=== PATIENT | male | born 1960 | race Caucasian/White ===

== ENCOUNTER 2016-10-07 13:27 | Inpatient (IN) | payer OTHER ==
[2016-10-07] MEDS ORDERED: ACETAMINOPHEN TAB 325 MG TAB PO STA (14:07)
[2016-10-07 14:28] LABS: Basophils # (A) 0.1 k/uL (0-0.2); Basophils % (A) 1 %; CHCM 33.4; Eosinophils % (A) 0 %; HCT 40.3 % (39.0-53.0); HGB 13.1 gm/dL (13.0-17.5); Luc # (Auto) 0.11; Luc % (Auto) 1; Lymphocytes # (A) 0.5 k/uL (1.0-4.8); Lymphocytes % (A) 6 %; MCH 29.4 pg (25.0-35.0); MCHC 32.6 g/dL (31.0-37.0); MCV 90.3 fL (80.0-100.0); Monocytes # (A) 0.4 k/uL (0-1.0); Monocytes % (A) 6 %; Neutrophils # (A) 6.4 k/uL (1.3-7.7); Neutrophils % (A) 86 %; RBC 4.47 m/uL (4.30-5.90); RDW 14.5 % (11.5-15.5); WBC 7.5 k/uL (3.8-10.6); WBC (Perox) 7.34
[2016-10-07] MEDS: SODIUM CHLORIDE 0.9% 500 ML IV SCH ×2 (14:39→15:08)
[2016-10-07 14:41] LABS: INR 0.9 (<1.1); Partial Thromboplastin Time 25.5 sec (22.0-30.0); Prothrombin Time 9.7 sec (9.0-12.0)
[2016-10-07 14:46] LABS: ALT 137 U/L (21-72); AST 325 U/L (17-59); Alkaline Phosphatase 201 U/L (38-126); Anion Gap 15 mmol/L; Blood Urea Nitrogen 12 mg/dL (9-20); Calcium 8.2 mg/dL (8.4-10.2); Carbon Dioxide 21 mmol/L (22-30); Chloride 101 mmol/L (98-107); Glucose 82 mg/dL (74-99); Non-African American GFR(MDRD) >60 (>60 ml/min/1.73 sqM); Potassium 4.5 mmol/L (3.5-5.1); Sodium 137 mmol/L (137-145); Total Bilirubin 0.7 mg/dL (0.2-1.3)
[2016-10-07 15:04] LABS: Creatine Kinase 221 U/L (55-170)
[2016-10-07] MEDS ORDERED: SODIUM CHLORIDE 0.9% 1,000 ML IV ONE ×3 (15:04→17:24)
[2016-10-07 15:16] LABS: Creatine Kinase MB 0.7 ng/mL (0.0-2.4); Manual Review Performed; Troponin I <0.012 ng/mL (0.000-0.034)
[2016-10-07 15:18] LABS: Appearance,Urine Clear (Clear); Bilirubin,Urine Negative (Negative); Glucose,Urine (UA) Negative (Negative); Ketones,Urine 2+ (Negative); Leukocyte Esterase,Urine Negative (Negative); Mucus,Urine Occasional /hpf; Nitrite,Urine Negative (Negative); PH, Urine 5.5 (5.0-8.0); Particle Count 4122; Protein,Urine Trace (Negative); RBC,Urine 1 /hpf (0-5); Specific Gravity,Urine 1.016 (1.001-1.035); UA Billing (MACRO vs. MICRO) MICRO; WBC,Urine 1 /hpf (0-5)
--- NOTE | 2016-10-07 15:33 | XR ---
EXAMINATION TYPE: XR chest 2V DATE OF EXAM: 10/07/2016 3:20 PM COMPARISON: 06/27/2015 HISTORY: Fever TECHNIQUE: Frontal and lateral views of the chest are obtained. FINDINGS: There is a 5 cm patch of infiltrate in the right midlung that is probably in the right mid dle lobe. The other lung cox are clear. Heart size is normal. There is no heart failure. Costophre jos angles are clear. There are chest leads. IMPRESSION: There is evidence of right middle lobe pneumonia that is new compared to old exam.
[2016-10-07] MEDS ORDERED: AZITHROMYCIN 500 MG TAB PO STA (15:59)
[2016-10-07] MEDS ORDERED: RX INFO: IV CONTRAST WAS GIVEN 1 EACH MISC MISCELLANE PRN (15:59)
--- NOTE | 2016-10-07 16:47 | CT ---
EXAMINATION TYPE: CT chest angio for PE DATE OF EXAM: 10/07/2016 4:35 PM COMPARISON: NONE HISTORY: Patient complains of pneumonia diagnosis and right side chest pain. CT DLP: 147.8 mGycm Automated exposure control for dose reduction was used. CONTRAST: CT Chest for pulmonary embolism performed with with IV Contrast, patient injected with 100 mL of Omni paque 350. FINDINGS: There is mild pleural thickening at the lung apices. There is a low-density 1 cm nodule at the right lung apex. There is some patchy consolidation in the lateral segment of the right middle lobe. There is no evidence of a pulmonary mass. There is no mediastinal adenopathy. There are no hilar masses. There is normal contrast opacification of the pulmonary arteries. There is no pericardial effusion. There is no sign of aortic aneurysm or dissection. There is some patchy infiltrate at the right posterior lung base. There is fatty infiltra tion of the liver. IMPRESSION: No evidence of pulmonary embolism. Right middle lobe and right lower lobe pneumonia. Pulmonary scarri ng noted at the lung apices.
[2016-10-07] MEDS ORDERED: PNEUMONIA PROTOCOL UTILIZED 1 EACH MISC PO PRN (16:50)
[2016-10-07] MEDS ORDERED: HYDROcodone/APAP 5-325MG 1 EACH TAB PO PRN (16:52)
[2016-10-07] MEDS ORDERED: THIAMINE 100 MG/ML 2 ML VIAL IM STA (16:52)
[2016-10-07] MEDS ORDERED: LORazepam 2 MG/ML SYRINGE IV PRN ×2 (16:52)
--- NOTE | 2016-10-07 16:54 | ED ---
Chest Pain HPI - General Chief Complaint: Chest Pain Stated Complaint: chest pain Time Seen by Provider: 10/07/16 13:31 Source: patient, RN notes reviewed Mode of arrival: EMS Limitations: no limitations - History of Present Illness Initial Comments: This patient is a 56-year-old man, currently homeless, who presents with onset of right-sided, pleuritic pain this morning. Patient states she had been in his usual state last night. Today probably around 9 he noticed a bit of a cough and right-sided anterior chest pain that he is describing as moderate to severe, sharp ache, worse if he takes a deep breath. He states that he may also had a bit of a fever. MD Complaint: chest pain -: hour(s) Onset: during rest Pain Location: right chest Severity: severe Quality: aching Consistency: constant Improves With: nothing Worsens With: inspiration Other Symptoms: cough, fever - Related Data Home Medications Medication Instructions Recorded Confirmed No Known Home Medications [No 10/07/16 10/07/16 Known Home Medications] Allergies Allergy/AdvReac Type Severity Reaction Status Date / Time No Known Allergies Allergy Verified 10/07/16 13:54 Review of Systems ROS Statement: Those systems with pertinent positive or pertinent negative responses have been documented in the HPI. ROS Other: All systems not noted in ROS Statement are negative. Constitutional: Reports: fever, chills Respiratory: Reports: cough. Denies: dyspnea, wheezes, hemoptysis Cardiovascular: Reports: chest pain. Denies: palpitations, orthopnea, edema, syncope Gastrointestinal: Denies: abdominal pain, nausea, vomiting Genitourinary: Denies: dysuria, hematuria Musculoskeletal: Denies: back pain Skin: Denies: rash Neurological: Denies: headache, weakness, numbness EKG Findings - EKG Results: EKG: interpreted by ERMD, sinus rhythm, normal axis, normal QRS, normal ST/T, no acute changes EKG shows: tachycardia (Rate approximately 106 bpm) Past Medical History Past Medical History: No Reported History Additional Past Medical History / Comment(s): arthritis, chronic back pain, right ankle fracture, right fibula fracture History of Any Multi-Drug Resistant Organisms: None Reported Past Surgical History: No Surgical Hx Reported Additional Past Surgical History / Comment(s): ABD SURGERY FOR ULCER Past Anesthesia/Blood Transfusion Reactions: Unable to Obtain Past Psychological History: No Psychological Hx Reported Smoking Status: Current every day smoker Past Alcohol Use History: Abuse, Daily, Heavy Past Drug Use History: None Reported - Past Family History Father Family Medical History: COPD Additional Family Medical History / Comment(s): alcoholism Mother Family Medical History: Cancer General Exam Limitations: no limitations General appearance: alert, in no apparent distress Head exam: Present: atraumatic, normocephalic Eye exam: Present: normal appearance. Absent: scleral icterus, conjunctival injection Neck exam: Present: normal inspection Respiratory exam: Present: rales (Right middle lung), chest wall tenderness. Absent: respiratory distress, wheezes, rhonchi, stridor, accessory muscle use, decreased breath sounds, prolonged expiratory Cardiovascular Exam: Present: normal rhythm, tachycardia, normal heart sounds GI/Abdominal exam: Present: soft. Absent: distended, tenderness, guarding, rebound Extremities exam: Present: normal inspection, normal capillary refill. Absent: pedal edema, calf tenderness Back exam: Present: normal inspection. Absent: CVA tenderness (R), CVA tenderness (L) Neurological exam: Present: alert Skin exam: Present: warm, dry, intact, normal color. Absent: rash Course Vital Signs 10/07/16 10/07/16 10/07/16 13:35 15:11 17:01 Temperature 100.6 F H 100.3 F H Pulse Rate 105 H 97 96 Respiratory 20 19 18 Rate Blood Pressure 128/55 142/78 135/78 O2 Sat by Pulse 94 L 96 97 Oximetry 10/07/16 17:35 Temperature 99.9 F H Pulse Rate 97 Respiratory 18 Rate Blood Pressure 131/78 O2 Sat by Pulse 97 Oximetry Disposition Clinical Impression: Chest pain, Pneumonia Disposition: ADMITTED IP TO THIS HOSP Condition: Fair
[2016-10-07] MEDS ORDERED: NICOTINE 21MG/24HR PATCH TRANSDERM STA (17:00)
[2016-10-07] MEDS: SODIUM CHLORIDE 0.9% 1,000 ML IV SCH (17:09)
[2016-10-07] MEDS: LORazepam 2 MG/ML SYRINGE IV PRN ×2 (17:10→21:18)
[2016-10-07 18:23] LABS: Creatine Kinase 191 U/L (55-170)
[2016-10-07 18:36] LABS: Creatine Kinase MB 0.6 ng/mL (0.0-2.4); Troponin I <0.012 ng/mL (0.000-0.034)
[2016-10-07] MEDS ORDERED: IPRATROPIUM-ALBUTEROL 3 ML NEB INHALATION PRN ×2 (19:30)
[2016-10-07] MEDS: SYMBICORT 160-4.5 MCG INHALER INHALATION SCH (19:38)
[2016-10-07] MEDS: IPRATROPIUM-ALBUTEROL 3 ML NEB INHALATION SCH (19:38)
[2016-10-07] MEDS ORDERED: ALBUTEROL NEBULIZED 2.5 MG/3 ML INHALATION SCH (20:00)
[2016-10-07] MEDS: HEPARIN SODIUM,PORCINE 5,000 UNIT/ML 1 ML VIAL SQ SCH (20:02)
[2016-10-07 20:10] VITALS: BMI 20.5
[2016-10-07] MEDS: HYDROmorphone 1 MG/ML 1 ML SYRINGE IVP PRN (20:15)
[2016-10-07] MEDS: PIPERACILLIN-TAZOBACTAM 3.375 GM in DEXTROSE/WATER 1 50ML.BAG IVPB SCH (23:16)
[2016-10-08] MEDS: HYDROmorphone 1 MG/ML 1 ML SYRINGE IVP PRN ×3 (00:13→09:12)
[2016-10-08] MEDS: LORazepam 2 MG/ML SYRINGE IV PRN ×3 (03:11→21:20)
[2016-10-08] MEDS: SODIUM CHLORIDE 0.9% 1,000 ML IV SCH ×3 (03:15→23:00)
[2016-10-08 03:39] LABS: Creatine Kinase 183 U/L (55-170)
[2016-10-08 03:52] LABS: Creatine Kinase MB 1.1 ng/mL (0.0-2.4); Troponin I <0.012 ng/mL (0.000-0.034)
[2016-10-08] MEDS: IPRATROPIUM-ALBUTEROL 3 ML NEB INHALATION SCH ×4 (08:45→20:42)
[2016-10-08] MEDS: SYMBICORT 160-4.5 MCG INHALER INHALATION SCH ×2 (08:46→20:40)
[2016-10-08] MEDS ORDERED: LEVOFLOXACIN 750MG-D5W PMX 750 MG in DEXTROSE/WATER 1 150ML.BAG IVPB SCH (09:00)
[2016-10-08 09:06] LABS: Basophils % (A) 0 %; CH 29.9; CHCM 32.7; Eosinophils % (A) 0 %; HCT 39.8 % (39.0-53.0); HDW 1.88; HGB 12.7 gm/dL (13.0-17.5); Luc # (Auto) 0.27; Luc % (Auto) 3; Lymphocytes # (A) 0.7 k/uL (1.0-4.8); Lymphocytes % (A) 7 %; MCH 29.4 pg (25.0-35.0); MCV 91.9 fL (80.0-100.0); Mean Platelet Volume 7.7; Monocytes # (A) 0.5 k/uL (0-1.0); Monocytes % (A) 5 %; Neutrophils # (A) 8.4 k/uL (1.3-7.7); Neutrophils % (A) 85 %; RBC 4.34 m/uL (4.30-5.90); RDW 14.5 % (11.5-15.5); WBC (Perox) 10.71
[2016-10-08] MEDS: NICOTINE 21MG/24HR PATCH TRANSDERM SCH (09:08)
[2016-10-08] MEDS: HEPARIN SODIUM,PORCINE 5,000 UNIT/ML 1 ML VIAL SQ SCH ×2 (09:08→20:55)
[2016-10-08 09:16] LABS: ALT 87 U/L (21-72); AST 131 U/L (17-59); Alkaline Phosphatase 137 U/L (38-126); Anion Gap 11 mmol/L; Blood Urea Nitrogen 11 mg/dL (9-20); Calcium 7.9 mg/dL (8.4-10.2); Carbon Dioxide 24 mmol/L (22-30); Chloride 97 mmol/L (98-107); Glucose 129 mg/dL (74-99); Non-African American GFR(MDRD) >60 (>60 ml/min/1.73 sqM); Potassium 4.1 mmol/L (3.5-5.1); Sodium 132 mmol/L (137-145); Total Bilirubin 0.8 mg/dL (0.2-1.3); Total Protein 5.8 g/dL (6.3-8.2)
--- NOTE | 2016-10-08 10:09 | HP ---
DATE OF ADMISSION: CHIEF COMPLAINT: Chest pain, shortness of breath and cough. HISTORY OF PRESENT ILLNESS: This 56-year-old gentleman with past medical history of multiple medical problems, including history of DJD, history of chronic back pain, right fracture, history of nicotine dependence, history of heavy EtOH abuse being followed by Dr. Chavez in the outpatient setting was complaining of right-sided lung pain. The patient also had shortness of breath, patient admitted for right middle lobe pneumonia was admitted for evaluation and possible sepsis also considered. There is no history of fever, rigors. No history of headache, loss of consciousness, seizures. PAST MEDICAL HISTORY: History of nicotine dependence, history of degenerative joint disease, chronic back, right ankle fracture. Medications prior to admission include the home medications include: None. ALLERGIES: None. FAMILY HISTORY: History of COPD, alcoholism in the family. SOCIAL HISTORY: History of EtOH, history of smoking. REVIEW OF SYSTEMS: ENT: No diminished hearing. No diminished vision. CARDIOVASCULAR: No angina. RESPIRATORY: As mentioned earlier. GI: No nausea. : No dysuria. NERVOUS SYSTEM: No numbness or weakness. ALLERGY/IMMUNOLOGY: No asthma or hayfever. MUSCULOSKELETAL: As mentioned earlier. HEMATOLOGY: No history of anemia. ENDOCRINE: No history of diabetes or hypothyroidism. CONSTITUTIONAL: As mentioned earlier. DERMATOLOGY: Negative. RHEUMATOLOGY: Negative. PSYCHIATRY: As mentioned earlier. PHYSICAL EXAMINATION: Alert and oriented x3. Pulse is 104, blood pressure 136/69, respirations 22, temperature 98.2, pulse ox 94% on 2 liters. T-max is 100.6. HEENT: Conjunctivae normal. NECK: No jugular venous distention. CARDIOVASCULAR: S1 and S2, muffled. RESPIRATORY: Breath sounds diminished at the bases. Marked on the right side because of pleurisy. A few scattered rhonchi and crackles bilaterally, right more than left. ABDOMEN: Soft, nontender, no mass palpable. No hepatosplenomegaly. LEGS: No edema, no swelling. NERVOUS SYSTEM: Higher function as mentioned. Moves all four limbs. No focal motor deficits. LYMPHATIC: No lymphadenopathy in the neck, axillae or groin. SKIN: No ulcer, rash or bleeding. LABS: WBC 7.5, platelets 75 and the d-dimer is 1.78. No evidence of pulmonary embolism. 2.7. LFTs elevated. ASSESSMENT: 1. Chronic obstructive pulmonary disease acute exacerbation with right middle lobe pneumonia, possibly gram-negative with possible sepsis. 2. Increased AST, ALT, acute hepatitis possibly a combination of alcoholic hepatitis and sepsis. 3. History of EtOH. 4. History of nicotine dependence. 5. Thrombocytopenia. 6. Increased d-dimer without evidence of pulmonary embolism. 7. Increased plasma lactic acid possibly secondary to sepsis, improving. 8. History of degenerative joint disease and back pain. 9. History of fracture. 10. Chronic obstructive pulmonary disease. 11. History of nicotine dependence. 12. History of EtOH. RECOMMENDATIONS AND DISCUSSION: In this 56-year-old gentleman who presented with multiple complex medical issues, we will monitor the patient closely. Continue the current medications. Continue symptomatic treatment. Otherwise at this time, I will continue the bronchodilators and empiric antibiotics, DVT prophylaxis. See orders for further details. Consult Dr. Treadwell. Further recommendations to follow. Copy of is being forwarded to Dr. Chavez, the primary physician. [facility]
[2016-10-08] MEDS: PIPERACILLIN-TAZOBACTAM 3.375 GM in DEXTROSE/WATER 1 50ML.BAG IVPB SCH ×3 (10:26→23:21)
--- NOTE | 2016-10-08 11:20 | P.CNPUL ---
History of Present Illness Consult date: 10/08/16 Reason for consult: chest pain, pneumonia, abnormal CXR/CT Chief complaint: Chest and abdominal pain History of present illness: This is a 56-year-old homeless man who presents with pain in the right chest area right abdominal area. Apparently was just starting a day or so prior to admission. The pain was sharp in nature. Worse with deep breathing removed around. He'll bit of a cough. A bit of phlegm production. Not coughing up any blood. The phlegm is mostly white. No fever no chills. No nausea vomiting or diarrhea. The patient does not have a physician other than occasionally seeing Dr. Chavez. The patient has no major medical problems. Did have a fractured ankle in the past a bit of arthritis and some chronic back pain. He also spent some time in care home he tells me. Review of Systems Review of system is positive for pain in the right chest area and right upper abdominal area. A bit of shortness of breath. The pain pain is clearly pleuritic in nature very sharp. Worse with deep breathing coughing etc. No other complaints noted. No phlegm production except for some minimal white phlegm production. No fever no chills no nausea vomiting or diarrhea. The rest of the 12 point review of system is unremarkable. Past Medical History Past Medical History: No Reported History Additional Past Medical History / Comment(s): arthritis, chronic back pain, right ankle fracture, right fibula fracture History of Any Multi-Drug Resistant Organisms: None Reported Past Surgical History: No Surgical Hx Reported Additional Past Surgical History / Comment(s): ABD SURGERY FOR ULCER Past Anesthesia/Blood Transfusion Reactions: Unable to Obtain Past Psychological History: No Psychological Hx Reported Smoking Status: Current every day smoker Past Alcohol Use History: Abuse, Daily, Heavy Past Drug Use History: None Reported - Past Family History Father Family Medical History: COPD Additional Family Medical History / Comment(s): alcoholism Mother Family Medical History: Cancer Medications and Allergies Home Medications Medication Instructions Recorded Confirmed Type No Known Home Medications [No 10/07/16 10/07/16 History Known Home Medications] Allergies Allergy/AdvReac Type Severity Reaction Status Date / Time No Known Allergies Allergy Verified 10/07/16 20:12 Physical Exam Osteopathic Statement: *. No significant issues noted on an osteopathic structural exam other than those noted in the History and Physical/Consult. Vitals: Vital Signs Temp Pulse Pulse Pulse Resp BP BP 10/08/16 08:57 108 H 10/08/16 08:46 108 H 10/08/16 07:00 98.2 F 101 H 19 137/79 10/07/16 23:00 99.1 F 108 H 20 146/75 10/07/16 19:46 108 H 10/07/16 19:33 105 H 10/07/16 18:05 98.2 F 104 H 22 10/07/16 17:35 99.9 F H 97 18 131/78 10/07/16 17:01 100.3 F H 96 18 135/78 BP Pulse Ox 10/08/16 08:57 10/08/16 08:46 10/08/16 07:00 96 10/07/16 23:00 95 10/07/16 19:46 10/07/16 19:33 10/07/16 18:05 133/69 95 10/07/16 17:35 97 10/07/16 17:01 97 Intake and Output 10/07/16 10/08/16 10/08/16 22:59 06:59 14:59 Intake Total 200 100 Balance 200 100 Intake: Amount of Fluid Infused ( 100 ml) Oral 100 100 Other: Voiding Method Toilet # Voids 1 1 1 Weight 54.4 kg No acute distress, oriented 3. No respiratory distress. HEENT examination is grossly unremarkable. Mucous membranes are moist. There are no oral lesions. Supple. Full range of motion. No adenopathy. Cardiovascular examination reveals regular rhythm rate. S1-S2 normal. No S3- S4 or murmur. Lungs reveal a few scattered rhonchi. No wheezes or crackles. All all lung sounds are quite good. Abdomen soft bowel sounds are heard. Extremities are intact. Results - Laboratory Findings CBC and BMP: 10/08/16 08:37 10/08/16 08:37 PT/INR, D-dimer PT 9.7 sec (9.0-12.0) 10/07/16 13:45 INR 0.9 (<1.1) 10/07/16 13:45 D-Dimer 1.78 mg/L FEU (<0.60) H 10/07/16 13:45 Abnormal lab findings: Abnormal Labs 10/07/16 10/08/16 10/08/16 18:02 02:35 08:37 Hgb 12.7 L Plt Count 60 L Neutrophils # 8.4 H Lymphocytes # 0.7 L Sodium Chloride Creatinine Glucose Calcium AST ALT Alkaline Phosphatase Total Creatine Kinase 191 H 183 H Total Protein Albumin 10/08/16 08:37 Hgb Plt Count Neutrophils # Lymphocytes # Sodium 132 L Chloride 97 L Creatinine 0.60 L Glucose 129 H Calcium 7.9 L AST 131 H ALT 87 H Alkaline Phosphatase 137 H Total Creatine Kinase Total Protein 5.8 L Albumin 3.1 L - Diagnostic Findings Chest x-ray: image reviewed CT scan - chest: image reviewed Assessment and Plan (1) Chest pain Status: Acute (2) Pneumonia Status: Acute Plan: Plan The patient's medications x-rays and labs will be reviewed. The patient looks pretty stable. If his numbers don't look bad, he could be discharged home on oral antibiotics. Not quite sure why he was actually admitted. He is otherwise healthy. Not having any distress at this time. Time with Patient: Greater than 30
[2016-10-08] MEDS: THIAMINE 100 MG TAB PO SCH ×2 (11:55→17:46)
[2016-10-08] MEDS: cloNIDine HCL 0.1 MG TAB PO SCH ×2 (17:46→21:20)
--- NOTE | 2016-10-08 23:23 | PN ---
DATE OF SERVICE: 10/08/2016 This 56-year-old gentleman who was admitted with COPD acute exacerbation also has right middle lobe pneumonia and also features of sepsis. The patient is on broad spectrum IV antibiotics. Pulmonary is following the patient closely. No fever, no cough. On exam, alert and oriented x3. Pulse 170, blood pressure is 140/90, respirations 19, pulse ox 90% on 2 liters. REVIEW OF SYSTEMS: CARDIOVASCULAR: No angina or palpitations. GI: As mentioned. : As mentioned. MUSCULOSKELETAL: As mentioned. Current medications are reviewed and include: 1. DuoNeb q.i.d. and p.r.n. 2. Symbicort. 3. Heparin. 4. Levaquin. 5. Ativan. 6. CIWA protocol. 7. Habitrol. 8. Zosyn. 9. Iron sulfate. PHYSICAL EXAMINATION: HEENT: Conjunctivae normal. NECK: Supple. No JVD. CARDIOVASCULAR: S1 and S2 muffled. LUNGS: Breath sounds are diminished in the bases. Bilateral scattered rhonchi and crackles. Inspiratory wheezing also present. ABDOMEN: Soft, nontender. EXTREMITIES: Legs no edema. DATA COMMUNICATIONS TECHNICIAN: Moves all limbs equally. LYMPHATICS: No lymph nodes palpable in the neck or axillae. LABS: WBC 10, hemoglobin is 12.7, sodium 132. Glucose 129. 1.9. ASSESSMENT: 1. Chronic obstructive pulmonary disease, acute exacerbation, with right middle lobe pneumonia with possibly gram-negative with possible sepsis, present on admission. 2. Change in mental status, metabolic encephalopathy. 3. Possible ETOH withdrawal and delirium tremens, early. 4. Increased AST. 5. Hypertension. 6. Delirium tremens, early. 7. Increased AST, ALT, possibly acute hepatitis, possibly combination of alcoholic hepatitis and sepsis. 8. History of nicotine dependence. 9. Thrombocytopenia. 10. Increased D-dimer without any evidence of pulmonary embolism. 11. Increased plasma lactic acid, possibly secondary to sepsis. 12. History of degenerative joint disease and back pain. 13. History of fracture. 14. History of chronic obstructive pulmonary disease. 15. History of nicotine dependence. 16. History of EtOH. 17. FULL CODE. RECOMMENDATIONS AND DISCUSSION: In this 56-year-old gentleman who presented with multiple complex issues, we will monitor the patient closely, continue the current medications and symptomatic treatment. Continue with Ativan protocol and CIWA protocol, continue broad spectrum IV antibiotics. Guarded prognosis because of multiple complex medical issues. Further recommendations to follow. The patient is on IV Zosyn at this time. Supplement vitamins. See orders for further details. Further recommendations to follow. MTDD
[2016-10-09] MEDS: SYMBICORT 160-4.5 MCG INHALER INHALATION SCH ×2 (07:38→20:12)
[2016-10-09] MEDS: IPRATROPIUM-ALBUTEROL 3 ML NEB INHALATION SCH ×4 (07:38→20:12)
[2016-10-09] MEDS: PIPERACILLIN-TAZOBACTAM 3.375 GM in DEXTROSE/WATER 1 50ML.BAG IVPB SCH ×3 (08:38→23:53)
[2016-10-09] MEDS: SODIUM CHLORIDE 0.9% 1,000 ML IV SCH ×2 (08:39→20:27)
[2016-10-09] MEDS: LEVOFLOXACIN 750 MG TAB PO SCH (08:39)
[2016-10-09] MEDS: cloNIDine HCL 0.1 MG TAB PO SCH ×3 (08:39→20:30)
[2016-10-09] MEDS: NICOTINE 21MG/24HR PATCH TRANSDERM SCH (08:39)
[2016-10-09] MEDS: HEPARIN SODIUM,PORCINE 5,000 UNIT/ML 1 ML VIAL SQ SCH ×2 (08:39→20:30)
[2016-10-09 09:46] LABS: Basophils % (A) 0 %; CH 29.9; CHCM 32.6; Eosinophils # (A) 0.1 k/uL (0-0.7); Eosinophils % (A) 1 %; HDW 2.03; HGB 12.7 gm/dL (13.0-17.5); Luc # (Auto) 0.19; Luc % (Auto) 2; Lymphocytes # (A) 0.9 k/uL (1.0-4.8); Lymphocytes % (A) 10 %; MCH 29.3 pg (25.0-35.0); MCHC 31.8 g/dL (31.0-37.0); Monocytes # (A) 0.4 k/uL (0-1.0); Monocytes % (A) 5 %; Neutrophils # (A) 6.9 k/uL (1.3-7.7); Neutrophils % (A) 81 %; RBC 4.34 m/uL (4.30-5.90); RDW 14.4 % (11.5-15.5); WBC 8.5 k/uL (3.8-10.6); WBC (Perox) 8.98
[2016-10-09 09:52] LABS: ALT 76 U/L (21-72); AST 98 U/L (17-59); Alkaline Phosphatase 131 U/L (38-126); Anion Gap 11 mmol/L; Blood Urea Nitrogen 11 mg/dL (9-20); Calcium 8.5 mg/dL (8.4-10.2); Carbon Dioxide 24 mmol/L (22-30); Chloride 100 mmol/L (98-107); Glucose 87 mg/dL (74-99); Non-African American GFR(MDRD) >60 (>60 ml/min/1.73 sqM); Potassium 3.8 mmol/L (3.5-5.1); Sodium 135 mmol/L (137-145); Total Bilirubin 0.8 mg/dL (0.2-1.3)
[2016-10-09] MEDS: THIAMINE 100 MG TAB PO SCH ×2 (11:41→16:29)
--- NOTE | 2016-10-09 14:54 | XR ---
EXAMINATION TYPE: XR chest 1V portable DATE OF EXAM: 10/09/2016 2:39 PM COMPARISON: 10/07/2016 HISTORY: Pneumonia TECHNIQUE: Single frontal view of the chest is obtained. FINDINGS: Right upper lobe infiltrate and perihilar infiltrate is stable. Left lung remains clear. N o pneumothorax. Biapical pleural thickening. Cardiac size is stable. Arthropathy of the shoulders. IMPRESSION: 1. Stable right upper lobe pneumonia.
--- NOTE | 2016-10-09 17:43 | P.PN ---
Subjective This is a 56-year-old homeless man who presents with pain in the right chest area right abdominal area. Apparently was just starting a day or so prior to admission. The pain was sharp in nature. Worse with deep breathing removed around. He'll bit of a cough. A bit of phlegm production. Not coughing up any blood. The phlegm is mostly white. No fever no chills. No nausea vomiting or diarrhea. The patient does not have a physician other than occasionally seeing Dr. Chavez. The patient has no major medical problems. Did have a fractured ankle in the past a bit of arthritis and some chronic back pain. The patient has a extensive right mid/right lower lobe pneumonia as evident on the CAT scan of the chest. Note that he underwent a CT angios the chest and the results were negative for pulmonary embolism and confirmed the presence of an extensive pneumonia. Based on this, the patient was started on a combination of Zosyn and Levaquin. On today's chest x-ray, there is a stable right lung infiltrate. The patient has no leukocytosis. The sputum culture is still pending. Blood culture been negative. The patient is considering to go home and this will obviously be again still my medical advice. His chest pain has subsided. No fever. No chills. He is still short of breath with limited amount of activity. Objective - Vital Signs Vital signs: Vital Signs Temp 97.1 F L 10/09/16 07:00 Pulse 92 10/09/16 15:36 Resp 16 10/09/16 07:00 BP 139/81 10/09/16 07:00 Pulse Ox 96 10/09/16 07:38 Intake & Output 10/08/16 10/09/16 10/09/16 18:59 06:59 18:59 Intake Total 1100 Balance 1100 Intake: Intake, IV Titration 1100 Amount Sodium Chloride 0.9% 1, 1100 000 ml @ 100 mls/hr IV . Q10H RACHEL Rx#:[id number] Other: Voiding Method Urinal Urinal # Voids 3 2 - Exam The patient appeared well nourished and normally developed. Vital signs as documented. Head exam is unremarkable. No scleral icterus or corneal arcus noted. Neck is without jugular venous distension, thyromegaly, or carotid bruits. Carotid upstrokes are brisk bilaterally. lung sounds are diminished bilaterally especially in the right midlung where there is also some crackles. Cardiac exam reveals the PMI to be normally sized and situated. Rhythm is regular. First and second heart sounds normal. No murmurs, rubs or gallops. Abdominal exam reveals normal bowel sounds, no masses, no organomegaly and no aortic enlargement. Extremities are nonedematous and both femoral and pedal pulses are normal. - Labs CBC & Chem 7: 10/09/16 08:44 10/09/16 08:44 Labs: Abnormal Lab Results - Last 24 Hours (Table) 10/09/16 10/09/16 Range/Units 08:44 08:44 Hgb 12.7 L (13.0-17.5) gm/dL Plt Count 65 L (150-450) k/uL Lymphocytes # 0.9 L (1.0-4.8) k/uL Sodium 135 L (137-145) mmol/L Creatinine 0.60 L (0.66-1.25) mg/dL AST 98 H (17-59) U/L ALT 76 H (21-72) U/L Alkaline Phosphatase 131 H (38-126) U/L Total Protein 6.0 L (6.3-8.2) g/dL Albumin 3.1 L (3.5-5.0) g/dL Microbiology - Last 24 Hours (Table) 10/07/16 20:20 Gram Stain - Preliminary Sputum Sputum Culture - Preliminary Assessment and Plan Plan: Impression 1 extensive right lung pneumonia involving the right middle/right lower lobe and the patient is currently on a combination of Zosyn and Levaquin. Rule out aspiration pneumonia 2 chest pain secondary to above 3 alcoholism 4 homeless social status Plan Continue the current antibiotic coverage which includes a combination of Zosyn and Levaquin. Any Discharge home should be against my medical advice specially the patient has extensive right lung pneumonia and will benefit from IV antibiotics. Meanwhile the patient will be washed for daily and tremens. He is on thiamine. He is on folate. He is on DVT prophylaxis.
[2016-10-09] MEDS: LORazepam 2 MG/ML SYRINGE IV PRN ×2 (17:48→20:39)
--- NOTE | 2016-10-09 20:58 | P.PN ---
Subjective Date of service 10/09/2016 Personal being dictated for Dr. Wyman. Interval history: This a 56-year-old gentleman admitted with extensive right middle lobe pneumonia, sepsis, alcohol abuse and multiple other medical issues. Maintained on Levaquin and Zosyn with respiratory status improving. Positive exertional shortness of breath. Chest x-ray reporting stable right lung infiltrate. Afebrile. Sputum culture pending. Oxygen recently weaned off , Maintaining O2 sats of 95% on room air. Continues on CIWA protocol, no DTs reported .Denies chest pain, or palpitations. Objective - Vital Signs Vital signs: Vital Signs Temp 97 F L 10/09/16 15:00 Pulse 100 10/09/16 20:29 Resp 16 10/09/16 15:00 BP 143/74 10/09/16 20:29 Pulse Ox 95 10/09/16 20:29 Intake & Output 10/09/16 10/09/16 10/10/16 06:59 18:59 06:59 Intake Total 1100 Balance 1100 Intake: Intake, IV Titration 1100 Amount Sodium Chloride 0.9% 1, 1100 000 ml @ 100 mls/hr IV . Q10H [facility] Rx#:[id number] Other: Voiding Method Urinal Urinal # Voids 2 4 - Exam PHYSICAL EXAM: VITAL SIGNS: As above GENERAL: [Sitting up at side of bed, no acute distress] HEENT: [Pupils equal conjunctiva normal.] NECK: [Supple, no JVD] RESPIRATORY EFFORT:[] Mildly LUNGS: [Diminished with right middle lobe crackles] CARDIOVASCULAR[regular S1 and S2, no edema] GI: [Abdomen soft, nontender, positive bowel sounds.] PSYCH: [Alert and oriented -3, mood and affect anxious.] NEURO: No focal deficits - Labs CBC & Chem 7: 10/09/16 08:44 10/09/16 08:44 Labs: Abnormal Lab Results - Last 24 Hours (Table) 10/09/16 10/09/16 Range/Units 08:44 08:44 Hgb 12.7 L (13.0-17.5) gm/dL Plt Count 65 L (150-450) k/uL Lymphocytes # 0.9 L (1.0-4.8) k/uL Sodium 135 L (137-145) mmol/L Creatinine 0.60 L (0.66-1.25) mg/dL AST 98 H (17-59) U/L ALT 76 H (21-72) U/L Alkaline Phosphatase 131 H (38-126) U/L Total Protein 6.0 L (6.3-8.2) g/dL Albumin 3.1 L (3.5-5.0) g/dL Assessment and Plan Plan: 1. Acute hypoxic respiratory failure secondary to Acute exacerbation of COPD with extensive right middle lobe pneumonia, possible gram-negative, increased lactic acid possible related to sepsis, present on admission. 2. [Change in mental status, acute metabolic encephalopathy secondary to EtOH abuse, infection]. 3. [Possible EtOH withdrawal and DTs, early]. 4. [Elevated LFTs, possible acute hepatitis, possible combination of alcoholic hepatitis and sepsis]. 5. [Hypertension]. 6. Ongoing nicotine abuse]. 7. [Elevated d-dimer, pulmonary embolism ruled out]. 8. Degenerative joint disease with chronic back pain 9. COPD 10. Ongoing Alcohol abuse 11. Thrombocytopenia secondary to alcohol abuse Plan: Tinea on current medication regime ,monitoring and symptomatic treatment. Continue on IV antibiotics, nebulized bronchodilators,CIWA protocol. Increase ambulation as tolerated. Smoking and alcohol cessation readdressed.Discharge planning in progress for tomorrow pending pulmonary clearance. Plan of care discussed with patient at bedside who verbalizes understanding of and agreement with. The impression and plan of care has been dictated as directed. : I performed a H&P examination of this patient and discussed the same with the dictator. I agree with the dictator's note. Any additional findings/opinions/ etc. will be noted.
[2016-10-10] MEDS: SODIUM CHLORIDE 0.9% 1,000 ML IV SCH (05:00)
[2016-10-10] MEDS: SYMBICORT 160-4.5 MCG INHALER INHALATION SCH (07:12)
[2016-10-10] MEDS: IPRATROPIUM-ALBUTEROL 3 ML NEB INHALATION SCH ×2 (07:13→11:01)
[2016-10-10 07:33] VITALS: BP 148/96; RESP 22; TEMP 96.7
[2016-10-10] MEDS: PIPERACILLIN-TAZOBACTAM 3.375 GM in DEXTROSE/WATER 1 50ML.BAG IVPB SCH (07:54)
[2016-10-10] MEDS: NICOTINE 21MG/24HR PATCH TRANSDERM SCH (07:54)
[2016-10-10] MEDS: HEPARIN SODIUM,PORCINE 5,000 UNIT/ML 1 ML VIAL SQ SCH (07:54)
[2016-10-10] MEDS: LEVOFLOXACIN 750 MG TAB PO SCH (07:54)
[2016-10-10] MEDS: cloNIDine HCL 0.1 MG TAB PO SCH (07:54)
--- NOTE | 2016-10-10 10:12 | DS ---
DATE OF ADMISSION: 10/07/2016 DATE OF DISCHARGE: DATE OF SERVICE: 10/09/2016 FINAL DIAGNOSES: 1. Chronic obstructive pulmonary disease acute exacerbation with right middle lobe pneumonia with possibly gram-negative with possible sepsis, present on admission. 2. Change in mental status, metabolic encephalopathy with possibly delirium tremens, early. 3. EtOH withdrawal. 4. Increased AST. 5. Hypertension. 6. Increased AST, ALT, possible acute hepatitis, possible combination of alcoholic hepatitis and sepsis. 7. History of nicotine dependence. 8. Thrombocytopenia. 9. Increased D-dimer without any evidence of pulmonary embolism. 10. Increased plasma lactic acid, possibly secondary to sepsis. 11. History of degenerative joint disease and back pain. 12. History of fracture. 13. History of chronic obstructive pulmonary disease. 14. History of nicotine dependence. 15. History of EtOH. 16. FULL CODE. DISCHARGE DISPOSITION: The patient will be discharged in a stable condition with a guarded prognosis. HISTORY OF PRESENT ILLNESS: This 56-year-old gentleman with a past medical history of multiple medical problems was admitted with COPD acute exacerbation as well as pneumonia and sepsis and multiple medical problems. The patient was treated symptomatically. Patient is extremely keen on going home. On exam, vitals are stable. CARDIOVASCULAR: S1 and S2 muffled. RESPIRATORY: Breath sounds diminished at the bases. A few rhonchi. ABDOMEN: Soft. NERVOUS SYSTEM; No focal deficits. The patient is looking much better clinically but; however, chest x-ray infiltrate persists and recommend the patient to continue the treatment, but the patient is in getting out of the hospital so the patient will be discharged in stable condition with guarded prognosis with the following advice: 1. Diet is cardiac. 2. Activity limited until followup. 3. Follow up with Dr. Chavez in 2 to 3 days. 4. Follow up with Dr. Pierre in one week. Medications are: 1. Symbicort 160/4.5 two puffs b.i.d. 2. Folic acid 1 mg daily. 3. Albuterol Atrovent q.i.d. and p.r.n. 4. Ativan 0.5 mg t.i.d. p.r.n. 5. Levaquin 750 p.o. daily for 5 days. 6. Multivitamin 1 p.o. daily. 7. Habitrol 21 daily. 8. Thiamine 100 mg daily. 9. Catapres 0.1 p.o. t.i.d. Once again, the patient will be discharged in stable condition with guarded prognosis. MTDD
[2016-10-10 10:23] LABS: ALT 70 U/L (21-72); AST 78 U/L (17-59); Alkaline Phosphatase 134 U/L (38-126); Anion Gap 11 mmol/L; Blood Urea Nitrogen 14 mg/dL (9-20); Carbon Dioxide 22 mmol/L (22-30); Chloride 102 mmol/L (98-107); Glucose 105 mg/dL (74-99); Non-African American GFR(MDRD) >60 (>60 ml/min/1.73 sqM); Potassium 3.8 mmol/L (3.5-5.1); Sodium 135 mmol/L (137-145); Total Bilirubin 0.9 mg/dL (0.2-1.3); Total Protein 6.3 g/dL (6.3-8.2)
[2016-10-10 10:45] LABS: Basophils % (A) 0 %; CHCM 32.7; Eosinophils # (A) 0.1 k/uL (0-0.7); Eosinophils % (A) 3 %; HCT 38.6 % (39.0-53.0); HDW 2.04; HGB 12.5 gm/dL (13.0-17.5); Luc # (Auto) 0.18; Luc % (Auto) 4; Lymphocytes # (A) 0.6 k/uL (1.0-4.8); Lymphocytes % (A) 12 %; MCH 29.8 pg (25.0-35.0); MCHC 32.3 g/dL (31.0-37.0); MCV 92.1 fL (80.0-100.0); Mean Platelet Volume 9.3; Monocytes # (A) 0.5 k/uL (0-1.0); Monocytes % (A) 9 %; Neutrophils # (A) 3.6 k/uL (1.3-7.7); Neutrophils % (A) 72 %; RBC 4.19 m/uL (4.30-5.90); RDW 14.2 % (11.5-15.5); WBC (Perox) 5.08
--- NOTE | 2016-10-10 10:47 | XR ---
EXAMINATION TYPE: XR chest 2V DATE OF EXAM: 10/10/2016 10:11 AM COMPARISON: Prior chest x-ray 09 October 2016 HISTORY: Pneumonia, abnormal chest x-ray TECHNIQUE: Frontal and lateral views of the chest are obtained. FINDINGS: Abnormal airspace disease again noted in the right upper lobe, possibly right middle and l ower lobe show improved aeration. Biapical pleural thickening is present. No evident pneumothorax or pleural effusion. Cardiomediastinal silhouette, pulmonary vascularity and edenilson not significantly wiley ged. IMPRESSION: Some improvement in aeration is suspected.
[2016-10-10 11:14] VITALS: PULSE 96
[2016-10-10] MEDS: THIAMINE 100 MG TAB PO SCH (12:37)
[2016-10-10] MEDS ORDERED: INFLUENZA VACCINE (3YR+) 60 MCG/0.5 ML SYRINGE IM ONE (12:39)
[2016-10-10] MEDS ORDERED: PNEUMOCOCCAL VACC-PNEUMOVAX 23 25 MCG/0.5 ML VIAL IM ONE (12:39)
--- NOTE | 2016-10-10 15:52 | P.PN ---
Subjective This is a pleasant 56-year-old gentleman who presented here on 10/07/2016 with complaints of right abdominal and chest pain. He was found to have a extensive pneumonia. Pulmonary embolism was ruled out. He has been treated with antibiotics steroids and bronchodilators. He is seen again today in follow-up. His follow-up chest x-ray resolves near resolution of the pneumonia. He is anxious to go home. He denies any worsening shortness of breath, cough or congestion. He is maintaining good O2 saturations in the upper 90s on room air. He is afebrile. No leukocytosis. Objective - Vital Signs Vital signs: Vital Signs Temp 96.7 F L 10/10/16 07:00 Pulse 96 10/10/16 11:13 Resp 22 10/10/16 07:00 BP 148/96 10/10/16 07:00 Pulse Ox 96 10/10/16 07:13 Intake & Output 10/09/16 10/10/16 10/10/16 18:59 06:59 18:59 Intake Total 480 Output Total 600 Balance -600 480 Intake: Oral 480 Output: Urine 600 Other: Voiding Method Urinal # Voids 1 2 - Exam GENERAL EXAM: Alert, active, comfortable in no apparent distress. HEAD: Normocephalic. EYES: Normal reaction of pupils, equal size. NOSE: Clear with pink turbinates. THROAT: No erythema or exudates. NECK: No masses, no JVD. CHEST: No chest wall deformity. LUNGS: Equal air entry with no crackles, wheeze, rhonchi or dullness. CVS: S1 and S2 normal with no audible murmurs, regular rhythm. ABDOMEN: No hepatosplenomegaly, normal bowel sounds, no guarding or rigidity. SPINE: No scoliosis or deformity SKIN: No rashes CENTRAL NERVOUS SYSTEM: No focal deficits, tone is normal in all 4 extremities. - Labs CBC & Chem 7: 10/10/16 09:35 10/10/16 09:35 Labs: Abnormal Lab Results - Last 24 Hours (Table) 10/10/16 10/10/16 Range/Units 09:35 09:35 RBC 4.19 L (4.30-5.90) m/uL Hgb 12.5 L (13.0-17.5) gm/dL Hct 38.6 L (39.0-53.0) % Plt Count 105 L D (150-450) k/uL Lymphocytes # 0.6 L (1.0-4.8) k/uL Sodium 135 L (137-145) mmol/L Creatinine 0.60 L (0.66-1.25) mg/dL Glucose 105 H (74-99) mg/dL AST 78 H (17-59) U/L Alkaline Phosphatase 134 H (38-126) U/L Albumin 3.3 L (3.5-5.0) g/dL Microbiology - Last 24 Hours (Table) 10/07/16 20:20 Gram Stain - Preliminary Sputum Sputum Culture - Preliminary Streptococcus pneumoniae Assessment and Plan Plan: Impression: #1 Acute right lung pneumonia involving both the right middle lobe and right lower lobe. Treated with Zosyn and Levaquin. Today's x-ray reveals near complete resolution. #2 Chest pain secondary to above. #3 Alcoholism. #4 Homeless social status. Plan: The patient was seen and evaluated by Dr. Pierre. His chest x-ray was reviewed. The patient is cleared for discharge from the pulmonary standpoint. He is encouraged to follow-up in our office in 1-2 weeks' time. We will obtain a chest x-ray then. He is encouraged to call sooner with any recurrence of symptoms or other questions or concerns.
--- NOTE | 2016-10-11 08:04 | PN ---
DATE OF SERVICE: 10/09/2016 This is 56 -year-old gentleman with chronic obstructive pulmonary disease, pneumonia, being closely monitor. Seen and evaluated the patient along with nurse practitioner. Please refer to the nurse practitioner notes and impression documented as a scribe for further information. Prognosis guarded. Further recommendations to follow.
--- NOTE | 2016-10-11 11:08 | DS ---
DATE OF ADMISSION: 10/07/2016 DATE OF DISCHARGE: 10/10/2016 ADDENDUM: This 56-year-old gentleman with COPD acute exacerbation also has right middle lobe pneumonia is improving significantly. Seen and evaluated the patient today. The patient will be recommend close follow-up and avoid ETOH. On exam, vital signs stable. CARDIOVASCULAR: S1, S2 muffled. Respiratory: A few rhonchi. ABDOMEN: Soft. Central nervous system: No focal deficits. Please refer to previous dictation for further details and diagnoses as well as detailed medications. Follow up with Dr. Chavez and Dr. Pierre. Total time taken 35 minutes.
== END 2016-10-10 14:14 | disposition home or self-care (01) | DRG 871 ==
LOC: EC 13:27 → 4MS4W 16:54
PROVIDERS: ADMIT Hospitalist; ATTEND Hospitalist
PROC: HZ2ZZZZ Detoxification Services for Substance Abuse Treatment (ICD-10-PCS; principal; 2016-10-07)
PROC: 3E0234Z Introduction of Serum, Toxoid and Vaccine into Muscle, Percutaneous Approach (ICD-10-PCS; 2016-10-10)
PROC: 3E0234Z Introduction of Serum, Toxoid and Vaccine into Muscle, Percutaneous Approach (ICD-10-PCS; 2016-10-10)
DX: A41.9 Sepsis, unspecified organism (principal); G93.41 Metabolic encephalopathy; J15.6 Pneumonia due to other Gram-negative bacteria; D69.59 Other secondary thrombocytopenia; K70.10 Alcoholic hepatitis without ascites; F10.231 Alcohol dependence with withdrawal delirium; J44.0 Chronic obstructive pulmonary disease with (acute) lower respiratory infection; J44.1 Chronic obstructive pulmonary disease with (acute) exacerbation; M19.90 Unspecified osteoarthritis, unspecified site; I10 Essential (primary) hypertension; M54.9 Dorsalgia, unspecified; R00.0 Tachycardia, unspecified; F17.200 Nicotine dependence, unspecified, uncomplicated; G89.29 Other chronic pain; Z59.0 Homelessness; Z23 Encounter for immunization; Z87.81 Personal history of (healed) traumatic fracture; Z82.5 Family history of asthma and other chronic lower respiratory diseases; Z87.11 Personal history of peptic ulcer disease; Z71.6 Tobacco abuse counseling; Z71.41 Alcohol abuse counseling and surveillance of alcoholic; Z81.1 Family history of alcohol abuse and dependence; Z80.9 Family history of malignant neoplasm, unspecified
CPT/HCPCS: 36415; 71010; 71020; 71275; 80053; 81001; 82550; 82553; 83605; 84484; 85025; 85379; 85610; 85730; 87040; 87070; 87077; 87086; 87186; 87205; 87502; 90686; 90732; 93005; 94640; 94760; 96361; 96365; 99291

== ENCOUNTER 2017-03-31 19:23 | Emergency (ER) | payer OTHER ==
[2017-03-31 19:30] VITALS: BP 137/95; PULSE 94; RESP 18; TEMP 98.5
--- NOTE | 2017-03-31 19:42 | ED ---
General Adult HPI - General Chief complaint: Psychiatric Symptoms Stated complaint: ETOH Time Seen by Provider: 03/31/17 19:26 Source: police, EMS, RN notes reviewed Mode of arrival: EMS Limitations: no limitations - History of Present Illness Initial comments: 56-year-old male presents to the emergency department with a chief complaint of intoxication as well as fall. Patient states he fell today. He states that he tripped. He does not know if he hit his head or not but he is having some head pain. Patient states his right elbow also hurts. Patient states that he did drink today. Patient does admit to being alcoholic. Patient denies any leg pain at this time. Patient does also admit to some back pain. Patient states it is moderate it just hurts. Patient states that he drank quite a bit today. Patient denies any suicidal or homicidal thoughts to me. Patient is very talkative in the room. Patient states his pain is moderate. Patient denies any recent fever, chills, shortness of breath, chest pain, abdominal pain, nausea vomiting, numbness or tingling, dysuria or hematuria, constipation or diarrhea, headaches or visual changes, or any other current symptoms. - Related Data Home Medications Medication Instructions Recorded Confirmed Ipratropium/Albuterol Sulfate 1 puff INHALATION RT-QID 03/31/17 03/31/17 [Combivent Respimat Inhaler] Previous Rx's Medication Instructions Recorded Budesonide-Formot 160-4.5 Mcg 2 puff INHALATION RT-BID #1 puff 10/09/16 [Symbicort 160-4.5 Mcg Inhaler] Folic Acid 1 mg PO DAILY #30 tablet 10/09/16 LORazepam [Ativan] 0.5 mg PO TID PRN #20 tab 10/09/16 Multivitamins, Thera [Multivitamin 1 tab PO DAILY #30 tablet 10/09/16 (formulary)] Thiamine [Vitamin B-1] 100 mg PO DAILY #30 tab 10/09/16 cloNIDine HCL [Catapres] 0.1 mg PO TID #90 tab 10/09/16 Allergies Allergy/AdvReac Type Severity Reaction Status Date / Time No Known Allergies Allergy Verified 03/31/17 19:35 Review of Systems ROS Statement: Those systems with pertinent positive or pertinent negative responses have been documented in the HPI. ROS Other: All systems not noted in ROS Statement are negative. Past Medical History Past Medical History: No Reported History Additional Past Medical History / Comment(s): arthritis, chronic back pain, right ankle fracture, right fibula fracture History of Any Multi-Drug Resistant Organisms: None Reported Past Surgical History: No Surgical Hx Reported Additional Past Surgical History / Comment(s): ABD SURGERY FOR ULCER Past Anesthesia/Blood Transfusion Reactions: Unable to Obtain Past Psychological History: No Psychological Hx Reported Smoking Status: Current every day smoker Past Alcohol Use History: Abuse, Daily, Heavy Past Drug Use History: None Reported - Past Family History Father Family Medical History: COPD Additional Family Medical History / Comment(s): alcoholism Mother Family Medical History: Cancer General Exam Limitations: no limitations General appearance: alert, appears intoxicated Head exam: Present: atraumatic, normocephalic, normal inspection Eye exam: Present: normal appearance, PERRL, EOMI. Absent: scleral icterus, conjunctival injection, periorbital swelling ENT exam: Present: normal exam, mucous membranes moist Neck exam: Present: normal inspection. Absent: tenderness, meningismus, lymphadenopathy Respiratory exam: Present: normal lung sounds bilaterally. Absent: respiratory distress, wheezes, rales, rhonchi, stridor Cardiovascular Exam: Present: regular rate, normal rhythm, normal heart sounds. Absent: systolic murmur, diastolic murmur, rubs, gallop, clicks GI/Abdominal exam: Present: soft, normal bowel sounds. Absent: distended, tenderness, guarding, rebound, rigid Extremities exam: Present: full ROM, normal capillary refill. Absent: normal inspection (Patient appears to have some bruising over the right elbow multiple bruising and abrasions of all different ages throughout the body noted.), tenderness, pedal edema, joint swelling, calf tenderness Back exam: Present: normal inspection, full ROM. Absent: tenderness Neurological exam: Present: alert Psychiatric exam: Present: normal affect, normal mood. Absent: homicidal ideation, suicidal ideation Skin exam: Present: warm, dry Course Vital Signs 03/31/17 19:25 Temperature 98.5 F Pulse Rate 94 Respiratory 18 Rate Blood Pressure 137/95 O2 Sat by Pulse 98 Oximetry Medical Decision Making - Medical Decision Making 56-year-old male presents for EtOH as well as fall. This time patient does appear to have some bruising to the right elbow we'll get an x-ray reviewed. Patient has complaints. Exam is benign we will get a CAT scan due to patient age. At this time. Patient also does appear to have some low back pain no tenderness to palpation we will do an x-ray due to his complaint. At this time patient's CAT scans and x-rays are reviewed and negative. At this time we discussed the patient have close follow-up and return parameters. Patient is still intoxicated. He is able to get up and walk around the room. He discussed that he could go but only if someone comes and picks him up. At this time he is currently TRYING to get a ride home. Patient eloped from the department prior to visualizing his ride home. - Radiology Data Radiology results: report reviewed, image reviewed Disposition Clinical Impression: Alcohol intoxication, Fall, Contusion of right elbow Disposition: Left Against Medical Advice Condition: Undetermined Referrals: Skyla Chavez MD [Primary Care Provider] - 1-2 days
--- NOTE | 2017-03-31 20:13 | CT ---
EXAMINATION TYPE: CT brain madhav tobin DATE OF EXAM: 03/31/2017 COMPARISON: NONE HISTORY: Patient poor historian. Patient ETOH. Neck pain. Headache. CT DLP: 1688 mGycm Automated exposure control for dose reduction was used. TECHNIQUE: CT scan of the head and cervical spine are performed without contrast. FINDINGS: There is mild cerebral cortical atrophy. There is no mass effect nor midline shift. There is no sign of intracranial hemorrhage. The calvarium is intact. The cervical vertebra have fairly normal alignment. There is mild narrowing and spurring at C5-6. The re is no compression fracture. Facet joints are intact. The skull base is intact. There is no evidenc e of a fracture. There are emphysematous changes at the lung apices. IMPRESSION: Mild cerebral atrophy. No acute intracranial abnormality. There is probably patchy chronic small vess el ischemia. Spondylosis at C5-6. No fracture.
--- NOTE | 2017-03-31 21:31 | XR ---
EXAMINATION TYPE: XR elbow complete RT DATE OF EXAM: 03/31/2017 COMPARISON: NONE HISTORY: Pain TECHNIQUE: 3 views FINDINGS: There is some fragmentation at the medial humeral condyle consistent with old injury. This could be old osteochondrosis. I see no acute fracture nor dislocation. There is no sign of joint effu beto. There is some spurring on the olecranon process of the ulna. IMPRESSION: No acute abnormality of the right elbow.
--- NOTE | 2017-03-31 21:34 | XR ---
EXAMINATION TYPE: XR lumbar spine 2 or 3V DATE OF EXAM: 03/31/2017 COMPARISON: NONE HISTORY: Pain TECHNIQUE: 3 views FINDINGS: Lumbar vertebra have fairly normal alignment. There is a slight levoscoliosis. There is no compression fracture. Abdominal aorta is atheromatous. There is some sclerosis in the left sacroiliac joint. IMPRESSION: No fracture. Slight levoscoliosis. No change compared to abdomen x-ray on 06/23/2015.
== END 2017-03-31 21:57 | disposition left against medical advice (07) ==
LOC: EC 19:23
DX: S50.01XA Contusion of right elbow, initial encounter (principal); F10.129 Alcohol abuse with intoxication, unspecified; R51 Headache; M54.5 Low back pain; M47.892 Other spondylosis, cervical region; F17.200 Nicotine dependence, unspecified, uncomplicated; Z53.29 Procedure and treatment not carried out because of patient's decision for other reasons; Z79.899 Other long term (current) drug therapy; W01.10XA Fall on same level from slipping, tripping and stumbling with subsequent striking against unspecified object, initial encounter; Y93.01 Activity, walking, marching and hiking; Y92.481 Parking lot as the place of occurrence of the external cause
CPT/HCPCS: 70450; 72100; 72125; 82075; 99284

== ENCOUNTER → 2018-02-22 | Outpatient (CLI) | payer OTHER ==
[2018-02-22 11:05] LABS: Anisocytosis Slight; HCT 37.1 % (39.0-53.0); HGB 11.8 gm/dL (13.0-17.5); Hypochromasia Slight; MCH 26.3 pg (25.0-35.0); MCHC 31.8 g/dL (31.0-37.0); MCV 82.7 fL (80.0-100.0); Mean Platelet Volume 8.2; Platelet Count 119 k/uL (150-450); RBC 4.49 m/uL (4.30-5.90); RDW 18.6 % (11.5-15.5); WBC 3.1 k/uL (3.8-10.6)
[2018-02-22 11:26] LABS: ALT 63 U/L (21-72); AST 206 U/L (17-59); Albumin 4.6 g/dL (3.5-5.0); Alkaline Phosphatase 174 U/L (38-126); Anion Gap 13 mmol/L; Blood Urea Nitrogen 11 mg/dL (9-20); Calcium 9.7 mg/dL (8.4-10.2); Carbon Dioxide 23 mmol/L (22-30); Chloride 104 mmol/L (98-107); Glucose 117 mg/dL (74-99); Potassium 5.6 mmol/L (3.5-5.1); Sodium 140 mmol/L (137-145); Total Bilirubin 0.4 mg/dL (0.2-1.3); Total Protein 7.9 g/dL (6.3-8.2)
[2018-02-22 11:42] LABS: T4, Free (Free Thyroxine) 0.98 ng/dL (0.78-2.19)
--- NOTE | 2018-02-22 12:55 | XR ---
Lumbar spine HISTORY: Back pain Reviews of the lumbar spine correlated prior exam 03/31/2017 There is a mild levoscoliosis centered at L3. Lumbar vertebral bodies show preserved height, stable b one mineralization and alignment. Loss of disc height present especially at L5-S1. Sclerosis is prese nt in the lower lumbar spine at the posterior elements. There is multilevel spondylosis. Calcificatio n within the aortoiliac distribution again noted. IMPRESSION: Stable exam. Degenerative disc disease, facet arthropathy, scoliosis.
--- NOTE | 2018-02-22 13:00 | XR ---
EXAMINATION TYPE: XR chest 2V DATE OF EXAM: 02/22/2018 COMPARISON: Prior chest 08/19/[address] 09/29/2016 HISTORY: Low back pain, TECHNIQUE: Frontal and lateral views of the chest are obtained. FINDINGS: There is no pleural effusion or pneumothorax seen. The cardiac silhouette size is within normal limits. The osseous structures are intact. Patient is rotated, there may be spinal curvature . Suspect a small nodular density in the right mid lung represents granuloma. Difficult to exclude ba silar density on the right although I suspect findings are artifactual as no corresponding densities noted on the lateral exam. IMPRESSION: No definite cardiopulmonary abnormality as described, follow-up as indicated, suspect ol d granulomatous disease. Scoliosis.
== END | disposition home or self-care (01) ==
LOC: RADXRMAIN 10:17
PROVIDERS: ATTEND Internal Medicine
DX: M51.36 Other intervertebral disc degeneration, lumbar region (principal); M46.86 Other specified inflammatory spondylopathies, lumbar region; M41.86 Other forms of scoliosis, lumbar region; R05 Cough; M54.5 Low back pain
CPT/HCPCS: 36415; 71046; 72100; 80053; 84439; 84443; 85027

== ENCOUNTER → 2018-04-03 | Outpatient (CLI) | payer OTHER ==
--- NOTE | 2018-04-03 15:50 | CT ---
EXAMINATION TYPE: CT angio chest DATE OF EXAM: 04/03/2018 COMPARISON: 10/07/2016 HISTORY: 57-year-old female Shortness of breath TECHNIQUE: Contiguous axial scanning of the chest performed with IV Contrast, patient injected with 1 00 mL of Isovue 370. Delayed images through the kidneys were obtained. Coronal/sagittal reconstructio ns performed. CT DLP: 160.4 mGycm Automated exposure control for dose reduction was used. FINDINGS: Heart normal size without pericardial effusion. Aorta normal caliber with conventional arch vessel branching anatomy and mild atherosclerotic calcifi cations. Scattered nonenlarged mediastinal lymph nodes. Mild bilateral gynecomastia. Satisfactory opacification of the pulmonary arterial system though with some respiratory motion artif acts. No definite pulmonary embolus is seen though many of the segmental and more distal arterial bra nches are very limited. Biapical pleural-parenchymal scarring. Focal groundglass measuring 1.1 cm right upper lobe increased in size from 10/07/2016 where it measure d 6 mm. Mild diffuse bronchial wall thickening. No consolidation or pleural effusion. Visualized upper abdomen shows fatty infiltration of the liver. Bones: No osseous destructive process. IMPRESSION: 1. NO DEFINITE PULMONARY EMBOLISM. MANY OF THE SEGMENTAL AND MORE DISTAL ARTERIAL BRANCHES ARE LIMITE D DUE TO BREATHING MOTION. 2. A 1.1 CM RIGHT UPPER LOBE GROUNDGLASS NODULE HAS GRADUALLY ENLARGED FROM 10/07/2016 WHERE IT MEASUR ED 6 CM. INDOLENT NEOPLASM SUCH LOW-GRADE ADENOCARCINOMA IS NOT EXCLUDED. SIX-MONTH FOLLOW-UP MARIE MMENDED. 3. MILD DIFFUSE BRONCHIAL WALL THICKENING SUGGESTS BRONCHITIS OR ASTHMA.
== END | disposition home or self-care (01) ==
LOC: RADCTMAIN 15:10
PROVIDERS: ATTEND Internal Medicine
DX: R91.1 Solitary pulmonary nodule (principal); J98.4 Other disorders of lung; R06.09 Other forms of dyspnea
CPT/HCPCS: 71275; Q9967

== ENCOUNTER → 2018-07-17 | Outpatient (CLI) | payer OTHER ==
--- NOTE | 2018-07-17 13:29 | MR ---
EXAMINATION TYPE: MR lumbar spine wo con DATE OF EXAM: 07/17/2018 COMPARISON: NONE HISTORY: Low back pain TECHNIQUE: T1 and T2 axial and sagittal images of the lumbar spine are submitted. FINDINGS: There is no abnormal signal seen within the visualized spinal cord or paraspinal soft tissu es. Curvature of the spine noted. At L1-2 there is there is moderate narrowing the disc space with hypertrophic spurring anteriorly. Th ere is broad-based circumferential disc bulging with mild effacement of thecal sac but no canal steno sis. Neural foramina remain patent. At L2-3 there is hypertrophic change of the facets. No disc herniation or canal stenosis. At L3-4 there is hypertrophic change of the facets. No disc herniation or canal stenosis. Neural fora winnie remain patent. At L4-5 there is degenerative disc disease with facet arthropathy and ligamentum flavum hypertrophy. There is circumferential disc bulging and mild to moderate canal stenosis with mild left foraminal en croachment and moderate right foraminal encroachment. At L5-S1 there is degenerative disc disease and hypertrophic change of the facets and ligamentum flav um. Neural foramina remain patent. No canal stenosis or focal disc herniation. Mild circumferential d isc bulging. IMPRESSION: 1. Scoliotic curvature the spine with multilevel degenerative disc disease. Most marked findings are seen at L4-L5 with disc bulging and hypertrophic changes resulting in mild to moderate canal stenosis and bilateral foraminal encroachment as discussed above. 2. Disc bulging circumferentially L1-2 and L5-S1 with no canal stenosis or focal herniation. 3. Heterogeneous signal involving the visualized portion of the left ilium. Finding is nonspecific bu t also stable from the CT scan of 06/24/2015. As previously noted differential diagnosis would includ e Paget's disease although metastatic disease not excluded.
== END | disposition home or self-care (01) ==
LOC: RADMRIMAIN 11:41
PROVIDERS: ATTEND Psychiatry & Neurology Pain Medicine
DX: M48.061 Spinal stenosis, lumbar region without neurogenic claudication (principal); M51.27 Other intervertebral disc displacement, lumbosacral region; M51.36 Other intervertebral disc degeneration, lumbar region; M41.86 Other forms of scoliosis, lumbar region
CPT/HCPCS: 72148

== ENCOUNTER 2021-04-27 21:07 | Emergency (ER) | payer OTHER ==
[2021-04-27 21:24] VITALS: RESP 18; TEMP 97.8
--- NOTE | 2021-04-27 22:41 | XR ---
EXAMINATION TYPE: XR chest 1V portable DATE OF EXAM: 04/27/2021 COMPARISON: 04/03/2018 HISTORY: Short of breath. Weakness TECHNIQUE: Single view FINDINGS: Heart and mediastinum appear normal. There is small linear density in the right lower lung field. The other lung cox are clear. There are no hilar masses. There is no pleural effusion or pn eumothorax. There is minimal pleural thickening at the lung apices. Bony thorax appears intact. IMPRESSION: Mild scarring or subsegmental atelectasis on the right side is a change compared to old e xam. Normal heart.
--- NOTE | 2021-04-27 22:41 | ED ---
Weakness HPI - General Chief complaint: Weakness Stated complaint: Weakness, ETOH Time Seen by Provider: 04/27/21 21:24 Source: patient, EMS Mode of arrival: EMS Limitations: altered mental status, physical limitation - History of Present Illness Initial comments: Patient is 61-year-old man who presents to have evaluation because he was too weak to get up after fall today. The patient states he has fallen 100s of times in the past few months to year. He was told that he has some spinal issues that are causing him to fall he states that when he walks he drags his right leg. He says the symptoms have been going on for couple of years at least but he was recently diagnosed with the spine issue and they are having him follow with the specialist in the near future. The patient was trying to walk today, lost his balance and fell. He states he did not have the energy to get up. Denies trauma. Denies head injury or new back pain. MD Complaint: generalized weakness, difficulty walking -: hour(s) Location: generalized Consistency: constant Improves with: none Worsens with: none Associated Symptoms: denies other symptoms - Related Data Previous Rx's Medication Instructions Recorded Levofloxacin [Levaquin] 750 mg PO DAILY #5 tab 08/19/17 Allergies Allergy/AdvReac Type Severity Reaction Status Date / Time No Known Allergies Allergy Verified 08/19/17 07:24 Review of Systems ROS Statement: Those systems with pertinent positive or pertinent negative responses have been documented in the HPI. ROS Other: All systems not noted in ROS Statement are negative. Constitutional: Denies: fever, chills Respiratory: Denies: cough, dyspnea Cardiovascular: Denies: chest pain, palpitations, edema, syncope Gastrointestinal: Denies: abdominal pain, vomiting, diarrhea, constipation Genitourinary: Denies: dysuria, hematuria, testicular pain Musculoskeletal: Reports: back pain (Chronic) Skin: Denies: rash Neurological: Reports: weakness (Bilateral lower extremities, right greater than left), numbness, abnormal gait (Chronic). Denies: headache, paresthesias Past Medical History Past Medical History: No Reported History Additional Past Medical History / Comment(s): arthritis, chronic back pain, right ankle fracture, right fibula fracture History of Any Multi-Drug Resistant Organisms: None Reported Past Surgical History: No Surgical Hx Reported Additional Past Surgical History / Comment(s): ABD SURGERY FOR ULCER Past Anesthesia/Blood Transfusion Reactions: Unable to Obtain Past Psychological History: Anxiety Smoking Status: Current some day smoker Past Alcohol Use History: Abuse, Daily, Heavy Past Drug Use History: Marijuana - Past Family History Father Family Medical History: COPD Additional Family Medical History / Comment(s): alcoholism Mother Family Medical History: Cancer General Exam Limitations: altered mental status, physical limitation General appearance: alert, in no apparent distress Head exam: Present: atraumatic, normocephalic Eye exam: Present: normal appearance. Absent: scleral icterus, conjunctival injection ENT exam: Present: normal oropharynx Neck exam: Present: normal inspection Respiratory exam: Present: wheezes (Trace expiratory wheeze). Absent: respiratory distress, rales, rhonchi, stridor Cardiovascular Exam: Present: regular rate, normal rhythm, normal heart sounds. Absent: systolic murmur, diastolic murmur, rubs, gallop GI/Abdominal exam: Present: soft. Absent: distended, tenderness, guarding, rebound, rigid, mass Extremities exam: Present: normal inspection, normal capillary refill. Absent: pedal edema, calf tenderness Back exam: Present: normal inspection. Absent: CVA tenderness (R), CVA te nderness (L), vertebral tenderness Neurological exam: Present: alert Skin exam: Present: warm, dry, intact, normal color. Absent: rash Course Vital Signs 04/27/21 04/27/21 04/28/21 21:14 23:06 00:16 Temperature 97.8 F Pulse Rate 100 91 90 Respiratory 18 18 18 Rate Blood Pressure 128/77 123/85 139/76 O2 Sat by Pulse 98 96 96 Oximetry EKG Findings - EKG Results: EKG: interpreted by SHABNAM, sinus rhythm (Rate 83 bpm), normal axis, normal QRS, normal ST/T Medical Decision Making - Medical Decision Making This patient is 61-year-old man here to be evaluated after fall. He does have chronic back pain which may be worsening. While I was attending to a trauma case, he patient requested to sign out AMA because he did not want to wait for workup. I requested a nursing staff to see if he can wait until I was able to discuss with him but he would not wait and leaving. - Lab Data Result diagrams: 04/27/21 22:50 04/27/21 22:50 Lab Results 04/27/21 04/27/21 04/27/21 Range/Units 22:50 22:50 22:50 WBC 6.1 (3.8-10.6) k/uL RBC 4.82 (4.30-5.90) m/uL Hgb 15.2 (13.0-17.5) gm/dL Hct 45.5 (39.0-53.0) % MCV 94.5 (80.0-100.0) fL MCH 31.5 (25.0-35.0) pg MCHC 33.4 (31.0-37.0) g/dL RDW 14.1 (11.5-15.5) % Plt Count 203 (150-450) k/uL MPV 7.4 Neutrophils % Not Reportable Neutrophils % (Manual) 55 % Band Neuts % (Manual) 1 % Lymphocytes % Not Reportable Lymphocytes % (Manual) 27 % Monocytes % Not Reportable Monocytes % (Manual) 13 % Eosinophils % Not Reportable Eosinophils % (Manual) 4 % Basophils % Not Reportable Neutrophils # Not Reportable Neutrophils # (Manual) 3.40 (1.3-7.7) k/uL Lymphocytes # Not Reportable Lymphocytes # (Manual) 1.65 (1.0-4.8) k/uL Monocytes # Not Reportable Monocytes # (Manual) 0.79 (0-1.0) k/uL Eosinophils # Not Reportable Eosinophils # (Manual) 0.24 (0-0.7) k/uL Basophils # Not Reportable Nucleated RBCs 0 (0-0) /100 WBC Manual Slide Review Performed PT 10.2 (9.0-12.0) sec INR 0.9 (<1.2) APTT 24.9 (22.0-30.0) sec Sodium (137-145) mmol/L Potassium (3.5-5.1) mmol/L Chloride (98-107) mmol/L Carbon Dioxide (22-30) mmol/L Anion Gap mmol/L BUN (9-20) mg/dL Creatinine (0.66-1.25) mg/dL Est GFR (CKD-EPI)AfAm (>60 ml/min/1.73 sqM) Est GFR (CKD-EPI)NonAf (>60 ml/min/1.73 sqM) Glucose (74-99) mg/dL Calcium (8.4-10.2) mg/dL Magnesium (1.6-2.3) mg/dL Total Bilirubin (0.2-1.3) mg/dL AST (17-59) U/L ALT (4-49) U/L Alkaline Phosphatase (38-126) U/L Troponin I (0.000-0.034) ng/mL Total Protein (6.3-8.2) g/dL Albumin (3.5-5.0) g/dL TSH (0.465-4.680) mIU/L Urine Color Yellow Urine Appearance Clear (Clear) Urine pH 5.0 (5.0-8.0) Ur Specific [place] 1.003 (1.001-1.035) Urine Protein Trace H (Negative) Urine Glucose (UA) Negative (Negative) Urine Ketones Negative (Negative) Urine Blood Large H (Negative) Urine Nitrite Negative (Negative) Urine Bilirubin Negative (Negative) Urine Urobilinogen <2.0 (<2.0) mg/dL Ur Leukocyte Esterase Negative (Negative) Urine RBC 6 H (0-5) /hpf Urine WBC 1 (0-5) /hpf Urine Bacteria Rare H (None) /hpf Urine Mucus Rare H (None) /hpf Serum Alcohol mg/dL 04/27/21 04/27/21 Range/Units 22:50 22:50 WBC (3.8-10.6) k/uL RBC (4.30-5.90) m/uL Hgb (13.0-17.5) gm/dL Hct (39.0-53.0) % MCV (80.0-100.0) fL MCH (25.0-35.0) pg MCHC (31.0-37.0) g/dL RDW (11.5-15.5) % Plt Count (150-450) k/uL MPV Neutrophils % Neutrophils % (Manual) % Band Neuts % (Manual) % Lymphocytes % Lymphocytes % (Manual) % Monocytes % Monocytes % (Manual) % Eosinophils % Eosinophils % (Manual) % Basophils % Neutrophils # Neutrophils # (Manual) (1.3-7.7) k/uL Lymphocytes # Lymphocytes # (Manual) (1.0-4.8) k/uL Monocytes # Monocytes # (Manual) (0-1.0) k/uL Eosinophils # Eosinophils # (Manual) (0-0.7) k/uL Basophils # Nucleated RBCs (0-0) /100 WBC Manual Slide Review PT (9.0-12.0) sec INR (<1.2) APTT (22.0-30.0) sec Sodium 135 L (137-145) mmol/L Potassium 4.3 (3.5-5.1) mmol/L Chloride 105 (98-107) mmol/L Carbon Dioxide 16 L (22-30) mmol/L Anion Gap 14 mmol/L BUN 2 L (9-20) mg/dL Creatinine 0.41 L (0.66-1.25) mg/dL Est GFR (CKD-EPI)AfAm >90 (>60 ml/min/1.73 sqM) Est GFR (CKD-EPI)NonAf >90 (>60 ml/min/1.73 sqM) Glucose 106 H (74-99) mg/dL Calcium 9.3 (8.4-10.2) mg/dL Magnesium 2.0 (1.6-2.3) mg/dL Total Bilirubin 0.5 (0.2-1.3) mg/dL AST 65 H (17-59) U/L ALT 19 (4-49) U/L Alkaline Phosphatase 135 H (38-126) U/L Troponin I <0.012 (0.000-0.034) ng/mL Total Protein 7.1 (6.3-8.2) g/dL Albumin 4.2 (3.5-5.0) g/dL TSH 2.890 (0.465-4.680) mIU/L Urine Color Urine Appearance (Clear) Urine pH (5.0-8.0) Ur Specific [place] (1.001-1.035) Urine Protein (Negative) Urine Glucose (UA) (Negative) Urine Ketones (Negative) Urine Blood (Negative) Urine Nitrite (Negative) Urine Bilirubin (Negative) Urine Urobilinogen (<2.0) mg/dL Ur Leukocyte Esterase (Negative) Urine RBC (0-5) /hpf Urine WBC (0-5) /hpf Urine Bacteria (None) /hpf Urine Mucus (None) /hpf Serum Alcohol 199 mg/dL Disposition Clinical Impression: Chronic back pain, Fall Disposition: Left Against Medical Advice Condition: Undetermined Is patient prescribed a controlled substance at d/c from ED?: No Referrals: Tigist Nunez MD [Primary Care Provider] - 1-2 days
[2021-04-27 23:17] LABS: HCT 45.5 % (39.0-53.0); HGB 15.2 gm/dL (13.0-17.5); MCH 31.5 pg (25.0-35.0); MCHC 33.4 g/dL (31.0-37.0); MCV 94.5 fL (80.0-100.0); Mean Platelet Volume 7.4; Platelet Count 203 k/uL (150-450); RBC 4.82 m/uL (4.30-5.90); RDW 14.1 % (11.5-15.5); WBC 6.1 k/uL (3.8-10.6)
[2021-04-27 23:25] LABS: Appearance,Urine Clear (Clear); Bacteria,Urine Rare /hpf; Bilirubin,Urine Negative (Negative); Blood,Urine Large (Negative); Color,Urine Yellow; Glucose,Urine (UA) Negative (Negative); INR 0.9 (<1.2); Ketones,Urine Negative (Negative); Leukocyte Esterase,Urine Negative (Negative); Mucus,Urine Rare /hpf; Nitrite,Urine Negative (Negative); Partial Thromboplastin Time 24.9 sec (22.0-30.0); Protein,Urine Trace (Negative); Prothrombin Time 10.2 sec (9.0-12.0); RBC,Urine 6 /hpf (0-5); Specific Gravity,Urine 1.003 (1.001-1.035); Urobilinogen,Urine <2.0 mg/dL (<2.0); WBC,Urine 1 /hpf (0-5)
[2021-04-27 23:49] LABS: ALT 19 U/L (4-49); AST 65 U/L (17-59); African American GFR (CKD) >90 (>60 ml/min/1.73 sqM); Albumin 4.2 g/dL (3.5-5.0); Alkaline Phosphatase 135 U/L (38-126); Anion Gap 14 mmol/L; Blood Urea Nitrogen 2 mg/dL (9-20); Calcium 9.3 mg/dL (8.4-10.2); Carbon Dioxide 16 mmol/L (22-30); Chloride 105 mmol/L (98-107); Glucose 106 mg/dL (74-99); Non-African American GFR(CKD) >90 (>60 ml/min/1.73 sqM); Potassium 4.3 mmol/L (3.5-5.1); Sodium 135 mmol/L (137-145); Total Bilirubin 0.5 mg/dL (0.2-1.3); Total Protein 7.1 g/dL (6.3-8.2)
[2021-04-28 00:20] VITALS: BP 139/76; PULSE 90
[2021-04-28 00:24] LABS: Alcohol 199 mg/dL
[2021-04-28 00:35] LABS: Band Neutrophils % 1 %; Eosinophils # (M) 0.24 k/uL (0-0.7); Lymphocytes # (M) 1.65 k/uL (1.0-4.8); Monocytes # (M) 0.79 k/uL (0-1.0); Neutrophils % (M) 55 %; Nucleated Red Blood Cells 0 /100 WBC (0-0); Total Cells Counted 100
== END 2021-04-28 14:21 | disposition left against medical advice (07) ==
LOC: EC 21:07
DX: M54.9 Dorsalgia, unspecified (principal); G89.29 Other chronic pain; R26.2 Difficulty in walking, not elsewhere classified; F41.9 Anxiety disorder, unspecified; F17.200 Nicotine dependence, unspecified, uncomplicated; F12.90 Cannabis use, unspecified, uncomplicated
CPT/HCPCS: 99285; 36415; 93005; 80053; 83735; 84443; 84484; 85025; 85610; 85730; 81001; 87040; 71045; G0480; 80320

== ENCOUNTER → 2021-07-20 | Outpatient (CLI) | payer OTHER ==
--- NOTE | 2021-07-20 16:00 | CT ---
EXAMINATION TYPE: CT chest wo/w con DATE OF EXAM: 07/20/2021 COMPARISON: CT chest 04/03/2018, chest x-ray 04/27/2021 HISTORY: Lung nodule follow up CT DLP: 405.3 mGycm Automated exposure control for dose reduction was used. CONTRAST: CT scan of the chest is performed without and with IV Contrast, patient injected with 100 mL of Isovu e 300. FINDINGS: LUNGS: The abnormal area of groundglass opacity in the right upper lobe has progressed, there air bro nchograms present, lesion now measures 2.4 cm as compared to prior when it measured approximately 10 to 11 mm, there is some questionable spiculations extending to the peripheral margin. Some emphysemat ous changes are present within the lungs. There is no pleural effusion or pneumothorax seen. The tra cheobronchial tree is patent. MEDIASTINUM: There are no greater than 1 cm hilar or mediastinal lymph nodes. No pericardial effusi on is seen. AORTA: No additional significant abnormality is seen. OTHER: The liver shows low attenuation likely due to hepatic steatosis. Adrenal glands show no mass. IMPRESSION: There is been interval growth of patient's right upper lobe lung mass, consider bronchog enic carcinoma, pulmonary consult
== END | disposition home or self-care (01) ==
LOC: RADCTMAIN 14:15
PROVIDERS: ATTEND Orthopaedic Surgery Orthopaedic Surgery of the Spine
DX: R91.8 Other nonspecific abnormal finding of lung field (principal)
CPT/HCPCS: 71270; Q9967

== ENCOUNTER → 2021-08-26 | Outpatient (CLI) | payer OTHER | END | disposition home or self-care (01) | LOC: RADPETMAIN 15:15 | PROVIDERS: ATTEND Internal Medicine | DX: Z53.9 Procedure and treatment not carried out, unspecified reason (principal) ==

== ENCOUNTER 2022-02-03 08:46 | Inpatient (IN) | payer OTHER ==
[2022-02-03] MEDS ORDERED: PANTOPRAZOLE 40 MG/10 ML VIAL IVP STA (09:12)
[2022-02-03] MEDS ORDERED: SODIUM CHLORIDE 0.9% 500 ML 500 ML IV SCH (09:15)
--- NOTE | 2022-02-03 09:16 | ED ---
General Adult HPI - General Chief complaint: Weakness Stated complaint: Weakness Time Seen by Provider: 02/03/22 08:59 Source: patient, family, RN notes reviewed Mode of arrival: EMS Limitations: physical limitation - History of Present Illness Initial comments: Patient is a pleasant 61-year-old male presenting to the emergency department with family with concerns for several problems. Patient does have wounds on his legs and buttocks. Patient does have generalized weakness and no longer walks. Patient states is difficult to straighten out his legs. No fevers. Patient has been having some dark stools for least 5 days. Patient does drink alcohol daily. - Related Data Home Medications Medication Instructions Recorded Confirmed amLODIPine [Norvasc] 2.5 mg PO DAILY 02/03/22 02/03/22 Allergies Allergy/AdvReac Type Severity Reaction Status Date / Time No Known Allergies Allergy Verified 02/03/22 11:08 Review of Systems ROS Statement: Those systems with pertinent positive or pertinent negative responses have been documented in the HPI. ROS Other: All systems not noted in ROS Statement are negative. Constitutional: Denies: fever Eyes: Denies: eye pain ENT: Denies: ear pain Respiratory: Denies: cough Cardiovascular: Denies: chest pain Endocrine: Denies: fatigue Gastrointestinal: Reports: melena Genitourinary: Denies: dysuria Musculoskeletal: Denies: back pain Skin: Reports: as per HPI, rash Neurological: Reports: as per HPI, weakness Past Medical History Past Medical History: Hypertension, Rheumatoid Arthritis (RA) Additional Past Medical History / Comment(s): arthritis, chronic back pain, right ankle fracture, right fibula fracture, ETOH abuse, liver cirrhosis History of Any Multi-Drug Resistant Organisms: None Reported Past Surgical History: No Surgical Hx Reported Additional Past Surgical History / Comment(s): ABD SURGERY FOR ULCER Past Anesthesia/Blood Transfusion Reactions: Unable to Obtain Past Psychological History: Anxiety Smoking Status: Current every day smoker, Heavy tobacco smoker Past Alcohol Use History: Abuse, Daily, Heavy Past Drug Use History: Marijuana - Past Family History Father Family Medical History: COPD Additional Family Medical History / Comment(s): alcoholism Mother Family Medical History: Cancer General Exam Limitations: physical limitation General appearance: alert, in no apparent distress Head exam: Present: normocephalic Eye exam: Present: normal appearance Neck exam: Present: normal inspection Respiratory exam: Present: normal lung sounds bilaterally Cardiovascular Exam: Present: regular rate, normal rhythm GI/Abdominal exam: Present: soft. Absent: tenderness Rectal exam: Present: normal inspection. Absent: black stool, bloody stool Extremities exam: Present: other (Bilateral leg contractions. Right great toe with erythema. Left foot with diffuse skin breakdown, stage II and foul older.) Neurological exam: Present: alert Psychiatric exam: Present: flat affect Skin exam: Present: other (Left foot skin ulcers. Right great toe erythema. Bilateral gluteal ulcer stage II with black eschar appearance in the center and surrounding erythema) Course Vital Signs 02/03/22 02/03/22 08:53 10:04 Temperature 97.6 F Pulse Rate 120 H Respiratory 18 18 Rate Blood Pressure 136/89 133/79 O2 Sat by Pulse 99 Oximetry EKG Findings - EKG Comments: EKG Findings:: Atrial tachycardia with rate of 119. PA 134. QRS 101. QT 343. QTC 3. Normal axis. Normal QRS. No acute ST change. Medical Decision Making - Medical Decision Making Patient reevaluated. Patient family updated. Case was discussed with Dr. Vazquez, who will admit covering Dr. Rebollar. - Lab Data Result diagrams: 02/03/22 09:54 02/03/22 09:54 Lab Results 02/03/22 02/03/22 02/03/22 Range/Units 09:54 09:54 09:54 WBC 14.2 H (3.8-10.6) k/uL RBC 3.59 L (4.30-5.90) m/uL Hgb 10.4 L (13.0-17.5) gm/dL Hct 33.5 L (39.0-53.0) % MCV 93.3 (80.0-100.0) fL MCH 29.1 (25.0-35.0) pg MCHC 31.2 (31.0-37.0) g/dL RDW 15.2 (11.5-15.5) % Plt Count 309 (150-450) k/uL MPV 7.6 Neutrophils % 86 % Lymphocytes % 4 % Monocytes % 5 % Eosinophils % 0 % Basophils % 0 % Neutrophils # 12.2 H (1.3-7.7) k/uL Lymphocytes # 0.6 L (1.0-4.8) k/uL Monocytes # 0.7 (0-1.0) k/uL Eosinophils # 0.0 (0-0.7) k/uL Basophils # 0.1 (0-0.2) k/uL Hypochromasia Slight PT 17.4 H (9.0-12.0) sec INR 1.7 H (<1.2) APTT 31.2 H (22.0-30.0) sec Sodium (137-145) mmol/L Potassium (3.5-5.1) mmol/L Chloride (98-107) mmol/L Carbon Dioxide (22-30) mmol/L Anion Gap mmol/L BUN (9-20) mg/dL Creatinine (0.66-1.25) mg/dL Est GFR (CKD-EPI)AfAm (>60 ml/min/1.73 sqM) Est GFR (CKD-EPI)NonAf (>60 ml/min/1.73 sqM) Glucose (74-99) mg/dL Plasma Lactic Acid [place] (0.7-2.0) mmol/L Calcium (8.4-10.2) mg/dL Ionized Calcium Noah (4.5-5.3) mg/dL Magnesium (1.6-2.3) mg/dL Total Bilirubin (0.2-1.3) mg/dL AST (17-59) U/L ALT (4-49) U/L Alkaline Phosphatase (38-126) U/L Total Protein (6.3-8.2) g/dL Albumin (3.5-5.0) g/dL Stool Occult Blood Negative (Negative) Serum Alcohol mg/dL 02/03/22 02/03/22 02/03/22 Range/Units 09:54 09:54 09:54 WBC (3.8-10.6) k/uL RBC (4.30-5.90) m/uL Hgb (13.0-17.5) gm/dL Hct (39.0-53.0) % MCV (80.0-100.0) fL MCH (25.0-35.0) pg MCHC (31.0-37.0) g/dL RDW (11.5-15.5) % Plt Count (150-450) k/uL MPV Neutrophils % % Lymphocytes % % Monocytes % % Eosinophils % % Basophils % % Neutrophils # (1.3-7.7) k/uL Lymphocytes # (1.0-4.8) k/uL Monocytes # (0-1.0) k/uL Eosinophils # (0-0.7) k/uL Basophils # (0-0.2) k/uL Hypochromasia PT (9.0-12.0) sec INR (<1.2) APTT (22.0-30.0) sec Sodium 136 L (137-145) mmol/L Potassium 2.9 L (3.5-5.1) mmol/L Chloride 108 H (98-107) mmol/L Carbon Dioxide 19 L (22-30) mmol/L Anion Gap 9 mmol/L BUN 23 H (9-20) mg/dL Creatinine 0.40 L (0.66-1.25) mg/dL Est GFR (CKD-EPI)AfAm >90 (>60 ml/min/1.73 sqM) Est GFR (CKD-EPI)NonAf >90 (>60 ml/min/1.73 sqM) Glucose 110 H (74-99) mg/dL Plasma Lactic Acid Esdras 2.2 H* (0.7-2.0) mmol/L Calcium 5.6 L* (8.4-10.2) mg/dL Ionized Calcium Noah 3.0 L* (4.5-5.3) mg/dL Magnesium 1.7 (1.6-2.3) mg/dL Total Bilirubin 0.8 (0.2-1.3) mg/dL AST 29 (17-59) U/L ALT 14 (4-49) U/L Alkaline Phosphatase 99 (38-126) U/L Total Protein 4.9 L (6.3-8.2) g/dL Albumin 1.8 L (3.5-5.0) g/dL Stool Occult Blood (Negative) Serum Alcohol <10 mg/dL - Radiology Data Radiology results: image reviewed (Two-view chest x-ray shows no acute process.) Critical Care Time Critical Care Time: Yes Total Critical Care Time: 32 Disposition Clinical Impression: Cellulitis of both feet, Foot ulcer, Sacral ulcer, Sepsis Disposition: ADMITTED IP TO THIS [facility] Condition: Serious Is patient prescribed a controlled substance at d/c from ED?: No Referrals: Tigist Nunez MD [Primary Care Provider] - 1-2 days Time of Disposition: 11:21
[2022-02-03] MEDS ORDERED: MORPHINE SULFATE 4 MG/ML SYRINGE IVP STA (09:50)
[2022-02-03 10:26] LABS: ALT 14 U/L (4-49); AST 29 U/L (17-59); African American GFR (CKD) >90 (>60 ml/min/1.73 sqM); Albumin 1.8 g/dL (3.5-5.0); Alcohol <10 mg/dL; Alkaline Phosphatase 99 U/L (38-126); Anion Gap 9 mmol/L; Blood Urea Nitrogen 23 mg/dL (9-20); Carbon Dioxide 19 mmol/L (22-30); Chloride 108 mmol/L (98-107); Glucose 110 mg/dL (74-99); Magnesium 1.7 mg/dL (1.6-2.3); Non-African American GFR(CKD) >90 (>60 ml/min/1.73 sqM); Potassium 2.9 mmol/L (3.5-5.1); Sodium 136 mmol/L (137-145); Total Bilirubin 0.8 mg/dL (0.2-1.3); Total Protein 4.9 g/dL (6.3-8.2)
[2022-02-03 10:28] LABS: INR 1.7 (<1.2); Partial Thromboplastin Time 31.2 sec (22.0-30.0); Prothrombin Time 17.4 sec (9.0-12.0)
[2022-02-03 10:40] LABS: Calcium 5.6 mg/dL (8.4-10.2)
[2022-02-03 11:01] LABS: Basophils # (A) 0.1 k/uL (0-0.2); Basophils % (A) 0 %; Eosinophils % (A) 0 %; HCT 33.5 % (39.0-53.0); HGB 10.4 gm/dL (13.0-17.5); Hypochromasia Slight; Lymphocytes # (A) 0.6 k/uL (1.0-4.8); Lymphocytes % (A) 4 %; MCH 29.1 pg (25.0-35.0); MCHC 31.2 g/dL (31.0-37.0); MCV 93.3 fL (80.0-100.0); Mean Platelet Volume 7.6; Monocytes # (A) 0.7 k/uL (0-1.0); Monocytes % (A) 5 %; Neutrophils # (A) 12.2 k/uL (1.3-7.7); Neutrophils % (A) 86 %; Platelet Count 309 k/uL (150-450); RBC 3.59 m/uL (4.30-5.90); RDW 15.2 % (11.5-15.5); WBC 14.2 k/uL (3.8-10.6)
--- NOTE | 2022-02-03 11:09 | XR ---
EXAMINATION TYPE: XR chest 1V portable DATE OF EXAM: 02/03/2022 COMPARISON: Chest x-ray April 27, 2021. Chest CT July 20, 2021 HISTORY: Weakness. TECHNIQUE: Single AP portable frontal view of the chest is obtained. FINDINGS: Slightly elevated left hemidiaphragm. There is no suspicious focal air space opacity, pleu ral effusion, or pneumothorax seen. The cardiac silhouette size remains within normal limits. The osseous structures are demineralized. IMPRESSION: No acute process. No significant change from prior.
[2022-02-03] MEDS ORDERED: CALCIUM GLUCONATE IN NACL 1 GM in SALINE 1 100ML.BAG IVPB ONE (11:15)
[2022-02-03] MEDS ORDERED: POTASSIUM CHLORIDE ER 20 MEQ TAB.ER PO STA (11:19)
[2022-02-03] MEDS ORDERED: PIPERACILLIN-TAZOBACTAM 3.375 GM in SODIUM CHLORIDE 0.9% 100 ML IVPB STA (11:21)
[2022-02-03] MEDS ORDERED: NALOXONE 0.4 MG/ML 1 ML VIAL IV PRN (11:22)
[2022-02-03] MEDS ORDERED: LORazepam 2 MG/ML INJ IV PRN ×2 (11:23)
[2022-02-03] MEDS: CALCIUM CARB-VIT D 500 MG-5 MCG TAB PO SCH ×2 (11:34→16:40)
[2022-02-03] MEDS: SODIUM CHLORIDE 0.9% 1,000 ML IV SCH (12:21)
[2022-02-03] MEDS: POTASSIUM CHLORIDE 20 MEQ in WATER FOR INJECTION 1 100ML.BAG IVPB SCH ×2 (16:40→18:32)
[2022-02-03] MEDS: THIAMINE 100 MG TAB PO SCH (16:40)
[2022-02-03] MEDS: MORPHINE SULFATE 4 MG/ML SYRINGE IV PRN ×2 (16:53→22:31)
[2022-02-03] MEDS: NICOTINE 21MG/24HR PATCH TRANSDERM SCH (17:35)
[2022-02-03] MEDS: PIPERACILLIN-TAZOBACTAM 3.375 GM in SODIUM CHLORIDE 0.9% 100 ML IVPB SCH (20:17)
--- NOTE | 2022-02-04 00:08 | P.HPIM ---
History of Present Illness H&P Date: 02/03/22 Chief Complaint: Wounds 61-year-old male with a known history of hypertension, rheumatoid arthritis, chronic back pain, EtOH abuse, liver cirrhosis and currently everyday smoker and marijuana use was brought to the hospital by his family with c/o wounds on the legs and . Patient stays with his brother. Currently patient is wheelchair- bound and no longer walks. Patient does have contractures of bilateral lower extremities. He also developed ulcers on the gluteal region mainly left. Patient has been afebrile. Does drink on daily basis. Otherwise patient cannot provide any history at this time. Patient was also noted to have dark stools as per family. Chest x-ray showed no acute process. No significant change from prior. EKG showed ectopic atrial tachycardia. Laboratory data showed WBC 14.2 hemoglobin 10.4 and platelets 309 INR 1.7 Sodium 136 potassium 2.9 chloride 108 bicarb is 19 BUN 23 and creatinine 0.4 Lactic acid 2.2 on admission calcium 5.6 and ionized calcium 3.0 . Albumin 1.8. Serum alcohol level is less than 10. FOBT negative. Review of Systems Review of systems could not be obtained from the patient. Past Medical History Past Medical History: Hypertension, Rheumatoid Arthritis (RA) Additional Past Medical History / Comment(s): arthritis, chronic back pain, right ankle fracture, right fibula fracture, ETOH abuse, liver cirrhosis History of Any Multi-Drug Resistant Organisms: None Reported Past Surgical History: No Surgical Hx Reported Additional Past Surgical History / Comment(s): ABD SURGERY FOR ULCER Past Anesthesia/Blood Transfusion Reactions: No Reported Reaction Past Psychological History: No Psychological Hx Reported Smoking Status: Current every day smoker, Heavy tobacco smoker Past Alcohol Use History: Abuse, Daily, Heavy Past Drug Use History: Marijuana - Past Family History Father Family Medical History: COPD Additional Family Medical History / Comment(s): alcoholism Mother Family Medical History: Cancer Medications and Allergies Home Medications Medication Instructions Recorded Confirmed Type amLODIPine [Norvasc] 2.5 mg PO DAILY 02/03/22 02/03/22 History Allergies Allergy/AdvReac Type Severity Reaction Status Date / Time No Known Allergies Allergy Verified 02/03/22 11:08 Physical Exam Vitals: Vital Signs Temp Pulse Pulse Resp BP BP Pulse Ox 02/03/22 19:49 97.4 F L 105 H 18 120/76 95 02/03/22 17:13 106 H 17 02/03/22 15:03 98.0 F 106 H 17 116/73 99 02/03/22 12:21 109 H 18 133/79 99 02/03/22 10:04 120 H 18 133/79 99 02/03/22 08:53 97.6 F 18 136/89 Intake and Output 02/03/22 02/03/22 02/04/22 14:59 22:59 06:59 Intake Total 1460 Balance 1460 Intake: Intake, IV Titration 1000 Amount Potassium Chloride 20 meq 100 In Water For Injection 1 100ml.bag @ 50 mls/hr IVPB Q2H [facility] Rx#: [id number] Sodium Chloride 0.9% 1, 900 000 ml @ 75 mls/hr IV . [id number] [facility] Rx#:[id number] Oral 460 Other: Voiding Method Urinal Diaper Weight 58.967 kg 58.967 kg PHYSICAL EXAMINATION: Patient is lying in the bed with legs contracted. No distress. Awake alert but does not talk. HEENT: Normocephalic. Neck is supple. Pupils reactive. Nostrils clear. Oral cavity is dry. Neck reveals no JVD, carotid bruits, or thyromegaly. CHEST EXAMINATION: Trachea is central. Symmetrical expansion. Lung cox clear to auscultation and percussion. CARDIAC: Normal S1, S2 with no gallops. No murmurs ABDOMEN: Soft. Bowel sounds normal. No organomegaly. No abdominal bruits. Extremities: reveal no edema. No clubbing or cyanosis Neurologically awake, alert, oriented x1. Bilateral lower extremities contracted. No gross focal neurological deficit. Skin: Patient does have bilateral gluteal ulcers with skin discoloration and sloughing and also wounds on the bilateral foot/heels.. Psychiatric: Cooperative. Could not be assessed completely. Musculoskeletal: No joint swelling or deformity. Results CBC & Chem 7: 02/03/22 09:54 02/03/22 09:54 Labs: Abnormal Lab Results - Last 24 Hours (Table) 02/03/22 02/03/22 02/03/22 Range/Units 09:54 09:54 09:54 WBC 14.2 H (3.8-10.6) k/uL RBC 3.59 L (4.30-5.90) m/uL Hgb 10.4 L (13.0-17.5) gm/dL Hct 33.5 L (39.0-53.0) % Neutrophils # 12.2 H (1.3-7.7) k/uL Lymphocytes # 0.6 L (1.0-4.8) k/uL PT 17.4 H (9.0-12.0) sec INR 1.7 H (<1.2) APTT 31.2 H (22.0-30.0) sec Sodium 136 L (137-145) mmol/L Potassium 2.9 L (3.5-5.1) mmol/L Chloride 108 H (98-107) mmol/L Carbon Dioxide 19 L (22-30) mmol/L BUN 23 H (9-20) mg/dL Creatinine 0.40 L (0.66-1.25) mg/dL Glucose 110 H (74-99) mg/dL Plasma Lactic Acid Esdras (0.7-2.0) mmol/L Calcium 5.6 L* (8.4-10.2) mg/dL Ionized Calcium Noah (4.5-5.3) mg/dL Total Protein 4.9 L (6.3-8.2) g/dL Albumin 1.8 L (3.5-5.0) g/dL 02/03/22 02/03/22 02/03/22 Range/Units 09:54 09:54 12:54 WBC (3.8-10.6) k/uL RBC (4.30-5.90) m/uL Hgb (13.0-17.5) gm/dL Hct (39.0-53.0) % Neutrophils # (1.3-7.7) k/uL Lymphocytes # (1.0-4.8) k/uL PT (9.0-12.0) sec INR (<1.2) APTT (22.0-30.0) sec Sodium (137-145) mmol/L Potassium (3.5-5.1) mmol/L Chloride (98-107) mmol/L Carbon Dioxide (22-30) mmol/L BUN (9-20) mg/dL Creatinine (0.66-1.25) mg/dL Glucose (74-99) mg/dL Plasma Lactic Acid Esdras 2.2 H* 3.0 H* (0.7-2.0) mmol/L Calcium (8.4-10.2) mg/dL Ionized Calcium Noah 3.0 L* (4.5-5.3) mg/dL Total Protein (6.3-8.2) g/dL Albumin (3.5-5.0) g/dL Microbiology - Last 24 Hours (Table) 02/03/22 09:54 Wound Culture - Preliminary Foot - Left Thrombosis Risk Factor Assmnt - DVT/VTE Prophylaxis DVT/VTE Prophylaxis: Pharmacologic Prophylaxis ordered - Choose All That Apply Any of the Below Risk Factors Present?: No Other Risk Factors: Yes Each Risk Factor Represents 2 Points: Age 61-74 years Other congenital or acquired thrombophilia - If yes, enter type in comment: Yes Each Risk Factor Represents 5 Points: Hip, pelvis, or leg fracture (< 1 month) Thrombosis Risk Factor Assessment Total Risk Factor Score: 7 Thrombosis Risk Factor Assessment Level: High Risk Assessment and Plan Assessment: Bilateral buttock wounds with sloughing of skin and malodorous. Sepsis secondary to above. Lactic acidosis Hypovolemic hyponatremia Hypocalcemia Severe hypokalemia Moderate protein calorie malnutrition. Coagulopathy elevated INR level 1.7 Severe alcohol abuse History of rheumatoid arthritis Medical debility currently wheelchair-bound. Chronic back pain Liver cirrhosis History of marijuana DVT prophylaxis with heparin subcu Plan: Patient will be continued on IV hydration with normal saline and antibiotics above Zosyn. General surgery was consulted for wound debridement and ID consult. Follow-up wound culture reports and monitor for alcohol withdrawal symptoms. Continue with multivitamins and thiamine supplementation. Follow-up vitamin D level and continue with calcium supplementation. Follow-up CBC and BMP tomorrow. Prognosis guarded at this time. Time with Patient: Greater than 30
[2022-02-04] MEDS: SODIUM CHLORIDE 0.9% 1,000 ML IV SCH ×2 (00:57→15:50)
[2022-02-04] MEDS: MAGNESIUM SULFATE-D5W PMX 1 GM in DEXTROSE/WATER 1 100ML.BAG IVPB SCH ×2 (00:58→02:41)
[2022-02-04] MEDS: PIPERACILLIN-TAZOBACTAM 3.375 GM in SODIUM CHLORIDE 0.9% 100 ML IVPB SCH ×3 (04:10→15:50)
[2022-02-04] MEDS: MORPHINE SULFATE 4 MG/ML SYRINGE IV PRN ×3 (04:17→19:58)
[2022-02-04] MEDS: CALCIUM CARB-VIT D 500 MG-5 MCG TAB PO SCH ×2 (08:09→17:06)
[2022-02-04] MEDS: MULTIVITAMINS, THERA 1 EACH TAB PO SCH (08:09)
[2022-02-04] MEDS: amLODIPine 2.5 MG TAB PO SCH (08:09)
[2022-02-04] MEDS: HEPARIN SODIUM,PORCINE/PF 5,000 UNIT/0.5 ML SYRINGE SQ SCH ×2 (08:10→21:49)
[2022-02-04] MEDS: THIAMINE 100 MG TAB PO SCH ×2 (08:10→17:06)
[2022-02-04] MEDS: NICOTINE 21MG/24HR PATCH TRANSDERM SCH (08:10)
[2022-02-04 09:01] LABS: HGB 9.8 g/dL (13.0-17.0); MCH 28.2 pg (27.0-32.0); MCHC 32.7 g/dL (32.0-37.0); MCV 86.2 fL (80.0-97.0); Mean Platelet Volume 10.4 fL (9.5-12.2); NRBC Per 100 WBC 0 /100 WBCS (0.0-0.0); Platelet Count 268 X 10*3/uL (140-440); RBC 3.48 X 10*6/uL (4.40-5.60); RDW 15.5 % (11.5-14.5); WBC 12.13 X 10*3/uL (4.50-10.00)
--- NOTE | 2022-02-04 09:16 | P.CONS ---
History of Present Illness - Reason for Consult Consult date: 02/03/22 Foot and sacral ulcer Requesting physician: Abrahan Barber - Chief Complaint Weakness x few days - History of Present Illness Patient is a 61-year-old male was brought into the ER with multiple complaints including wounds to bilateral gluteal and left leg area apparently has been going on for couple of days to weeks patient be complaining of generalized weakness and is now unable to walk or straighten out his legs, patient presented to the hospital was afebrile he did have elevated white count of 14,000 with a left shift creatinine was normal, chest x-ray was negative patient was started on Zosyn has been admitted to the hospital infectious disease was consulted because of wound to bilateral gluteal and left foot area most of the information has been obtained from review the chart.nursing staff and the patient will not able to provide reliable history Review of Systems Positive points has been mentioned in HPI complete review could not be obtained because of his underlying mental status Past Medical History Past Medical History: Hypertension, Rheumatoid Arthritis (RA) Additional Past Medical History / Comment(s): arthritis, chronic back pain, right ankle fracture, right fibula fracture, ETOH abuse, liver cirrhosis History of Any Multi-Drug Resistant Organisms: None Reported Past Surgical History: No Surgical Hx Reported Additional Past Surgical History / Comment(s): ABD SURGERY FOR ULCER Past Anesthesia/Blood Transfusion Reactions: Unable to Obtain Past Psychological History: Anxiety Smoking Status: Current every day smoker, Heavy tobacco smoker Past Alcohol Use History: Abuse, Daily, Heavy Past Drug Use History: Marijuana - Past Family History Father Family Medical History: COPD Additional Family Medical History / Comment(s): alcoholism Mother Family Medical History: Cancer Medications and Allergies Home Medications Medication Instructions Recorded Confirmed Type amLODIPine [Norvasc] 2.5 mg PO DAILY 02/03/22 02/03/22 History Allergies Allergy/AdvReac Type Severity Reaction Status Date / Time No Known Allergies Allergy Verified 02/03/22 11:08 Physical Exam Vitals: Vital Signs Temp Pulse Resp BP Pulse Ox 02/03/22 10:04 120 H 18 133/79 99 02/03/22 08:53 97.6 F 18 136/89 Intake and Output 02/02/22 02/03/22 02/03/22 22:59 06:59 14:59 Other: Weight 58.967 kg GENERAL DESCRIPTION: Middle-aged male lying in bed, no distress. No tachypnea or accessory muscle of respiration use. HEENT: Shows Pallor , no scleral icterus. Oral mucous membrane is dry. No pharyngeal erythema or thrush NECK: Trachea central, no thyromegaly. LUNGS: Unlabored breathing. Clear to auscultation anteriorly. No wheeze or crackle. HEART: S1, S2, regular rate and rhythm. No loud murmur ABDOMEN: Soft, no tenderness , guarding or rigidity, no organomegaly EXTREMITIES: Left foot with superficial ulceration of cellulitis SKIN: No rash, no masses palpable. Bilateral gluteal unstageable pressure ulcer with necrotic base and surrounding redness or foul-smelling drainage NEUROLOGICAL: The patient is lethargic orientation could not be determined Results CBC & Chem 7: 02/04/22 06:18 02/04/22 06:18 Labs: Abnormal Lab Results - Last 24 Hours (Table) 02/03/22 02/03/22 02/03/22 Range/Units 09:54 09:54 09:54 WBC 14.2 H (3.8-10.6) k/uL RBC 3.59 L (4.30-5.90) m/uL Hgb 10.4 L (13.0-17.5) gm/dL Hct 33.5 L (39.0-53.0) % Neutrophils # 12.2 H (1.3-7.7) k/uL Lymphocytes # 0.6 L (1.0-4.8) k/uL PT 17.4 H (9.0-12.0) sec INR 1.7 H (<1.2) APTT 31.2 H (22.0-30.0) sec Sodium 136 L (137-145) mmol/L Potassium 2.9 L (3.5-5.1) mmol/L Chloride 108 H (98-107) mmol/L Carbon Dioxide 19 L (22-30) mmol/L BUN 23 H (9-20) mg/dL Creatinine 0.40 L (0.66-1.25) mg/dL Glucose 110 H (74-99) mg/dL Plasma Lactic Acid Esdras (0.7-2.0) mmol/L Calcium 5.6 L* (8.4-10.2) mg/dL Ionized Calcium Noah (4.5-5.3) mg/dL Total Protein 4.9 L (6.3-8.2) g/dL Albumin 1.8 L (3.5-5.0) g/dL 02/03/22 02/03/22 Range/Units 09:54 09:54 WBC (3.8-10.6) k/uL RBC (4.30-5.90) m/uL Hgb (13.0-17.5) gm/dL Hct (39.0-53.0) % Neutrophils # (1.3-7.7) k/uL Lymphocytes # (1.0-4.8) k/uL PT (9.0-12.0) sec INR (<1.2) APTT (22.0-30.0) sec Sodium (137-145) mmol/L Potassium (3.5-5.1) mmol/L Chloride (98-107) mmol/L Carbon Dioxide (22-30) mmol/L BUN (9-20) mg/dL Creatinine (0.66-1.25) mg/dL Glucose (74-99) mg/dL Plasma Lactic Acid Esdras 2.2 H* (0.7-2.0) mmol/L Calcium (8.4-10.2) mg/dL Ionized Calcium Noah 3.0 L* (4.5-5.3) mg/dL Total Protein (6.3-8.2) g/dL Albumin (3.5-5.0) g/dL Assessment and Plan (1) Abscess and cellulitis of gluteal region Current Visit: Yes Status: Acute Code(s): L02.31 - CUTANEOUS ABSCESS OF BUTTOCK; L03.317 - CELLULITIS OF BUTTOCK SNOMED Code(s): 791278057 Plan: 1patient with bilateral unstageable pressure ulcer with necrotic base and surrounding redness suspicious for secondary cellulitis and possible gram- negative in view of the close location to the and the anal canal. 2left foot superficial ulceration but no cellulitis 3recommend Gen. surgery evaluation for surgical debridement and deep culture 4-Mycolog cream to the left foot ulcer applied daily 5- Zosyn 3.375 g every 8 hours to continue We will follow on clinical condition and cultures to further adjust medication if needed Thank you for this consultation will follow this patient with you Time with Patient: Greater than 30
[2022-02-04 09:28] LABS: ALT 16 U/L (10-49); AST 66 U/L (14-35); African American GFR (CKD) 148.6 (60.0-200.0); Albumin 1.9 g/dL (3.8-4.9); Albumin/Globulin Ratio 0.53 (1.60-3.17); Alkaline Phosphatase 125 U/L (41-126); Blood Urea Nitrogen 20.2 mg/dL (9.0-27.0); Calcium 7.4 mg/dL (8.7-10.3); Carbon Dioxide 24.1 mmol/L (20.0-27.5); Chloride 100 mmol/L (96-109); Globulin 3.6 g/dL (1.6-3.3); Glucose 113 mg/dL (70-110); Non-African American GFR(CKD) 128.2 (60.0-200.0); Potassium 4.1 mmol/L (3.5-5.5); Sodium 135 mmol/L (135-145); Total Protein 5.5 g/dL (6.2-8.2)
--- NOTE | 2022-02-04 09:34 | P.GSCN ---
History of Present Illness Consult date: 02/04/22 History of present illness: 61-year-old male presents to the emergency department with complaints of weakness and contracture of his lower extremities. On exam, he was noted to have significant wounds of bilateral gluteal area with eschar formation and foul odor. The patient is not a good historian and unable to obtain appropriate history. Most history is gathered from the chart. It does appear that these wounds are chronic. It is unclear whether the patient has care at home for management of these wounds. Review of Systems All systems: negative Past Medical History Past Medical History: Hypertension, Rheumatoid Arthritis (RA) Additional Past Medical History / Comment(s): arthritis, chronic back pain, right ankle fracture, right fibula fracture, ETOH abuse, liver cirrhosis History of Any Multi-Drug Resistant Organisms: None Reported Past Surgical History: No Surgical Hx Reported Additional Past Surgical History / Comment(s): ABD SURGERY FOR ULCER Past Anesthesia/Blood Transfusion Reactions: Unable to Obtain Past Psychological History: Anxiety Smoking Status: Current every day smoker, Heavy tobacco smoker Past Alcohol Use History: Abuse, Daily, Heavy Past Drug Use History: Marijuana - Past Family History Father Family Medical History: COPD Additional Family Medical History / Comment(s): alcoholism Mother Family Medical History: Cancer Medications and Allergies Home Medications Medication Instructions Recorded Confirmed Type amLODIPine [Norvasc] 2.5 mg PO DAILY 02/03/22 02/03/22 History Allergies Allergy/AdvReac Type Severity Reaction Status Date / Time No Known Allergies Allergy Verified 02/03/22 11:08 Surgical - Exam Osteopathic Statement: *. No significant issues noted on an osteopathic s tructural exam other than those noted in the History and Physical/Consult. Vital Signs Temp Resp BP 97.6 F 18 136/89 02/03/22 08:53 02/03/22 08:53 02/03/22 08:53 - General no distress - Respiratory normal respiratory effort - Integumentary Bilateral gluteal ulcerations with significant eschar formation. There is turbid fluid draining with foul odor Results - Labs 02/04/22 06:18 02/04/22 06:18 Abnormal Lab Results - Last 24 Hours (Table) 02/03/22 02/03/22 02/03/22 Range/Units 09:54 09:54 09:54 WBC 14.2 H (3.8-10.6) k/uL RBC 3.59 L (4.30-5.90) m/uL Hgb 10.4 L (13.0-17.5) gm/dL Hct 33.5 L (39.0-53.0) % RDW (11.5-14.5) % Neutrophils # 12.2 H (1.3-7.7) k/uL Lymphocytes # 0.6 L (1.0-4.8) k/uL PT 17.4 H (9.0-12.0) sec INR 1.7 H (<1.2) APTT 31.2 H (22.0-30.0) sec Sodium 136 L (137-145) mmol/L Potassium 2.9 L (3.5-5.1) mmol/L Chloride 108 H (98-107) mmol/L Carbon Dioxide 19 L (22-30) mmol/L BUN 23 H (9-20) mg/dL Creatinine 0.40 L (0.66-1.25) mg/dL BUN/Creatinine Ratio (12.00-20.00) Ratio Glucose 110 H (74-99) mg/dL Plasma Lactic Acid Esdras (0.7-2.0) mmol/L Calcium 5.6 L* (8.4-10.2) mg/dL Ionized Calcium Noah (4.5-5.3) mg/dL AST (14-35) U/L Total Protein 4.9 L (6.3-8.2) g/dL Albumin 1.8 L (3.5-5.0) g/dL Globulin (1.6-3.3) g/dL Albumin/Globulin Ratio (1.60-3.17) g/dL 02/03/22 02/03/22 02/03/22 Range/Units 09:54 09:54 12:54 WBC (3.8-10.6) k/uL RBC (4.30-5.90) m/uL Hgb (13.0-17.5) gm/dL Hct (39.0-53.0) % RDW (11.5-14.5) % Neutrophils # (1.3-7.7) k/uL Lymphocytes # (1.0-4.8) k/uL PT (9.0-12.0) sec INR (<1.2) APTT (22.0-30.0) sec Sodium (137-145) mmol/L Potassium (3.5-5.1) mmol/L Chloride (98-107) mmol/L Carbon Dioxide (22-30) mmol/L BUN (9-20) mg/dL Creatinine (0.66-1.25) mg/dL BUN/Creatinine Ratio (12.00-20.00) Ratio Glucose (74-99) mg/dL Plasma Lactic Acid Esdras 2.2 H* 3.0 H* (0.7-2.0) mmol/L Calcium (8.4-10.2) mg/dL Ionized Calcium Noah 3.0 L* (4.5-5.3) mg/dL AST (14-35) U/L Total Protein (6.3-8.2) g/dL Albumin (3.5-5.0) g/dL Globulin (1.6-3.3) g/dL Albumin/Globulin Ratio (1.60-3.17) g/dL 02/04/22 02/04/22 Range/Units 06:18 06:18 WBC 12.13 H (3.8-10.6) k/uL RBC 3.48 L (4.30-5.90) m/uL Hgb 9.8 L (13.0-17.5) gm/dL Hct 30.0 L (39.0-53.0) % RDW 15.5 H (11.5-14.5) % Neutrophils # (1.3-7.7) k/uL Lymphocytes # (1.0-4.8) k/uL PT (9.0-12.0) sec INR (<1.2) APTT (22.0-30.0) sec Sodium (137-145) mmol/L Potassium (3.5-5.1) mmol/L Chloride (98-107) mmol/L Carbon Dioxide (22-30) mmol/L BUN (9-20) mg/dL Creatinine 0.4 L (0.66-1.25) mg/dL BUN/Creatinine Ratio 50.50 H (12.00-20.00) Ratio Glucose 113 H (74-99) mg/dL Plasma Lactic Acid Esdras (0.7-2.0) mmol/L Calcium 7.4 L (8.4-10.2) mg/dL Ionized Calcium Noah (4.5-5.3) mg/dL AST 66 H (14-35) U/L Total Protein 5.5 L (6.3-8.2) g/dL Albumin 1.9 L (3.5-5.0) g/dL Globulin 3.6 H (1.6-3.3) g/dL Albumin/Globulin Ratio 0.53 L (1.60-3.17) g/dL Microbiology - Last 24 Hours (Table) 02/03/22 09:54 Gram Stain - Preliminary Foot - Left Wound Culture - Preliminary 02/03/22 09:35 Blood Culture Gram Stain - Preliminary Blood 02/03/22 09:35 Blood Culture - Final Blood 02/03/22 09:50 Blood Culture - Final Blood Diabetes panel 02/03/22 02/04/22 Range/Units 09:54 06:18 Sodium 136 L 135 (137-145) mmol/L Potassium 2.9 L 4.1 (3.5-5.1) mmol/L Chloride 108 H 100 (98-107) mmol/L Carbon Dioxide 19 L 24.1 (22-30) mmol/L BUN 23 H 20.2 (9-20) mg/dL Creatinine 0.40 L 0.4 L (0.66-1.25) mg/dL Glucose 110 H 113 H (74-99) mg/dL Calcium 5.6 L* 7.4 L (8.4-10.2) mg/dL AST 29 66 H (17-59) U/L ALT 14 16 (4-49) U/L Alkaline Phosphatase 99 125 (38-126) U/L Total Protein 4.9 L 5.5 L (6.3-8.2) g/dL Albumin 1.8 L 1.9 L (3.5-5.0) g/dL Thyroid panel 02/04/22 Range/Units 06:18 TSH 2.050 (0.350-5.500) uIU/mL Calcium panel 02/03/22 02/03/22 02/04/22 Range/Units 09:54 09:54 06:18 Calcium 5.6 L* 7.4 L (8.4-10.2) mg/dL Ionized Calcium Noah 3.0 L* (4.5-5.3) mg/dL Albumin 1.8 L 1.9 L (3.5-5.0) g/dL Pituitary panel 02/03/22 02/04/22 Range/Units 09:54 06:18 Sodium 136 L 135 (137-145) mmol/L Potassium 2.9 L 4.1 (3.5-5.1) mmol/L Chloride 108 H 100 (98-107) mmol/L Carbon Dioxide 19 L 24.1 (22-30) mmol/L BUN 23 H 20.2 (9-20) mg/dL Creatinine 0.40 L 0.4 L (0.66-1.25) mg/dL Glucose 110 H 113 H (74-99) mg/dL Calcium 5.6 L* 7.4 L (8.4-10.2) mg/dL TSH 2.050 (0.350-5.500) uIU/mL Adrenal panel 02/03/22 02/04/22 Range/Units 09:54 06:18 Sodium 136 L 135 (137-145) mmol/L Potassium 2.9 L 4.1 (3.5-5.1) mmol/L Chloride 108 H 100 (98-107) mmol/L Carbon Dioxide 19 L 24.1 (22-30) mmol/L BUN 23 H 20.2 (9-20) mg/dL Creatinine 0.40 L 0.4 L (0.66-1.25) mg/dL Glucose 110 H 113 H (74-99) mg/dL Calcium 5.6 L* 7.4 L (8.4-10.2) mg/dL Total Bilirubin 0.8 0.70 (0.2-1.3) mg/dL AST 29 66 H (17-59) U/L ALT 14 16 (4-49) U/L Alkaline Phosphatase 99 125 (38-126) U/L Total Protein 4.9 L 5.5 L (6.3-8.2) g/dL Albumin 1.8 L 1.9 L (3.5-5.0) g/dL Assessment and Plan Plan: 61-year-old male with likely infected decubitus ulcer of bilateral gluteal area. Patient has been started on IV antibiotics and is being followed by infectious disease. Patient will be scheduled for debridement of bilateral glue seal ulcers secondary to active infection. Risks, benefits and alternatives were provided to the patient.
[2022-02-04 09:44] LABS: Basophils # (A) 0.05 X 10*3/uL (0.00-0.10); Basophils % (A) 0.4 %; Eosinophils # (A) 0.08 X 10*3/uL (0.04-0.35); Eosinophils % (A) 0.7 %; Immature Grans, Automated 3.5 %; Lymphocytes # (A) 1.52 X 10*3/uL (0.90-5.00); Lymphocytes % (A) 12.5 %; Monocytes # (A) 1.09 X 10*3/uL (0.20-1.00); Neutrophils # (A) 8.96 X 10*3/uL (1.80-7.70); Neutrophils % (A) 73.9 %
[2022-02-04] MEDS: LORazepam 2 MG/ML INJ IV PRN (15:24)
[2022-02-04] MEDS: PANTOPRAZOLE 40 MG/10 ML VIAL IV SCH (15:42)
--- NOTE | 2022-02-04 21:29 | P.PN ---
Subjective Progress Note Date: 02/04/22 Principal diagnosis: Infected bilateral gluteal pressure ulcer Patient is a 61-year-old male presented to hospital with weakness in this patient noticed to have unstageable bilateral gluteal pressure ulcer with secondary cellulitis and some ulcerations the left foot but no cellulitis. On today's evaluation that is 02/04/2022, the patient is afebrile, patient is slightly more awake and alert today his breathing comfortably has been complaining of pain to the gluteal area and wants more pain medication no nausea no vomiting no abdominal pain no diarrhea Objective - Vital Signs Vital signs: Vital Signs Temp 97.9 F 02/04/22 05:00 Pulse 81 02/04/22 05:00 Resp 18 02/04/22 05:00 BP 102/51 02/04/22 05:00 Pulse Ox 93 L 02/04/22 05:00 FiO2 Intake & Output 02/04/22 02/04/22 02/05/22 06:59 18:59 06:59 Intake Total 900 Balance 900 Intake: Intake, IV Titration 900 Amount Sodium Chloride 0.9% 1, 900 000 ml @ 75 mls/hr IV . [id number] [facility] Rx#:[id number] Other: Voiding Method Urinal Diaper Diaper Incontinent # Voids 3 - Exam GENERAL DESCRIPTION: A middle-age male lying in bed in no distress RESPIRATORY SYSTEM: Unlabored breathing , decreased breath sounds at bases HEART: S1 S2 regular rate and rhythm , ABDOMEN: Soft , no tenderness, bilateral gluteal wounds are dressed did have foul-smelling drainage EXTREMITIES: No edema feet - Labs CBC & Chem 7: 02/04/22 06:18 02/04/22 06:18 Labs: Abnormal Lab Results - Last 24 Hours (Table) 02/04/22 02/04/22 Range/Units 06:18 06:18 WBC 12.13 H (4.50-10.00) X 10*3/uL RBC 3.48 L (4.40-5.60) X 10*6/uL Hgb 9.8 L (13.0-17.0) g/dL Hct 30.0 L (39.6-50.0) % RDW 15.5 H (11.5-14.5) % Immature Gran # 0.43 H (0.00-0.04) X 10*3/uL Neutrophils # 8.96 H (1.80-7.70) X 10*3/uL Monocytes # 1.09 H (0.20-1.00) X 10*3/uL Creatinine 0.4 L (0.6-1.5) mg/dL BUN/Creatinine Ratio 50.50 H (12.00-20.00) Ratio Glucose 113 H (70-110) mg/dL Calcium 7.4 L (8.7-10.3) mg/dL AST 66 H (14-35) U/L Total Protein 5.5 L (6.2-8.2) g/dL Albumin 1.9 L (3.8-4.9) g/dL Globulin 3.6 H (1.6-3.3) g/dL Albumin/Globulin Ratio 0.53 L (1.60-3.17) g/dL Vitamin D 25-Hydroxy <5.0 L (30.0-100.0) ng/mL Microbiology - Last 24 Hours (Table) 02/03/22 09:35 Blood Culture Gram Stain - Preliminary Blood Blood Culture - Preliminary Presumptive Staph aureus 02/03/22 09:50 Blood Culture Gram Stain - Preliminary Blood Blood Culture - Preliminary Presumptive Staph aureus 02/03/22 09:54 Gram Stain - Preliminary Foot - Left Wound Culture - Preliminary Gram Neg Bacilli 02/03/22 09:35 Blood Culture - Final Blood 02/03/22 09:50 Blood Culture - Final Blood Assessment and Plan (1) Abscess and cellulitis of gluteal region Current Visit: Yes Status: Acute Code(s): L02.31 - CUTANEOUS ABSCESS OF BUTTOCK; L03.317 - CELLULITIS OF BUTTOCK SNOMED Code(s): 403532361 Plan: 1patient with bilateral unstageable pressure ulcer with the necrotic base and surrounding redness suspicious for secondary cellulitis and possible gram- negative in view of the close location to the and the anal canal. 2left foot superficial ulceration but no cellulitis 3patient has been evaluated by general surgery and waiting for surgical debridement and deep culture 4-Mycolog cream to the left foot ulcer applied daily 5- patient to continue with Zosyn 3.375 g every 8 hours Time with Patient: Less than 30
[2022-02-05] MEDS: PIPERACILLIN-TAZOBACTAM 3.375 GM in SODIUM CHLORIDE 0.9% 100 ML IVPB SCH ×2 (00:02→07:40)
[2022-02-05] MEDS: MORPHINE SULFATE 4 MG/ML SYRINGE IV PRN ×5 (00:09→23:22)
[2022-02-05] MEDS: SODIUM CHLORIDE 0.9% 1,000 ML IV SCH ×3 (00:09→23:21)
[2022-02-05] MEDS: CALCIUM CARB-VIT D 500 MG-5 MCG TAB PO SCH ×2 (07:29→17:38)
[2022-02-05] MEDS: THIAMINE 100 MG TAB PO SCH ×2 (07:29→17:38)
[2022-02-05] MEDS: amLODIPine 2.5 MG TAB PO SCH (07:30)
[2022-02-05] MEDS: HEPARIN SODIUM,PORCINE/PF 5,000 UNIT/0.5 ML SYRINGE SQ SCH ×2 (07:31→22:05)
[2022-02-05] MEDS: MULTIVITAMINS, THERA 1 EACH TAB PO SCH (07:31)
[2022-02-05] MEDS: NICOTINE 21MG/24HR PATCH TRANSDERM SCH (07:40)
[2022-02-05] MEDS: PANTOPRAZOLE 40 MG/10 ML VIAL IV SCH (08:01)
[2022-02-05 09:15] LABS: African American GFR (CKD) 149.2 (60.0-200.0); Anion Gap 14.9 mmol/L (10.00-18.00); BUN/Creat Ratio 38.13 Ratio (12.00-20.00); Blood Urea Nitrogen 15.1 mg/dL (9.0-27.0); Calcium 7.3 mg/dL (8.7-10.3); Carbon Dioxide 22.4 mmol/L (20.0-27.5); Non-African American GFR(CKD) 128.7 (60.0-200.0)
[2022-02-05 09:31] LABS: HCT 29.1 % (39.6-50.0); HGB 9.5 g/dL (13.0-17.0); MCH 28.4 pg (27.0-32.0); MCHC 32.6 g/dL (32.0-37.0); MCV 86.9 fL (80.0-97.0); Mean Platelet Volume 10.3 fL (9.5-12.2); NRBC Per 100 WBC 0 /100 WBCS (0.0-0.0); Platelet Count 291 X 10*3/uL (140-440); RBC 3.35 X 10*6/uL (4.40-5.60); RDW 15.9 % (11.5-14.5); WBC 9.53 X 10*3/uL (4.50-10.00)
[2022-02-05] MEDS ORDERED: MIDAZOLAM 2 MG/2 ML VIAL ONE (10:03)
[2022-02-05] MEDS ORDERED: LIDOCAINE 2% INJ 20 MG/ML (2 ML VIAL) ONE (10:03)
[2022-02-05] MEDS ORDERED: GLYCOPYRROLATE 0.2 MG/ML 2 ML VIAL ONE (10:03)
[2022-02-05] MEDS ORDERED: ROCURONIUM 10 MG/ML (5 ML VIAL) IV ONE (10:03)
[2022-02-05] MEDS ORDERED: PROPOFOL 10 MG/ML 20 ML VIAL IV ONE (10:03)
[2022-02-05] MEDS ORDERED: NEOSTIGMINE 1 MG/ML 10 ML VIAL ONE (10:03)
[2022-02-05] MEDS ORDERED: fentaNYL (PF) 50 MCG/ML 2 ML AMP ONE (10:03)
[2022-02-05] MEDS ORDERED: HYDROmorphone (PF) 1 MG/ML ONE (10:03)
[2022-02-05] MEDS ORDERED: PHENYLEPHRINE-0.9% NACL SYG 1,000 MCG/10 ML SYRINGE ONE (10:03)
[2022-02-05] MEDS ORDERED: IV FLUID CONTINUATION 1,000 ML IV ONE (10:08)
[2022-02-05 10:20] LABS: Basophils # (A) 0.02 X 10*3/uL (0.00-0.10); Basophils % (A) 0.2 %; Eosinophils # (A) 0.07 X 10*3/uL (0.04-0.35); Eosinophils % (A) 0.7 %; Lymphocytes # (A) 1.22 X 10*3/uL (0.90-5.00); Lymphocytes % (A) 12.8 %; Monocytes # (A) 1.07 X 10*3/uL (0.20-1.00); Monocytes % (A) 11.2 %; Neutrophils # (A) 6.96 X 10*3/uL (1.80-7.70); Neutrophils % (A) 73.1 %
[2022-02-05] MEDS ORDERED: BUPIVACAIN-EPI 0.25%-1:200,000 30 ML VIAL SQ ONE (10:32)
[2022-02-05] MEDS ORDERED: LACTATED RINGERS 1,000 ML IV ONE (10:52)
--- NOTE | 2022-02-05 11:11 | P.OP ---
Date of Procedure: 02/05/22 Preoperative Diagnosis: Left and right gluteal decubitus ulcers, unstageable Postoperative Diagnosis: Left and right acute his gluteal ulcers, stage IV Procedure(s) Performed: Sharp excisional debridement of left and right decubitus gluteal ulcers Anesthesia: JULIO C Surgeon: Kenia Yun Pathology: other (Cultures of left and right gluteal ulcer beds) Condition: stable Disposition: floor Indications for Procedure: 61-year-old male presented with concerns of infected decubitus ulcer area he states that one day he woke up and was unable to walk and has been following with neurology. He crawls on his bottom to move. On exam, he is found to have unstageable bilateral decubitus ulcer that were extremely foul-smelling and appeared to be infected. He was started on IV antibiotics with plan for debridement. Risks, benefits and alternatives were provided to the patient. Consent was obtained. Operative Findings: Left-sided gluteal decubitus ulcer, stage IV, measuring 13 x 8 x 2 cm Right-sided gluteal decubitus ulcer, stage IV, measuring 10 x 3 x 1 cm Description of Procedure: Patient was brought into the operating suite and placed supine on the operating table. Sedation was provided by anesthesia and he will underwent endotracheal intubation. The patient was then placed in right lateral decubitus position and both the right-sided and left-sided decubitus gluteal ulcers were clearly visualized. The patient was then prepped and draped in regular sterile fashion. Sharp excisional debridement was performed with an 11 blade of the left-sided ulcer first. Immediate incision created up outpouring of turbid and foul- smelling fluid. The entire eschar was dissected using the 11 blade. On exam of the wound bed, a portion of the wound bed was noted to have muscular tissue visible with some bleeding, however the lateral portion of the wound appeared to have necrotic tissue. Some undermining was performed around the skin edges an additional turbid fluid was drained. The curet and blade were used to continue to take away the necrotic tissue. The wound bed did appear to have muscular tissue and some bone appearing. There was some bleeding from the wound bed at this point. The wound measured 13 x 8 x 2 cm with additional undermining noted. Hemostasis was noted to be maintained. Attention was then turned towards the right decubitus ulcer. This was also debrided with sharp excisional debridement with an 11 blade. Similar to the left side, immediate turbid fluid was noted to drain. The wound bed was noted to have continued necrotic tissue. This was also debrided with curet and blade. The final wound measured 10 x 3 x 1 cm. Muscle and bone were also exposed on the side. Hemostasis was maintained. Both wounds were packed with iodoform gauze with sterile dressing in place. Further discussion will be needed to be had with the patient on goals of care and healing of this wound as he will likely require muscle flap and possible diverting ostomy for appropriate wound healing. The patient was taken to post anesthesia care unit in stable condition. Sponge and instrument count were correct 2.
[2022-02-05 13:05] VITALS: BMI 21.6
[2022-02-05] MEDS ORDERED: VANCOMYCIN IV PER PHARMACY 1 EACH MISC MISCELLANE PRN (14:29)
[2022-02-05] MEDS: CEFEPIME 2 GM in SODIUM CHLORIDE 0.9% 100 ML IVPB SCH ×2 (15:38→23:22)
[2022-02-05] MEDS: VANCOMYCIN 1,250 MG in SODIUM CHLORIDE 0.9% 250 ML IVPB SCH ×2 (15:46→23:20)
[2022-02-05] MEDS: ACETAMINOPHEN TAB 325 MG TAB PO PRN (22:01)
--- NOTE | 2022-02-06 01:06 | P.PN ---
Subjective Progress Note Date: 02/04/22 61-year-old male with a known history of hypertension, rheumatoid arthritis, chronic back pain, EtOH abuse, liver cirrhosis and currently everyday smoker and marijuana use was brought to the hospital by his family with c/o wounds on the legs and . Patient stays with his brother. Currently patient is wheelchair- bound and no longer walks. Patient does have contractures of bilateral lower extremities. He also developed ulcers on the gluteal region mainly left. Patient has been afebrile. Does drink on daily basis. Otherwise patient cannot provide any history at this time. Patient was also noted to have dark stools as per family. Chest x-ray showed no acute process. No significant change from prior. EKG showed ectopic atrial tachycardia. Laboratory data showed WBC 14.2 hemoglobin 10.4 and platelets 309 INR 1.7 Sodium 136 potassium 2.9 chloride 108 bicarb is 19 BUN 23 and creatinine 0.4 Lactic acid 2.2 on admission calcium 5.6 and ionized calcium 3.0 . Albumin 1.8. Serum alcohol level is less than 10. FOBT negative. 02/04/2022 Patient is more awake and alert and oriented today. Denies any complaints of chest pain or shortness of breath. Complains of pain in the gluteal region. Patient has been afebrile. Continued on antibiotics. General surgery is planning for debridement tomorrow. Laboratory data showed WBC 12.1 hemoglobin 9.8 and platelets 268 Sodium 135 potassium 4.1 chloride 100 bicarb is 24.1 BUN 20.20 creatinine 0.4 and blood sugar is 113 and lactic acid came down. TSH within normal limits and vitamin D level is less than 5 Current medications reviewed. Objective - Vital Signs Vital signs: Vital Signs Temp 98.7 F 02/04/22 20:32 Pulse 109 H 02/04/22 20:32 Resp 16 02/04/22 20:32 BP 121/69 02/04/22 20:32 Pulse Ox 97 02/04/22 20:32 FiO2 Intake & Output 02/04/22 02/04/22 02/05/22 06:59 18:59 06:59 Intake Total 900 Balance 900 Intake: Intake, IV Titration 900 Amount Sodium Chloride 0.9% 1, 900 000 ml @ 75 mls/hr IV . [id number] [facility] Rx#:[id number] Other: Voiding Method Urinal Diaper Diaper Incontinent # Voids 3 - Exam PHYSICAL EXAMINATION: Patient is lying in the bed with legs contracted. No distress. Awake alert but does not talk. HEENT: Normocephalic. Neck is supple. Pupils reactive. Nostrils clear. Oral cavity is dry. Neck reveals no JVD, carotid bruits, or thyromegaly. CHEST EXAMINATION: Trachea is central. Symmetrical expansion. Lung cox clear to auscultation and percussion. CARDIAC: Normal S1, S2 with no gallops. No murmurs ABDOMEN: Soft. Bowel sounds normal. No organomegaly. No abdominal bruits. Extremities: reveal no edema. No clubbing or cyanosis Neurologically awake, alert, oriented x2-3. Bilateral lower extremities contr acted. No gross focal neurological deficit. Skin: Patient does have bilateral gluteal ulcers with skin discoloration and sloughing and also wounds on the bilateral foot/heels.. Psychiatric: Cooperative. Could not be assessed completely. Musculoskeletal: No joint swelling or deformity. - Labs CBC & Chem 7: 02/05/22 05:51 02/05/22 05:51 Labs: Abnormal Lab Results - Last 24 Hours (Table) 02/04/22 02/04/22 Range/Units 06:18 06:18 WBC 12.13 H (4.50-10.00) X 10*3/uL RBC 3.48 L (4.40-5.60) X 10*6/uL Hgb 9.8 L (13.0-17.0) g/dL Hct 30.0 L (39.6-50.0) % RDW 15.5 H (11.5-14.5) % Immature Gran # 0.43 H (0.00-0.04) X 10*3/uL Neutrophils # 8.96 H (1.80-7.70) X 10*3/uL Monocytes # 1.09 H (0.20-1.00) X 10*3/uL Creatinine 0.4 L (0.6-1.5) mg/dL BUN/Creatinine Ratio 50.50 H (12.00-20.00) Ratio Glucose 113 H (70-110) mg/dL Calcium 7.4 L (8.7-10.3) mg/dL AST 66 H (14-35) U/L Total Protein 5.5 L (6.2-8.2) g/dL Albumin 1.9 L (3.8-4.9) g/dL Globulin 3.6 H (1.6-3.3) g/dL Albumin/Globulin Ratio 0.53 L (1.60-3.17) g/dL Vitamin D 25-Hydroxy <5.0 L (30.0-100.0) ng/mL Microbiology - Last 24 Hours (Table) 02/03/22 09:35 Blood Culture Gram Stain - Preliminary Blood Blood Culture - Preliminary Presumptive Staph aureus 02/03/22 09:50 Blood Culture Gram Stain - Preliminary Blood Blood Culture - Preliminary Presumptive Staph aureus 02/03/22 09:54 Gram Stain - Preliminary Foot - Left Wound Culture - Preliminary Gram Neg Bacilli 02/03/22 09:35 Blood Culture - Final Blood 02/03/22 09:50 Blood Culture - Final Blood Assessment and Plan Assessment: Bilateral buttock wounds with sloughing of skin and malodorous. Sepsis secondary to above. Lactic acidosis Hypovolemic hyponatremia Hypocalcemia Vit D deff Severe hypokalemia Moderate protein calorie malnutrition. Coagulopathy elevated INR level 1.7 Severe alcohol abuse History of rheumatoid arthritis Medical debility currently wheelchair-bound. Chronic back pain Liver cirrhosis History of marijuana DVT prophylaxis with heparin subcu Plan: Patient will be continued on IV hydration with normal saline and antibiotics above Zosyn. General surgery was consulted for wound debridement and ID consult. Follow-up wound culture reports and monitor for alcohol withdrawal symptoms. Continue with multivitamins and thiamine supplementation. Follow-up vitamin D level and continue with calcium supplementation. Follow-up CBC and BMP tomorrow. Prognosis guarded at this time. Time with Patient: Greater than 30
--- NOTE | 2022-02-06 01:10 | P.PN ---
Subjective Progress Note Date: 02/05/22 61-year-old male with a known history of hypertension, rheumatoid arthritis, chronic back pain, EtOH abuse, liver cirrhosis and currently everyday smoker and marijuana use was brought to the hospital by his family with c/o wounds on the legs and . Patient stays with his brother. Currently patient is wheelchair- bound and no longer walks. Patient does have contractures of bilateral lower extremities. He also developed ulcers on the gluteal region mainly left. Patient has been afebrile. Does drink on daily basis. Otherwise patient cannot provide any history at this time. Patient was also noted to have dark stools as per family. Chest x-ray showed no acute process. No significant change from prior. EKG showed ectopic atrial tachycardia. Laboratory data showed WBC 14.2 hemoglobin 10.4 and platelets 309 INR 1.7 Sodium 136 potassium 2.9 chloride 108 bicarb is 19 BUN 23 and creatinine 0.4 Lactic acid 2.2 on admission calcium 5.6 and ionized calcium 3.0 . Albumin 1.8. Serum alcohol level is less than 10. FOBT negative. 02/04/2022 Patient is more awake and alert and oriented today. Denies any complaints of chest pain or shortness of breath. Complains of pain in the gluteal region. Patient has been afebrile. Continued on antibiotics. General surgery is planning for debridement tomorrow. Laboratory data showed WBC 12.1 hemoglobin 9.8 and platelets 268 Sodium 135 potassium 4.1 chloride 100 bicarb is 24.1 BUN 20.20 creatinine 0.4 and blood sugar is 113 and lactic acid came down. TSH within normal limits and vitamin D level is less than 5 02/05/2022 S/p sharp excisional debridement of left and right gluteal decubitus ulcers today. Patient is awake alert and oriented and requesting pain medications. Complains of pending gluteal wounds. Afebrile. No complaints of nausea or vomiting. No chest pain or shortness of breath. Wound culture showed Klebsiella, Enterobacter, presumptive staph and gram- negative bacilli. Antibiotics changed to cefepime and vancomycin. ID is on b oard. Follow-up debridement and deep cultures. Laboratory data showed WBC 9.5 hemoglobin 9.4 and platelets 291 Sodium 138 potassium 4.0 chloride 101 bicarb is 22.4 BUN 15.1 and creatinine 0.4 and calcium 7.3 Current medications reviewed. Objective - Vital Signs Vital signs: Vital Signs Temp 98 F 02/05/22 20:25 Pulse 129 H 02/05/22 20:25 Resp 18 02/05/22 20:25 BP 112/65 02/05/22 20:25 Pulse Ox 96 02/05/22 20:25 FiO2 Intake & Output 02/05/22 02/05/22 02/06/22 06:59 18:59 06:59 Intake Total 590 3800 Output Total 4410 Balance 590 -610 Weight 58.967 kg Intake: IV 1300 Intake, IV Titration 1350 Amount Cefepime 2 gm In Sodium 100 Chloride 0.9% 100 ml @ 25 mls/hr IVPB Q8HR [facility] Rx# :[id number] Piperacillin-Tazobactam 3 100 .375 gm In Sodium Chloride 0.9% 100 ml @ 25 mls/hr IVPB Q8HR [facility] Rx# :[id number] Sodium Chloride 0.9% 1, 900 000 ml @ 75 mls/hr IV . [id number] [facility] Rx#:[id number] Vancomycin 1,250 mg In 250 Sodium Chloride 0.9% 250 ml @ 125 mls/hr IVPB Q8H [facility] Rx#:[id number] Oral 590 1150 Output: Urine 4400 Estimated Blood Loss 10 Other: Voiding Method Diaper Diaper Incontinent Incontinent # Voids 2 - Exam PHYSICAL EXAMINATION: Patient is lying in the bed with legs contracted. No distress. Awake alert but does not talk. HEENT: Normocephalic. Neck is supple. Pupils reactive. Nostrils clear. Oral cavity is dry. Neck reveals no JVD, carotid bruits, or thyromegaly. CHEST EXAMINATION: Trachea is central. Symmetrical expansion. Lung cox clear to auscultation and percussion. CARDIAC: Normal S1, S2 with no gallops. No murmurs ABDOMEN: Soft. Bowel sounds normal. No organomegaly. No abdominal bruits. Extremities: reveal no edema. No clubbing or cyanosis Neurologically awake, alert, oriented x2-3. Bilateral lower extremities contracted. No gross focal neurological deficit. Skin: Patient does have bilateral gluteal ulcers with skin discoloration and also wounds on the on the dorsum foot/heels.. Psychiatric: Cooperative. Musculoskeletal: No joint swelling or deformity. - Labs CBC & Chem 7: 02/05/22 05:51 02/05/22 05:51 Labs: Abnormal Lab Results - Last 24 Hours (Table) 02/05/22 02/05/22 Range/Units 05:51 05:51 RBC 3.35 L (4.40-5.60) X 10*6/uL Hgb 9.5 L (13.0-17.0) g/dL Hct 29.1 L (39.6-50.0) % RDW 15.9 H (11.5-14.5) % Immature Gran # 0.19 H (0.00-0.04) X 10*3/uL Monocytes # 1.07 H (0.20-1.00) X 10*3/uL Creatinine 0.4 L (0.6-1.5) mg/dL BUN/Creatinine Ratio 38.13 H (12.00-20.00) Ratio Calcium 7.3 L (8.7-10.3) mg/dL Microbiology - Last 24 Hours (Table) 02/05/22 10:35 Wound Culture - Preliminary Foot - Right 02/05/22 10:35 Anaerobic Culture - Preliminary Foot - Right 02/05/22 10:34 Anaerobic Culture - Preliminary Foot - Left 02/05/22 10:34 Wound Culture - Preliminary Foot - Left 02/03/22 09:35 Blood Culture Gram Stain - Final Blood Blood Culture - Final Staphylococcus aureus 02/03/22 09:50 Blood Culture Gram Stain - Final Blood Blood Culture - Final Staphylococcus aureus 02/03/22 09:54 Gram Stain - Preliminary Foot - Left Wound Culture - Preliminary Klebsiella oxytoca Enterobacter cloacae Presumptive Staph aureus Gram Neg Bacilli Assessment and Plan Assessment: Bilateral buttock wounds with sloughing of skin and malodorous. Sepsis secondary to above. Lactic acidosis Hypovolemic hyponatremia Hypocalcemia Vit D deff Severe hypokalemia Moderate protein calorie malnutrition. Coagulopathy elevated INR level 1.7 Severe alcohol abuse History of rheumatoid arthritis Medical debility currently wheelchair-bound. Chronic back pain Liver cirrhosis History of marijuana DVT prophylaxis with heparin subcu Plan: Patient will be continued on IV hydration with normal saline and antibiotics . s/p wound debridement and ID is on board. Follow-up wound culture reports and monitor for alcohol withdrawal symptoms. Continue with multivitamins and thiamine supplementation. vit D and calcium supplementation. Follow-up CBC and BMP tomorrow. Prognosis guarded at this time. Time with Patient: Greater than 30
[2022-02-06] MEDS: MORPHINE SULFATE 4 MG/ML SYRINGE IV PRN ×2 (05:31→09:03)
[2022-02-06] MEDS: VANCOMYCIN 1,250 MG in SODIUM CHLORIDE 0.9% 250 ML IVPB SCH ×3 (06:45→22:56)
[2022-02-06] MEDS ORDERED: LIDOCAINE 1% (10MG/ML) FOR IV START INTRADERMA PRN (06:47)
[2022-02-06] MEDS ORDERED: DEXAMETHASONE SOD PHOSPHATE 4 MG/ML 1 ML VIAL IV ONE (06:47)
[2022-02-06] MEDS ORDERED: ONDANSETRON 4 MG/2 ML VIAL IVP ONE (06:47)
[2022-02-06] MEDS ORDERED: LACTATED RINGERS 1,000 ML IV SCH (06:47)
[2022-02-06] MEDS ORDERED: HYDROmorphone 0.5 MG/0.5 ML SYRINGE IVP PRN (07:00)
[2022-02-06] MEDS ORDERED: METOCLOPRAMIDE 5 MG/ML 2 ML VIAL IVP PRN (07:00)
[2022-02-06 07:21] LABS: African American GFR (CKD) >90 (>60 ml/min/1.73 sqM); Anion Gap 5 mmol/L; Blood Urea Nitrogen 9 mg/dL (9-20); Calcium 6.5 mg/dL (8.4-10.2); Carbon Dioxide 23 mmol/L (22-30); Chloride 103 mmol/L (98-107); Glucose 80 mg/dL (74-99); Non-African American GFR(CKD) >90 (>60 ml/min/1.73 sqM); Potassium 3.3 mmol/L (3.5-5.1); Sodium 131 mmol/L (137-145)
[2022-02-06] MEDS ORDERED: Potassium Replacement Protocol 1 EACH MISC MISCELLANE PRN (07:28)
[2022-02-06] MEDS: CALCIUM CARB-VIT D 500 MG-5 MCG TAB PO SCH ×2 (08:53→17:07)
[2022-02-06] MEDS: POTASSIUM CHLORIDE ER 20 MEQ TAB.ER PO SCH ×2 (08:53→09:03)
[2022-02-06] MEDS: THIAMINE 100 MG TAB PO SCH ×2 (08:53→17:07)
[2022-02-06] MEDS: PANTOPRAZOLE 40 MG/10 ML VIAL IV SCH (08:53)
[2022-02-06] MEDS: HEPARIN SODIUM,PORCINE/PF 5,000 UNIT/0.5 ML SYRINGE SQ SCH ×2 (08:53→19:27)
[2022-02-06] MEDS: MULTIVITAMINS, THERA 1 EACH TAB PO SCH (08:53)
[2022-02-06] MEDS: NICOTINE 21MG/24HR PATCH TRANSDERM SCH (08:53)
[2022-02-06] MEDS: CEFEPIME 2 GM in SODIUM CHLORIDE 0.9% 100 ML IVPB SCH ×2 (08:54→17:07)
[2022-02-06] MEDS: ERGOCALCIFEROL 1,250 MCG (50,000 IU) CAPSULE PO SCH (08:57)
[2022-02-06] MEDS: amLODIPine 2.5 MG TAB PO SCH (08:57)
--- NOTE | 2022-02-06 09:37 | P.PN ---
Subjective Progress Note Date: 02/06/22 Patient seen and examined at bedside. No acute events. States he is having pain at the debridement site. Objective - Vital Signs Vital signs: Vital Signs Temp 97.8 F 02/06/22 04:36 Pulse 78 02/06/22 04:36 Resp 16 02/06/22 04:36 BP 137/76 02/06/22 04:36 Pulse Ox 94 L 02/06/22 04:36 FiO2 Intake & Output 02/05/22 02/06/22 02/06/22 18:59 06:59 18:59 Intake Total 3800 1250 Output Total 4410 1600 Balance -610 -350 Weight 58.967 kg Intake: IV 1300 Intake, IV Titration 1350 1250 Amount Cefepime 2 gm In Sodium 100 100 Chloride 0.9% 100 ml @ 25 mls/hr IVPB Q8HR [facility] Rx# :[id number] Piperacillin-Tazobactam 3 100 .375 gm In Sodium Chloride 0.9% 100 ml @ 25 mls/hr IVPB Q8HR [facility] Rx# :[id number] Sodium Chloride 0.9% 1, 900 900 000 ml @ 75 mls/hr IV . [id number] [facility] Rx#:[id number] Vancomycin 1,250 mg In 250 250 Sodium Chloride 0.9% 250 ml @ 125 mls/hr IVPB Q8H [facility] Rx#:[id number] Oral 1150 Output: Urine 4400 1600 Estimated Blood Loss 10 Other: Voiding Method Diaper Indwelling Catheter Incontinent # Voids 2 - Constitutional General appearance: Present: cooperative - Gastrointestinal Gastrointestinal Comment(s): Soft, nontender - Integumentary Integumentary Comment(s): Bilateral gluteal wound status post debridement, appropriate granulation tissue, continued turbid drainage - Labs CBC & Chem 7: 02/05/22 05:51 02/06/22 06:16 Labs: Abnormal Lab Results - Last 24 Hours (Table) 02/05/22 02/06/22 Range/Units 05:51 06:16 Immature Gran # 0.19 H (0.00-0.04) X 10*3/uL Monocytes # 1.07 H (0.20-1.00) X 10*3/uL Sodium 131 L (137-145) mmol/L Potassium 3.3 L (3.5-5.1) mmol/L Creatinine 0.45 L (0.66-1.25) mg/dL Calcium 6.5 L (8.4-10.2) mg/dL Microbiology - Last 24 Hours (Table) 02/05/22 10:35 Gram Stain - Preliminary Foot - Right Wound Culture - Preliminary Gram Neg Bacilli 02/05/22 10:34 Gram Stain - Preliminary Foot - Left Wound Culture - Preliminary Gram Neg Bacilli Strep agalactiae - (group b) 02/05/22 10:35 Anaerobic Culture - Preliminary Foot - Right 02/05/22 10:34 Anaerobic Culture - Preliminary Foot - Left 02/03/22 09:35 Blood Culture Gram Stain - Final Blood Blood Culture - Final Staphylococcus aureus 02/03/22 09:50 Blood Culture Gram Stain - Final Blood Blood Culture - Final Staphylococcus aureus 02/03/22 09:54 Gram Stain - Preliminary Foot - Left Wound Culture - Preliminary Klebsiella oxytoca Enterobacter cloacae Presumptive Staph aureus Gram Neg Bacilli Assessment and Plan Plan: 61-year-old male status post sharp excisional debridement of bilateral gluteal decubitus ulcer, stage IV. Discussed wound care with nursing and wound care consultation has been placed for further management. Continue with ID recommendations. I began to have a discussion with the patient and the possib ility of future ostomy to help with wound healing and the possibility of requiring plastic surgery evaluation for muscle flap. At this point, the patient states he is not interested in these measures.
[2022-02-06 10:45] LABS: HCT 22.5 % (39.6-50.0); HGB 7.3 g/dL (13.0-17.0); MCH 28.2 pg (27.0-32.0); MCHC 32.4 g/dL (32.0-37.0); MCV 86.9 fL (80.0-97.0); Mean Platelet Volume 10.1 fL (9.5-12.2); NRBC Per 100 WBC 0 /100 WBCS (0.0-0.0); Platelet Count 222 X 10*3/uL (140-440); RBC 2.59 X 10*6/uL (4.40-5.60); RDW 15.7 % (11.5-14.5); WBC 9.52 X 10*3/uL (4.50-10.00)
[2022-02-06 12:28] LABS: Basophils # (A) 0.01 X 10*3/uL (0.00-0.10); Basophils % (A) 0.1 %; Eosinophils # (A) 0.08 X 10*3/uL (0.04-0.35); Eosinophils % (A) 0.8 %; Immature Grans, Automated 2.9 %; Lymphocytes # (A) 0.77 X 10*3/uL (0.90-5.00); Lymphocytes % (A) 8.1 %; Monocytes # (A) 0.78 X 10*3/uL (0.20-1.00); Monocytes % (A) 8.2 %; Neutrophils % (A) 79.9 %
[2022-02-06] MEDS: HYDROmorphone 1 MG/ML 1 ML SYRINGE IVP PRN ×4 (12:56→22:56)
--- NOTE | 2022-02-06 13:58 | CT ---
EXAMINATION TYPE: CT brain wo con DATE OF EXAM: 02/06/2022 COMPARISON: INDICATION: Slurred speech DLP: 1054.2 mGycm, Automated exposure control for dose reduction was used. CONTRAST: None CT of the brain is performed utilizing 3 mm thick sections through the posterior fossa and 3 mm thick sections through the remaining calvarium. Study is performed within 24 hours of arrival to the hosp [facility]. 09/29/2021 No abnormal hyperdensity is present to suggest an acute intracranial hemorrhage. No mass lesion is evident. No acute infarcts are evident. Mild periventricular white matter hypodensity is present, likely on th e basis of chronic white matter ischemic changes. Findings appear stable over the interval. Ventricles and sulci are somewhat prominent for the patient age. Paranasal sinuses and mastoid air cells within the [id number] are clear. IMPRESSIONS: 1. Chronic appearing periventricular white matter ischemic type changes with some age-related atrop hy. Follow-up right be performed as clinically indicated.
[2022-02-06] MEDS ORDERED: VANCOMYCIN TROUGH DUE 1 EACH MISC MISCELLANE ONE (14:00)
--- NOTE | 2022-02-06 14:55 | PN ---
PROGRESS NOTE DATE OF SERVICE: 02/06/2022 This 61-year-old gentleman who was admitted with bilateral gluteal ulcers and significant infection also had features of sepsis. Patient is being closely monitored. No chest pain. No palpitations. The patient is also apparently complaining of weakness and the patient is actually dragging her legs at home. PHYSICAL EXAMINATION: Pulse 110, blood pressure 96/50, respiration 18. CHEST: Clear to auscultation. ABDOMEN: Soft. NERVOUS SYSTEM: Diffusely weak. REVIEW OF SYSTEMS: Fourteen-point review of systems negative except as mentioned earlier. CURRENT MEDICATIONS: Current medications are reviewed. They include . Doses and the rest of the medications noted. PHYSICAL EXAMINATION: Pulse is 78, blood pressure 130/70, respirations 16. HEENT: Conjunctivae normal. NECK: No jugular venous distention. CARDIOVASCULAR: S1, S2 muffled. RESPIRATION: Breath sounds diminished at the bases. Bilateral scattered rhonchi and crackles. ABDOMEN: Soft, nontender. LEGS: Significant weakness and wasting. NERVOUS SYSTEM: No focal deficit. EXAMINATION OF SKIN: Diffuse gluteal ulcers. LABS: Hemoglobin 7.3. Other labs are noted. ASSESSMENT: 1. Acute bilateral gluteal ulcers as well as skin ulcers with sepsis, present on admission. 2. Weakness of both lower legs. Rule out paraparesis. 3. Hypovolemic hyp natremia. 4. Possible history of ETOH. 5. Hypocalcemia. 6. Moderate protein-calorie malnutrition. 7. Multiple complex medical issues. 8. Anemia. 9. Electrolytes abnormalities. RECOMMENDATIONS AND DISCUSSION: I recommend to continue current medications, continue with the monitoring, symptomatic treatment. I would also recommend a CT scan of the brain. Neurology consultation. Neuro checks. Otherwise, continue the broad-spectrum IV antibiotics and closely follow with Infectious Disease. Overall prognosis is extremely guarded at this time. PT/OT also will evaluate for possible ECF rehab. grab jack worker to evaluate the home situation. Patient apparently is living with his brother at this time. Prognosis guarded. MMODL / IJN: [id number] / MTDD
[2022-02-06] MEDS: SODIUM CHLORIDE 0.9% 1,000 ML IV SCH (20:34)
--- NOTE | 2022-02-06 22:43 | P.CNNES ---
History of Present Illness Consult date: 02/06/22 Requesting physician: Jovon Wyman Reason for Consult: bilateral legs weakness, inablility to ambulate History of Present Illness: Patient is a 61-year-old male came to the hospital by ambulance on 02/03/2022 at 8:46 AM, for increasing weakness in the legs for the previous 3 days, cannot stand or walk, and has been bleeding dark red blood with his stools for about a week. Patient's vitals at the scene was blood pressure 158/64, pulse rate 96 and respirations 14 saturation 96% and blood sugar 112. Patient's initial blood test shows WBC was 14.2 with hemoglobin 10.4. It has improved to 9.5 for WBC to and hemoglobin dropped down to 7.3 respectively. Sodium 131, renal functions normal AST 66, ALT 16. TSH is normal 2.050. Vitamin D is very low <5.0. Calcium is very low on admission 5.6 (8.4-10.2), now 6.5. Ionized calcium 3.0(4.5-5.3) Blood alcohol level was negative. Stool occult blood negative. Patient's hemoglobin A1c 5.6 on 01/29/2019. Patient tells me that he was in usual state of health, but 6 months ago he developed numbness and weakness of the lower extremities, progressively got worse. He states it started with the right leg, then went to the left leg. He denies any symptoms in the upper extremities. He has numbness of his feet up to mid thighs bilaterally for last couple months. He has started falling. Lately he is very weak, cannot get up. He has urgency, leaks urine as well. Patient admits to having mid back pain, which he rates 10/10. The low back is 8/10 whereas he has no neck pain. Patient states that he lives with his brother. However he forces himself to walk. Patient denies any history of diabetes. He does have hypertension. He smokes 2 pack per day for last 20 years. He drinks couple beers per day for last 20 years. Also smokes marijuana. Denies any other illicit drugs or any IV drugs. Denies any risk factors for HIV. Review of Systems Patient denies headache any problem with the vision. All 14 point review systems reviewed, unremarkable except as mentioned in HPI. Past Medical History Past Medical History: Hypertension, Rheumatoid Arthritis (RA) Additional Past Medical History / Comment(s): arthritis, chronic back pain, right ankle fracture, right fibula fracture, ETOH abuse, liver cirrhosis History of Any Multi-Drug Resistant Organisms: None Reported Past Surgical History: No Surgical Hx Reported Additional Past Surgical History / Comment(s): ABD SURGERY FOR ULCER Past Anesthesia/Blood Transfusion Reactions: Unable to Obtain Past Psychological History: Anxiety Smoking Status: Current every day smoker, Heavy tobacco smoker Past Alcohol Use History: Abuse, Daily, Heavy Past Drug Use History: Marijuana - Past Family History Father Family Medical History: COPD Additional Family Medical History / Comment(s): alcoholism Mother Family Medical History: Cancer Medications and Allergies Home Medications Medication Instructions Recorded Confirmed Type amLODIPine [Norvasc] 2.5 mg PO DAILY 02/03/22 02/03/22 History Allergies Allergy/AdvReac Type Severity Reaction Status Date / Time No Known Allergies Allergy Verified 02/03/22 11:08 Physical Examination - Vital Signs Vital Signs: Vital Signs Temp Pulse Resp BP Pulse Ox 02/06/22 12:15 98.1 F 110 H 18 96/50 98 02/06/22 04:36 97.8 F 78 16 137/76 94 L 02/05/22 20:25 98 F 129 H 18 112/65 96 02/05/22 19:50 129 H 18 Intake and Output 02/05/22 02/06/22 02/06/22 22:59 06:59 14:59 Intake Total 2500 1250 Output Total 1900 1600 1100 Balance 600 -350 -1100 Intake: Intake, IV Titration 1350 1250 Amount Cefepime 2 gm In Sodium 100 100 Chloride 0.9% 100 ml @ 25 mls/hr IVPB Q8HR [facility] Rx# :[id number] Piperacillin-Tazobactam 3 100 .375 gm In Sodium Chloride 0.9% 100 ml @ 25 mls/hr IVPB Q8HR [facility] Rx# :[id number] Sodium Chloride 0.9% 1, 900 900 000 ml @ 75 mls/hr IV . [id number] [facility] Rx#:[id number] Vancomycin 1,250 mg In 250 250 Sodium Chloride 0.9% 250 ml @ 125 mls/hr IVPB Q8H [facility] Rx#:[id number] Oral 1150 Output: Urine 1900 1600 1100 Other: Voiding Method Indwelling Catheter Indwelling Catheter # Voids 2 Patient is a late middle aged male, appears older than his stated age. He appears uncomfortable. Patient is laying on the right side, has severely spastic left leg, flexed at the hip and the knee. The right leg also appears spastic, but not as much and is able to stretch to some extent, but not the left leg. Patient is alert awake oriented to time place and person. Patient has slightly slow mentation, appears slightly encephalopathic. Patient knows it is January 2022 and that he is in [facility] and name of the current president. Speech and language functions are normal. Patient can name and repeat very well. Attention, concentration is decreased and fund of knowledge is somewhat limited. Detail cognitive function testing deferred. On cranial examination, pupils are equal, round and reacting to light, visual cox are full on confrontation, with no neglect. His extraocular muscles are intact with no nystagmus. Face is symmetric, tongue protrudes to the midline. Palatal elevation and sensation normal, hearing appears slightly decreased and shoulder shrug normal, facial sensation normal. 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 In the lower extremities hip flexion 3-4/0, knee extension 4+5-/0, ankle dorsiflexion 5/0, plantar flexion 4/0. Patient's left leg is very spastic. Patient has some sloughing of the skin of the left foot. Some old scabs possibly from previous falls at present in the legs. Deep tendon reflexes are (right/left) biceps 2/0, brachioradialis 1/0, knee 3/0, plantars are upgoing bilaterally. Sensory to touch is decreased from the toes up to below knees bilaterally. Normal sensation for touch in the upper limbs. Cerebellar function showed ataxia for [id number] testing on the left arm, but normal on the right. Tone is significantly increased in bilateral lower limbs, left leg worse than right. Patient's and bulk of muscles is in general decreased. Patient appears cachectic. Gait not able to be checked. On general examination, there is no carotid bruit or murmur, S1-S2 audible. Abdomen is soft nontender. No organomegaly. Bowel sounds present. Chest is clear. Mild peripheral edema. Patient has left foot cellulitis. Patient has bilateral gluteal pressure sores. Patient is catheterized. Results - Laboratory Findings CBC and BMP: 02/06/22 06:16 02/06/22 06:16 Abnormal Lab Findings: Abnormal Labs 02/03/22 02/03/22 02/03/22 09:54 09:54 09:54 WBC 14.2 H RBC 3.59 L Hgb 10.4 L Hct 33.5 L RDW Immature Gran # Neutrophils # 12.2 H Lymphocytes # 0.6 L Monocytes # PT 17.4 H INR 1.7 H APTT 31.2 H Sodium 136 L Potassium 2.9 L Chloride 108 H Carbon Dioxide 19 L BUN 23 H Creatinine 0.40 L BUN/Creatinine Ratio Glucose 110 H Plasma Lactic Acid Esdras Calcium 5.6 L* Ionized Calcium Noah AST Total Protein 4.9 L Albumin 1.8 L Globulin Albumin/Globulin Ratio Vitamin D 25-Hydroxy 02/03/22 02/03/22 02/03/22 09:54 09:54 12:54 WBC RBC Hgb Hct RDW Immature Gran # Neutrophils # Lymphocytes # Monocytes # PT INR APTT Sodium Potassium Chloride Carbon Dioxide BUN Creatinine BUN/Creatinine Ratio Glucose Plasma Lactic Acid Esdras 2.2 H* 3.0 H* Calcium Ionized Calcium Noah 3.0 L* AST Total Protein Albumin Globulin Albumin/Globulin Ratio Vitamin D 25-Hydroxy 02/04/22 02/04/22 02/05/22 06:18 06:18 05:51 WBC 12.13 H RBC 3.48 L 3.35 L Hgb 9.8 L 9.5 L Hct 30.0 L 29.1 L RDW 15.5 H 15.9 H Immature Gran # 0.43 H 0.19 H Neutrophils # 8.96 H Lymphocytes # Monocytes # 1.09 H 1.07 H PT INR APTT Sodium Potassium Chloride Carbon Dioxide BUN Creatinine 0.4 L BUN/Creatinine Ratio 50.50 H Glucose 113 H Plasma Lactic Acid Esdras Calcium 7.4 L Ionized Calcium Noah AST 66 H Total Protein 5.5 L Albumin 1.9 L Globulin 3.6 H Albumin/Globulin Ratio 0.53 L Vitamin D 25-Hydroxy <5.0 L 05/29/22 05/30/22 05/30/22 05:51 06:16 06:16 WBC RBC 2.59 L Hgb 7.3 L Hct 22.5 L RDW 15.7 H Immature Gran # 0.28 H Neutrophils # Lymphocytes # 0.77 L Monocytes # PT INR APTT Sodium 131 L Potassium 3.3 L Chloride Carbon Dioxide BUN Creatinine 0.4 L 0.45 L BUN/Creatinine Ratio 38.13 H Glucose Plasma Lactic Acid Esdras Calcium 7.3 L 6.5 L Ionized Calcium Noah AST Total Protein Albumin Globulin Albumin/Globulin Ratio Vitamin D 25-Hydroxy Assessment and Plan Assessment: * Spastic paraparesis, 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 Examination also revealed mild weakness of left upper extremity. Exact cause is uncertain. Rule out multiple sclerosis, transverse myelitis, myeloneuropathy, B12 deficiency. * Bilateral gluteal pressure sores, with left foot cellulitis * Hypertension * Rheumatoid arthritis * Alcoholism Plan: * Patient to undergo MRI of the brain, cervical, thoracic and lumbar spine with and without contrast to evaluate for MS, TM. Uncertain if patient will be able to tolerate the MRI scanning because of significant spasticity in the lower limbs. * Detailed blood tests as already ordered. * Suggest rheumatology consultation rule out vasculitis. * Surgery on board for gluteal pressure sores, may need debridement. * ID on board for left foot cellulitis, on Zosyn. * Further management based upon above test results. * Neurology will follow. Thank you for the consult. Time with Patient: Greater than 30
[2022-02-07] MEDS: CEFEPIME 2 GM in SODIUM CHLORIDE 0.9% 100 ML IVPB SCH ×3 (01:21→16:04)
[2022-02-07] MEDS: HYDROmorphone 1 MG/ML 1 ML SYRINGE IVP PRN ×5 (02:06→22:20)
[2022-02-07 05:27] LABS: African American GFR (CKD) >90 (>60 ml/min/1.73 sqM); Anion Gap 3 mmol/L; Blood Urea Nitrogen 9 mg/dL (9-20); C Reactive Protein 8.8 mg/dL (<1.0); Calcium 6.8 mg/dL (8.4-10.2); Carbon Dioxide 24 mmol/L (22-30); Chloride 100 mmol/L (98-107); Glucose 89 mg/dL (74-99); Magnesium 1.6 mg/dL (1.6-2.3); Non-African American GFR(CKD) >90 (>60 ml/min/1.73 sqM); Potassium 3.3 mmol/L (3.5-5.1); Sodium 127 mmol/L (137-145)
[2022-02-07] MEDS: amLODIPine 2.5 MG TAB PO SCH (07:01)
[2022-02-07] MEDS: THIAMINE 100 MG TAB PO SCH ×2 (07:01→16:05)
[2022-02-07] MEDS: MULTIVITAMINS, THERA 1 EACH TAB PO SCH (07:01)
[2022-02-07] MEDS: NICOTINE 21MG/24HR PATCH TRANSDERM SCH (07:01)
[2022-02-07] MEDS: HEPARIN SODIUM,PORCINE/PF 5,000 UNIT/0.5 ML SYRINGE SQ SCH ×2 (07:01→22:20)
[2022-02-07] MEDS: VANCOMYCIN 1,250 MG in SODIUM CHLORIDE 0.9% 250 ML IVPB SCH (07:01)
[2022-02-07] MEDS: CALCIUM CARB-VIT D 500 MG-5 MCG TAB PO SCH ×2 (07:01→16:05)
[2022-02-07] MEDS: PANTOPRAZOLE 40 MG/10 ML VIAL IV SCH (08:17)
[2022-02-07 08:48] LABS: HCT 22.4 % (39.6-50.0); HGB 7.5 g/dL (13.0-17.0); MCH 28.6 pg (27.0-32.0); MCHC 33.5 g/dL (32.0-37.0); MCV 85.5 fL (80.0-97.0); Mean Platelet Volume 10.1 fL (9.5-12.2); NRBC Per 100 WBC 0 /100 WBCS (0.0-0.0); Platelet Count 240 X 10*3/uL (140-440); RBC 2.62 X 10*6/uL (4.40-5.60); RDW 15.8 % (11.5-14.5); WBC 11.58 X 10*3/uL (4.50-10.00)
[2022-02-07] MEDS: POTASSIUM CHLORIDE ER 20 MEQ TAB.ER PO SCH (09:12)
[2022-02-07] MEDS: SODIUM CHLORIDE 0.9% 1,000 ML IV SCH ×2 (09:13→22:21)
[2022-02-07 09:29] LABS: Immunoglobulin M 94.3 mg/dL (40.0-280.0)
[2022-02-07 09:40] LABS: Basophils # (A) 0.02 X 10*3/uL (0.00-0.10); Basophils % (A) 0.2 %; Eosinophils # (A) 0.07 X 10*3/uL (0.04-0.35); Eosinophils % (A) 0.6 %; Immature Grans, Automated 1.4 %; Lymphocytes # (A) 1.11 X 10*3/uL (0.90-5.00); Lymphocytes % (A) 9.6 %; Monocytes # (A) 1.31 X 10*3/uL (0.20-1.00); Monocytes % (A) 11.3 %; Neutrophils # (A) 8.91 X 10*3/uL (1.80-7.70); Neutrophils % (A) 76.9 %
[2022-02-07 09:41] LABS: Hypochromasia (M) 2+; Rouleaux PRESENT
[2022-02-07 10:33] LABS: Erythrocyte Sedimentation Rate 66 mm/Hr (0-20)
--- NOTE | 2022-02-07 10:33 | P.PN ---
Subjective Progress Note Date: 02/07/22 Patient seen and examined at bedside. States his pain level is more controlled with changes in pain medication. No acute complaints. Objective - Vital Signs Vital signs: Vital Signs Temp 97.8 F 02/07/22 08:00 Pulse 110 H 02/07/22 08:00 Resp 19 02/07/22 08:00 BP 120/61 02/07/22 08:00 Pulse Ox 98 02/07/22 08:00 FiO2 Intake & Output 02/06/22 02/07/22 02/07/22 18:59 06:59 18:59 Output Total 1900 1100 Balance -1900 -1100 Output: Urine 1900 1100 Other: Voiding Method Indwelling Catheter Indwelling Catheter # Bowel Movements 0 - Constitutional General appearance: Present: cooperative - Integumentary Integumentary Comment(s): Bilateral stage IV decubitus gluteal ulcers unchanged from previous exam - Labs CBC & Chem 7: 02/07/22 04:44 02/07/22 04:44 Labs: Abnormal Lab Results - Last 24 Hours (Table) 02/06/22 02/07/22 02/07/22 Range/Units 06:16 04:44 04:44 WBC 11.58 H (4.50-10.00) X 10*3/uL RBC 2.59 L 2.62 L (4.40-5.60) X 10*6/uL Hgb 7.3 L 7.5 L (13.0-17.0) g/dL Hct 22.5 L 22.4 L (39.6-50.0) % RDW 15.7 H 15.8 H (11.5-14.5) % Immature Gran # 0.28 H 0.16 H (0.00-0.04) X 10*3/uL Neutrophils # 8.91 H (1.80-7.70) X 10*3/uL Lymphocytes # 0.77 L (0.90-5.00) X 10*3/uL Monocytes # 1.31 H (0.20-1.00) X 10*3/uL Sodium 127 L (137-145) mmol/L Potassium 3.3 L (3.5-5.1) mmol/L Creatinine 0.47 L (0.66-1.25) mg/dL Calcium 6.8 L (8.4-10.2) mg/dL C-Reactive Protein 8.8 H (<1.0) mg/dL Microbiology - Last 24 Hours (Table) 02/05/22 10:35 Gram Stain - Preliminary Foot - Right Wound Culture - Preliminary Escherichia coli Presumptive Staph aureus 02/05/22 10:34 Gram Stain - Final Foot - Left Wound Culture - Final Escherichia coli Strep agalactiae - (group b) 02/03/22 09:54 Gram Stain - Final Foot - Left Wound Culture - Final Klebsiella oxytoca Enterobacter cloacae Staphylococcus aureus Alcaligen. faecalis Assessment and Plan Plan: 61-year-old male status post sharp excisional debridement of bilateral gluteal decubitus ulcer, stage IV. Discussed wound care with nursing and wound care consultation has been placed for further management. Continue with ID recommendations. I began to have a discussion with the patient and the possibility of future ostomy to help with wound healing and the possibility of requiring plastic surgery evaluation for muscle flap. At this point, the patient states he is not interested in these measures. Today the patient does state that he is interested in rehab facility and this would be ideal for the patient due to large wounds that he will not be able to take care of on his own.
--- NOTE | 2022-02-07 13:53 | P.PN ---
Subjective Progress Note Date: 02/07/22 This is a 61-year-old male who was recently admitted with bilateral gluteal ulcers and significant infections with features of sepsis, present on admission and is being closely monitored. Patient is status post sharp excisional debridement of bilateral gluteal decubitus ulcers stage IV with Dr. Yun and cultures have been sent and are pending and infectious disease also closely monitoring and awaiting finalized cultures and patient is maintained on IV cefepime and will continue at this time. Neurology also evaluating the patient for continued weakness and has an MRI of the brain, cervical, thoracic, and lumbar ordered to evaluate for MS. Preliminary wound culture showing E. coli presumptive staph. Patient denies chest pain or shortness of breath. Patient is afebrile. Patient tolerating diet with no reports of nausea or vomiting noted. Patient to have physical therapy evaluate and possibly ECF being planned. Review of systems: Constitutional: No reports of fatigue, fever, or chills Cardiovascular: No reports of chest pain or palpitations Respiratory: No reports of shortness of breath or cough GI: No reports of nausea, no reports of of vomiting : No reports of dysuria or retention Neurovascular: reports of generalized weakness, reports foot pain and gluteal pain All medications have been reviewed Active Medications Acetaminophen (Acetaminophen Tab 325 Mg Tab) 650 mg PO Q6HR PRN PRN Reason: Mild Pain or Fever > 100.5 Last Admin: 02/05/22 22:01 Dose: 650 mg Amlodipine Besylate (Amlodipine 2.5 Mg Tab) 2.5 mg PO DAILY [facility] Last Admin: 02/07/22 07:01 Dose: 2.5 mg Calcium Carbonate (Calcium Carb-Vit D 500 Mg-5 Mcg Tab) 1 each PO BID-W/MEALS [facility] Last Admin: 02/07/22 07:01 Dose: 1 each Collagenase (Collagenase 250 Unit/Gm Ointment 30 Gm Tube) 1 applic TOPICAL DAILY [facility]; Protocol Ergocalciferol (Ergocalciferol 1,250 Mcg (50,000 Iu) Capsule) 1,250 mcg PO Q7D [facility] Last Admin: 02/06/22 08:57 Dose: 1,250 mcg Heparin Sodium (Porcine) (Heparin Sodium,Porcine/Pf 5,000 Unit/0.5 Ml Syringe) 5,000 unit SQ Q12HR [facility] Last Admin: 02/07/22 07:01 Dose: 5,000 unit Hydromorphone HCl (Hydromorphone 1 Mg/Ml 1 Ml Syringe) 1 mg IVP Q3HR PRN PRN Reason: Moderate-Severe Pain Last Admin: 02/07/22 13:00 Dose: 1 mg Sodium Chloride (Saline 0.9%) 1,000 mls @ 75 mls/hr IV .[id number] [facility] Last Admin: 02/07/22 09:13 Dose: 75 mls/hr Cefepime HCl 2 gm/ Sodium (Chloride) 100 mls @ 25 mls/hr IVPB Q8HR [facility]; Protocol Last Admin: 02/07/22 10:26 Dose: 25 mls/hr Lorazepam (Lorazepam 2 Mg/Ml Inj) 1 mg IV Q2HR PRN PRN Reason: CIWA 8 or 9 Last Admin: 02/04/22 15:24 Dose: 1 mg Lorazepam (Lorazepam 2 Mg/Ml Inj) 1 mg IV Q1HR PRN PRN Reason: CIWA 10 to 15 Metronidazole (Metronidazole 500 Mg Tab) 500 mg PO TID [facility]; Protocol Miscellaneous Information (Potassium Replacement Protocol 1 Each Misc) 1 each MISCELLANE DAILY PRN; Protocol PRN Reason: Per Protocol Miscellaneous Information (Vancomycin Trough Due 1 Each Misc) 1 each MISCELLANE ONCE ONE Stop: 02/08/22 06:01 Multivitamins (Multivitamins, Thera 1 Each Tab) 1 each PO DAILY [facility] Last Admin: 02/07/22 07:01 Dose: 1 each Naloxone HCl (Naloxone 0.4 Mg/Ml 1 Ml Vial) 0.2 mg IV Q2M PRN PRN Reason: Opioid Reversal Nicotine (Nicotine 21mg/24hr Patch) 1 patch TRANSDERM DAILY [facility] Last Admin: 02/07/22 07:01 Dose: 1 patch Nystatin (Nystatin 100,000unit/Gm Cream 30 Gm Tube) 1 applic TOPICAL DAILY [facility]; Protocol Pantoprazole Sodium (Pantoprazole 40 Mg/10 Ml Vial) 40 mg IV DAILY [facility] Last Admin: 02/07/22 08:17 Dose: 40 mg Thiamine HCl (Thiamine 100 Mg Tab) 100 mg PO BID-W/MEALS [facility] Last Admin: 02/07/22 07:01 Dose: 100 mg Triamcinolone Acetonide (Triamcinolone 0.1% Cream 80 Gm Tube) 1 applic TOPICAL DAILY [facility]; Protocol PHYSICAL EXAMINATION: GENERAL: The patient is alert and oriented x4, Well developed, well nourished. HEENT: Pupils are round and equally reacting to light. EOMI. no scleral icterus. No conjunctival pallor. Normocephalic, atraumatic. No pharyngeal erythema. No thyromegaly. CARDIOVASCULAR: S1 and S2 muffled PULMONARY: diminished breath sounds bilaterally with some scattered rhonchi and crackles noted ABDOMEN: soft. Nontender on exam. non-distended, normoactive bowel sounds. No palpable organomegaly. MUSCULOSKELETAL: No joint swelling or deformity. EXTREMITIES: No cyanosis, clubbing, or pedal edema. Significant wasting noted NEUROLOGICAL: Gross neurological examination did not reveal any focal deficits. Diffuse weakness SKIN: Stage IV bilateral gluteal ulcers status post debridement. Assessment: Acute bilateral gluteal ulcers as well as skin ulcers with sepsis, present on admission Weakness of bilateral lower extremities, rule out paraparesis Hypovolemic hyponatremia Possible history of EtOH abuse Hypocalcemia Moderate protein calorie malnutrition with a BMI of 21.6 Anemia Electrolyte abnormalities GI prophylaxis DVT prophylaxis no code Plan: Recommend to continue with current medications and management with general surgery, neurology, and infectious disease following. Patient to work with physical therapy and social work consulted as patient would likely benefit from ECF. Patient currently lives with brother although has multiple social issues and recommend ECF for continued wound care and treatment of these ulcers. Awaiting finalized cultures at this time patient is maintained on IV cefepime and will continue. Neurology workup in process for bilateral lower extremity weakness with MRIs ordered an additional labs which are pending. Due to multiple convex medical issues, prognosis is guarded. Recommend repeat labs and continued local wound care. Wound care is following. The impression and plan of care has been dictated by Kellen Cole, nurse practitioner as directed. MD Bo I have performed a history and examination and MDM of this patient, discussed the same with the dictator, and agree with the dictator's assessment and plan as written ,documented as a scribe. Based on total visit time, I have performed more than 50% of the visit. Any additional findings or plans will be noted. Objective - Vital Signs Vital signs: Vital Signs Temp 97.8 F 02/06/22 04:36 Pulse 78 02/06/22 04:36 Resp 16 02/06/22 04:36 BP 137/76 05/30/22 04:36 Pulse Ox 94 L 02/06/22 04:36 FiO2 Intake & Output 02/05/22 02/06/22 02/06/22 18:59 06:59 18:59 Intake Total 3800 1250 Output Total 4410 1600 Balance -610 -350 Weight 58.967 kg Intake: IV 1300 Intake, IV Titration 1350 1250 Amount Cefepime 2 gm In Sodium 100 100 Chloride 0.9% 100 ml @ 25 mls/hr IVPB Q8HR [facility] Rx# :[id number] Piperacillin-Tazobactam 3 100 .375 gm In Sodium Chloride 0.9% 100 ml @ 25 mls/hr IVPB Q8HR [facility] Rx# :[id number] Sodium Chloride 0.9% 1, 900 900 000 ml @ 75 mls/hr IV . [id number] [facility] Rx#:[id number] Vancomycin 1,250 mg In 250 250 Sodium Chloride 0.9% 250 ml @ 125 mls/hr IVPB Q8H [facility] Rx#:[id number] Oral 1150 Output: Urine 4400 1600 Estimated Blood Loss 10 Other: Voiding Method Diaper Indwelling Catheter Incontinent # Voids 2 - Labs CBC & Chem 7: 02/07/22 04:44 02/07/22 04:44 Labs: Abnormal Lab Results - Last 24 Hours (Table) 02/06/22 Range/Units 06:16 Sodium 131 L (137-145) mmol/L Potassium 3.3 L (3.5-5.1) mmol/L Creatinine 0.45 L (0.66-1.25) mg/dL Calcium 6.5 L (8.4-10.2) mg/dL Microbiology - Last 24 Hours (Table) 02/05/22 10:35 Gram Stain - Preliminary Foot - Right Wound Culture - Preliminary Gram Neg Bacilli 02/05/22 10:34 Gram Stain - Preliminary Foot - Left Wound Culture - Preliminary Gram Neg Bacilli Strep agalactiae - (group b) 02/05/22 10:35 Anaerobic Culture - Preliminary Foot - Right 02/05/22 10:34 Anaerobic Culture - Preliminary Foot - Left 02/03/22 09:35 Blood Culture Gram Stain - Final Blood Blood Culture - Final Staphylococcus aureus 02/03/22 09:50 Blood Culture Gram Stain - Final Blood Blood Culture - Final Staphylococcus aureus 02/03/22 09:54 Gram Stain - Preliminary Foot - Left Wound Culture - Preliminary Klebsiella oxytoca Enterobacter cloacae Presumptive Staph aureus Gram Neg Bacilli
[2022-02-07] MEDS: COLLAGENASE 250 UNIT/GM OINTMENT 30 GM TUBE TOPICAL SCH (15:27)
[2022-02-07] MEDS: TRIAMCINOLONE 0.1% CREAM 80 GM TUBE TOPICAL SCH (15:28)
[2022-02-07] MEDS: metroNIDAZOLE 500 MG TAB PO SCH ×2 (16:05→22:20)
[2022-02-07] MEDS: FOLIC ACID 1 MG TAB PO SCH (17:43)
[2022-02-08] MEDS: CEFEPIME 2 GM in SODIUM CHLORIDE 0.9% 100 ML IVPB SCH ×4 (00:45→23:11)
[2022-02-08] MEDS: ACETAMINOPHEN TAB 325 MG TAB PO PRN ×3 (00:50→22:35)
[2022-02-08] MEDS: HYDROmorphone 1 MG/ML 1 ML SYRINGE IVP PRN ×7 (03:24→23:11)
[2022-02-08 05:27] LABS: African American GFR (CKD) >90 (>60 ml/min/1.73 sqM); Non-African American GFR(CKD) >90 (>60 ml/min/1.73 sqM)
[2022-02-08] MEDS ORDERED: VANCOMYCIN TROUGH DUE 1 EACH MISC MISCELLANE ONE (06:00)
--- NOTE | 2022-02-08 07:44 | P.PN ---
Subjective Progress Note Date: 02/05/22 Principal diagnosis: Infected bilateral gluteal pressure ulcer Patient is a 61-year-old male presented to hospital with weakness in this patient noticed to have unstageable bilateral gluteal pressure ulcer with secondary cellulitis and some ulcerations the left foot but no cellulitis. On today's evaluation that is 02/05/2022, the patient remains to be afebrile, patient is breathing comfortably has been complaining of pain to the gluteal area and wants more pain medication no nausea no vomiting no abdominal pain no diarrhea Objective - Vital Signs Vital signs: Vital Signs Temp 98.2 F 02/05/22 13:00 Pulse 103 H 02/05/22 13:00 Resp 16 02/05/22 13:00 BP 113/67 02/05/22 13:00 Pulse Ox 98 02/05/22 13:00 FiO2 Intake & Output 02/04/22 02/05/22 02/05/22 18:59 06:59 18:59 Intake Total 455 679 8010 Output Total 2510 Balance 900 590 -1210 Weight 58.967 kg Intake: IV 1300 Intake, IV Titration 900 Amount Sodium Chloride 0.9% 1, 900 000 ml @ 75 mls/hr IV . [id number] [facility] Rx#:[id number] Oral 590 Output: Urine 2500 Estimated Blood Loss 10 Other: Voiding Method Diaper Diaper Diaper Incontinent Incontinent Incontinent # Voids 1 - Exam GENERAL DESCRIPTION: A middle-age male lying in bed in no distress RESPIRATORY SYSTEM: Unlabored breathing , decreased breath sounds at bases HEART: S1 S2 regular rate and rhythm , ABDOMEN: Soft , no tenderness, bilateral gluteal wounds are dressed did have foul-smelling drainage EXTREMITIES: No edema feet - Labs CBC & Chem 7: 02/07/22 04:44 02/08/22 04:11 Labs: Abnormal Lab Results - Last 24 Hours (Table) 02/05/22 02/05/22 Range/Units 05:51 05:51 RBC 3.35 L (4.40-5.60) X 10*6/uL Hgb 9.5 L (13.0-17.0) g/dL Hct 29.1 L (39.6-50.0) % RDW 15.9 H (11.5-14.5) % Immature Gran # 0.19 H (0.00-0.04) X 10*3/uL Monocytes # 1.07 H (0.20-1.00) X 10*3/uL Creatinine 0.4 L (0.6-1.5) mg/dL BUN/Creatinine Ratio 38.13 H (12.00-20.00) Ratio Calcium 7.3 L (8.7-10.3) mg/dL Microbiology - Last 24 Hours (Table) 02/03/22 09:54 Gram Stain - Preliminary Foot - Left Wound Culture - Preliminary Klebsiella oxytoca Enterobacter cloacae Presumptive Staph aureus Gram Neg Bacilli 02/03/22 09:35 Blood Culture Gram Stain - Preliminary Blood Blood Culture - Preliminary Presumptive Staph aureus 02/03/22 09:50 Blood Culture Gram Stain - Preliminary Blood Blood Culture - Preliminary Presumptive Staph aureus Assessment and Plan (1) Abscess and cellulitis of gluteal region Current Visit: Yes Status: Acute Code(s): L02.31 - CUTANEOUS ABSCESS OF BUTTOCK; L03.317 - CELLULITIS OF BUTTOCK SNOMED Code(s): 942610329 Plan: 1patient with bilateral unstageable pressure ulcer with necrotic base and surrounding redness suspicious for secondary cellulitis and possible gram- negative in view of the close location to the and the anal canal. 2left foot superficial ulceration but no cellulitis 3patient is status post surgical debridement and deep culture which are currently pending 4-Mycolog cream to the left foot ulcer applied daily 5- patient to continue with Zosyn 3.375 g every 8 hours to continue Time with Patient: Less than 30
--- NOTE | 2022-02-08 07:45 | P.PN ---
Subjective Progress Note Date: 02/06/22 Principal diagnosis: Infected bilateral gluteal pressure ulcer Patient is a 61-year-old male presented to hospital with weakness in this patient noticed to have unstageable bilateral gluteal pressure ulcer with secondary cellulitis and some ulcerations the left foot but no cellulitis. On today's evaluation that is 02/06/2022, the patient afebrile, patient is breathing comfortably on room air, the patient pain to the gluteal area is currently controlled, the patient denies nausea no vomiting no abdominal pain no diarrhea Objective - Vital Signs Vital signs: Vital Signs Temp 98.4 F 02/06/22 19:59 Pulse 113 H 02/06/22 19:59 Resp 18 02/06/22 19:59 BP 112/65 02/06/22 19:59 Pulse Ox 97 02/06/22 19:59 FiO2 Intake & Output 02/06/22 02/06/22 02/07/22 06:59 18:59 06:59 Intake Total 1250 Output Total 1600 1900 Balance -350 -1900 Intake: Intake, IV Titration 1250 Amount Cefepime 2 gm In Sodium 100 Chloride 0.9% 100 ml @ 25 mls/hr IVPB Q8HR [facility] Rx# :[id number] Sodium Chloride 0.9% 1, 900 000 ml @ 75 mls/hr IV . [id number] [facility] Rx#:[id number] Vancomycin 1,250 mg In 250 Sodium Chloride 0.9% 250 ml @ 125 mls/hr IVPB Q8H [facility] Rx#:[id number] Output: Urine 1600 1900 Other: Voiding Method Indwelling Catheter Indwelling Catheter Indwelling Catheter - Exam GENERAL DESCRIPTION: A middle-age male lying in bed in no distress RESPIRATORY SYSTEM: Unlabored breathing , decreased breath sounds at bases HEART: S1 S2 regular rate and rhythm , ABDOMEN: Soft , no tenderness, bilateral gluteal wounds are dressed did have foul-smelling drainage EXTREMITIES: No edema feet - Labs CBC & Chem 7: 02/07/22 04:44 02/08/22 04:11 Labs: Abnormal Lab Results - Last 24 Hours (Table) 02/06/22 02/06/22 Range/Units 06:16 06:16 RBC 2.59 L (4.40-5.60) X 10*6/uL Hgb 7.3 L (13.0-17.0) g/dL Hct 22.5 L (39.6-50.0) % RDW 15.7 H (11.5-14.5) % Immature Gran # 0.28 H (0.00-0.04) X 10*3/uL Lymphocytes # 0.77 L (0.90-5.00) X 10*3/uL Sodium 131 L (137-145) mmol/L Potassium 3.3 L (3.5-5.1) mmol/L Creatinine 0.45 L (0.66-1.25) mg/dL Calcium 6.5 L (8.4-10.2) mg/dL Microbiology - Last 24 Hours (Table) 02/03/22 09:54 Gram Stain - Preliminary Foot - Left Wound Culture - Preliminary Klebsiella oxytoca Enterobacter cloacae Staphylococcus aureus Gram Neg Bacilli 02/05/22 10:35 Gram Stain - Preliminary Foot - Right Wound Culture - Preliminary Gram Neg Bacilli 02/05/22 10:34 Gram Stain - Preliminary Foot - Left Wound Culture - Preliminary Gram Neg Bacilli Strep agalactiae - (group b) Assessment and Plan (1) Abscess and cellulitis of gluteal region Current Visit: Yes Status: Acute Code(s): L02.31 - CUTANEOUS ABSCESS OF BUTTOCK; L03.317 - CELLULITIS OF BUTTOCK SNOMED Code(s): 153615263 Plan: 1patient with bilateral unstageable pressure ulcer with necrotic base and surrounding redness suspicious for secondary cellulitis and possible gram- negative in view of the close location to the and the anal canal. 2left foot superficial ulceration but no cellulitis 3patient is status post surgical debridement and deep culture which are curr ently pending 4-patient to continue with Mycolog cream to the left foot ulcer applied daily 5- patient to continue with Zosyn 3.375 g every 8 hours while waiting for the cultures to finalize Time with Patient: Less than 30
--- NOTE | 2022-02-08 07:48 | P.PN ---
Subjective Progress Note Date: 02/07/22 Principal diagnosis: Infected bilateral gluteal pressure ulcer Patient is a 61-year-old male presented to hospital with weakness in this patient noticed to have unstageable bilateral gluteal pressure ulcer with secondary cellulitis and some ulcerations the left foot but no cellulitis. On today's evaluation that is 02/07/2022, the patient remains to be afebrile, patient is breathing comfortably on room air, the patient is complaining of pain to the gluteal area, the patient denies nausea no vomiting no abdominal pain no diarrhea Objective - Vital Signs Vital signs: Vital Signs Temp 97.8 F 02/07/22 08:00 Pulse 110 H 02/07/22 08:00 Resp 19 02/07/22 08:00 BP 120/61 02/07/22 08:00 Pulse Ox 98 02/07/22 08:00 FiO2 Intake & Output 02/06/22 02/07/22 02/07/22 18:59 06:59 18:59 Output Total 1900 1100 Balance -1900 -1100 Output: Urine 1900 1100 Other: Voiding Method Indwelling Catheter Indwelling Catheter # Bowel Movements 0 - Exam GENERAL DESCRIPTION: A middle-age male lying in bed in no distress RESPIRATORY SYSTEM: Unlabored breathing , decreased breath sounds at bases HEART: S1 S2 regular rate and rhythm , ABDOMEN: Soft , no tenderness, bilateral gluteal wounds with slough tissue and d rainage EXTREMITIES: No edema feet - Labs CBC & Chem 7: 02/07/22 04:44 02/08/22 04:11 Labs: Abnormal Lab Results - Last 24 Hours (Table) 02/07/22 02/07/22 Range/Units 04:44 04:44 WBC 11.58 H (4.50-10.00) X 10*3/uL RBC 2.62 L (4.40-5.60) X 10*6/uL Hgb 7.5 L (13.0-17.0) g/dL Hct 22.4 L (39.6-50.0) % RDW 15.8 H (11.5-14.5) % Immature Gran # 0.16 H (0.00-0.04) X 10*3/uL Neutrophils # 8.91 H (1.80-7.70) X 10*3/uL Monocytes # 1.31 H (0.20-1.00) X 10*3/uL ESR 66 H (0-20) mm/Hr Sodium 127 L (137-145) mmol/L Potassium 3.3 L (3.5-5.1) mmol/L Creatinine 0.47 L (0.66-1.25) mg/dL Calcium 6.8 L (8.4-10.2) mg/dL C-Reactive Protein 8.8 H (<1.0) mg/dL Microbiology - Last 24 Hours (Table) 02/05/22 10:35 Gram Stain - Preliminary Foot - Right Wound Culture - Preliminary Escherichia coli Presumptive Staph aureus 02/05/22 10:34 Gram Stain - Final Foot - Left Wound Culture - Final Escherichia coli Strep agalactiae - (group b) 02/03/22 09:54 Gram Stain - Final Foot - Left Wound Culture - Final Klebsiella oxytoca Enterobacter cloacae Staphylococcus aureus Alcaligen. faecalis Assessment and Plan (1) Abscess and cellulitis of gluteal region Current Visit: Yes Status: Acute Code(s): L02.31 - CUTANEOUS ABSCESS OF BUTTOCK; L03.317 - CELLULITIS OF BUTTOCK SNOMED Code(s): 170842502 Plan: 1patient with bilateral unstageable pressure ulcer with necrotic base and surrounding redness suspicious for secondary cellulitis and possible gram- negative in view of the close location to the and the anal canal. 2left foot superficial ulceration but no cellulitis , patient to continue with Mycolog cream to the left foot ulcer applied daily 3patient is status post surgical debridement and deep culture which are growing E. coli staph aureus and strep, 4- patient also have MSSA bacteremia, blood cultures will be repeated document clearance of bacteremia 5- we'll discontinue Zosyn and start the patient on cefepime and oral Flagyl, will apply Santyl to bilateral gluteal wound Time with Patient: Less than 30
[2022-02-08] MEDS: amLODIPine 2.5 MG TAB PO SCH (09:12)
[2022-02-08] MEDS: metroNIDAZOLE 500 MG TAB PO SCH ×3 (09:12→22:35)
[2022-02-08] MEDS: FOLIC ACID 1 MG TAB PO SCH (09:12)
[2022-02-08] MEDS: CALCIUM CARB-VIT D 500 MG-5 MCG TAB PO SCH ×2 (09:13→16:40)
[2022-02-08] MEDS: THIAMINE 100 MG TAB PO SCH ×2 (09:13→16:40)
[2022-02-08] MEDS: MULTIVITAMINS, THERA 1 EACH TAB PO SCH (09:14)
[2022-02-08] MEDS: HEPARIN SODIUM,PORCINE/PF 5,000 UNIT/0.5 ML SYRINGE SQ SCH ×2 (09:14→19:44)
[2022-02-08] MEDS: NICOTINE 21MG/24HR PATCH TRANSDERM SCH (09:15)
[2022-02-08] MEDS: NYSTATIN 100,000UNIT/GM CREAM 30 GM TUBE TOPICAL SCH (09:17)
[2022-02-08] MEDS: PANTOPRAZOLE 40 MG/10 ML VIAL IV SCH (09:54)
[2022-02-08] MEDS: COLLAGENASE 250 UNIT/GM OINTMENT 30 GM TUBE TOPICAL SCH (10:34)
--- NOTE | 2022-02-08 10:52 | P.PN ---
Subjective Progress Note Date: 02/07/22 Patient was seen for a follow-up. Patient is laying comfortably in the bed. Still complaining of pain in the left leg 06/19. No pain in the right leg. No new concerns. Objective - Vital Signs Vital signs: Vital Signs Temp 98.3 F 02/07/22 14:00 Pulse 107 H 02/07/22 14:00 Resp 18 02/07/22 14:00 BP 117/66 02/07/22 14:00 Pulse Ox 99 02/07/22 14:00 FiO2 Intake & Output 02/06/22 02/07/22 02/07/22 18:59 06:59 18:59 Intake Total 350 Output Total 1900 1100 1000 Balance -1900 -1100 -650 Intake: Intake, IV Titration 350 Amount Cefepime 2 gm In Sodium 100 Chloride 0.9% 100 ml @ 25 mls/hr IVPB Q8HR [facility] Rx# :[id number] Vancomycin 1,250 mg In 250 Sodium Chloride 0.9% 250 ml @ 125 mls/hr IVPB Q8H [facility] Rx#:[id number] Output: Urine 1900 1100 1000 Other: Voiding Method Indwelling Catheter Indwelling Catheter # Bowel Movements 0 - Exam Patient able to stress right leg much better today as compared to yesterday. The left leg is still quite spastic. Patient states that the left leg often bounces back, likely from spasticity. - Labs CBC & Chem 7: 02/07/22 04:44 02/08/22 04:11 Labs: Abnormal Lab Results - Last 24 Hours (Table) 02/07/22 02/07/22 Range/Units 04:44 04:44 WBC 11.58 H (4.50-10.00) X 10*3/uL RBC 2.62 L (4.40-5.60) X 10*6/uL Hgb 7.5 L (13.0-17.0) g/dL Hct 22.4 L (39.6-50.0) % RDW 15.8 H (11.5-14.5) % Immature Gran # 0.16 H (0.00-0.04) X 10*3/uL Neutrophils # 8.91 H (1.80-7.70) X 10*3/uL Monocytes # 1.31 H (0.20-1.00) X 10*3/uL ESR 66 H (0-20) mm/Hr Sodium 127 L (137-145) mmol/L Potassium 3.3 L (3.5-5.1) mmol/L Creatinine 0.47 L (0.66-1.25) mg/dL Calcium 6.8 L (8.4-10.2) mg/dL C-Reactive Protein 8.8 H (<1.0) mg/dL Vitamin B12 1813.0 H (200.0-944.0) pg/mL Microbiology - Last 24 Hours (Table) 02/05/22 10:35 Gram Stain - Preliminary Foot - Right Wound Culture - Preliminary Escherichia coli Presumptive Staph aureus 02/05/22 10:34 Gram Stain - Final Foot - Left Wound Culture - Final Escherichia coli Strep agalactiae - (group b) 02/03/22 09:54 Gram Stain - Final Foot - Left Wound Culture - Final Klebsiella oxytoca Enterobacter cloacae Staphylococcus aureus Alcaligen. 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 Examination also revealed mild weakness of left upper extremity. Exact cause is uncertain. Rule out multiple sclerosis, transverse myelitis, myeloneuropathy, B12 deficiency. * Bilateral gluteal pressure sores, with left foot cellulitis * Hypertension * Rheumatoid arthritis * Alcoholism Plan: * Await MRI of the brain, cervical, thoracic and lumbar spine with and without c ontrast to evaluate for MS, TM. * B12 1813, folate 5.90, CRP 8.8, ESR 66, IgG 1540, IgM 94, rheumatoid factor < 10, MANNY negative. We will start folate replacement. * Suggest rheumatology consultation rule out vasculitis. * Surgery on board for gluteal pressure sores, status post debridement. * ID on board for left foot cellulitis, on Zosyn. * Further management based upon above test results.
[2022-02-08 11:19] LABS: African American GFR (CKD) >90 (>60 ml/min/1.73 sqM); Anion Gap 3 mmol/L; Blood Urea Nitrogen 14 mg/dL (9-20); Calcium 6.9 mg/dL (8.4-10.2); Carbon Dioxide 24 mmol/L (22-30); Chloride 101 mmol/L (98-107); Glucose 100 mg/dL (74-99); Magnesium 1.6 mg/dL (1.6-2.3); Non-African American GFR(CKD) >90 (>60 ml/min/1.73 sqM); Potassium 3.6 mmol/L (3.5-5.1); Sodium 128 mmol/L (137-145)
--- NOTE | 2022-02-08 11:24 | P.CONS ---
History of Present Illness - Reason for Consult Consult date: 02/08/22 wound care - History of Present Illness This is a 61-year-old gentleman being seen on 4 S. for nonhealing ulcerations to right and left buttocks and left foot. Patient has a stage IV decubitus ulcer to the right and left buttocks. Significant amount of slough and minimal granulation seen within the wound bed. There is undermining noted to both ulcerations. Minimal granulation seen throughout the wound that. Patient states that the ulcerations have been there for a few months. He has not done any treatments to the site. Patient also has a left heel ulceration which is a stage II pressure ulcer with significant amount of slough and minimal granulation seen. She states he is wheelchair-bound. Spending most of this time sitting. Patient's past medical history significant for hypertension, rheumatoid arthritis, EtOH abuse, every day smoker. Review Of Systems: Constitutional: No fever, no chills, no night sweats. No weight change. No weakness, fatigue or lethargy. No daytime sleepiness. Integumentary:reports wounds, no lesions. No rash or pruritus. No unusual bruising. No change in hair or nails. Physical exam: General Appearance: Alert, cooperative, no distress, appears stated age. Skin: See HPI all other Skin color, texture, tugor normal, no rashes or lesions. Neurologic: Alert oriented x3 Assessment: 1. Stage IV pressure sore right gluteus 2. Stage IV pressure ulcer left gluteus 3. Stage II pressure ulcer left heel Plan: 1.Apply Santyl, saline moistened gauze, dry gauze, and rolled gauze to the left foot and ABDs to the bilateral buttocks. Change daily. We will be happy to see him in the wound care center upon discharge. Please call the wound care for an appointment. Thank you for the consultation any questions contact the wound care center DNP note has been reviewed and discussed with Dr. Baker and the impression and plan of care has been directed as dictated. Past Medical History Past Medical History: Hypertension, Rheumatoid Arthritis (RA) Additional Past Medical History / Comment(s): arthritis, chronic back pain, right ankle fracture, right fibula fracture, ETOH abuse, liver cirrhosis History of Any Multi-Drug Resistant Organisms: None Reported Past Surgical History: No Surgical Hx Reported Additional Past Surgical History / Comment(s): ABD SURGERY FOR ULCER Past Anesthesia/Blood Transfusion Reactions: Unable to Obtain Past Psychological History: Anxiety Smoking Status: Current every day smoker, Heavy tobacco smoker Past Alcohol Use History: Abuse, Daily, Heavy Past Drug Use History: Marijuana - Past Family History Father Family Medical History: COPD Additional Family Medical History / Comment(s): alcoholism Mother Family Medical History: Cancer Medications and Allergies Home Medications Medication Instructions Recorded Confirmed Type amLODIPine [Norvasc] 2.5 mg PO DAILY 02/03/22 02/03/22 History Allergies Allergy/AdvReac Type Severity Reaction Status Date / Time No Known Allergies Allergy Verified 02/03/22 11:08 Physical Exam Vitals: Vital Signs Temp Pulse Resp BP Pulse Ox 02/08/22 07:27 97.9 F 101 H 22 105/60 99 02/08/22 02:49 97.5 F L 72 14 147/69 98 02/07/22 19:17 16 02/07/22 19:04 98.2 F 99 16 115/63 99 02/07/22 14:00 98.3 F 107 H 18 117/66 99 Intake and Output 02/07/22 02/08/22 02/08/22 22:59 06:59 14:59 Output Total 1000 800 Balance -1000 -800 Output: Urine 1000 800 Other: Voiding Method Indwelling Catheter Results CBC & Chem 7: 02/07/22 04:44 02/08/22 04:11 Labs: Abnormal Lab Results - Last 24 Hours (Table) 02/07/22 02/08/22 02/08/22 Range/Units 04:44 04:11 04:11 ESR 60 H (0-20) mm/Hr Sodium (137-145) mmol/L Creatinine 0.42 L (0.66-1.25) mg/dL Glucose (74-99) mg/dL Calcium (8.4-10.2) mg/dL Vitamin B12 1813.0 H (200.0-944.0) pg/mL 02/08/22 Range/Units 04:11 ESR (0-20) mm/Hr Sodium 128 L (137-145) mmol/L Creatinine 0.44 L (0.66-1.25) mg/dL Glucose 100 H (74-99) mg/dL Calcium 6.9 L (8.4-10.2) mg/dL Vitamin B12 (200.0-944.0) pg/mL Microbiology - Last 24 Hours (Table) 02/05/22 10:35 Gram Stain - Final Foot - Right Wound Culture - Final Escherichia coli Staphylococcus aureus 02/05/22 10:34 Gram Stain - Final Foot - Left Wound Culture - Final Escherichia coli Strep agalactiae - (group b) 02/03/22 09:54 Gram Stain - Final Foot - Left Wound Culture - Final Klebsiella oxytoca Enterobacter cloacae Staphylococcus aureus Alcaligen. faecalis Assessment and Plan (1) Pressure injury of left buttock, stage 4 Current Visit: Yes Status: Acute Code(s): L89.324 - PRESSURE ULCER OF LEFT BUTTOCK, STAGE 4 SNOMED Code(s): 90623291256596063 (2) Stage II pressure ulcer of left heel Current Visit: Yes Status: Acute Code(s): L89.622 - PRESSURE ULCER OF LEFT HEEL, STAGE 2 SNOMED Code(s): 03233328604879 (3) Pressure injury of right buttock, stage 4 Current Visit: Yes Status: Acute Code(s): L89.314 - PRESSURE ULCER OF RIGHT BUTTOCK, STAGE 4 SNOMED Code(s): 81782870799491825
[2022-02-08 12:06] LABS: Zinc, Serum 32 ug/dL (60-130)
[2022-02-08] MEDS ORDERED: HYDROmorphone 1 MG/ML 1 ML SYRINGE IVP STA (14:16)
--- NOTE | 2022-02-08 15:39 | MR ---
MRI CERVICAL SPINE and brain: CLINICAL HISTORY: Spastic paraplegia TECHNIQUE: Multiplanar, multisequence imaging of the brain and cervical spine is performed without co ntrast, patient unable to tolerate the exam, no contrast administered. COMPARISON: CT brain 02/06/2022, cervical spine 03/31/[address] 07/20/2021 FINDINGS: There is motion on exam. Brain MRI without contrast: No restricted diffusion. Confluent and scattered periventricular, perical losal, subcortical white matter hyperintensity on inversion recovery T2-weighted sequences is noted, hyperintensity also noted within the kiah. There is no hemorrhage or hydrocephalus. Corpus callosum, pituitary, cervical medullary junction, cerebellopontine angles are within normal limits. Orbits show symmetric appearance. There are expected vascular flow voids. Cortical atrophy is again noted. IMPRESSION: Nonspecific white matter demyelination may be related to chronic small vessel ischemic ch hussain, there is age related atrophy. Cervical spine MRI: FINDINGS: There is motion on exam. No axial images obtained. Cervical vertebral bodies show preserved height, alignment. There is spondylosis greatest at C5-6 wit h associated loss of disc height, is endplate discogenic marrow signal change. There is no significan t spinal stenosis. Cervical cord signal is maintained. Abnormal density is present at the right lung apex. IMPRESSION: Degenerative disc disease. Indeterminate lung mass right upper lobe. Limited exam.
[2022-02-08 15:48] LABS: HGB 7.1 g/dL (13.0-17.0); MCH 27.5 pg (27.0-32.0); MCHC 30.9 g/dL (32.0-37.0); MCV 89.1 fL (80.0-97.0); Mean Platelet Volume 10.7 fL (9.5-12.2); NRBC Per 100 WBC 0 /100 WBCS (0.0-0.0); Platelet Count 286 X 10*3/uL (140-440); RBC 2.58 X 10*6/uL (4.40-5.60); RDW 15.7 % (11.5-14.5); WBC 8.94 X 10*3/uL (4.50-10.00)
[2022-02-08 16:16] LABS: Basophils # (A) 0.01 X 10*3/uL (0.00-0.10); Basophils % (A) 0.1 %; Eosinophils # (A) 0.05 X 10*3/uL (0.04-0.35); Eosinophils % (A) 0.6 %; Immature Grans, Automated 0.7 %; Lymphocytes # (A) 0.97 X 10*3/uL (0.90-5.00); Lymphocytes % (A) 10.9 %; Monocytes # (A) 1.07 X 10*3/uL (0.20-1.00); Neutrophils # (A) 6.78 X 10*3/uL (1.80-7.70); Neutrophils % (A) 75.7 %; RBC Morphology NORMAL
[2022-02-08] MEDS: SODIUM CHLORIDE 0.9% 1,000 ML IV SCH (21:28)
--- NOTE | 2022-02-08 23:27 | P.PN ---
Subjective Progress Note Date: 02/08/22 Principal diagnosis: Infected bilateral gluteal pressure ulcer Patient is a 61-year-old male presented to hospital with weakness in this patient noticed to have unstageable bilateral gluteal pressure ulcer with secondary cellulitis and some ulcerations the left foot but no cellulitis. On today's evaluation that is 02/08/2022, the patient continues to be afebrile, patient is breathing comfortably on room air, the patient is complaining of pain to the gluteal area and wanted more pain medication, the patient denies nausea no vomiting no abdominal pain no diarrhea Objective - Vital Signs Vital signs: Vital Signs Temp 97.9 F 02/08/22 07:27 Pulse 101 H 02/08/22 08:25 Resp 20 02/08/22 08:25 BP 105/60 02/08/22 07:27 Pulse Ox 99 02/08/22 07:27 FiO2 Intake & Output 02/07/22 02/08/22 02/08/22 18:59 06:59 18:59 Intake Total 350 Output Total 1000 800 Balance -650 -800 Intake: Intake, IV Titration 350 Amount Cefepime 2 gm In Sodium 100 Chloride 0.9% 100 ml @ 25 mls/hr IVPB Q8HR [facility] Rx# :[id number] Vancomycin 1,250 mg In 250 Sodium Chloride 0.9% 250 ml @ 125 mls/hr IVPB Q8H [facility] Rx#:[id number] Output: Urine 1000 800 Other: Voiding Method Indwelling Catheter Indwelling Catheter - Exam GENERAL DESCRIPTION: A middle-age male lying in bed in no distress RESPIRATORY SYSTEM: Unlabored breathing , decreased breath sounds at bases HEART: S1 S2 regular rate and rhythm , ABDOMEN: Soft , no tenderness, bilateral gluteal wounds with slough tissue and drainage EXTREMITIES: No edema feet - Labs CBC & Chem 7: 02/08/22 04:11 02/08/22 04:11 Labs: Abnormal Lab Results - Last 24 Hours (Table) 02/07/22 02/07/22 02/08/22 Range/Units 04:44 04:44 04:11 ESR (0-20) mm/Hr Sodium (137-145) mmol/L Creatinine 0.42 L (0.66-1.25) mg/dL Glucose (74-99) mg/dL Calcium (8.4-10.2) mg/dL Vitamin B12 1813.0 H (200.0-944.0) pg/mL Zinc 32 L (60-130) ug/dL 02/08/22 02/08/22 Range/Units 04:11 04:11 ESR 60 H (0-20) mm/Hr Sodium 128 L (137-145) mmol/L Creatinine 0.44 L (0.66-1.25) mg/dL Glucose 100 H (74-99) mg/dL Calcium 6.9 L (8.4-10.2) mg/dL Vitamin B12 (200.0-944.0) pg/mL Zinc (60-130) ug/dL Microbiology - Last 24 Hours (Table) 02/05/22 10:35 Gram Stain - Final Foot - Right Wound Culture - Final Escherichia coli Staphylococcus aureus 02/05/22 10:34 Gram Stain - Final Foot - Left Wound Culture - Final Escherichia coli Strep agalactiae - (group b) 02/03/22 09:54 Gram Stain - Final Foot - Left Wound Culture - Final Klebsiella oxytoca Enterobacter cloacae Staphylococcus aureus Alcaligen. faecalis Assessment and Plan (1) Abscess and cellulitis of gluteal region Current Visit: Yes Status: Acute Code(s): L02.31 - CUTANEOUS ABSCESS OF BUTTOCK; L03.317 - CELLULITIS OF BUTTOCK SNOMED Code(s): 967459626 Plan: 1patient with bilateral unstageable pressure ulcer with necrotic base and surrounding redness suspicious for secondary cellulitis and possible gram- negative in view of the close location to the and the anal canal. 2left foot superficial ulceration but no cellulitis , patient to continue with Mycolog cream to the left foot ulcer applied daily 3patient is status post surgical debridement and deep culture which are growing E. coli staph aureus and strep, 4- patient also have MSSA bacteremia, blood cultures repeat has been negative so far 5-patient to continue with cefepime and oral Flagyl, will need PICC line and outpatient IV antibiotic Time with Patient: Less than 30
[2022-02-09] MEDS ORDERED: Magnesium Replacement Protocol 1 EACH MISC MISCELLANE PRN (02:11)
[2022-02-09] MEDS ORDERED: Potassium Replacement Protocol 1 EACH MISC MISCELLANE PRN (02:11)
[2022-02-09] MEDS: SODIUM CHLORIDE 0.9% 1,000 ML IV SCH ×2 (02:12→16:47)
[2022-02-09] MEDS: POTASSIUM CHLORIDE ER 20 MEQ TAB.ER PO SCH ×2 (02:18→03:16)
[2022-02-09] MEDS: HYDROmorphone 1 MG/ML 1 ML SYRINGE IVP PRN ×4 (02:18→11:55)
--- NOTE | 2022-02-09 02:21 | P.PN ---
Subjective Progress Note Date: 02/08/22 This is a 61-year-old male who was recently admitted with bilateral gluteal ulcers and significant infections with features of sepsis, present on admission and is being closely monitored. Patient is status post sharp excisional debridement of bilateral gluteal decubitus ulcers stage IV with Dr. Yun and cultures have been sent and are pending and infectious disease also closely monitoring and awaiting finalized cultures and patient is maintained on IV cefepime and will continue at this time. Neurology also evaluating the patient for continued weakness and has an MRI of the brain, cervical, thoracic, and lumbar ordered to evaluate for MS. Preliminary wound culture showing E. coli presumptive staph. Patient denies chest pain or shortness of breath. Patient is afebrile. Patient tolerating diet with no reports of nausea or vomiting noted. Patient to have physical therapy evaluate and possibly ECF being planned. 02/08/2022 Patient is seen in follow up and is being monitored by ID, neurology, surgery, and wound, Patient is continued on IV cefepime and will continue. Patient will require PICC line and IV abx on discharge. Patient with significant gluteal wounds and recommend frequent position changes and local wound care per surgical and ID recommendations. Patient sodium is low and potassium is 3.5 and mag is 1.6 and will replace per protocol and repeat am labs. Patient is afebrile and denies chest pain or shortness of breath. Patient to undergo MRI per neurology recommendations. Review of systems: Constitutional: No reports of fatigue, fever, or chills Cardiovascular: No reports of chest pain or palpitations Respiratory: No reports of shortness of breath or cough GI: No reports of nausea, no reports of of vomiting : No reports of dysuria or retention Neurovascular: reports of generalized weakness, reports foot pain and gluteal pain All medications have been reviewed Active Medications Acetaminophen (Acetaminophen Tab 325 Mg Tab) 650 mg PO Q6HR PRN PRN Reason: Mild Pain or Fever > 100.5 Last Admin: 02/08/22 22:35 Dose: 650 mg Amlodipine Besylate (Amlodipine 2.5 Mg Tab) 2.5 mg PO DAILY [facility] Last Admin: 02/08/22 09:12 Dose: 2.5 mg Calcium Carbonate (Calcium Carb-Vit D 500 Mg-5 Mcg Tab) 1 each PO BID-W/MEALS [facility] Last Admin: 02/08/22 16:40 Dose: Not Given Collagenase (Collagenase 250 Unit/Gm Ointment 30 Gm Tube) 1 applic TOPICAL DAILY [facility]; Protocol Last Admin: 02/08/22 10:34 Dose: 1 applic Ergocalciferol (Ergocalciferol 1,250 Mcg (50,000 Iu) Capsule) 1,250 mcg PO Q7D [facility] Last Admin: 02/06/22 08:57 Dose: 1,250 mcg Folic Acid (Folic Acid 1 Mg Tab) 1 mg PO DAILY [facility] Last Admin: 02/08/22 09:12 Dose: 1 mg Heparin Sodium (Porcine) (Heparin Sodium,Porcine/Pf 5,000 Unit/0.5 Ml Syringe) 5,000 unit SQ Q12HR [facility] Last Admin: 02/08/22 19:44 Dose: 5,000 unit Hydromorphone HCl (Hydromorphone 1 Mg/Ml 1 Ml Syringe) 1 mg IVP Q3HR PRN PRN Reason: Moderate-Severe Pain Last Admin: 02/08/22 23:11 Dose: 1 mg Sodium Chloride (Saline 0.9%) 1,000 mls @ 75 mls/hr IV .[id number] [facility] Last Admin: 02/09/22 02:12 Dose: Not Given Cefepime HCl 2 gm/ Sodium (Chloride) 100 mls @ 25 mls/hr IVPB Q8HR [facility]; Prot ocol Last Admin: 02/08/22 23:11 Dose: 25 mls/hr Magnesium Sulfate/Dextrose 1 (gm/ IV Solution) 100 mls @ 100 mls/hr IVPB Q1H [facility] Stop: 02/09/22 04:14 Lorazepam (Lorazepam 2 Mg/Ml Inj) 1 mg IV Q2HR PRN PRN Reason: CIWA 8 or 9 Last Admin: 02/04/22 15:24 Dose: 1 mg Lorazepam (Lorazepam 2 Mg/Ml Inj) 1 mg IV Q1HR PRN PRN Reason: CIWA 10 to 15 Metronidazole (Metronidazole 500 Mg Tab) 500 mg PO TID [facility]; Protocol Last Admin: 02/08/22 22:35 Dose: 500 mg Miscellaneous Information (Potassium Replacement Protocol 1 Each Misc) 1 each MISCELLANE DAILY PRN; Protocol PRN Reason: Per Protocol Miscellaneous Information (Magnesium Replacement Protocol 1 Each Misc) 1 each MISCELLANE DAILY PRN; Protocol PRN Reason: Per Protocol Multivitamins (Multivitamins, Thera 1 Each Tab) 1 each PO DAILY [facility] Last Admin: 02/08/22 09:14 Dose: 1 each Naloxone HCl (Naloxone 0.4 Mg/Ml 1 Ml Vial) 0.2 mg IV Q2M PRN PRN Reason: Opioid Reversal Nicotine (Nicotine 21mg/24hr Patch) 1 patch TRANSDERM DAILY [facility] Last Admin: 02/08/22 09:15 Dose: 1 patch Nystatin (Nystatin 100,000unit/Gm Cream 30 Gm Tube) 1 applic TOPICAL DAILY [facility]; Protocol Last Admin: 02/08/22 09:17 Dose: 1 applic Pantoprazole Sodium (Pantoprazole 40 Mg/10 Ml Vial) 40 mg IV DAILY [facility] Last Admin: 02/08/22 09:54 Dose: 40 mg Potassium Chloride (Potassium Chloride Er 20 Meq Tab.Er) 20 meq PO Q1HR [facility]; Protocol Stop: 02/09/22 04:01 Thiamine HCl (Thiamine 100 Mg Tab) 100 mg PO BID-W/MEALS [facility] Last Admin: 02/08/22 16:40 Dose: Not Given Triamcinolone Acetonide (Triamcinolone 0.1% Cream 80 Gm Tube) 1 applic TOPICAL DAILY [facility]; Protocol Last Admin: 02/07/22 15:28 Dose: 1 applic PHYSICAL EXAMINATION: GENERAL: The patient is alert and oriented x4, Well developed, well nourished. HEENT: Pupils are round and equally reacting to light. EOMI. no scleral icterus. No conjunctival pallor. Normocephalic, atraumatic. No pharyngeal erythema. No thyromegaly. CARDIOVASCULAR: S1 and S2 muffled PULMONARY: diminished breath sounds bilaterally with some scattered rhonchi and crackles noted ABDOMEN: soft. Nontender on exam. non-distended, normoactive bowel sounds. No palpable organomegaly. MUSCULOSKELETAL: No joint swelling or deformity. EXTREMITIES: No cyanosis, clubbing, or pedal edema. Significant wasting noted NEUROLOGICAL: Gross neurological examination did not reveal any focal deficits. Diffuse weakness SKIN: Stage IV bilateral gluteal ulcers status post debridement. Assessment: Acute bilateral gluteal ulcers as well as skin ulcers with sepsis, present on admission Weakness of bilateral lower extremities, rule out paraparesis Hypovolemic hyponatremia Possible history of EtOH abuse Hypocalcemia Moderate protein calorie malnutrition with a BMI of 21.6 Anemia Electrolyte abnormalities GI prophylaxis DVT prophylaxis no code Plan: Recommend to continue with current medications and management with general surgery, neurology, and infectious disease following. Patient to work with p hysical therapy and social work/case management following and working on ECF. Awaiting finalized cultures at this time patient is maintained on IV cefepime and will continue. Per ID, patient will need a PICC line and IV abx on discharge. Neurology workup in process for bilateral lower extremity weakness with MRIs ordered for today. Due to multiple complex medical issues, prognosis is guarded. Recommend repeat labs and continued local wound care. Replace electrolytes per protocol. Wound care is following. The impression and plan of care has been dictated by Kellen Cole, nurse practitioner as directed. MD Bo I have performed a history and examination and MDM of this patient, discussed the same with the dictator, and agree with the dictator's assessment and plan as written ,documented as a scribe. Based on total visit time, I have performed more than 50% of the visit. Any additional findings or plans will be noted. Objective - Vital Signs Vital signs: Vital Signs Temp 97.9 F 02/08/22 07:27 Pulse 101 H 02/08/22 07:27 Resp 22 02/08/22 07:27 BP 105/60 02/08/22 07:27 Pulse Ox 99 02/08/22 07:27 FiO2 Intake & Output 02/07/22 02/08/22 02/08/22 18:59 06:59 18:59 Intake Total 350 Output Total 1000 800 Balance -650 -800 Intake: Intake, IV Titration 350 Amount Cefepime 2 gm In Sodium 100 Chloride 0.9% 100 ml @ 25 mls/hr IVPB Q8HR [facility] Rx# :[id number] Vancomycin 1,250 mg In 250 Sodium Chloride 0.9% 250 ml @ 125 mls/hr IVPB Q8H [facility] Rx#:[id number] Output: Urine 1000 800 Other: Voiding Method Indwelling Catheter - Labs CBC & Chem 7: 02/08/22 04:11 02/08/22 04:11 Labs: Abnormal Lab Results - Last 24 Hours (Table) 02/07/22 02/07/22 02/08/22 Range/Units 04:44 04:44 04:11 ESR 66 H (0-20) mm/Hr Creatinine 0.42 L (0.66-1.25) mg/dL Vitamin B12 1813.0 H (200.0-944.0) pg/mL 02/08/22 Range/Units 04:11 ESR 60 H (0-20) mm/Hr Creatinine (0.66-1.25) mg/dL Vitamin B12 (200.0-944.0) pg/mL Microbiology - Last 24 Hours (Table) 02/05/22 10:35 Gram Stain - Final Foot - Right Wound Culture - Final Escherichia coli Staphylococcus aureus 02/05/22 10:34 Gram Stain - Final Foot - Left Wound Culture - Final Escherichia coli Strep agalactiae - (group b) 02/03/22 09:54 Gram Stain - Final Foot - Left Wound Culture - Final Klebsiella oxytoca Enterobacter cloacae Staphylococcus aureus Alcaligen. faecalis
[2022-02-09] MEDS: MAGNESIUM SULFATE-D5W PMX 1 GM in DEXTROSE/WATER 1 100ML.BAG IVPB SCH ×2 (03:16→04:19)
[2022-02-09 06:18] LABS: HCT 25.3 % (39.0-53.0); Hypochromasia Slight; MCH 27.4 pg (25.0-35.0); MCHC 29.3 g/dL (31.0-37.0); MCV 93.5 fL (80.0-100.0); Mean Platelet Volume 7.9; Platelet Count 357 k/uL (150-450); RBC 2.71 m/uL (4.30-5.90); RDW 15.1 % (11.5-15.5); WBC 7.8 k/uL (3.8-10.6)
[2022-02-09 06:26] LABS: HGB 7.4 gm/dL (13.0-17.5)
[2022-02-09 06:28] LABS: African American GFR (CKD) >90 (>60 ml/min/1.73 sqM); Anion Gap 3 mmol/L; Blood Urea Nitrogen 16 mg/dL (9-20); Calcium 6.9 mg/dL (8.4-10.2); Carbon Dioxide 25 mmol/L (22-30); Chloride 102 mmol/L (98-107); Glucose 115 mg/dL (74-99); Non-African American GFR(CKD) >90 (>60 ml/min/1.73 sqM); Potassium 3.7 mmol/L (3.5-5.1); Sodium 130 mmol/L (137-145)
[2022-02-09 06:58] LABS: Band Neutrophils % 8 %; Lymphocytes # (M) 1.09 k/uL (1.0-4.8); Monocytes # (M) 0.62 k/uL (0-1.0); Neutrophils % (M) 70 %; Nucleated Red Blood Cells 0 /100 WBC (0-0); Total Cells Counted 100
[2022-02-09 06:59] LABS: Hypochromasia (M) Present
[2022-02-09] MEDS: amLODIPine 2.5 MG TAB PO SCH (08:35)
[2022-02-09] MEDS: metroNIDAZOLE 500 MG TAB PO SCH ×3 (08:35→21:10)
[2022-02-09] MEDS: CALCIUM CARB-VIT D 500 MG-5 MCG TAB PO SCH ×2 (08:35→16:46)
[2022-02-09] MEDS: THIAMINE 100 MG TAB PO SCH ×2 (08:35→16:46)
[2022-02-09] MEDS: CEFEPIME 2 GM in SODIUM CHLORIDE 0.9% 100 ML IVPB SCH ×2 (08:35→16:29)
[2022-02-09] MEDS: FOLIC ACID 1 MG TAB PO SCH (08:35)
[2022-02-09] MEDS: MULTIVITAMINS, THERA 1 EACH TAB PO SCH (08:35)
[2022-02-09] MEDS: PANTOPRAZOLE 40 MG/10 ML VIAL IV SCH (08:35)
[2022-02-09] MEDS: HEPARIN SODIUM,PORCINE/PF 5,000 UNIT/0.5 ML SYRINGE SQ SCH ×2 (08:36→21:10)
[2022-02-09] MEDS: NYSTATIN 100,000UNIT/GM CREAM 30 GM TUBE TOPICAL SCH (08:37)
[2022-02-09] MEDS: TRIAMCINOLONE 0.1% CREAM 80 GM TUBE TOPICAL SCH (08:37)
[2022-02-09] MEDS: COLLAGENASE 250 UNIT/GM OINTMENT 30 GM TUBE TOPICAL SCH (08:37)
[2022-02-09] MEDS: NICOTINE 21MG/24HR PATCH TRANSDERM SCH (08:47)
--- NOTE | 2022-02-09 09:38 | P.PN ---
Subjective Progress Note Date: 02/08/22 Patient was seen for a follow-up. Patient is laying comfortably in the bed. Still complaining of pain in the left leg 06/19. No pain in the right leg. No new concerns. Objective - Vital Signs Vital signs: Vital Signs Temp 98 F 02/09/22 07:19 Pulse 98 02/09/22 07:19 Resp 21 02/09/22 07:19 BP 112/67 02/09/22 07:19 Pulse Ox 99 02/09/22 07:19 FiO2 Intake & Output 02/08/22 02/09/22 02/09/22 18:59 06:59 18:59 Intake Total 180 Output Total 1200 1200 Balance -1200 -1200 180 Intake: Oral 180 Output: Urine 1200 1200 Other: Voiding Method Indwelling Catheter Indwelling Catheter - Exam Patient able to stress right leg much better today as compared to yesterday. The left leg is still quite spastic. Patient states that the left leg often bounces back, likely from spasticity. - Labs CBC & Chem 7: 02/09/22 05:43 02/09/22 05:45 Labs: Abnormal Lab Results - Last 24 Hours (Table) 02/07/22 02/07/22 02/07/22 Range/Units 04:44 04:44 04:44 RBC (4.40-5.60) X 10*6/uL Hgb (13.0-17.0) g/dL Hct (39.6-50.0) % MCHC (32.0-37.0) g/dL RDW (11.5-14.5) % Immature Gran # (0.00-0.04) X 10*3/uL Monocytes # (0.20-1.00) X 10*3/uL ESR (0-20) mm/Hr Sodium (137-145) mmol/L Creatinine (0.66-1.25) mg/dL Glucose (74-99) mg/dL Calcium (8.4-10.2) mg/dL Vitamin B6 3 L (5-50) ug/L Zinc 32 L (60-130) ug/dL IgA 872.0 H (60.0-350.0) mg/dL 02/08/22 02/08/22 02/08/22 Range/Units 04:11 04:11 04:11 RBC 2.58 L (4.40-5.60) X 10*6/uL Hgb 7.1 L (13.0-17.0) g/dL Hct 23.0 L (39.6-50.0) % MCHC 30.9 L (32.0-37.0) g/dL RDW 15.7 H (11.5-14.5) % Immature Gran # 0.06 H (0.00-0.04) X 10*3/uL Monocytes # 1.07 H (0.20-1.00) X 10*3/uL ESR 60 H (0-20) mm/Hr Sodium 128 L (137-145) mmol/L Creatinine 0.44 L (0.66-1.25) mg/dL Glucose 100 H (74-99) mg/dL Calcium 6.9 L (8.4-10.2) mg/dL Vitamin B6 (5-50) ug/L Zinc (60-130) ug/dL IgA (60.0-350.0) mg/dL 02/09/22 02/09/22 Range/Units 05:43 05:45 RBC 2.71 L (4.40-5.60) X 10*6/uL Hgb 7.4 L D (13.0-17.0) g/dL Hct 25.3 L (39.6-50.0) % MCHC 29.3 L (32.0-37.0) g/dL RDW (11.5-14.5) % Immature Gran # (0.00-0.04) X 10*3/uL Monocytes # (0.20-1.00) X 10*3/uL ESR (0-20) mm/Hr Sodium 130 L (137-145) mmol/L Creatinine 0.44 L (0.66-1.25) mg/dL Glucose 115 H (74-99) mg/dL Calcium 6.9 L (8.4-10.2) mg/dL Vitamin B6 (5-50) ug/L Zinc (60-130) ug/dL IgA (60.0-350.0) mg/dL Microbiology - Last 24 Hours (Table) 02/03/22 09:54 Gram Stain - Final Foot - Left Wound Culture - Final Klebsiella oxytoca Enterobacter cloacae Staphylococcus aureus Alcaligen. 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 Examination also revealed mild weakness of left upper extremity. Exact cause is uncertain. Rule out multiple sclerosis, transverse myelitis, myeloneuropathy, B12 deficiency. * Bilateral gluteal pressure sores, with left foot cellulitis * Hypertension * Rheumatoid arthritis * Alcoholism Plan: * MRI of the brain with and without contrast reported as nonspecific white matter demyelination may be related to chronic small vessel ischemic changes, there is age-related atrophy. On my review, there is definite involvement of the corpus callosum and periventricular white matter region, highly suggestive of demyelinating disease like MS. * MRI of the cervical spine reported degenerative disc disease. Indeterminate lung mass right upper lobe. Limited exam. * Await MRI of the thoracic and lumbar spines. Once the MRI is completed, would recommend lumbar puncture to check for oligoclonal bands. * B12 1813, methylmalonic acid 0.12 normal, folate 5.90, CRP 8.8, ESR 66, IgG 1540, IgM 94, IgA 872 (60-350), rheumatoid factor < 10, MANNY negative, vitamin B6 3 (5-50). Serum copper is 731(665-1480). Serum zinc 32(60 to 130). Hemoglobin A1c 5.0. We will start folate, zinc and vitamin B6 replacement. Immune fixation it for results pending. * Surgery on board for gluteal pressure sores, status post debridement. * ID on board for left foot cellulitis, on Zosyn. * Further management based upon above test results.
[2022-02-09] MEDS: PYRIDOXINE 50 MG TAB PO SCH (11:36)
[2022-02-09] MEDS: ZINC SULFATE 220 MG CAP PO SCH (11:36)
[2022-02-09] MEDS ORDERED: HYDROcodone/APAP 5-325MG 1 EACH TAB PO PRN ×2 (11:53→13:29)
[2022-02-09] MEDS ORDERED: LIDOCAINE 1% INJ 10MG/ML (5 ML VIAL-PF) SQ ONE (14:42)
[2022-02-09] MEDS: HYDROcodone/APAP 7.5-325MG 1 EACH TAB PO PRN ×3 (15:04→22:29)
--- NOTE | 2022-02-09 15:12 | IR ---
PICC LINE PLACEMENT: HISTORY: Infection requiring long-term antibiotic therapy PROCEDURE: Ultrasound and fluoroscopic guidance of PICC line placement. COMPLICATIONS: None ANESTHESIA: 1. 1% Lidocaine locally. FINDINGS/TECHNIQUE: The procedure was explained to the patient. The risks, complications, benefits and alternatives were discussed and any questions were answered. Informed consent was obtained. The patient was placed supine on the fluoroscopic table and prepped and draped in the usual sterile fash ion. Utilizing a 21 gauge needle and sonographic and fluoroscopic guidance, access in the right bas ilic vein was achieved and there is placement of a 0.018 guidewire. The vein is patent. A 4-F sheat h was placed over the guidewire. The guidewire and dilator were removed and a 4-F. PICC line was darnell rober through the sheath with the tip at the level of the SVC. The sheath was removed, the catheter wa s flushed and sutured into position. The patient was stable throughout the procedure and remained st able upon discharge from the Department of Radiology. The vein puncture was patent under ultrasound. A lopez scale image was obtained to document patency of the vein punctured. All elements of the maximal barrier technique were utilized. FLUOROSCOPY TIME: 0.4 minutes and 1 image is submitted. IMPRESSION: Successful PICC line placement under ultrasound and fluoroscopic guidance.
[2022-02-10] MEDS: CEFEPIME 2 GM in SODIUM CHLORIDE 0.9% 100 ML IVPB SCH ×4 (00:09→23:38)
[2022-02-10] MEDS: HYDROcodone/APAP 7.5-325MG 1 EACH TAB PO PRN ×6 (02:45→21:08)
[2022-02-10] MEDS: SODIUM CHLORIDE 0.9% 1,000 ML IV SCH ×2 (06:07→15:19)
[2022-02-10] MEDS: NICOTINE 21MG/24HR PATCH TRANSDERM SCH (07:18)
--- NOTE | 2022-02-10 07:31 | P.PN ---
Subjective Progress Note Date: 02/09/22 Principal diagnosis: Infected bilateral gluteal pressure ulcer Patient is a 61-year-old male presented to hospital with weakness in this patient noticed to have unstageable bilateral gluteal pressure ulcer with secondary cellulitis and some ulcerations the left foot but no cellulitis. On today's evaluation that is 02/09/2022, the patient remains to be afebrile, patient is breathing comfortably on room air, the patient pain to the gluteal area is currently controlled, the patient denies nausea no vomiting no abdominal pain no diarrhea Objective - Vital Signs Vital signs: Vital Signs Temp 98 F 02/09/22 07:19 Pulse 98 02/09/22 07:19 Resp 21 02/09/22 07:19 BP 112/67 02/09/22 07:19 Pulse Ox 99 02/09/22 07:19 FiO2 Intake & Output 02/08/22 02/09/22 02/09/22 18:59 06:59 18:59 Intake Total 180 Output Total 1200 1200 Balance -1200 -1200 180 Intake: Oral 180 Output: Urine 1200 1200 Other: Voiding Method Indwelling Catheter Indwelling Catheter - Exam GENERAL DESCRIPTION: A middle-age male lying in bed in no distress RESPIRATORY SYSTEM: Unlabored breathing , decreased breath sounds at bases HEART: S1 S2 regular rate and rhythm , ABDOMEN: Soft , no tenderness, bilateral gluteal wounds with slough tissue and drainage EXTREMITIES: No edema feet - Labs CBC & Chem 7: 02/09/22 05:43 02/09/22 05:45 Labs: Abnormal Lab Results - Last 24 Hours (Table) 02/07/22 02/07/22 02/07/22 Range/Units 04:44 04:44 04:44 RBC (4.40-5.60) X 10*6/uL Hgb (13.0-17.0) g/dL Hct (39.6-50.0) % MCHC (32.0-37.0) g/dL RDW (11.5-14.5) % Immature Gran # (0.00-0.04) X 10*3/uL Monocytes # (0.20-1.00) X 10*3/uL Sodium (137-145) mmol/L Creatinine (0.66-1.25) mg/dL Glucose (74-99) mg/dL Calcium (8.4-10.2) mg/dL Vitamin B6 3 L (5-50) ug/L Zinc 32 L (60-130) ug/dL IgA 872.0 H (60.0-350.0) mg/dL 02/08/22 02/08/22 02/09/22 Range/Units 04:11 04:11 05:43 RBC 2.58 L 2.71 L (4.40-5.60) X 10*6/uL Hgb 7.1 L 7.4 L D (13.0-17.0) g/dL Hct 23.0 L 25.3 L (39.6-50.0) % MCHC 30.9 L 29.3 L (32.0-37.0) g/dL RDW 15.7 H (11.5-14.5) % Immature Gran # 0.06 H (0.00-0.04) X 10*3/uL Monocytes # 1.07 H (0.20-1.00) X 10*3/uL Sodium 128 L (137-145) mmol/L Creatinine 0.44 L (0.66-1.25) mg/dL Glucose 100 H (74-99) mg/dL Calcium 6.9 L (8.4-10.2) mg/dL Vitamin B6 (5-50) ug/L Zinc (60-130) ug/dL IgA (60.0-350.0) mg/dL 02/09/22 Range/Units 05:45 RBC (4.40-5.60) X 10*6/uL Hgb (13.0-17.0) g/dL Hct (39.6-50.0) % MCHC (32.0-37.0) g/dL RDW (11.5-14.5) % Immature Gran # (0.00-0.04) X 10*3/uL Monocytes # (0.20-1.00) X 10*3/uL Sodium 130 L (137-145) mmol/L Creatinine 0.44 L (0.66-1.25) mg/dL Glucose 115 H (74-99) mg/dL Calcium 6.9 L (8.4-10.2) mg/dL Vitamin B6 (5-50) ug/L Zinc (60-130) ug/dL IgA (60.0-350.0) mg/dL Microbiology - Last 24 Hours (Table) 02/05/22 10:35 Gram Stain - Final Foot - Right Wound Culture - Final Escherichia coli Staphylococcus aureus 02/03/22 09:54 Gram Stain - Final Foot - Left Wound Culture - Final Klebsiella oxytoca Enterobacter cloacae Staphylococcus aureus Alcaligen. faecalis 02/08/22 04:11 Blood Culture - Preliminary Blood No Growth after 24 hours 02/07/22 14:48 Blood Culture - Preliminary Blood No Growth after 24 hours 02/05/22 10:34 Anaerobic Culture - Final Foot - Left Anaerobic Gm Negative Bacilli Assessment and Plan (1) Abscess and cellulitis of gluteal region Current Visit: Yes Status: Acute Code(s): L02.31 - CUTANEOUS ABSCESS OF BUTTOCK; L03.317 - CELLULITIS OF BUTTOCK SNOMED Code(s): 779587448 Plan: 1patient with bilateral unstageable pressure ulcer with necrotic base and surrounding redness suspicious for secondary cellulitis and possible gram-negative in view of the close location to the and the anal canal. 2left foot superficial ulceration but no cellulitis , patient to continue with Mycolog cream to the left foot ulcer applied daily 3patient is status post surgical debridement and deep culture which are growing E. coli staph aureus and strep, 4- patient also have MSSA bacteremia, blood cultures repeat has been negative so far 5-patient will get a PICC line today, to continue with cefepime and oral Flagyl 5 weeks on discharge and a close outpatient follow-up, Time with Patient: Less than 30
[2022-02-10] MEDS: MULTIVITAMINS, THERA 1 EACH TAB PO SCH ×2 (07:33→07:49)
[2022-02-10] MEDS: PANTOPRAZOLE 40 MG/10 ML VIAL IV SCH (07:33)
[2022-02-10] MEDS: CALCIUM CARB-VIT D 500 MG-5 MCG TAB PO SCH ×3 (07:33→15:18)
[2022-02-10] MEDS: HEPARIN SODIUM,PORCINE/PF 5,000 UNIT/0.5 ML SYRINGE SQ SCH ×3 (07:33→10:02)
[2022-02-10] MEDS: ZINC SULFATE 220 MG CAP PO SCH ×2 (07:34→07:49)
[2022-02-10] MEDS: metroNIDAZOLE 500 MG TAB PO SCH ×3 (07:34→21:08)
[2022-02-10] MEDS: THIAMINE 100 MG TAB PO SCH ×2 (07:34→15:18)
[2022-02-10] MEDS: FOLIC ACID 1 MG TAB PO SCH (07:34)
[2022-02-10] MEDS: TRIAMCINOLONE 0.1% CREAM 80 GM TUBE TOPICAL SCH (07:35)
[2022-02-10] MEDS: NYSTATIN 100,000UNIT/GM CREAM 30 GM TUBE TOPICAL SCH (07:35)
[2022-02-10] MEDS: PYRIDOXINE 50 MG TAB PO SCH (07:36)
[2022-02-10] MEDS: amLODIPine 2.5 MG TAB PO SCH (07:46)
[2022-02-10] MEDS: COLLAGENASE 250 UNIT/GM OINTMENT 30 GM TUBE TOPICAL SCH (07:52)
--- NOTE | 2022-02-10 09:21 | P.PN ---
Subjective Progress Note Date: 02/09/22 This is a 61-year-old male who was recently admitted with bilateral gluteal ulcers and significant infections with features of sepsis, present on admission and is being closely monitored. Patient is status post sharp excisional debridement of bilateral gluteal decubitus ulcers stage IV with Dr. Yun and cultures have been sent and are pending and infectious disease also closely monitoring and awaiting finalized cultures and patient is maintained on IV cefepime and will continue at this time. Neurology also evaluating the patient for continued weakness and has an MRI of the brain, cervical, thoracic, and lumbar ordered to evaluate for MS. Preliminary wound culture showing E. coli presumptive staph. Patient denies chest pain or shortness of breath. Patient is afebrile. Patient tolerating diet with no reports of nausea or vomiting noted. Patient to have physical therapy evaluate and possibly ECF being planned. 02/08/2022 Patient is seen in follow up and is being monitored by ID, neurology, surgery, and wound, Patient is continued on IV cefepime and will continue. Patient will require PICC line and IV abx on discharge. Patient with significant gluteal wounds and recommend frequent position changes and local wound care per surgical and ID recommendations. Patient sodium is low and potassium is 3.5 and mag is 1.6 and will replace per protocol and repeat am labs. Patient is afebrile and denies chest pain or shortness of breath. Patient to undergo MRI per neurology recommendations. 02/09/2022 Patient is seen this morning and is agitated and reporting severe pain 10 out of 10 of his gluteal region and his foot and feels his pain is not being managed. Medication adjustments have been made and discussed with nursing staff. Patient continues with weakness and will likely need ECF and [facility] the [place] is being planned. Patient continues with neurological workup with neurology following closely and unable to tolerate all of MRI due to pain and would like to proceed with LP. Consult was placed to IR for LP and patient is undergoing neurological workup for possible MS. Patient also continues to be followed by general surgery and maintained on IV antibiotics with infectious disease following and patient will require IV antibiotic therapy in the outpatient setting and is scheduled to receive a PICC line today. Patient is afebrile and denies chest pain or shortness of breath. Most recent blood cultures remain negative. Foot culture showing E. coli and staph aureus. Patient will likely need outpatient follow-up closely with neurologist. Review of systems: Constitutional: No reports of fatigue, fever, or chills, reports frustration and continued pain Cardiovascular: No reports of chest pain or palpitations Respiratory: No reports of shortness of breath or cough GI: No reports of nausea, no reports of of vomiting : No reports of dysuria or retention Neurovascular: reports of generalized weakness, reports foot pain and gluteal pain All medications have been reviewed Active Medications Acetaminophen (Acetaminophen Tab 325 Mg Tab) 650 mg PO Q6HR PRN PRN Reason: Mild Pain or Fever > 100.5 Last Admin: 02/08/22 22:35 Dose: 650 mg Hydrocodone Bitart/Acetaminophen (Hydrocodone/Apap 7.5-325mg 1 Each Tab) 1 each PO Q4H PRN PRN Reason: Pain Last Admin: 02/10/22 07:28 Dose: 1 each Amlodipine Besylate (Amlodipine 2.5 Mg Tab) 2.5 mg PO DAILY [facility] Last Admin: 02/10/22 07:46 Dose: 2.5 mg Calcium Carbonate (Calcium Carb-Vit D 500 Mg-5 Mcg Tab) 1 each PO BID-W/MEALS [facility] Last Admin: 02/10/22 07:49 Dose: Not Given Collagenase (Collagenase 250 Unit/Gm Ointment 30 Gm Tube) 1 applic TOPICAL DAILY [facility]; Protocol Last Admin: 02/10/22 07:52 Dose: 1 applic Ergocalciferol (Ergocalciferol 1,250 Mcg (50,000 Iu) Capsule) 1,250 mcg PO Q7D [facility] Last Admin: 02/06/22 08:57 Dose: 1,250 mcg Folic Acid (Folic Acid 1 Mg Tab) 1 mg PO DAILY [facility] Last Admin: 02/10/22 07:34 Dose: 1 mg Heparin Sodium (Porcine) (Heparin Sodium,Porcine/Pf 5,000 Unit/0.5 Ml Syringe) 5,000 unit SQ Q12HR [facility] Last Admin: 02/10/22 07:33 Dose: 5,000 unit Hydromorphone HCl (Hydromorphone 1 Mg/Ml 1 Ml Syringe) 1 mg IVP Q3HR PRN PRN Reason: Moderate-Severe Pain Last Admin: 02/09/22 11:55 Dose: 1 mg Sodium Chloride (Saline 0.9%) 1,000 mls @ 75 mls/hr IV .[id number] [facility] Last Admin: 02/10/22 06:07 Dose: Not Given Cefepime HCl 2 gm/ Sodium (Chloride) 100 mls @ 25 mls/hr IVPB Q8HR [facility]; Protocol Last Admin: 02/10/22 07:29 Dose: 25 mls/hr Lorazepam (Lorazepam 2 Mg/Ml Inj) 1 mg IV Q2HR PRN PRN Reason: CIWA 8 or 9 Last Admin: 02/04/22 15:24 Dose: 1 mg Lorazepam (Lorazepam 2 Mg/Ml Inj) 1 mg IV Q1HR PRN PRN Reason: CIWA 10 to 15 Metronidazole (Metronidazole 500 Mg Tab) 500 mg PO TID [facility]; Protocol Last Admin: 02/10/22 07:34 Dose: 500 mg Miscellaneous Information (Potassium Replacement Protocol 1 Each Misc) 1 each MISCELLANE DAILY PRN; Protocol PRN Reason: Per Protocol Miscellaneous Information (Magnesium Replacement Protocol 1 Each Misc) 1 each MISCELLANE DAILY PRN; Protocol PRN Reason: Per Protocol Multivitamins (Multivitamins, Thera 1 Each Tab) 1 each PO DAILY [facility] Last Admin: 02/10/22 07:49 Dose: Not Given Naloxone HCl (Naloxone 0.4 Mg/Ml 1 Ml Vial) 0.2 mg IV Q2M PRN PRN Reason: Opioid Reversal Nicotine (Nicotine 21mg/24hr Patch) 1 patch TRANSDERM DAILY [facility] Last Admin: 02/10/22 07:18 Dose: Not Given Nystatin (Nystatin 100,000unit/Gm Cream 30 Gm Tube) 1 applic TOPICAL DAILY [facility]; Protocol Last Admin: 02/10/22 07:35 Dose: 1 applic Pantoprazole Sodium (Pantoprazole 40 Mg/10 Ml Vial) 40 mg IV DAILY [facility] Last Admin: 02/10/22 07:33 Dose: 40 mg Pyridoxine HCl (Pyridoxine 50 Mg Tab) 50 mg PO DAILY [facility] Last Admin: 02/10/22 07:36 Dose: 50 mg Thiamine HCl (Thiamine 100 Mg Tab) 100 mg PO BID-W/MEALS [facility] Last Admin: 02/10/22 07:34 Dose: 100 mg Triamcinolone Acetonide (Triamcinolone 0.1% Cream 80 Gm Tube) 1 applic TOPICAL DAILY [facility]; Protocol Last Admin: 02/10/22 07:35 Dose: 1 applic Zinc Sulfate (Zinc Sulfate 220 Mg Cap) 220 mg PO DAILY [facility] Last Admin: 02/10/22 07:49 Dose: Not Given PHYSICAL EXAMINATION: GENERAL: The patient is alert and oriented x4, Well developed, well nourished. HEENT: Pupils are round and equally reacting to light. EOMI. no scleral icterus. No conjunctival pallor. Normocephalic, atraumatic. No pharyngeal erythema. No thyromegaly. CARDIOVASCULAR: S1 and S2 muffled PULMONARY: diminished breath sounds bilaterally with some scattered rhonchi and crackles noted ABDOMEN: soft. Nontender on exam. non-distended, normoactive bowel sounds. No palpable organomegaly. MUSCULOSKELETAL: No joint swelling or deformity. EXTREMITIES: No cyanosis, clubbing, or pedal edema. Significant wasting noted NEUROLOGICAL: Gross neurological examination did not reveal any focal deficits. Diffuse weakness SKIN: Stage IV bilateral gluteal ulcers status post debridement. Left foot dressing noted as well Assessment: Acute bilateral gluteal ulcers as well as skin ulcers with sepsis, present on admission Weakness of bilateral lower extremities, rule out paraparesis, neurological workup in process for possible MS Hypovolemic hyponatremia Possible history of EtOH abuse Hypocalcemia Moderate protein calorie malnutrition with a BMI of 21.6 Anemia Electrolyte abnormalities GI prophylaxis DVT prophylaxis no code Plan: Recommend to continue with current medications and management with general surgery, neurology, and infectious disease following. Patient to work with physical therapy and social work/case management following and working on ECF. Culture showing staph aureus with E. coli and MSSA and receiving a PICC line today and patient is maintained on IV cefepime and will continue. Per ID, patient will need IV abx and oral on discharge for 5 weeks with close outpatient follow-up. Neurology workup in process for bilateral lower extremity weakness with MRIs ordered for today. Unsure if patient is able to tolerate further MRIs and willing to proceed with LP per neurology which has been ordered. Will await LP and discuss with consultations about discharge planning. Patient has been accepted at [facility] the [place]. Due to multiple complex medical issues, prognosis is guarded. Recommend continued local wound care and increase in pain management. Replace electrolytes per protocol. The impression and plan of care has been dictated by Kellen Cole, nurse practitioner as directed. MD Bo I have performed a history and examination and MDM of this patient, discussed th e same with the dictator, and agree with the dictator's assessment and plan as written ,documented as a scribe. Based on total visit time, I have performed more than 50% of the visit. Any additional findings or plans will be noted. Objective - Vital Signs Vital signs: Vital Signs Temp 98 F 02/09/22 07:19 Pulse 98 02/09/22 07:19 Resp 21 02/09/22 07:19 BP 112/67 02/09/22 07:19 Pulse Ox 99 02/09/22 07:19 FiO2 Intake & Output 02/08/22 02/09/22 02/09/22 18:59 06:59 18:59 Intake Total 180 Output Total 1200 1200 Balance -1200 -1200 180 Intake: Oral 180 Output: Urine 1200 1200 Other: Voiding Method Indwelling Catheter Indwelling Catheter - Labs CBC & Chem 7: 02/09/22 05:43 02/09/22 05:45 Labs: Abnormal Lab Results - Last 24 Hours (Table) 02/07/22 02/07/22 02/07/22 Range/Units 04:44 04:44 04:44 RBC (4.40-5.60) X 10*6/uL Hgb (13.0-17.0) g/dL Hct (39.6-50.0) % MCHC (32.0-37.0) g/dL RDW (11.5-14.5) % Immature Gran # (0.00-0.04) X 10*3/uL Monocytes # (0.20-1.00) X 10*3/uL Sodium (137-145) mmol/L Creatinine (0.66-1.25) mg/dL Glucose (74-99) mg/dL Calcium (8.4-10.2) mg/dL Vitamin B6 3 L (5-50) ug/L Zinc 32 L (60-130) ug/dL IgA 872.0 H (60.0-350.0) mg/dL 02/08/22 02/08/22 02/09/22 Range/Units 04:11 04:11 05:43 RBC 2.58 L 2.71 L (4.40-5.60) X 10*6/uL Hgb 7.1 L 7.4 L D (13.0-17.0) g/dL Hct 23.0 L 25.3 L (39.6-50.0) % MCHC 30.9 L 29.3 L (32.0-37.0) g/dL RDW 15.7 H (11.5-14.5) % Immature Gran # 0.06 H (0.00-0.04) X 10*3/uL Monocytes # 1.07 H (0.20-1.00) X 10*3/uL Sodium 128 L (137-145) mmol/L Creatinine 0.44 L (0.66-1.25) mg/dL Glucose 100 H (74-99) mg/dL Calcium 6.9 L (8.4-10.2) mg/dL Vitamin B6 (5-50) ug/L Zinc (60-130) ug/dL IgA (60.0-350.0) mg/dL 02/09/22 Range/Units 05:45 RBC (4.40-5.60) X 10*6/uL Hgb (13.0-17.0) g/dL Hct (39.6-50.0) % MCHC (32.0-37.0) g/dL RDW (11.5-14.5) % Immature Gran # (0.00-0.04) X 10*3/uL Monocytes # (0.20-1.00) X 10*3/uL Sodium 130 L (137-145) mmol/L Creatinine 0.44 L (0.66-1.25) mg/dL Glucose 115 H (74-99) mg/dL Calcium 6.9 L (8.4-10.2) mg/dL Vitamin B6 (5-50) ug/L Zinc (60-130) ug/dL IgA (60.0-350.0) mg/dL Microbiology - Last 24 Hours (Table) 02/05/22 10:35 Gram Stain - Final Foot - Right Wound Culture - Final Escherichia coli Staphylococcus aureus 02/03/22 09:54 Gram Stain - Final Foot - Left Wound Culture - Final Klebsiella oxytoca Enterobacter cloacae Staphylococcus aureus Alcaligen. faecalis 02/08/22 04:11 Blood Culture - Preliminary Blood No Growth after 24 hours 02/07/22 14:48 Blood Culture - Preliminary Blood No Growth after 24 hours 05/29/22 10:34 Anaerobic Culture - Final Foot - Left Anaerobic Gm Negative Bacilli
--- NOTE | 2022-02-10 09:47 | P.PN ---
Subjective Progress Note Date: 02/09/22 Patient was seen for a follow-up. Patient is laying comfortably in the bed. Patient appears slightly more comfortable. He should apparently had been acting inappropriately with the nurses, throwing away the pills, and somewhat abusive. Patient acted fine during this encounter. Objective - Vital Signs Vital signs: Vital Signs Temp 98.1 F 02/10/22 02:00 Pulse 95 02/10/22 07:45 Resp 18 02/10/22 07:45 BP 134/70 02/10/22 07:45 Pulse Ox 100 02/10/22 07:45 FiO2 Intake & Output 02/09/22 02/10/22 02/10/22 18:59 06:59 18:59 Intake Total 298 Output Total 875 850 Balance -577 -850 Weight 58.967 kg Intake: Oral 298 Output: Urine 875 850 Other: Voiding Method Indwelling Catheter - Exam Patient able to stress right leg much better today as compared to yesterday. The left leg is still quite spastic. Patient states that the left leg often bounces back, likely from spasticity. - Labs CBC & Chem 7: 02/09/22 05:43 02/09/22 05:45 Labs: Microbiology - Last 24 Hours (Table) 02/08/22 04:11 Blood Culture - Preliminary Blood No Growth after 48 hours 02/07/22 14:48 Blood Culture - Preliminary Blood No Growth after 48 hours 02/05/22 10:35 Gram Stain - Final Foot - Right Wound Culture - Final Escherichia coli Staphylococcus aureus 02/03/22 09:54 Gram Stain - Final Foot - Left Wound Culture - Final Klebsiella oxytoca Enterobacter cloacae Staphylococcus aureus Alcaligen. 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 Examination also revealed mild weakness of left upper extremity. Exact cause is uncertain. Possible MS. * MRI of the brain reveals significant white matter lesions particularly in the periventricular and also involving the corpus callosum, suggestive of demyelinating disease like MS. * Folate deficiency * Vitamin B6 deficiency * Marquita deficiency * Hypocalcemia * Bilateral gluteal pressure sores, with left foot cellulitis * Hypertension * Rheumatoid arthritis * Alcoholism Plan: * MRI of the brain with and without contrast reported as nonspecific white matter demyelination may be related to chronic small vessel ischemic changes, there is age-related atrophy. On my review, there is definite involvement of the corpus callosum and periventricular white matter region, highly suggestive of demyelinating disease like MS. * MRI of the cervical spine reported degenerative disc disease. Indeterminate lung mass right upper lobe. Limited exam. * Patient declined MRI of the thoracic and lumbar spines. * Patient agreed to undergo lumbar puncture to check for oligoclonal bands. * B12 1813, methylmalonic acid 0.12 normal, folate 5.90, CRP 8.8, ESR 66, IgG 1540, IgM 94, IgA 872 (60-350), rheumatoid factor < 10, MANNY negative, vitamin B6 3 (5-50). Serum copper is 731(665-1480). Serum zinc 32(60 to 130). Hemoglobin A1c 5.0. We will start folate, zinc and vitamin B6 replacement. Immune fixation electrophoresis results pending. * Patient was hypocalcemic. Would defer IM for the cause and any treatment needed. * Surgery on board for gluteal pressure sores, status post debridement. * ID on board for left foot cellulitis, on Zosyn. * Further management based upon above test results.
--- NOTE | 2022-02-10 11:51 | P.CNPUL ---
History of Present Illness Consult date: 02/10/22 Requesting physician: Alfredo Vazquez Reason for consult: COPD, lung mass, abnormal CXR/CT Chief complaint: Abnormal CAT scan. History of present illness: Pulmonary consultation dated 02/10/2022. 61-year-old male, who looks much older than his stated age. He is quite cachectic. He apparently was brought into the emergency room on February 03, for weakness. He apparently was found to have gluteal infection/abscess. After all these number days, we are finally consulted about an abnormal computed tomography scan that was done back in July 2021. The lesion was 2.4 cm in size, and in the right upper lobe. Previously, and 2018, the lesion was 10-11 mm in size. This likely represents a bronchogenic carcinoma. Apparently the patient had no further workup at the CAT scan in July of last year. The patient is a heavy smoker for a number of years. I talked to the patient in detail about next steps, including a PET scan, as well as an updated computed tomography scan. States that he would like to wait please out of the hospital. In addition, he tells me that he can't straighten his left leg, and cannot lay still for any period of time because of his back and legs. Anyway, I did tell him that I be happy to see him in the outpatient setting, for further workup and evaluation. Most recent lab work shows a white count of 7.8, in room 7.4, hematocrit 25.3, and platelet count 357,000. Sodium 1:30, potassium 3.7, chlorides 102, CO2 25, BUN 16, creatinine 0.44. X-rays, and prior CAT scans were reviewed. Review of Systems REVIEW OF SYSTEMS: CONSTITUTIONAL: Weakness. NEUROLOGIC: [ Negative.] HEENT: [ Negative.] CARDIAC: [Negative.] PULMONARY: [Negative.] GI: [Negative.] : [Negative.] RHEUMATOLOGIC: [ Negative.] IMMUNOLOGIC: [ Negative.] ENDOCRINE: [Negative. ] DERMATOLOGIC: [Negative.] Past Medical History Past Medical History: Hypertension, Rheumatoid Arthritis (RA) Additional Past Medical History / Comment(s): arthritis, chronic back pain, right ankle fracture, right fibula fracture, ETOH abuse, liver cirrhosis History of Any Multi-Drug Resistant Organisms: None Reported Past Surgical History: No Surgical Hx Reported Additional Past Surgical History / Comment(s): ABD SURGERY FOR ULCER Past Anesthesia/Blood Transfusion Reactions: Unable to Obtain Past Psychological History: Anxiety Smoking Status: Current every day smoker, Heavy tobacco smoker Past Alcohol Use History: Abuse, Daily, Heavy Past Drug Use History: Marijuana - Past Family History Father Family Medical History: COPD Additional Family Medical History / Comment(s): alcoholism Mother Family Medical History: Cancer Medications and Allergies Home Medications Medication Instructions Recorded Confirmed Type amLODIPine [Norvasc] 2.5 mg PO DAILY 02/03/22 02/03/22 History Allergies Allergy/AdvReac Type Severity Reaction Status Date / Time No Known Allergies Allergy Verified 02/03/22 11:08 Physical Exam Osteopathic Statement: *. No significant issues noted on an osteopathic structural exam other than those noted in the History and Physical/Consult. Vitals: Vital Signs Temp Pulse Resp BP Pulse Ox 02/10/22 07:50 97.5 F L 02/10/22 07:45 95 18 134/70 100 02/10/22 02:00 98.1 F 93 15 108/68 99 02/09/22 19:38 97.4 F L 96 16 108/55 98 02/09/22 14:00 98.2 F 105 H 18 117/66 99 Intake and Output 02/09/22 02/10/22 02/10/22 22:59 06:59 14:59 Intake Total 400 Output Total 375 850 850 Balance -375 850 -450 Intake: Intake, IV Titration 100 Amount Cefepime 2 gm In Sodium 100 Chloride 0.9% 100 ml @ 25 mls/hr IVPB Q8HR [facility] Rx# :[id number] Oral 300 Output: Urine 375 850 850 Other: Voiding Method Indwelling Catheter Indwelling Catheter No acute distress, oriented 3. The patient is chronically ill-appearing, and quite cachectic. HEENT examination is grossly unremarkable. Neck supple. Full range of motion. No adenopathy thyromegaly or neck vein distention. Cardiovascular examination reveals regular rhythm rate. S1-S2 normal. No S3 or S4. No discernible murmur noted. Heart rate 95 bpm. Lungs reveal mostly clear breath sounds. Minimal rhonchi noted. No wheezes or crackles. Room air saturations 100%. Abdomen soft bowel sounds are heard. No masses or tenderness. Extremities are intact. No cyanosis clubbing or edema. Left leg cannot be straightened at the knee. Skin is without rash or lesion. Neurologic examination is brief but nonfocal. Results - Laboratory Findings CBC and BMP: 02/09/22 05:43 02/09/22 05:45 PT/INR, D-dimer PT 17.4 sec (9.0-12.0) H 02/03/22 09:54 INR 1.7 (<1.2) H 02/03/22 09:54 Abnormal lab findings: Abnormal Labs 02/03/22 02/03/22 02/03/22 09:54 09:54 09:54 WBC 14.2 H RBC 3.59 L Hgb 10.4 L Hct 33.5 L MCHC RDW Immature Gran # Neutrophils # 12.2 H Lymphocytes # 0.6 L Monocytes # ESR PT 17.4 H INR 1.7 H APTT 31.2 H Sodium 136 L Potassium 2.9 L Chloride 108 H Carbon Dioxide 19 L BUN 23 H Creatinine 0.40 L BUN/Creatinine Ratio Glucose 110 H Plasma Lactic Acid Esdras Calcium 5.6 L* Ionized Calcium Noah AST C-Reactive Protein Total Protein 4.9 L Albumin 1.8 L Globulin Albumin/Globulin Ratio Vitamin B6 Vitamin B12 Vitamin D 25-Hydroxy Zinc IgA 02/03/22 02/03/22 02/03/22 09:54 09:54 12:54 WBC RBC Hgb Hct MCHC RDW Immature Gran # Neutrophils # Lymphocytes # Monocytes # ESR PT INR APTT Sodium Potassium Chloride Carbon Dioxide BUN Creatinine BUN/Creatinine Ratio Glucose Plasma Lactic Acid Esdras 2.2 H* 3.0 H* Calcium Ionized Calcium Noah 3.0 L* AST C-Reactive Protein Total Protein Albumin Globulin Albumin/Globulin Ratio Vitamin B6 Vitamin B12 Vitamin D 25-Hydroxy Zinc IgA 02/04/22 02/04/22 02/05/22 06:18 06:18 05:51 WBC 12.13 H RBC 3.48 L 3.35 L Hgb 9.8 L 9.5 L Hct 30.0 L 29.1 L MCHC RDW 15.5 H 15.9 H Immature Gran # 0.43 H 0.19 H Neutrophils # 8.96 H Lymphocytes # Monocytes # 1.09 H 1.07 H ESR PT INR APTT Sodium Potassium Chloride Carbon Dioxide BUN Creatinine 0.4 L BUN/Creatinine Ratio 50.50 H Glucose 113 H Plasma Lactic Acid Esdras Calcium 7.4 L Ionized Calcium Noah AST 66 H C-Reactive Protein Total Protein 5.5 L Albumin 1.9 L Globulin 3.6 H Albumin/Globulin Ratio 0.53 L Vitamin B6 Vitamin B12 Vitamin D 25-Hydroxy <5.0 L Zinc IgA 02/05/22 02/06/22 02/06/22 05:51 06:16 06:16 WBC RBC 2.59 L Hgb 7.3 L Hct 22.5 L MCHC RDW 15.7 H Immature Gran # 0.28 H Neutrophils # Lymphocytes # 0.77 L Monocytes # ESR PT INR APTT Sodium 131 L Potassium 3.3 L Chloride Carbon Dioxide BUN Creatinine 0.4 L 0.45 L BUN/Creatinine Ratio 38.13 H Glucose Plasma Lactic Acid Esdras Calcium 7.3 L 6.5 L Ionized Calcium Noah AST C-Reactive Protein Total Protein Albumin Globulin Albumin/Globulin Ratio Vitamin B6 Vitamin B12 Vitamin D 25-Hydroxy Zinc IgA 02/07/22 02/07/22 02/07/22 04:44 04:44 04:44 WBC 11.58 H RBC 2.62 L Hgb 7.5 L Hct 22.4 L MCHC RDW 15.8 H Immature Gran # 0.16 H Neutrophils # 8.91 H Lymphocytes # Monocytes # 1.31 H ESR 66 H PT INR APTT Sodium 127 L Potassium 3.3 L Chloride Carbon Dioxide BUN Creatinine 0.47 L BUN/Creatinine Ratio Glucose Plasma Lactic Acid Esdras Calcium 6.8 L Ionized Calcium Noah AST C-Reactive Protein 8.8 H Total Protein Albumin Globulin Albumin/Globulin Ratio Vitamin B6 3 L Vitamin B12 1813.0 H Vitamin D 25-Hydroxy Zinc IgA 02/07/22 02/07/22 02/08/22 04:44 04:44 04:11 WBC RBC Hgb Hct MCHC RDW Immature Gran # Neutrophils # Lymphocytes # Monocytes # ESR PT INR APTT Sodium Potassium Chloride Carbon Dioxide BUN Creatinine 0.42 L BUN/Creatinine Ratio Glucose Plasma Lactic Acid Esdras Calcium Ionized Calcium Noah AST C-Reactive Protein Total Protein Albumin Globulin Albumin/Globulin Ratio Vitamin B6 Vitamin B12 Vitamin D 25-Hydroxy Zinc 32 L IgA 872.0 H 02/08/22 02/08/22 02/08/22 04:11 04:11 04:11 WBC RBC 2.58 L Hgb 7.1 L Hct 23.0 L MCHC 30.9 L RDW 15.7 H Immature Gran # 0.06 H Neutrophils # Lymphocytes # Monocytes # 1.07 H ESR 60 H PT INR APTT Sodium 128 L Potassium Chloride Carbon Dioxide BUN Creatinine 0.44 L BUN/Creatinine Ratio Glucose 100 H Plasma Lactic Acid Esdras Calcium 6.9 L Ionized Calcium Noah AST C-Reactive Protein Total Protein Albumin Globulin Albumin/Globulin Ratio Vitamin B6 Vitamin B12 Vitamin D 25-Hydroxy Zinc IgA 02/09/22 02/09/22 05:43 05:45 WBC RBC 2.71 L Hgb 7.4 L D Hct 25.3 L MCHC 29.3 L RDW Immature Gran # Neutrophils # Lymphocytes # Monocytes # ESR PT INR APTT Sodium 130 L Potassium Chloride Carbon Dioxide BUN Creatinine 0.44 L BUN/Creatinine Ratio Glucose 115 H Plasma Lactic Acid Esdras Calcium 6.9 L Ionized Calcium Noah AST C-Reactive Protein Total Protein Albumin Globulin Albumin/Globulin Ratio Vitamin B6 Vitamin B12 Vitamin D 25-Hydroxy Zinc IgA - Diagnostic Findings Chest x-ray: image reviewed Assessment and Plan Assessment: Suspicious lesion right upper lobe, increasing in size, and likely representing bronchogenic carcinoma. History of ongoing tobacco use with nicotine. Anorexia/cachexia syndrome. Multiple other medical problems and comorbidities including hypertension, rheu matoid arthritis, alcohol abuse, liver cirrhosis, anxiety, and alcohol and marijuana abuse. Plan: Plan dated 02/10/2022. The evaluation on this patient's right upper lobe lesion, to be done as an outpatient. I told the patient that I be happy to see him in the clinic. The patient will need a follow-up computed tomography scan of the chest, and likely a PET scan. The patient demonstrates some ambivalence about getting anything more done at this time, as he states, that he cannot straighten out his lower extremities, and cannot lie still for a computed tomography scan, or a PET scan. He is counseled about the importance of smoking cessation. The patient will also need a full PFTs down the road. His overall prognosis remains very poor. Time with Patient: Greater than 30
[2022-02-10] MEDS: HYDROmorphone 1 MG/ML 1 ML SYRINGE IVP PRN (15:26)
[2022-02-10] MEDS: TEMAZEPAM 15 MG CAP PO PRN (19:42)
[2022-02-10] MEDS: BACLOFEN 10 MG TAB PO PRN (19:42)
--- NOTE | 2022-02-10 20:37 | P.PN ---
Subjective Progress Note Date: 02/10/22 This is a 61-year-old male who was recently admitted with bilateral gluteal ulcers and significant infections with features of sepsis, present on admission and is being closely monitored. Patient is status post sharp excisional debridement of bilateral gluteal decubitus ulcers stage IV with Dr. Yun and cultures have been sent and are pending and infectious disease also closely monitoring and awaiting finalized cultures and patient is maintained on IV cefepime and will continue at this time. Neurology also evaluating the patient for continued weakness and has an MRI of the brain, cervical, thoracic, and lumbar ordered to evaluate for MS. Preliminary wound culture showing E. coli presumptive staph. Patient denies chest pain or shortness of breath. Patient is afebrile. Patient tolerating diet with no reports of nausea or vomiting noted. Patient to have physical therapy evaluate and possibly ECF being planned. 02/08/2022 Patient is seen in follow up and is being monitored by ID, neurology, surgery, and wound, Patient is continued on IV cefepime and will continue. Patient will require PICC line and IV abx on discharge. Patient with significant gluteal wounds and recommend frequent position changes and local wound care per surgical and ID recommendations. Patient sodium is low and potassium is 3.5 and mag is 1.6 and will replace per protocol and repeat am labs. Patient is afebrile and denies chest pain or shortness of breath. Patient to undergo MRI per neurology recommendations. 02/09/2022 Patient is seen this morning and is agitated and reporting severe pain 10 out of 10 of his gluteal region and his foot and feels his pain is not being managed. Medication adjustments have been made and discussed with nursing staff. Patient continues with weakness and will likely need ECF and [facility] the [place] is being planned. Patient continues with neurological workup with neurology following closely and unable to tolerate all of MRI due to pain and would like to proceed with LP. Consult was placed to IR for LP and patient is undergoing neurological workup for possible MS. Patient also continues to be followed by general surgery and maintained on IV antibiotics with infectious disease following and patient will require IV antibiotic therapy in the outpatient setting and is scheduled to receive a PICC line today. Patient is afebrile and denies chest pain or shortness of breath. Most recent blood cultures remain negative. Foot culture showing E. coli and staph aureus. Patient will likely need outpatient follow-up closely with neurologist. 02/10/2022 Patient is evaluated today and continues to be in pain and restless and unable to extend his legs or walk. Patient is maintained on IV antibiotics and has received a PICC line. Continued wound care and is also being followed by neurology for lower extremity weakness and will be having an LP. Pulmonary consu lted for lung nodule and will be an outpatient follow up. Patient is to go to [facility] on the [place] once stable and cleared by neurology. Patient is afebrile and denies chest pain or shortness of breath. Patient is anxious and wants to leave. Patient reports to no sleep and have ordered Restoril. Review of systems: Constitutional: reports of fatigue, nofever, or chills, reports frustration and continued pain Cardiovascular: No reports of chest pain or palpitations Respiratory: No reports of shortness of breath or cough GI: No reports of nausea, no reports of of vomiting : No reports of dysuria or retention Neurovascular: reports of generalized weakness, reports foot pain and gluteal pain All medications have been reviewed Active Medications Acetaminophen (Acetaminophen Tab 325 Mg Tab) 650 mg PO Q6HR PRN PRN Reason: Mild Pain or Fever > 100.5 Last Admin: 02/08/22 22:35 Dose: 650 mg Hydrocodone Bitart/Acetaminophen (Hydrocodone/Apap 7.5-325mg 1 Each Tab) 1 each PO Q4H PRN PRN Reason: Pain Last Admin: 02/10/22 17:56 Dose: 1 each Amlodipine Besylate (Amlodipine 2.5 Mg Tab) 2.5 mg PO DAILY [facility] Last Admin: 02/10/22 07:46 Dose: 2.5 mg Baclofen (Baclofen 10 Mg Tab) 10 mg PO TID PRN PRN Reason: Muscle Spasm Last Admin: 02/10/22 19:42 Dose: 10 mg Calcium Carbonate (Calcium Carb-Vit D 500 Mg-5 Mcg Tab) 1 each PO BID-W/MEALS [facility] Last Admin: 02/10/22 15:18 Dose: Not Given Collagenase (Collagenase 250 Unit/Gm Ointment 30 Gm Tube) 1 applic TOPICAL DAILY [facility]; Protocol Last Admin: 02/10/22 07:52 Dose: 1 applic Ergocalciferol (Ergocalciferol 1,250 Mcg (50,000 Iu) Capsule) 1,250 mcg PO Q7D [facility] Last Admin: 02/06/22 08:57 Dose: 1,250 mcg Folic Acid (Folic Acid 1 Mg Tab) 1 mg PO DAILY [facility] Last Admin: 02/10/22 07:34 Dose: 1 mg Heparin Sodium (Porcine) (Heparin Sodium,Porcine/Pf 5,000 Unit/0.5 Ml Syringe) 5,000 unit SQ Q12HR [facility] Last Admin: 02/10/22 10:02 Dose: Not Given Hydromorphone HCl (Hydromorphone 1 Mg/Ml 1 Ml Syringe) 1 mg IVP Q3HR PRN PRN Reason: Moderate-Severe Pain Last Admin: 02/10/22 15:26 Dose: 1 mg Sodium Chloride (Saline 0.9%) 1,000 mls @ 75 mls/hr IV .[id number] [facility] Last Admin: 02/10/22 15:19 Dose: 75 mls/hr Cefepime HCl 2 gm/ Sodium (Chloride) 100 mls @ 25 mls/hr IVPB Q8HR [facility]; Protocol Last Admin: 02/10/22 15:19 Dose: 25 mls/hr Lorazepam (Lorazepam 2 Mg/Ml Inj) 1 mg IV Q2HR PRN PRN Reason: CIWA 8 or 9 Last Admin: 02/04/22 15:24 Dose: 1 mg Lorazepam (Lorazepam 2 Mg/Ml Inj) 1 mg IV Q1HR PRN PRN Reason: CIWA 10 to 15 Metronidazole (Metronidazole 500 Mg Tab) 500 mg PO TID [facility]; Protocol Last Admin: 02/10/22 15:19 Dose: 500 mg Miscellaneous Information (Potassium Replacement Protocol 1 Each Misc) 1 each MISCELLANE DAILY PRN; Protocol PRN Reason: Per Protocol Miscellaneous Information (Magnesium Replacement Protocol 1 Each Misc) 1 each MISCELLANE DAILY PRN; Protocol PRN Reason: Per Protocol Multivitamins (Multivitamins, Thera 1 Each Tab) 1 each PO DAILY [facility] Last Admin: 02/10/22 07:49 Dose: Not Given Naloxone HCl (Naloxone 0.4 Mg/Ml 1 Ml Vial) 0.2 mg IV Q2M PRN PRN Reason: Opioid Reversal Nicotine (Nicotine 21mg/24hr Patch) 1 patch TRANSDERM DAILY [facility] Last Admin: 02/10/22 07:18 Dose: Not Given Nystatin (Nystatin 100,000unit/Gm Cream 30 Gm Tube) 1 applic TOPICAL DAILY [facility]; Protocol Last Admin: 02/10/22 07:35 Dose: 1 applic Pantoprazole Sodium (Pantoprazole 40 Mg/10 Ml Vial) 40 mg IV DAILY [facility] Last Admin: 02/10/22 07:33 Dose: 40 mg Pyridoxine HCl (Pyridoxine 50 Mg Tab) 50 mg PO DAILY [facility] Last Admin: 02/10/22 07:36 Dose: 50 mg Temazepam (Temazepam 15 Mg Cap) 15 mg PO HS PRN PRN Reason: Insomnia Last Admin: 02/10/22 19:42 Dose: 15 mg Thiamine HCl (Thiamine 100 Mg Tab) 100 mg PO BID-W/MEALS [facility] Last Admin: 02/10/22 15:18 Dose: Not Given Triamcinolone Acetonide (Triamcinolone 0.1% Cream 80 Gm Tube) 1 applic TOPICAL DAILY [facility]; Protocol Last Admin: 02/10/22 07:35 Dose: 1 applic Zinc Sulfate (Zinc Sulfate 220 Mg Cap) 220 mg PO DAILY [facility] Last Admin: 02/10/22 07:49 Dose: Not Given PHYSICAL EXAMINATION: GENERAL: The patient is alert and oriented x4, Well developed, well nourished. HEENT: Pupils are round and equally reacting to light. EOMI. no scleral icterus. No conjunctival pallor. Normocephalic, atraumatic. No pharyngeal erythema. No thyromegaly. CARDIOVASCULAR: S1 and S2 muffled PULMONARY: diminished breath sounds bilaterally with some scattered rhonchi noted ABDOMEN: soft. Nontender on exam. non-distended, normoactive bowel sounds. No palpable organomegaly. MUSCULOSKELETAL: No joint swelling or deformity. EXTREMITIES: No cyanosis, clubbing, or pedal edema. Significant wasting noted, contracted lower extremities NEUROLOGICAL: Gross neurological examination did not reveal any focal deficits. Diffuse weakness SKIN: Stage IV bilateral gluteal ulcers status post debridement. Left foot dressing noted as well Assessment: Acute bilateral gluteal ulcers as well as skin ulcers with sepsis, present on admission Weakness of bilateral lower extremities, rule out paraparesis, neurological workup in process for possible MS Hypovolemic hyponatremia Possible history of EtOH abuse Hypocalcemia Moderate protein calorie malnutrition with a BMI of 21.6 Anemia Electrolyte abnormalities GI prophylaxis DVT prophylaxis no code Plan: Recommend to continue with current medications and management with general surgery, neurology, and infectious disease following. Patient to work with physical therapy and social work/case management following and working on ECF. [facility] on the [place] when stable and cleared by consultants. Patient has received a PICC line and will have close outpatient follow up with wound care and ID along with surgery. Culture showed staph aureus with E. coli and MSSA. Maintained on IV cefepime and will continue. Per ID, patient will need IV abx and oral on discharge for 5 weeks with close outpatient follow-up. Neurology workup in process for bilateral lower extremity weakness and awaiting and LP per neurology which has been ordered. Patient has been accepted at [facility]. Due to multiple complex medical issues, prognosis is guarded. Recommend continued local wound care and increase in pain management. Replace electrolytes per protocol. Follow up labs in am and have ordered sleep aid for insomnia as needed. The impression and plan of care has been dictated by Kellen Cole, nurse practitioner as directed. MD Bo I have performed a history and examination and MDM of this patient, discussed the same with the dictator, and agree with the dictator's assessment and plan as written ,documented as a scribe. Based on total visit time, I have performed more than 50% of the visit. Any additional findings or plans will be noted. Objective - Vital Signs Vital signs: Vital Signs Temp 98.1 F 02/10/22 02:00 Pulse 95 02/10/22 07:45 Resp 18 02/10/22 07:45 BP 134/70 02/10/22 07:45 Pulse Ox 100 02/10/22 07:45 FiO2 Intake & Output 02/09/22 02/10/22 02/10/22 18:59 06:59 18:59 Intake Total 298 Output Total 875 850 Balance -577 -850 Weight 58.967 kg Intake: Oral 298 Output: Urine 875 850 Other: Voiding Method Indwelling Catheter - Labs CBC & Chem 7: 02/09/22 05:43 02/09/22 05:45 Labs: Microbiology - Last 24 Hours (Table) 02/08/22 04:11 Blood Culture - Preliminary Blood No Growth after 48 hours 02/07/22 14:48 Blood Culture - Preliminary Blood No Growth after 48 hours 02/05/22 10:35 Gram Stain - Final Foot - Right Wound Culture - Final Escherichia coli Staphylococcus aureus 02/03/22 09:54 Gram Stain - Final Foot - Left Wound Culture - Final Klebsiella oxytoca Enterobacter cloacae Staphylococcus aureus Alcaligen. faecalis
[2022-02-10] MEDS: ACETAMINOPHEN TAB 325 MG TAB PO PRN (23:13)
[2022-02-11] MEDS: HYDROcodone/APAP 7.5-325MG 1 EACH TAB PO PRN ×5 (00:50→21:40)
[2022-02-11 04:35] LABS: HGB 7.8 gm/dL (13.0-17.5); Hypochromasia Moderate; MCH 28.3 pg (25.0-35.0); MCHC 30.1 g/dL (31.0-37.0); MCV 94.2 fL (80.0-100.0); Mean Platelet Volume 7.6; Platelet Count 470 k/uL (150-450); RBC 2.76 m/uL (4.30-5.90); RDW 15.6 % (11.5-15.5); WBC 5.7 k/uL (3.8-10.6)
[2022-02-11 04:46] LABS: African American GFR (CKD) >90 (>60 ml/min/1.73 sqM); Anion Gap 1 mmol/L; Blood Urea Nitrogen 15 mg/dL (9-20); Calcium 7.2 mg/dL (8.4-10.2); Carbon Dioxide 25 mmol/L (22-30); Chloride 103 mmol/L (98-107); Glucose 110 mg/dL (74-99); Non-African American GFR(CKD) >90 (>60 ml/min/1.73 sqM); Sodium 129 mmol/L (137-145)
[2022-02-11 05:29] LABS: Anisocytosis (M) Present; Eosinophils # (M) 0.06 k/uL (0-0.7); Hypochromasia (M) Present; Lymphocytes # (M) 1.25 k/uL (1.0-4.8); Monocytes # (M) 0.74 k/uL (0-1.0); Neutrophils # (M) 3.65 k/uL (1.3-7.7); Neutrophils % (M) 64 %; Nucleated Red Blood Cells 0 /100 WBC (0-0); Polychromasia Present; Total Cells Counted 100
[2022-02-11] MEDS: CEFEPIME 2 GM in SODIUM CHLORIDE 0.9% 100 ML IVPB SCH ×3 (07:50→23:30)
[2022-02-11] MEDS: metroNIDAZOLE 500 MG TAB PO SCH ×3 (07:51→19:55)
[2022-02-11] MEDS: PANTOPRAZOLE 40 MG/10 ML VIAL IV SCH (07:51)
[2022-02-11] MEDS: PYRIDOXINE 50 MG TAB PO SCH (07:51)
[2022-02-11] MEDS: MULTIVITAMINS, THERA 1 EACH TAB PO SCH (07:51)
[2022-02-11] MEDS: CALCIUM CARB-VIT D 500 MG-5 MCG TAB PO SCH ×2 (07:51→17:00)
[2022-02-11] MEDS: THIAMINE 100 MG TAB PO SCH ×2 (07:51→17:00)
[2022-02-11] MEDS: FOLIC ACID 1 MG TAB PO SCH (07:51)
[2022-02-11] MEDS: amLODIPine 2.5 MG TAB PO SCH (07:51)
[2022-02-11] MEDS: NICOTINE 21MG/24HR PATCH TRANSDERM SCH (07:52)
[2022-02-11] MEDS: HYDROmorphone 1 MG/ML 1 ML SYRINGE IVP PRN ×4 (07:52→22:25)
[2022-02-11] MEDS: COLLAGENASE 250 UNIT/GM OINTMENT 30 GM TUBE TOPICAL SCH (07:53)
[2022-02-11] MEDS: ZINC SULFATE 220 MG CAP PO SCH (07:53)
[2022-02-11] MEDS: NYSTATIN 100,000UNIT/GM CREAM 30 GM TUBE TOPICAL SCH (12:38)
[2022-02-11] MEDS: TRIAMCINOLONE 0.1% CREAM 80 GM TUBE TOPICAL SCH (12:38)
--- NOTE | 2022-02-11 13:36 | PN ---
PROGRESS NOTE DATE OF SERVICE: 02/11/2022 This 61-year-old gentleman who was admitted with bilateral gluteal ulcers and sepsis is also complaining of pain. The patient is on a combination of Dilaudid as well as [place]. Patient is still complaining of difficulty in walking and ambulation. Multiple consultants are following the patient closely. Pulmonary has seen the patient for suspicious right upper lobe lesion and possible bronchogenic carcinoma. Past medical history reviewed. REVIEW OF SYSTEMS: Fourteen-point review of systems negative except as mentioned earlier. CURRENT MEDICATIONS: Reviewed. They include [place]. Doses and the rest of the medications noted. PHYSICAL EXAMINATION: Pulse is 106, blood pressure 120/60, respiration 19. CHEST: A few scattered rhonchi. CARDIOVASCULAR: S1, S2 muffled. ABDOMEN: Soft. NERVOUS SYSTEM: Diffusely weak. LABS: WBC 5.6, hemoglobin 7.8, sodium 129. ASSESSMENT: 1. Acute bilateral gluteal ulcers with sepsis, present on admission. 2. Significant weakness of bilateral lower legs. 3. Possible MS. 4. Rule out bronchogenic malignancy. 5. Possible ETOH abuse. 6. Hypocalcemia. 7. Moderate protein-calorie malnutrition. RECOMMENDATIONS AND DISCUSSION: I recommend to continue current medications, continue with the monitoring, symptomatic treatment. Otherwise at this time adjust pain management. Discussed with the staff. I would also recommend close followup with Pulmonary. Guarded prognosis. MMODL / IJN: [id number] /
[2022-02-11] MEDS: IOPAMIDOL CONTRAST (ORAL USE) VIAL PO PRN ×2 (14:02→15:00)
--- NOTE | 2022-02-11 14:35 | P.PN ---
Subjective Progress Note Date: 02/10/22 Patient was seen for a follow-up. Patient is laying comfortably in the bed. Patient appears slightly more comfortable. Patient complaining of pain in the right leg 04/19, left leg 05/20. No new concerns. Awaiting lumbar puncture. Objective - Vital Signs Vital signs: Vital Signs Temp 96.4 F L 02/11/22 08:00 Pulse 106 H 02/11/22 08:00 Resp 19 02/11/22 08:00 BP 126/67 02/11/22 08:00 Pulse Ox 100 02/11/22 08:00 FiO2 Intake & Output 02/10/22 02/11/22 02/11/22 18:59 06:59 18:59 Intake Total 580 Output Total 850 2100 Balance -270 -2100 Intake: Intake, IV Titration 100 Amount Cefepime 2 gm In Sodium 100 Chloride 0.9% 100 ml @ 25 mls/hr IVPB Q8HR REPLACED BY [facility] Rx# :[id number] Oral 480 Output: Urine 850 2100 Other: Voiding Method Indwelling Catheter - Exam Patient able to stress right leg much better today as compared to yesterday. The left leg is still quite spastic. Patient states that the left leg often bounces back, likely from spasticity. - Labs CBC & Chem 7: 02/11/22 04:01 02/11/22 04:01 Labs: Abnormal Lab Results - Last 24 Hours (Table) 02/11/22 02/11/22 Range/Units 04:01 04:01 RBC 2.76 L (4.30-5.90) m/uL Hgb 7.8 L (13.0-17.5) gm/dL Hct 26.0 L (39.0-53.0) % MCHC 30.1 L (31.0-37.0) g/dL RDW 15.6 H (11.5-15.5) % Plt Count 470 H (150-450) k/uL Sodium 129 L (137-145) mmol/L Creatinine 0.53 L (0.66-1.25) mg/dL Glucose 110 H (74-99) mg/dL Calcium 7.2 L (8.4-10.2) mg/dL Microbiology - Last 24 Hours (Table) 02/08/22 04:11 Blood Culture - Preliminary Blood No Growth after 72 hours 02/07/22 14:48 Blood Culture - Preliminary Blood No Growth after 72 hours 02/05/22 10:35 Anaerobic Culture - Final Foot - Right Anaerobic Gm Positive Bacill Anaerobic Gm Negative Bacilli Anaerobic Gm Negative Bacilli#2 Assessment and Plan Assessment: * Spastic paraparesis, 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 Examination also revealed mild weakness of left upper extremity. Exact cause is uncertain. Possible MS. * MRI of the brain reveals significant white matter lesions particularly in the periventricular and also involving the corpus callosum, suggestive of demyelinating disease like MS. * Folate deficiency * Vitamin B6 deficiency * Marquita deficiency * Hypocalcemia * Bilateral gluteal pressure sores, with left foot cellulitis * Hypertension * Rheumatoid arthritis * Alcoholism Plan: * MRI of the brain with and without contrast reported as nonspecific white matter demyelination may be related to chronic small vessel ischemic changes, there is age-related atrophy. On my review, there is definite involvement of the corpus callosum and periventricular white matter region, highly suggestive of demyelinating disease like MS. * MRI of the cervical spine reported degenerative disc disease. Indeterminate lung mass right upper lobe. Limited exam. * Patient declined MRI of the thoracic and lumbar spines. * Patient agreed to undergo lumbar puncture in a.m. to check for oligoclonal bands. * Start baclofen 10 mg 3 times a day for spasticity. May increase the dose if needed. * B12 1813, methylmalonic acid 0.12 normal, folate 5.90, CRP 8.8, ESR 66, IgG 1540, IgM 94, IgA 872 (60-350), rheumatoid factor < 10, MANNY negative, vitamin B6 3 (5-50). Serum copper is 731(665-1480). Serum zinc 32(60 to 130). Hemoglobin A1c 5.0. We will start folate, zinc and vitamin B6 replacement. 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 Suggest hematology consultation rule out paraproteinemia/ myeloma. * Patient was hypocalcemic. Would defer IM for the cause and any treatment needed. * Surgery on board for gluteal pressure sores, status post debridement. * ID on board for left foot cellulitis, on Zosyn. * Further management based upon above test results.
--- NOTE | 2022-02-11 16:32 | CT ---
EXAMINATION TYPE: CT ChestAbdPelvis wo con DATE OF EXAM: 02/11/2022 COMPARISON: CT chest 07/20/2021 HISTORY: Lung ca CT DLP: 434.2 mGycm Automated exposure control for dose reduction was used. Images obtained from the thoracic inlet to the floor the pelvis with oral contrast only. There are mild bilateral pleural effusions. Heart size is normal. There is coarse interstitial infilt rate at the lung bases. There is 2.5 cm low-density infiltrate at the right lung apex. There is no me diastinal adenopathy. Thoracic aorta is atheromatous. Heart size is normal. No pericardial effusion. There are no hilar masses. Liver and spleen are intact. Stomach is intact. There is no pancreatic mass. Gallbladder appears norm al. The bile ducts are not dilated. There is no adrenal mass. Kidneys have normal size. No hydronephrosis. Ureters are not dilated. There is no sign of retroperito jaun adenopathy. Abdominal aorta is atheromatous. There is Alcala catheter in the urinary bladder. Osmar dder is empty. No inguinal hernia. There is soft tissue air over the left hip that could be injection site. Appendix not seen. No sign of thickened appendix. There is no mesenteric edema. No ascites or free air. No sign of a bowel obstruction. There is some u rinary bladder wall thickening. The thoracic and lumbar vertebra. Intact. No compression fracture. Sternum is intact. The bony pelvis is intact. Hip joints are intact. IMPRESSION: Infiltrate at the right lung apex not significantly different than old CT scan. There are new mild bi lateral pleural effusions. There is some interstitial infiltrate at the lung bases which is mostly ne w compared to old exam. There is some urinary bladder wall thickening that could be some nonspecific cystitis. This appears n ew compared to old CT scan of 06/24/2015.
[2022-02-11] MEDS: SODIUM CHLORIDE 0.9% 1,000 ML IV SCH ×2 (18:53→20:00)
[2022-02-11] MEDS: HEPARIN SODIUM,PORCINE/PF 5,000 UNIT/0.5 ML SYRINGE SQ SCH (19:55)
[2022-02-11] MEDS: BACLOFEN 10 MG TAB PO PRN (22:52)
--- NOTE | 2022-02-11 23:23 | P.PN ---
Subjective Progress Note Date: 02/10/22 Principal diagnosis: Infected bilateral gluteal pressure ulcer Patient is a 61-year-old male presented to hospital with weakness in this patient noticed to have unstageable bilateral gluteal pressure ulcer with secondary cellulitis and some ulcerations the left foot but no cellulitis. On today's evaluation that is 02/10/2022, the patient is afebrile, patient is breathing comfortably on room air, the patient denies any worsening pain to the gluteal area , the patient denies nausea no vomiting no abdominal pain no diarrhea Objective - Vital Signs Vital signs: Vital Signs Temp 97.5 F L 02/10/22 07:50 Pulse 95 02/10/22 07:45 Resp 18 02/10/22 07:45 BP 134/70 02/10/22 07:45 Pulse Ox 100 02/10/22 07:45 FiO2 Intake & Output 02/09/22 02/10/22 02/10/22 18:59 06:59 18:59 Intake Total 298 400 Output Total 875 850 850 Balance -577 -850 -450 Weight 58.967 kg Intake: Intake, IV Titration 100 Amount Cefepime 2 gm In Sodium 100 Chloride 0.9% 100 ml @ 25 mls/hr IVPB Q8HR [facility] Rx# :[id number] Oral 298 300 Output: Urine 875 850 850 Other: Voiding Method Indwelling Catheter Indwelling Catheter - Exam GENERAL DESCRIPTION: A middle-age male lying in bed in no distress RESPIRATORY SYSTEM: Unlabored breathing , decreased breath sounds at bases HEART: S1 S2 regular rate and rhythm , ABDOMEN: Soft , no tenderness, bilateral gluteal wounds currently dressed EXTREMITIES: No edema feet - Labs CBC & Chem 7: 02/11/22 04:01 02/11/22 04:01 Labs: Microbiology - Last 24 Hours (Table) 02/08/22 04:11 Blood Culture - Preliminary Blood No Growth after 48 hours 02/07/22 14:48 Blood Culture - Preliminary Blood No Growth after 48 hours 02/05/22 10:35 Gram Stain - Final Foot - Right Wound Culture - Final Escherichia coli Staphylococcus aureus 02/03/22 09:54 Gram Stain - Final Foot - Left Wound Culture - Final Klebsiella oxytoca Enterobacter cloacae Staphylococcus aureus Alcaligen. faecalis Assessment and Plan (1) Abscess and cellulitis of gluteal region Current Visit: Yes Status: Acute Code(s): L02.31 - CUTANEOUS ABSCESS OF BUTTOCK; L03.317 - CELLULITIS OF BUTTOCK SNOMED Code(s): 393847859 Plan: 1patient with bilateral unstageable pressure ulcer with necrotic base and surrounding redness suspicious for secondary cellulitis and possible gram- negative in view of the close location to the and the anal canal. 2left foot superficial ulceration but no cellulitis , patient to continue with Mycolog cream to the left foot ulcer applied daily 3patient is status post surgical debridement and deep culture which are growing E. coli staph aureus and strep, 4- patient also have MSSA bacteremia, blood cultures repeat has been negative 5-patient as clinical improvement and continue with cefepime and oral Flagyl Time with Patient: Less than 30
--- NOTE | 2022-02-11 23:24 | P.PN ---
Subjective Progress Note Date: 02/11/22 Principal diagnosis: Infected bilateral gluteal pressure ulcer Patient is a 61-year-old male presented to hospital with weakness in this patient noticed to have unstageable bilateral gluteal pressure ulcer with secondary cellulitis and some ulcerations the left foot but no cellulitis. On today's evaluation that is 02/11/2022, the patient denies any fever or chills, patient is breathing comfortably on room air, the patient pain to the gluteal area is controlled however the patient is complaining of not getting his medication on time, the patient denies nausea no vomiting no abdominal pain no diarrhea Objective - Vital Signs Vital signs: Vital Signs Temp 98.5 F 02/11/22 14:00 Pulse 110 H 02/11/22 14:00 Resp 18 02/11/22 14:00 BP 115/47 02/11/22 14:00 Pulse Ox 100 02/11/22 14:00 FiO2 Intake & Output 02/10/22 02/11/22 02/11/22 18:59 06:59 18:59 Intake Total 580 Output Total 850 2100 700 Balance -270 -2100 -700 Intake: Intake, IV Titration 100 Amount Cefepime 2 gm In Sodium 100 Chloride 0.9% 100 ml @ 25 mls/hr IVPB Q8HR [facility] Rx# :[id number] Oral 480 Output: Urine 850 2100 700 Other: Voiding Method Indwelling Catheter Indwelling Catheter - Exam GENERAL DESCRIPTION: A middle-age male lying in bed in no distress RESPIRATORY SYSTEM: Unlabored breathing , decreased breath sounds at bases HEART: S1 S2 regular rate and rhythm , ABDOMEN: Soft , no tenderness, bilateral gluteal wounds currently dressed EXTREMITIES: No edema feet - Labs CBC & Chem 7: 02/11/22 04:01 02/11/22 04:01 Labs: Abnormal Lab Results - Last 24 Hours (Table) 02/11/22 02/11/22 Range/Units 04:01 04:01 RBC 2.76 L (4.30-5.90) m/uL Hgb 7.8 L (13.0-17.5) gm/dL Hct 26.0 L (39.0-53.0) % MCHC 30.1 L (31.0-37.0) g/dL RDW 15.6 H (11.5-15.5) % Plt Count 470 H (150-450) k/uL Sodium 129 L (137-145) mmol/L Creatinine 0.53 L (0.66-1.25) mg/dL Glucose 110 H (74-99) mg/dL Calcium 7.2 L (8.4-10.2) mg/dL Microbiology - Last 24 Hours (Table) 02/08/22 04:11 Blood Culture - Preliminary Blood No Growth after 72 hours 02/07/22 14:48 Blood Culture - Preliminary Blood No Growth after 72 hours 02/05/22 10:35 Anaerobic Culture - Final Foot - Right Anaerobic Gm Positive Bacill Anaerobic Gm Negative Bacilli Anaerobic Gm Negative Bacilli#2 Assessment and Plan (1) Abscess and cellulitis of gluteal region Current Visit: Yes Status: Acute Code(s): L02.31 - CUTANEOUS ABSCESS OF BUTTOCK; L03.317 - CELLULITIS OF BUTTOCK SNOMED Code(s): 139840302 Plan: 1patient with bilateral unstageable pressure ulcer with necrotic base and surrounding redness suspicious for secondary cellulitis , patient on surgical debridement was noticed to have a stage IV pressure ulcer 2left foot superficial ulceration but no cellulitis , patient to continue with Mycolog cream to the left foot ulcer applied daily 3patient is status post surgical debridement and deep culture which are growing E. coli staph aureus and strep, 4- patient with MSSA bacteremia, blood cultures repeat has been negative 5-patient is slowly clinically improving continue with cefepime and oral Flagyl, local wound care to the gluteal wound with Santyl followed by moist dressing Time with Patient: Less than 30
[2022-02-12] MEDS: HYDROmorphone 1 MG/ML 1 ML SYRINGE IVP PRN ×5 (01:54→19:49)
[2022-02-12] MEDS: HYDROcodone/APAP 7.5-325MG 1 EACH TAB PO PRN ×5 (04:14→22:20)
[2022-02-12] MEDS: CEFEPIME 2 GM in SODIUM CHLORIDE 0.9% 100 ML IVPB SCH ×3 (07:13→23:40)
[2022-02-12] MEDS: FOLIC ACID 1 MG TAB PO SCH (07:14)
[2022-02-12] MEDS: THIAMINE 100 MG TAB PO SCH ×2 (07:14→18:22)
[2022-02-12] MEDS: CALCIUM CARB-VIT D 500 MG-5 MCG TAB PO SCH ×2 (07:14→18:22)
[2022-02-12] MEDS: PANTOPRAZOLE 40 MG/10 ML VIAL IV SCH (07:14)
[2022-02-12] MEDS: amLODIPine 2.5 MG TAB PO SCH (07:14)
[2022-02-12] MEDS: MULTIVITAMINS, THERA 1 EACH TAB PO SCH (07:14)
[2022-02-12] MEDS: PYRIDOXINE 50 MG TAB PO SCH (07:14)
[2022-02-12] MEDS: COLLAGENASE 250 UNIT/GM OINTMENT 30 GM TUBE TOPICAL SCH (08:26)
[2022-02-12] MEDS: NYSTATIN 100,000UNIT/GM CREAM 30 GM TUBE TOPICAL SCH (10:22)
[2022-02-12] MEDS: HEPARIN SODIUM,PORCINE/PF 5,000 UNIT/0.5 ML SYRINGE SQ SCH ×2 (10:22→20:06)
[2022-02-12] MEDS: NICOTINE 21MG/24HR PATCH TRANSDERM SCH (10:22)
[2022-02-12] MEDS: TRIAMCINOLONE 0.1% CREAM 80 GM TUBE TOPICAL SCH (10:23)
[2022-02-12] MEDS: ZINC SULFATE 220 MG CAP PO SCH (10:23)
[2022-02-12 10:25] LABS: HCT 22.1 % (39.6-50.0); HGB 7.2 g/dL (13.0-17.0); MCH 27.7 pg (27.0-32.0); MCHC 32.6 g/dL (32.0-37.0); Mean Platelet Volume 9.5 fL (9.5-12.2); NRBC Per 100 WBC 0 /100 WBCS (0.0-0.0); Platelet Count 479 X 10*3/uL (140-440); RDW 16.5 % (11.5-14.5); WBC 6.48 X 10*3/uL (4.50-10.00)
[2022-02-12 10:56] LABS: African American GFR (CKD) 148.6 (60.0-200.0); Anion Gap 6.9 mmol/L (10.00-18.00); BUN/Creat Ratio 30.25 Ratio (12.00-20.00); Blood Urea Nitrogen 12.1 mg/dL (9.0-27.0); Calcium 7.5 mg/dL (8.7-10.3); Carbon Dioxide 22.1 mmol/L (20.0-27.5); Non-African American GFR(CKD) 128.2 (60.0-200.0); Potassium 4.1 mmol/L (3.5-5.5)
[2022-02-12 10:59] LABS: Basophils # (A) 0.04 X 10*3/uL (0.00-0.10); Basophils % (A) 0.6 %; Eosinophils # (A) 0.07 X 10*3/uL (0.04-0.35); Eosinophils % (A) 1.1 %; Immature Grans, Automated 1.1 %; Lymphocytes # (A) 1.56 X 10*3/uL (0.90-5.00); Lymphocytes % (A) 24.1 %; Monocytes # (A) 1.47 X 10*3/uL (0.20-1.00); Monocytes % (A) 22.7 %; Neutrophils # (A) 3.27 X 10*3/uL (1.80-7.70); Neutrophils % (A) 50.4 %
[2022-02-12 11:00] LABS: RBC Morphology NORMAL
[2022-02-12] MEDS: LORazepam 2 MG/ML INJ IV PRN (12:05)
[2022-02-12] MEDS: BACLOFEN 10 MG TAB PO SCH ×2 (13:48→20:06)
[2022-02-12] MEDS: metroNIDAZOLE 500 MG TAB PO SCH ×3 (13:48→20:06)
--- NOTE | 2022-02-12 15:03 | PN ---
PROGRESS NOTE DATE OF SERVICE: 02/12/2022 This 61-year-old gentleman who was admitted with bilateral gluteal ulcers and sepsis is complaining of severe constant pain. The patient is using rather abusive language at this time. The patient is still on IV Dilaudid. No chest pain. No palpitation. PHYSICAL EXAMINATION: Pulse is 100, blood pressure is 114/62. Respirations 18. HEENT: Conjunctivae normal. Neck: No JVD. Cardiovascular: S1, S2 muffled. Respirations: Breath sounds diminished in the bases. A few scattered rhonchi. Abdomen: Soft. Nervous system: Diffusely weak. LABS: Hemoglobin 7.2, sodium 130. ASSESSMENT: 1. Acute bilateral gluteal ulcers with sepsis, present on admission. 2. Significant weakness of the bilateral lower legs. 3. Possible MS. 4. Rule out bronchogenic malignancy. 5. History of ETOH abuse, possibly. 6. Hypocalcemia. 7. Moderate protein-calorie malnutrition. RECOMMENDATIONS AND DISCUSSION: Recommend to continue current medications, management and symptomatic treatment. Repeat labs. Continue with current medications. Pain management. Closely follow with surgery. Prognosis guarded because of multiple complex medical issues and further recommendations to follow. MMODL / IJN: [id number] /
[2022-02-12] MEDS: SODIUM CHLORIDE 0.9% 1,000 ML IV SCH (18:50)
[2022-02-13] MEDS: HYDROmorphone 1 MG/ML 1 ML SYRINGE IVP PRN ×6 (02:07→22:09)
[2022-02-13] MEDS: HYDROcodone/APAP 7.5-325MG 1 EACH TAB PO PRN ×5 (03:00→20:14)
[2022-02-13] MEDS: SODIUM CHLORIDE 0.9% 1,000 ML IV SCH ×2 (04:57→17:02)
--- NOTE | 2022-02-13 07:15 | P.PN ---
Subjective Progress Note Date: 02/12/22 Principal diagnosis: Infected bilateral gluteal pressure ulcer Patient is a 61-year-old male presented to hospital with weakness in this patient noticed to have unstageable bilateral gluteal pressure ulcer with secondary cellulitis and some ulcerations the left foot but no cellulitis. On today's evaluation that is 02/12/2022, the patient remains to be afebrile, patient is breathing comfortably on room air, the patient pain to the gluteal area is controlled , the patient denies nausea no vomiting no abdominal pain no diarrhea Objective - Vital Signs Vital signs: Vital Signs Temp 97.6 F 02/12/22 08:00 Pulse 109 H 02/12/22 08:00 Resp 18 02/12/22 08:00 BP 114/64 02/12/22 08:00 Pulse Ox 96 02/12/22 08:00 FiO2 Intake & Output 02/11/22 02/12/22 02/12/22 18:59 06:59 18:59 Output Total 700 2600 Balance -700 -2600 Output: Urine 700 2600 Other: Voiding Method Indwelling Catheter Indwelling Catheter Indwelling Catheter - Exam GENERAL DESCRIPTION: A middle-age male lying in bed in no distress RESPIRATORY SYSTEM: Unlabored breathing , decreased breath sounds at bases HEART: S1 S2 regular rate and rhythm , ABDOMEN: Soft , no tenderness, bilateral gluteal wounds currently dressed EXTREMITIES: No edema feet - Labs CBC & Chem 7: 02/12/22 06:11 02/12/22 06:11 Labs: Abnormal Lab Results - Last 24 Hours (Table) 02/12/22 02/12/22 Range/Units 06:11 06:11 RBC 2.60 L (4.40-5.60) X 10*6/uL Hgb 7.2 L (13.0-17.0) g/dL Hct 22.1 L (39.6-50.0) % RDW 16.5 H (11.5-14.5) % Plt Count 479 H (140-440) X 10*3/uL Plt Count Comment INCREASED A Immature Gran # 0.07 H (0.00-0.04) X 10*3/uL Monocytes # 1.47 H (0.20-1.00) X 10*3/uL Sodium 130 L (135-145) mmol/L Anion Gap 6.90 L (10.00-18.00) mmol/L Creatinine 0.4 L (0.6-1.5) mg/dL BUN/Creatinine Ratio 30.25 H (12.00-20.00) Ratio Calcium 7.5 L (8.7-10.3) mg/dL Microbiology - Last 24 Hours (Table) 02/08/22 04:11 Blood Culture - Preliminary Blood No Growth after 96 hours 02/07/22 14:48 Blood Culture - Preliminary Blood No Growth after 96 hours Assessment and Plan (1) Abscess and cellulitis of gluteal region Current Visit: Yes Status: Acute Code(s): L02.31 - CUTANEOUS ABSCESS OF BUTTOCK; L03.317 - CELLULITIS OF BUTTOCK SNOMED Code(s): 373124120 Plan: 1patient with bilateral unstageable pressure ulcer with necrotic base and surrounding redness suspicious for secondary cellulitis , patient on surgical debridement was noticed to have a stage IV pressure ulcer 2left foot superficial ulceration but no cellulitis , patient to continue with Mycolog cream to the left foot ulcer applied daily 3patient is status post surgical debridement and deep culture which are growing E. coli staph aureus and strep, 4- patient with MSSA bacteremia, blood cultures repeat has been negative 5-patient has shown clinical improvement as well as his bilateral infected great toe pressure ulcer, patient continue with cefepime and oral Flagyl 5-weeks on discharge, local wound care to the gluteal wound with Santyl followed by moist dressing Time with Patient: Less than 30
[2022-02-13] MEDS: ZINC SULFATE 220 MG CAP PO SCH (07:40)
[2022-02-13] MEDS: metroNIDAZOLE 500 MG TAB PO SCH ×3 (07:40→22:09)
[2022-02-13] MEDS: FOLIC ACID 1 MG TAB PO SCH (07:40)
[2022-02-13] MEDS: amLODIPine 2.5 MG TAB PO SCH (07:40)
[2022-02-13] MEDS: THIAMINE 100 MG TAB PO SCH ×2 (07:40→17:02)
[2022-02-13] MEDS: BACLOFEN 10 MG TAB PO SCH ×2 (07:41→20:13)
[2022-02-13] MEDS: CALCIUM CARB-VIT D 500 MG-5 MCG TAB PO SCH ×2 (07:41→17:02)
[2022-02-13] MEDS: HEPARIN SODIUM,PORCINE/PF 5,000 UNIT/0.5 ML SYRINGE SQ SCH ×2 (07:41→17:01)
[2022-02-13] MEDS: NYSTATIN 100,000UNIT/GM CREAM 30 GM TUBE TOPICAL SCH (07:42)
[2022-02-13] MEDS: NICOTINE 21MG/24HR PATCH TRANSDERM SCH (07:42)
[2022-02-13] MEDS: PANTOPRAZOLE 40 MG/10 ML VIAL IV SCH (07:42)
[2022-02-13] MEDS: ERGOCALCIFEROL 1,250 MCG (50,000 IU) CAPSULE PO SCH (07:43)
[2022-02-13] MEDS: TRIAMCINOLONE 0.1% CREAM 80 GM TUBE TOPICAL SCH (07:43)
[2022-02-13] MEDS: CEFEPIME 2 GM in SODIUM CHLORIDE 0.9% 100 ML IVPB SCH ×2 (07:43→16:07)
[2022-02-13] MEDS: PYRIDOXINE 50 MG TAB PO SCH (07:43)
--- NOTE | 2022-02-13 08:16 | P.PN ---
Subjective Progress Note Date: 02/12/22 Patient was seen for a follow-up. Patient is laying comfortably in the bed. Patient appears slightly more comfortable. patient continues to complain of pain in the legs. No new concerns. Awaiting lumbar puncture. Objective - Vital Signs Vital signs: Vital Signs Temp 97.6 F 02/12/22 08:00 Pulse 109 H 02/12/22 08:00 Resp 18 02/12/22 08:00 BP 114/64 02/12/22 08:00 Pulse Ox 96 02/12/22 08:00 FiO2 Intake & Output 02/11/22 02/12/22 02/12/22 18:59 06:59 18:59 Output Total 700 2600 Balance -700 -2600 Output: Urine 700 2600 Other: Voiding Method Indwelling Catheter Indwelling Catheter Indwelling Catheter - Exam Patient able to straighten his right leg much better today as compared to yesterday. The left leg is still quite spastic. Patient states that the left leg often bounces back, likely from spasticity. - Labs CBC & Chem 7: 02/12/22 06:11 02/12/22 06:11 Labs: Abnormal Lab Results - Last 24 Hours (Table) 02/12/22 02/12/22 Range/Units 06:11 06:11 RBC 2.60 L (4.40-5.60) X 10*6/uL Hgb 7.2 L (13.0-17.0) g/dL Hct 22.1 L (39.6-50.0) % RDW 16.5 H (11.5-14.5) % Plt Count 479 H (140-440) X 10*3/uL Plt Count Comment INCREASED A Immature Gran # 0.07 H (0.00-0.04) X 10*3/uL Monocytes # 1.47 H (0.20-1.00) X 10*3/uL Sodium 130 L (135-145) mmol/L Anion Gap 6.90 L (10.00-18.00) mmol/L Creatinine 0.4 L (0.6-1.5) mg/dL BUN/Creatinine Ratio 30.25 H (12.00-20.00) Ratio Calcium 7.5 L (8.7-10.3) mg/dL Microbiology - Last 24 Hours (Table) 02/08/22 04:11 Blood Culture - Preliminary Blood No Growth after 96 hours 02/07/22 14:48 Blood Culture - Preliminary Blood No Growth after 96 hours Assessment and Plan Assessment: * Spastic paraparesis, 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 Examination also revealed mild weakness of left upper extremity. Exact cause is uncertain. Possible MS. * MRI of the brain reveals significant white matter lesions particularly in the periventricular and also involving the corpus callosum, suggestive of demyelinating disease like MS. * Folate deficiency * Vitamin B6 deficiency * Marquita deficiency * Hypocalcemia * Bilateral gluteal pressure sores, status post debridement * Left foot cellulitis * Hypertension * Alcoholism Plan: * MRI of the brain with and without contrast reported as nonspecific white matter demyelination may be related to chronic small vessel ischemic changes, there is age-related atrophy. On my review, there is definite involvement of the corpus callosum and periventricular white matter region, highly suggestive of demyelinating disease like MS. * MRI of the cervical spine reported degenerative disc disease. Indeterminate lung mass right upper lobe. Limited exam. * Patient declined MRI of the thoracic and lumbar spines. * Patient agreed to undergo lumbar puncture in a.m. to check for oligoclonal bands. * Baclofen 20 mg twice a day for spasticity. May increase the dose if needed. * B12 1813, methylmalonic acid 0.12 normal, folate 5.90, CRP 8.8, ESR 66, IgG 1540, IgM 94, IgA 872 (60-350), rheumatoid factor < 10, MANNY negative, vitamin B6 3 (5-50). Serum copper is 731(665-1480). Serum zinc 32(60 to 130). Hemoglobin A1c 5.0. We will start folate, zinc and vitamin B6 replacement. 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 Suggest hematology consultation rule out paraproteinemia/ myeloma. We will check SPEP. * Patient was hypocalcemic. Calcium 7.5 today. Would defer IM for the cause and any treatment needed. * Surgery on board for gluteal pressure sores, status post debridement. * ID on board for left foot cellulitis, on cefepime and Flagyl. * Patient definitely needs to follow-up with a neurologist as an outpatient for management of spasticity, and if MS is confirmed. * Further management based upon above test results. Dr. Gen Treadwell will resume neurology service in the morning.
[2022-02-13 08:49] LABS: Basophils # (A) 0.04 X 10*3/uL (0.00-0.10); Basophils % (A) 0.7 %; Eosinophils # (A) 0.07 X 10*3/uL (0.04-0.35); Eosinophils % (A) 1.2 %; HGB 7.2 g/dL (13.0-17.0); Immature Grans, Automated 1.5 %; Lymphocytes # (A) 1.65 X 10*3/uL (0.90-5.00); Lymphocytes % (A) 28.3 %; MCH 27.3 pg (27.0-32.0); MCHC 31.3 g/dL (32.0-37.0); MCV 87.1 fL (80.0-97.0); Mean Platelet Volume 9.4 fL (9.5-12.2); Monocytes # (A) 1.23 X 10*3/uL (0.20-1.00); Monocytes % (A) 21.1 %; NRBC Per 100 WBC 0 /100 WBCS (0.0-0.0); Neutrophils # (A) 2.75 X 10*3/uL (1.80-7.70); Neutrophils % (A) 47.2 %; Platelet Count 502 X 10*3/uL (140-440); RBC 2.64 X 10*6/uL (4.40-5.60); RDW 17.2 % (11.5-14.5); WBC 5.83 X 10*3/uL (4.50-10.00)
[2022-02-13 08:58] LABS: African American GFR (CKD) 170.1 (60.0-200.0); Anion Gap 7.7 mmol/L (10.00-18.00); BUN/Creat Ratio 34.41 Ratio (12.00-20.00); Blood Urea Nitrogen 9.9 mg/dL (9.0-27.0); Calcium 7.7 mg/dL (8.7-10.3); Carbon Dioxide 21.7 mmol/L (20.0-27.5); Non-African American GFR(CKD) 146.7 (60.0-200.0)
[2022-02-13] MEDS: COLLAGENASE 250 UNIT/GM OINTMENT 30 GM TUBE TOPICAL SCH (10:09)
[2022-02-13 10:58] LABS: Protein, Total 5.4 g/dL (6.2-8.2)
--- NOTE | 2022-02-13 15:27 | P.PN ---
Subjective Progress Note Date: 02/13/22 This is a 61-year-old male who was recently admitted with bilateral gluteal ulcers and significant infections with features of sepsis, present on admission and is being closely monitored. Patient is status post sharp excisional debridement of bilateral gluteal decubitus ulcers stage IV with Dr. Yun and cultures have been sent and are pending and infectious disease also closely monitoring and awaiting finalized cultures and patient is maintained on IV cefepime and will continue at this time. Neurology also evaluating the patient for continued weakness and has an MRI of the brain, cervical, thoracic, and lumbar ordered to evaluate for MS. Preliminary wound culture showing E. coli presumptive staph. Patient denies chest pain or shortness of breath. Patient is afebrile. Patient tolerating diet with no reports of nausea or vomiting noted. Patient to have physical therapy evaluate and possibly ECF being planned. 02/08/2022 Patient is seen in follow up and is being monitored by ID, neurology, surgery, and wound, Patient is continued on IV cefepime and will continue. Patient will require PICC line and IV abx on discharge. Patient with significant gluteal wounds and recommend frequent position changes and local wound care per surgical and ID recommendations. Patient sodium is low and potassium is 3.5 and mag is 1.6 and will replace per protocol and repeat am labs. Patient is afebrile and denies chest pain or shortness of breath. Patient to undergo MRI per neurology recommendations. 02/09/2022 Patient is seen this morning and is agitated and reporting severe pain 10 out of 10 of his gluteal region and his foot and feels his pain is not being managed. Medication adjustments have been made and discussed with nursing staff. Patient continues with weakness and will likely need ECF and [facility] on the [place] is being planned. Patient continues with neurological workup with neurology following closely and unable to tolerate all of MRI due to pain and would like to proceed with LP. Consult was placed to IR for LP and patient is undergoing neurological workup for possible MS. Patient also continues to be followed by general surgery and maintained on IV antibiotics with infectious disease following and patient will require IV antibiotic therapy in the outpatient setting and is scheduled to receive a PICC line today. Patient is afebrile and denies chest pain or shortness of breath. Most recent blood cultures remain negative. Foot culture showing E. coli and staph aureus. Patient will likely need outpatient follow-up closely with neurologist. 02/10/2022 Patient is evaluated today and continues to be in pain and restless and unable to extend his legs or walk. Patient is maintained on IV antibiotics and has received a PICC line. Continued wound care and is also being followed by neurology for lower extremity weakness and will be having an LP. Pulmonary consu lted for lung nodule and will be an outpatient follow up. Patient is to go to [facility] on the [place] once stable and cleared by neurology. Patient is afebrile and denies chest pain or shortness of breath. Patient is anxious and wants to leave. Patient reports to no sleep and have ordered Restoril. 02/13/2022 Patient is seen this morning continues to be anxious and looking forward to going to rehab so he can work on walking as patient continues with severe lower extremity weakness. Infectious disease, general surgery, and neurology following closely and plan was for LP and this was not done as apparently heparin has not been on hold and will need to be held and anesthesia contacted and will do tomorrow if heparin is held. Patient will need further neurological workup in the outpatient setting with further testing and this was discussed with the patient. Patient to continue with local wound care and will be extensive wound care and close follow-up in the outpatient setting with the [facility] [place]. Patient also continues with indwelling [place] catheter to monitor intake and output along with to assist with healing of extensive gluteal ulcers. Patient is afebrile and denies any chest pain or shortness of breath. Review of systems: Constitutional: no reports of fatigue, no fever, or chills, reports frustration and continued pain Cardiovascular: No reports of chest pain or palpitations Respiratory: No reports of shortness of breath or cough GI: No reports of nausea, no reports of of vomiting : No reports of dysuria or retention Neurovascular: reports of generalized weakness and inability to walk, reports foot pain and gluteal pain All medications have been reviewed Active Medications Acetaminophen (Acetaminophen Tab 325 Mg Tab) 650 mg PO Q6HR PRN PRN Reason: Mild Pain or Fever > 100.5 Last Admin: 02/10/22 23:13 Dose: 650 mg Hydrocodone Bitart/Acetaminophen (Hydrocodone/Apap 7.5-325mg 1 Each Tab) 1 each PO Q4H PRN PRN Reason: Pain Last Admin: 02/13/22 11:53 Dose: 1 each Amlodipine Besylate (Amlodipine 2.5 Mg Tab) 2.5 mg PO DAILY [facility] Last Admin: 02/13/22 07:40 Dose: 2.5 mg Baclofen (Baclofen 10 Mg Tab) 20 mg PO BID [facility] Last Admin: 02/13/22 07:41 Dose: 20 mg Calcium Carbonate (Calcium Carb-Vit D 500 Mg-5 Mcg Tab) 1 each PO BID-W/MEALS [facility] Last Admin: 02/13/22 07:41 Dose: 1 each Collagenase (Collagenase 250 Unit/Gm Ointment 30 Gm Tube) 1 applic TOPICAL DAILY [facility]; Protocol Last Admin: 02/13/22 10:09 Dose: 1 applic Ergocalciferol (Ergocalciferol 1,250 Mcg (50,000 Iu) Capsule) 1,250 mcg PO Q7D [facility] Last Admin: 02/13/22 07:43 Dose: 1,250 mcg Folic Acid (Folic Acid 1 Mg Tab) 1 mg PO DAILY [facility] Last Admin: 02/13/22 07:40 Dose: 1 mg Heparin Sodium (Porcine) (Heparin Sodium,Porcine/Pf 5,000 Unit/0.5 Ml Syringe) 5,000 unit SQ Q12HR [facility] Last Admin: 02/13/22 07:41 Dose: 5,000 unit Hydromorphone HCl (Hydromorphone 1 Mg/Ml 1 Ml Syringe) 1 mg IVP Q3HR PRN PRN Reason: Moderate-Severe Pain Last Admin: 02/13/22 14:01 Dose: 1 mg Sodium Chloride (Saline 0.9%) 1,000 mls @ 75 mls/hr IV .[id number] [facility] Last Admin: 02/13/22 04:57 Dose: Not Given Cefepime HCl 2 gm/ Sodium (Chloride) 100 mls @ 25 mls/hr IVPB Q8HR [facility]; Protocol Last Admin: 02/13/22 07:43 Dose: 25 mls/hr Lorazepam (Lorazepam 2 Mg/Ml Inj) 1 mg IV Q2HR PRN PRN Reason: CIWA 8 or 9 Last Admin: 02/12/22 12:05 Dose: 1 mg Lorazepam (Lorazepam 2 Mg/Ml Inj) 1 mg IV Q1HR PRN PRN Reason: CIWA 10 to 15 Metronidazole (Metronidazole 500 Mg Tab) 500 mg PO TID [facility]; Protocol Last Admin: 02/13/22 07:40 Dose: 500 mg Miscellaneous Information (Potassium Replacement Protocol 1 Each Misc) 1 each MISCELLANE DAILY PRN; Protocol PRN Reason: Per Protocol Miscellaneous Information (Magnesium Replacement Protocol 1 Each Misc) 1 each MISCELLANE DAILY PRN; Protocol PRN Reason: Per Protocol Multivitamins (Multivitamins, Thera 1 Each Tab) 1 each PO DAILY [facility] Last Admin: 02/12/22 07:14 Dose: 1 each Naloxone HCl (Naloxone 0.4 Mg/Ml 1 Ml Vial) 0.2 mg IV Q2M PRN PRN Reason: Opioid Reversal Nicotine (Nicotine 21mg/24hr Patch) 1 patch TRANSDERM DAILY [facility] Last Admin: 02/13/22 07:42 Dose: Not Given Nystatin (Nystatin 100,000unit/Gm Cream 30 Gm Tube) 1 applic TOPICAL DAILY [facility]; Protocol Last Admin: 02/13/22 07:42 Dose: Not Given Pantoprazole Sodium (Pantoprazole 40 Mg/10 Ml Vial) 40 mg IV DAILY [facility] Last Admin: 02/13/22 07:42 Dose: 40 mg Pyridoxine HCl (Pyridoxine 50 Mg Tab) 50 mg PO DAILY [facility] Last Admin: 02/13/22 07:43 Dose: 50 mg Temazepam (Temazepam 15 Mg Cap) 15 mg PO HS PRN PRN Reason: Insomnia Last Admin: 02/10/22 19:42 Dose: 15 mg Thiamine HCl (Thiamine 100 Mg Tab) 100 mg PO BID-W/MEALS [facility] Last Admin: 02/13/22 07:40 Dose: 100 mg Triamcinolone Acetonide (Triamcinolone 0.1% Cream 80 Gm Tube) 1 applic TOPICAL DAILY [facility]; Protocol Last Admin: 02/13/22 07:43 Dose: Not Given Zinc Sulfate (Zinc Sulfate 220 Mg Cap) 220 mg PO DAILY [facility] Last Admin: 02/13/22 07:40 Dose: 220 mg PHYSICAL EXAMINATION: GENERAL: The patient is alert and oriented x4, Well developed, well nourished. HEENT: Pupils are round and equally reacting to light. EOMI. no scleral icterus. No conjunctival pallor. Normocephalic, atraumatic. No pharyngeal erythema. No thyromegaly. CARDIOVASCULAR: S1 and S2 muffled PULMONARY: diminished breath sounds bilaterally with some scattered rhonchi noted ABDOMEN: soft. Nontender on exam. non-distended, normoactive bowel sounds. No palpable organomegaly. MUSCULOSKELETAL: No joint swelling or deformity. EXTREMITIES: No cyanosis, clubbing, or pedal edema. Significant wasting noted, contracted lower extremities NEUROLOGICAL: Gross neurological examination did not reveal any focal deficits. Diffuse weakness SKIN: Stage IV bilateral gluteal ulcers status post debridement. Left foot dressing noted as well Assessment: Acute bilateral gluteal ulcers as well as skin ulcers with sepsis, present on admission Weakness of bilateral lower extremities, rule out paraparesis, neurological workup in process for possible MS Hypovolemic hyponatremia history of EtOH abuse Hypocalcemia Moderate protein calorie malnutrition with a BMI of 21.6 GI prophylaxis DVT prophylaxis; subcutaneous heparin which is being held for LP no code Plan: Recommend to continue with current medications and management with general surgery, neurology, and infectious disease following. Patient to work with physical therapy and social work/case management following and working on ECF. [facility] when stable and cleared by consultants. Patient has received a PICC line and will have close outpatient follow up with wound care and ID along with surgery. Culture showed staph aureus with E. coli and MSSA. Maintained on IV cefepime and will continue. Per ID, patient will need IV abx and oral on discharge for 5 weeks with close outpatient follow-up. Neurology workup in process for bilateral lower extremity weakness and awaiting an LP per neurology which has been ordered. Nursing staff discussed with anesthesia and apparently the heparin has not been on hold and will need to be held prior to LP with possible LP in the a.m. Patient has been accepted at [facility]. Due to multiple complex medical issues, prognosis is guarded. Recommend continued local wound care and increase in pain management. Replace electrolytes per protocol. Patient will need further neurological workup in the outpatient setting upon discharge. Patient is extremely anxious about being discharged although is agreeable to wait for the LP. Patient can follow-up in the outpatient setting with LP results. Possible discharge in 24 hours. The impression and plan of care has been dictated by Kellen Cole nurse practitioner as directed. Dr. Solomon MD I have performed a history and examination and MDM of this patient, discussed the same with the dictator, and agree with the dictator's assessment and plan as written ,documented as a scribe. Based on total visit time, I have performed more than 50% of the visit. Any additional findings or plans will be noted. Objective - Vital Signs Vital signs: Vital Signs Temp 97.8 F 02/13/22 06:59 Pulse 93 02/13/22 06:59 Resp 17 02/13/22 06:59 BP 132/67 02/13/22 06:59 Pulse Ox 100 02/13/22 06:59 FiO2 Intake & Output 02/12/22 02/13/22 02/13/22 18:59 06:59 18:59 Intake Total 100 Output Total 700 1300 Balance -700 -1200 Intake: Intake, IV Titration 100 Amount Cefepime 2 gm In Sodium 100 Chloride 0.9% 100 ml @ 25 mls/hr IVPB Q8HR [facility] Rx# :[id number] Output: Urine 700 1300 Other: Voiding Method Indwelling Catheter Indwelling Catheter - Labs CBC & Chem 7: 02/13/22 04:30 02/13/22 04:30 Labs: Abnormal Lab Results - Last 24 Hours (Table) 02/12/22 02/12/22 02/13/22 Range/Units 06:11 06:11 04:30 RBC 2.60 L 2.64 L (4.40-5.60) X 10*6/uL Hgb 7.2 L 7.2 L (13.0-17.0) g/dL Hct 22.1 L 23.0 L (39.6-50.0) % MCHC 31.3 L (32.0-37.0) g/dL RDW 16.5 H 17.2 H (11.5-14.5) % Plt Count 479 H 502 H (140-440) X 10*3/uL Plt Count Comment INCREASED A MPV 9.4 L (9.5-12.2) fL Immature Gran # 0.07 H 0.09 H (0.00-0.04) X 10*3/uL Monocytes # 1.47 H 1.23 H (0.20-1.00) X 10*3/uL Sodium 130 L (135-145) mmol/L Anion Gap 6.90 L (10.00-18.00) mmol/L Creatinine 0.4 L (0.6-1.5) mg/dL BUN/Creatinine Ratio 30.25 H (12.00-20.00) Ratio Calcium 7.5 L (8.7-10.3) mg/dL Microbiology - Last 24 Hours (Table) 02/08/22 04:11 Blood Culture - Preliminary Blood No Growth after 120 hours 02/07/22 14:48 Blood Culture - Preliminary Blood No Growth after 120 hours
[2022-02-14] MEDS: CEFEPIME 2 GM in SODIUM CHLORIDE 0.9% 100 ML IVPB SCH ×3 (01:03→16:45)
[2022-02-14] MEDS: HEPARIN SODIUM,PORCINE/PF 5,000 UNIT/0.5 ML SYRINGE SQ SCH ×2 (02:38→20:21)
[2022-02-14] MEDS: SODIUM CHLORIDE 0.9% 1,000 ML IV SCH ×2 (02:38→17:14)
[2022-02-14] MEDS: HYDROmorphone 1 MG/ML 1 ML SYRINGE IVP PRN ×2 (05:10→10:35)
[2022-02-14] MEDS: LORazepam 2 MG/ML INJ IV PRN ×2 (05:52→10:36)
--- NOTE | 2022-02-14 05:52 | CT ---
EXAMINATION TYPE: CT brain wo con DATE OF EXAM: 02/14/2022 COMPARISON: 02/06/2022 HISTORY: CHANGE IN MENTAL STATUS CT DLP: 1158.9 mGycm Automated exposure control for dose reduction was used. Images of the brain obtained with no contrast. There is some diffuse cerebral atrophy. There is no mass effect or midline shift. There is no sign of intracranial hemorrhage. There are patchy areas of hypodensity in the white matter of both cerebral hemispheres. Cerebellum is intact. Calvarium is intact. IMPRESSION: Cerebral atrophy. White matter changes likely due to chronic small vessel ischemia. No change compare d to old exam
[2022-02-14] MEDS: PANTOPRAZOLE 40 MG/10 ML VIAL IV SCH (08:56)
[2022-02-14] MEDS: FOLIC ACID 1 MG TAB PO SCH (08:56)
[2022-02-14] MEDS: metroNIDAZOLE 500 MG TAB PO SCH ×3 (08:56→21:00)
[2022-02-14] MEDS: MULTIVITAMINS, THERA 1 EACH TAB PO SCH (08:56)
[2022-02-14] MEDS: ZINC SULFATE 220 MG CAP PO SCH (08:56)
[2022-02-14] MEDS: THIAMINE 100 MG TAB PO SCH ×2 (08:56→17:22)
[2022-02-14] MEDS: BACLOFEN 10 MG TAB PO SCH ×2 (08:56→20:18)
[2022-02-14] MEDS: amLODIPine 2.5 MG TAB PO SCH (08:56)
[2022-02-14] MEDS: PYRIDOXINE 50 MG TAB PO SCH (08:56)
[2022-02-14] MEDS: CALCIUM CARB-VIT D 500 MG-5 MCG TAB PO SCH ×2 (08:56→17:22)
[2022-02-14] MEDS: NICOTINE 21MG/24HR PATCH TRANSDERM SCH (09:00)
--- NOTE | 2022-02-14 11:10 | P.PN ---
Progress Note - Text Progress Note Date: 02/14/22 Patient was brought to the preop holding area, to do a lumbar puncture, as per neurology service is requested, and the preop holding area patient was confused and is not able to sign his consent, attempt to get consent signed by the next of kin was not successful, for this reason the procedure was canceled because, we could not get the consent signed.
[2022-02-14] MEDS ORDERED: QUEtiapine 25 MG TAB PO STA (11:11)
[2022-02-14] MEDS ORDERED: LIDOCAINE 1% INJ 10MG/ML (5 ML VIAL-PF) SQ ONE (12:40)
--- NOTE | 2022-02-14 13:11 | IR ---
PICC LINE PLACEMENT: HISTORY: Infection requiring long-term antibiotic therapy PROCEDURE: Ultrasound and fluoroscopic guidance of PICC line placement. COMPLICATIONS: None ANESTHESIA: 1. 1% Lidocaine locally. FINDINGS/TECHNIQUE: The procedure was explained to the patient. The risks, complications, benefits and alternatives were discussed and any questions were answered. Informed consent was obtained. The patient was placed supine on the fluoroscopic table and prepped and draped in the usual sterile fash ion. Utilizing a 21 gauge needle and sonographic and fluoroscopic guidance, access in the left basi lic vein was achieved and there is placement of a 0.018 guidewire. The vein is patent. A 4-F sheath was placed over the guidewire. The guidewire and dilator were removed and a 4-F. PICC line was plac ed through the sheath with the tip at the level of the SVC. The sheath was removed, the catheter was flushed and sutured into position. The patient was stable throughout the procedure and remained sta ble upon discharge from the Department of Radiology. The vein puncture was patent under ultrasound. A lopez scale image was obtained to document patency of the vein punctured. All elements of the maximal barrier technique were utilized. FLUOROSCOPY TIME: 0.1 minutes and 1 images submitted IMPRESSION: Successful PICC line placement under ultrasound and fluoroscopic guidance.
[2022-02-14] MEDS: HYDROcodone/APAP 7.5-325MG 1 EACH TAB PO PRN ×2 (14:17→20:17)
--- NOTE | 2022-02-14 14:34 | P.DS ---
Providers Date of admission: 02/03/22 11:22 Expected date of discharge: 02/14/22 Attending physician: Alfredo Vazquez Consults: 02/03/22 11:23 Consult Physician Urgent Consulting Provider: Nicolette Oh Consult Reason/Comments: Foot and sacral ulcer Do you want consulting provider notified?: Yes 02/03/22 15:59 Consult Physician Routine Consulting Provider: Kenia Yun Consult Reason/Comments: Bilateral gluteal wounds, poss debridement Do you want consulting provider notified?: Yes 02/06/22 12:07 Consult Physician Routine Consulting Provider: Keith Tse Consult Reason/Comments: bilateral legs weakness, inablility to mbulate Do you want consulting provider notified?: Yes 02/09/22 13:44 Consult to Anesthesia Routine Consulting Provider: Anesthesia,Services Consult Reason/Comments: Probable multiple sclerosis, check oligoclonal bands 02/09/22 14:26 Consult Physician Urgent Consulting Provider: Nirmal Treadwell Consult Reason/Comments: right lung nodule noted on CT with progression Do you want consulting provider notified?: Yes Primary care physician: [facility] Course: Final diagnosis Acute bilateral gluteal ulcers as well as skin ulcers with sepsis, present on admission Weakness of bilateral lower extremities, rule out paraparesis, neurological workup in process for possible MS and will need outpatient neurological workup Hypovolemic hyponatremia history of daily EtOH abuse Hypocalcemia Moderate protein calorie malnutrition with a BMI of 21.6 GI prophylaxis THC use DVT prophylaxis; subcutaneous heparin no code Discharge disposition Patient is being discharged in a stable condition with guarded prognosis to [facility] for continued PT/OT therapy. Patient will follow-up with Dr. Gregory in the outpatient setting upon discharge. Patient is to continue with IV and oral antibiotics in the form of Flagyl and cefepime per infectious disease recommendations for the next 5 weeks and patient did receive a PICC line. Patient needs to continue with extensive wound care and follow-up at the wound care center in 1-2 weeks.. Total time taken is greater than 35 minutes. Hospital course This is a 61-year-old male who was recently admitted with bilateral gluteal ulcers with significant infections and features of sepsis and being closely monitored. Patient is status post excisional debridement of the bilateral gluteus decubitus stage IV ulcers with general surgery Dr. Yun and culture showing MSSA and has received a PICC line and will be continued on oral Flagyl 500 mg 3 times a day along with IV cefepime 3 times daily for the next 5 weeks. Patient continued with bilateral lower extremity weakness and inability to walk and underwent full neurological workup and refusing most of the workup as efrem bates is unable to tolerate due to pain and agitation on multiple different attempts. LP was attempted although unsuccessful as patient could not consent at that time. Discussed with neurology and patient will follow up with neurology in the outpatient setting for further testing. Patient does have an extensive past medical history of marijuana smoking and daily alcohol use and reports that he drinks beer daily until passing out and has not followed up with any providers most recently. Patient does see Dr. Altamirano in the outpatient setting. Patient is also to follow-up with pulmonary regarding CT lung findings have been noted on previous CTs although progressing in size and also hematology for further anemia workup and ruling out of paraproteinemia/myeloma. Patient is to follow-up at the [facility] in the next 1-2 weeks. Currently no reports of chest pain, shortness of breath, or palpitations. Patient is afebrile. No reports of nausea or vomiting and patient is tolerating diet. Patient will be going to [facility] [place] today. Guarded prognosis. Physical Exam: Gen: This is a 61-year-old male awake, alert and oriented 3, thin built, cachectic, ill-appearing, appears much older than stated age. Temp is 97.6F, pulse is 100, respirations are 21, blood pressure 93/59, oxygen saturation is 100% on room air HEENT: Head is atraumatic, normocephalic. Pupils equal, round. Sclerae is anicteric. NECK: Supple. No JVD. No lymphadenopathy. No thyromegaly. LUNGS: Diminished breath sounds bilaterally with no wheezing or rhonchi noted. No intercostal retractions. HEART: Regular rate and rhythm. No murmur. ABDOMEN: Soft. Bowel sounds are present. No masses. No tenderness. EXTREMITIES: No pedal edema. No calf tenderness. NEUROLOGICAL: Patient is awake, alert and oriented x2-3. Cranial nerves 2 through 12 are grossly intact. Diffusely weak Please refer to medication reconciliation sheet for a list of medications. The impression and plan of care has been dictated by Kellen Cole, Nurse Practitioner as directed. Dr. Solomon MD I have performed a history and examination and MDM of this patient, discussed the same with the dictator, and agree with the dictator's assessment and plan as written ,documented as a scribe. Based on total visit time, I have performed more than 50% of the visit. Patient Condition at Discharge: Fair Plan - Discharge Summary Discharge Rx Participant: No New Discharge Prescriptions: New metroNIDAZOLE [Flagyl] 500 mg PO TID 35 Days #105 tab Nicotine 21Mg/24Hr Patch [Habitrol] 1 patch TRANSDERM DAILY patch Heparin Sodium,Porcine [Heparin Sodium] 5,000 unit SQ Q8HR 30 Days #90 each Cefepime [Maxipime] 2 gm IVPB Q8HR 35 Days #105 each HYDROcodone/APAP 7.5-325MG [[place] 7.5-325] 1 each PO Q4H PRN #6 tab PRN Reason: Pain Zinc Sulfate [Orazinc] 220 mg PO DAILY cap Folic Acid 1 mg PO DAILY tab Triamcinolone 0.1% Cream [Kenalog 0.1% Cream] 1 applic TOPICAL DAILY each Baclofen [Lioresal] 20 mg PO BID #6 tab Multivitamins, Thera [Multivitamin (formulary)] 1 each PO DAILY tab Nystatin 100,000Unit/gm Cream [Mycostatin Cream] 1 applic TOPICAL DAILY each Calcium Carb-Vit D 500Mg-5Mcg [Oscal 500+D 5 Mcg (200 Iu)] 1 each PO BID-W/ME ALS tab Temazepam [Restoril] 15 mg PO HS PRN #3 cap PRN Reason: Insomnia Collagenase [Santyl Ointment] 1 applic TOPICAL DAILY each QUEtiapine [SEROquel] 25 mg PO HS tab Acetaminophen Tab [Tylenol] 650 mg PO Q6HR PRN tab PRN Reason: Mild Pain Or Fever > 100.5 Thiamine [Vitamin B-1] 100 mg PO BID-W/MEALS tab Pyridoxine [Vitamin B-6] 50 mg PO DAILY tab Ergocalciferol [Vitamin D2 (1250 Mcg = 30335 Iu)] 1,250 mcg PO Q7D cap Continue amLODIPine [Norvasc] 2.5 mg PO DAILY Discharge Medication List amLODIPine [Norvasc] 2.5 mg PO DAILY 02/03/22 [History] Acetaminophen Tab [Tylenol] 650 mg PO Q6HR PRN tab 02/14/22 [Rx] Baclofen [Lioresal] 20 mg PO BID #6 tab 02/14/22 [Rx] Calcium Carb-Vit D 500Mg-5Mcg [Oscal 500+D 5 Mcg (200 Iu)] 1 each PO BID-W/MEALS tab 02/14/22 [Rx] Cefepime [Maxipime] 2 gm IVPB Q8HR 35 Days #105 each 02/14/22 [Rx] Collagenase [Santyl Ointment] 1 applic TOPICAL DAILY each 02/14/22 [Rx] Ergocalciferol [Vitamin D2 (1250 Mcg = 48740 Iu)] 1,250 mcg PO Q7D cap 02/14/22 [Rx] Folic Acid 1 mg PO DAILY tab 02/14/22 [Rx] HYDROcodone/APAP 7.5-325MG [[place] 7.5-325] 1 each PO Q4H PRN #6 tab 02/14/22 [Rx] Heparin Sodium,Porcine [Heparin Sodium] 5,000 unit SQ Q8HR 30 Days #90 each 02/14/22 [Rx] Multivitamins, Thera [Multivitamin (formulary)] 1 each PO DAILY tab 02/14/22 [Rx] Nicotine 21Mg/24Hr Patch [Habitrol] 1 patch TRANSDERM DAILY patch 02/14/22 [Rx] Nystatin 100,000Unit/gm Cream [Mycostatin Cream] 1 applic TOPICAL DAILY each 02/14/22 [Rx] Pyridoxine [Vitamin B-6] 50 mg PO DAILY tab 02/14/22 [Rx] QUEtiapine [SEROquel] 25 mg PO HS tab 02/14/22 [Rx] Temazepam [Restoril] 15 mg PO HS PRN #3 cap 02/14/22 [Rx] Thiamine [Vitamin B-1] 100 mg PO BID-W/MEALS tab 02/14/22 [Rx] Triamcinolone 0.1% Cream [Kenalog 0.1% Cream] 1 applic TOPICAL DAILY each 02/14/22 [Rx] Zinc Sulfate [Orazinc] 220 mg PO DAILY cap 02/14/22 [Rx] metroNIDAZOLE [Flagyl] 500 mg PO TID 35 Days #105 tab 02/14/22 [Rx] Follow up Appointment(s)/Referral(s): Sunilkumar,Mini, MD [Primary Care Provider] - 1-2 days [facility] [NON-STAFF] - 1 Week [facility] [place], [NON-STAFF] - As Needed Sienna Mata MD [Medical Doctor] - 1 Week Nirmal Treadwell DO [Doctor of Osteopathic Medicine] - 1 Week Jun Wilson MD [STAFF PHYSICIAN] - 1 Week Ambulatory/Diagnostic Orders: Complete Blood Count w/diff [LAB.AMB] Time Frame: 3 Days, Location: None Selected Activity/Diet/Wound Care/Special Instructions: Patient is going to [facility] [place] Activity as tolerated Continue with IV and oral antibiotics per infectious disease for the next 5 weeks and patient does have a PICC line Patient to follow-up at the wound center in the outpatient setting in 1-2 weeks Follow-up with general surgery Dr. Yun outpatient Patient undergoing full neurological workup for MS although refusing testing and unable to tolerate and recommend outpatient follow-up with neurologist for further testing Patient had abnormal CT findings on the lung and recommend following up with pulmonary in the outpatient setting for possible PET scan and this is been ongoing for some years with no follow-up Patient follow-up with hematology in the outpatient setting for further anemia workup Continue with local wound care of cleansing the area daily and is becoming soiled and the coccyx sacral region and also the left foot ulcer: apply Santyl, saline moistened gauze, dry gauze, and rolled gauze to the left foot and ABDs to bilateral buttocks and change daily and again if becoming soiled Continue indwelling Alcala catheter for now Continue offloading the sacral region with frequent position changes Patient needs aggressive physical therapy Continue regular diet Recommend repeat CBC, BMP, magnesium in 2-3 days Discharge Disposition: TRANSFER TO SNF/ECF
[2022-02-14] MEDS: COLLAGENASE 250 UNIT/GM OINTMENT 30 GM TUBE TOPICAL SCH (14:53)
[2022-02-14] MEDS: NYSTATIN 100,000UNIT/GM CREAM 30 GM TUBE TOPICAL SCH (14:53)
[2022-02-14] MEDS: TRIAMCINOLONE 0.1% CREAM 80 GM TUBE TOPICAL SCH (14:53)
[2022-02-14 15:47] LABS: Albumin 1.58 g/dL (3.80-4.90); Gamma Globulin 1.84 g/dL (0.70-1.50)
[2022-02-14] MEDS ORDERED: HALOPERIDOL LACTATE 5 MG/ML 1 ML VIAL IM PRN (20:44)
[2022-02-14] MEDS ORDERED: QUEtiapine 25 MG TAB PO SCH (21:00)
[2022-02-14 21:40] LABS: Anisocytosis Slight; HCT 29.1 % (39.0-53.0); HGB 8.5 gm/dL (13.0-17.5); Hypochromasia Marked; MCH 27.6 pg (25.0-35.0); MCHC 29.2 g/dL (31.0-37.0); MCV 94.5 fL (80.0-100.0); Mean Platelet Volume 7.6; Platelet Count 630 k/uL (150-450); RBC 3.08 m/uL (4.30-5.90); RDW 16.6 % (11.5-15.5); WBC 6.4 k/uL (3.8-10.6)
[2022-02-14 21:51] LABS: ALT 9 U/L (4-49); AST 23 U/L (17-59); African American GFR (CKD) >90 (>60 ml/min/1.73 sqM); Albumin 2.3 g/dL (3.5-5.0); Albumin/Globulin Ratio 0.6; Alkaline Phosphatase 256 U/L (38-126); Anion Gap 5 mmol/L; Blood Urea Nitrogen 15 mg/dL (9-20); Calcium 7.8 mg/dL (8.4-10.2); Carbon Dioxide 24 mmol/L (22-30); Chloride 105 mmol/L (98-107); Globulin 3.9 g/dL; Glucose 116 mg/dL (74-99); Non-African American GFR(CKD) >90 (>60 ml/min/1.73 sqM); Potassium 3.2 mmol/L (3.5-5.1); Sodium 134 mmol/L (137-145); Total Bilirubin 0.1 mg/dL (0.2-1.3); Total Protein 6.2 g/dL (6.3-8.2)
[2022-02-14 22:04] LABS: Eosinophils # (M) 0.13 k/uL (0-0.7); Lymphocytes # (M) 1.41 k/uL (1.0-4.8); Monocytes # (M) 1.02 k/uL (0-1.0); Neutrophils # (M) 3.84 k/uL (1.3-7.7); Neutrophils % (M) 60 %; Nucleated Red Blood Cells 0 /100 WBC (0-0); Total Cells Counted 100
[2022-02-14 22:05] LABS: Poikilocytosis (M) Present; Polychromasia Present; Target Cells Present
[2022-02-15] MEDS: POTASSIUM CHLORIDE ER 20 MEQ TAB.ER PO STA ×2 (00:57→01:15)
[2022-02-15] MEDS: CEFEPIME 2 GM in SODIUM CHLORIDE 0.9% 100 ML IVPB SCH ×5 (00:58→23:51)
[2022-02-15] MEDS: HYDROcodone/APAP 7.5-325MG 1 EACH TAB PO PRN ×4 (01:04→13:49)
[2022-02-15] MEDS: TEMAZEPAM 15 MG CAP PO PRN (01:12)
[2022-02-15 05:39] LABS: African American GFR (CKD) >90 (>60 ml/min/1.73 sqM); Anion Gap 6 mmol/L; Blood Urea Nitrogen 14 mg/dL (9-20); Calcium 7.8 mg/dL (8.4-10.2); Carbon Dioxide 22 mmol/L (22-30); Chloride 109 mmol/L (98-107); Glucose 97 mg/dL (74-99); Magnesium 1.8 mg/dL (1.6-2.3); Non-African American GFR(CKD) >90 (>60 ml/min/1.73 sqM); Potassium 3.8 mmol/L (3.5-5.1); Sodium 137 mmol/L (137-145)
[2022-02-15] MEDS: SODIUM CHLORIDE 0.9% 1,000 ML IV SCH ×2 (06:06→16:08)
[2022-02-15 06:58] LABS: Glucose,Whole Blood 97 mg/dL (75-99)
--- NOTE | 2022-02-15 07:37 | P.PN ---
Subjective Progress Note Date: 02/13/22 Principal diagnosis: Infected bilateral gluteal pressure ulcer Patient is a 61-year-old male presented to hospital with weakness in this patient noticed to have unstageable bilateral gluteal pressure ulcer with secondary cellulitis and some ulcerations the left foot but no cellulitis. On today's evaluation that is 02/13/2022, the patient continues to be afebrile, patient is breathing comfortably on room air, the patient continued complaining of pain to the gluteal area , the patient denies nausea no vomiting no abdominal pain no diarrhea Objective - Vital Signs Vital signs: Vital Signs Temp 97.8 F 02/13/22 06:59 Pulse 93 02/13/22 06:59 Resp 17 02/13/22 06:59 BP 132/67 02/13/22 06:59 Pulse Ox 100 02/13/22 06:59 FiO2 Intake & Output 02/12/22 02/13/22 02/13/22 18:59 06:59 18:59 Intake Total 100 Output Total 700 1300 Balance -700 -1200 Intake: Intake, IV Titration 100 Amount Cefepime 2 gm In Sodium 100 Chloride 0.9% 100 ml @ 25 mls/hr IVPB Q8HR [facility] Rx# :[id number] Output: Urine 700 1300 Other: Voiding Method Indwelling Catheter Indwelling Catheter Indwelling Catheter - Exam GENERAL DESCRIPTION: A middle-age male lying in bed in no distress RESPIRATORY SYSTEM: Unlabored breathing , decreased breath sounds at bases HEART: S1 S2 regular rate and rhythm , ABDOMEN: Soft , no tenderness, bilateral gluteal wounds currently dressed EXTREMITIES: No edema feet - Labs CBC & Chem 7: 02/14/22 21:22 02/15/22 04:58 Labs: Abnormal Lab Results - Last 24 Hours (Table) 02/11/22 02/13/22 02/13/22 Range/Units 04:01 04:30 04:30 RBC 2.64 L (4.40-5.60) X 10*6/uL Hgb 7.2 L (13.0-17.0) g/dL Hct 23.0 L (39.6-50.0) % MCHC 31.3 L (32.0-37.0) g/dL RDW 17.2 H (11.5-14.5) % Plt Count 502 H (140-440) X 10*3/uL MPV 9.4 L (9.5-12.2) fL Immature Gran # 0.09 H (0.00-0.04) X 10*3/uL Monocytes # 1.23 H (0.20-1.00) X 10*3/uL Sodium 133 L (135-145) mmol/L Anion Gap 7.70 L (10.00-18.00) mmol/L Creatinine 0.3 L (0.6-1.5) mg/dL BUN/Creatinine Ratio 34.41 H (12.00-20.00) Ratio Calcium 7.7 L (8.7-10.3) mg/dL Total Protein (PEP) 5.4 L (6.2-8.2) g/dL Microbiology - Last 24 Hours (Table) 02/08/22 04:11 Blood Culture - Preliminary Blood No Growth after 120 hours 02/07/22 14:48 Blood Culture - Preliminary Blood No Growth after 120 hours Assessment and Plan (1) Abscess and cellulitis of gluteal region Current Visit: Yes Status: Acute Code(s): L02.31 - CUTANEOUS ABSCESS OF BUTTOCK; L03.317 - CELLULITIS OF BUTTOCK SNOMED Code(s): 383283915 Plan: 1patient with bilateral unstageable pressure ulcer with necrotic base and surrounding redness suspicious for secondary cellulitis , patient on surgical debridement was noticed to have a stage IV pressure ulcer 2left foot superficial ulceration but no cellulitis , patient to continue with Mycolog cream to the left foot ulcer applied daily 3patient is status post surgical debridement and deep culture which are growing E. coli staph aureus strep and anaerobes 4- patient with MSSA bacteremia, blood cultures repeat has been negative 5-patient has shown clinical improvement as well as his bilateral infected glu teal pressure ulcer, patient continue with cefepime and oral Flagyl 5-weeks on discharge, local wound care to the gluteal wound with Santyl followed by moist dressing and keep the area off the pressure Time with Patient: Less than 30
--- NOTE | 2022-02-15 07:38 | P.PN ---
Subjective Progress Note Date: 02/14/22 Principal diagnosis: Infected bilateral gluteal pressure ulcer Patient is a 61-year-old male presented to hospital with weakness in this patient noticed to have unstageable bilateral gluteal pressure ulcer with secondary cellulitis and some ulcerations the left foot but no cellulitis. On today's evaluation that is 02/14/2022, the patient denies any fever or chills, patient is breathing comfortably on room air, the patient continued complaining of pain to the gluteal area and mentioned not getting his pain medication on time , the patient denies nausea no vomiting no abdominal pain no diarrhea Objective - Vital Signs Vital signs: Vital Signs Temp 97.8 F 02/14/22 02:45 Pulse 100 02/14/22 04:24 Resp 20 02/14/22 04:24 BP 135/73 02/14/22 04:24 Pulse Ox 88 L 02/14/22 04:24 FiO2 Intake & Output 02/13/22 02/14/22 02/14/22 18:59 06:59 18:59 Intake Total 900 120 Output Total 540 1300 Balance 360 -1300 120 Weight 58.967 kg Intake: IV 900 Sodium Chloride 0.9% 1, 900 000 ml @ 75 mls/hr IV . [id number] Rx#:[id number] Oral 120 Output: Urine 540 1300 Uretheral ([place]) 540 Other: Voiding Method Indwelling Catheter Indwelling Catheter - Exam GENERAL DESCRIPTION: A middle-age male lying in bed in no distress RESPIRATORY SYSTEM: Unlabored breathing , decreased breath sounds at bases HEART: S1 S2 regular rate and rhythm , ABDOMEN: Soft , no tenderness, bilateral gluteal wounds currently dressed EXTREMITIES: No edema feet - Labs CBC & Chem 7: 02/14/22 21:22 02/15/22 04:58 Labs: Microbiology - Last 24 Hours (Table) 02/08/22 04:11 Blood Culture - Final Blood No Growth after 144 hours 02/07/22 14:48 Blood Culture - Final Blood No Growth after 144 hours Assessment and Plan (1) Abscess and cellulitis of gluteal region Current Visit: Yes Status: Acute Code(s): L02.31 - CUTANEOUS ABSCESS OF BUTTOCK; L03.317 - CELLULITIS OF BUTTOCK SNOMED Code(s): 162011285 Plan: 1patient with bilateral unstageable pressure ulcer with necrotic base and surrounding redness suspicious for secondary cellulitis , patient on surgical debridement was noticed to have a stage IV pressure ulcer 2left foot superficial ulceration but no cellulitis , patient to continue with Mycolog cream to the left foot ulcer applied daily 3patient is status post surgical debridement and deep culture which are growing E. coli staph aureus strep and anaerobes 4- patient with MSSA bacteremia, blood cultures repeat has been negative 5-patient has shown clinical improvement as well as his bilateral infected gluteal pressure ulcer, however the patient keeps on pulling out his PICC line and [place] catheter patient will benefit from psychiatric evaluation, patient continue with cefepime and oral Flagyl 5-weeks on discharge. 6- local wound care to the gluteal wound with Santyl followed by moist dressing and keep the area off the pressure Time with Patient: Less than 30
[2022-02-15] MEDS: ZINC SULFATE 220 MG CAP PO SCH (07:57)
[2022-02-15] MEDS: MULTIVITAMINS, THERA 1 EACH TAB PO SCH (07:57)
[2022-02-15] MEDS: NICOTINE 21MG/24HR PATCH TRANSDERM SCH ×2 (07:58→08:14)
[2022-02-15] MEDS: BACLOFEN 10 MG TAB PO SCH ×2 (07:58→21:08)
[2022-02-15] MEDS: CALCIUM CARB-VIT D 500 MG-5 MCG TAB PO SCH ×2 (07:58→16:09)
[2022-02-15] MEDS: amLODIPine 2.5 MG TAB PO SCH (07:58)
[2022-02-15] MEDS: THIAMINE 100 MG TAB PO SCH ×2 (07:58→16:10)
[2022-02-15] MEDS: FOLIC ACID 1 MG TAB PO SCH (07:59)
[2022-02-15] MEDS: metroNIDAZOLE 500 MG TAB PO SCH ×3 (07:59→21:09)
[2022-02-15] MEDS: HEPARIN SODIUM,PORCINE/PF 5,000 UNIT/0.5 ML SYRINGE SQ SCH ×2 (07:59→21:09)
[2022-02-15] MEDS: PANTOPRAZOLE 40 MG/10 ML VIAL IV SCH (07:59)
[2022-02-15] MEDS: PYRIDOXINE 50 MG TAB PO SCH (10:01)
[2022-02-15] MEDS: TRIAMCINOLONE 0.1% CREAM 80 GM TUBE TOPICAL SCH (10:03)
[2022-02-15] MEDS: COLLAGENASE 250 UNIT/GM OINTMENT 30 GM TUBE TOPICAL SCH (10:03)
[2022-02-15] MEDS: NYSTATIN 100,000UNIT/GM CREAM 30 GM TUBE TOPICAL SCH (10:03)
[2022-02-15 11:26] LABS: Glucose,Whole Blood 102 mg/dL (75-99)
--- NOTE | 2022-02-15 13:27 | P.PN ---
Subjective Progress Note Date: 02/15/22 This is a 61-year-old male who was recently admitted with bilateral gluteal ulcers and significant infections with features of sepsis, present on admission and is being closely monitored. Patient is status post sharp excisional debridement of bilateral gluteal decubitus ulcers stage IV with Dr. Yun and cultures have been sent and are pending and infectious disease also closely monitoring and awaiting finalized cultures and patient is maintained on IV cefepime and will continue at this time. Neurology also evaluating the patient for continued weakness and has an MRI of the brain, cervical, thoracic, and lumbar ordered to evaluate for MS. Preliminary wound culture showing E. coli presumptive staph. Patient denies chest pain or shortness of breath. Patient is afebrile. Patient tolerating diet with no reports of nausea or vomiting noted. Patient to have physical therapy evaluate and possibly ECF being planned. 02/08/2022 Patient is seen in follow up and is being monitored by ID, neurology, surgery, and wound, Patient is continued on IV cefepime and will continue. Patient will require PICC line and IV abx on discharge. Patient with significant gluteal wounds and recommend frequent position changes and local wound care per surgical and ID recommendations. Patient sodium is low and potassium is 3.5 and mag is 1.6 and will replace per protocol and repeat am labs. Patient is afebrile and denies chest pain or shortness of breath. Patient to undergo MRI per neurology recommendations. 02/09/2022 Patient is seen this morning and is agitated and reporting severe pain 10 out of 10 of his gluteal region and his foot and feels his pain is not being managed. Medication adjustments have been made and discussed with nursing staff. Patient continues with weakness and will likely need ECF and [facility] [place] is being planned. Patient continues with neurological workup with neurology following closely and unable to tolerate all of MRI due to pain and would like to proceed with LP. Consult was placed to IR for LP and patient is undergoing neurological workup for possible MS. Patient also continues to be followed by general surgery and maintained on IV antibiotics with infectious disease following and patient will require IV antibiotic therapy in the outpatient setting and is scheduled to receive a PICC line today. Patient is afebrile and denies chest pain or shortness of breath. Most recent blood cultures remain negative. Foot culture showing E. coli and staph aureus. Patient will likely need outpatient follow-up closely with neurologist. 02/10/2022 Patient is evaluated today and continues to be in pain and restless and unable to extend his legs or walk. Patient is maintained on IV antibiotics and has received a PICC line. Continued wound care and is also being followed by neurology for lower extremity weakness and will be having an LP. Pulmonary consu lted for lung nodule and will be an outpatient follow up. Patient is to go to [facility] on the [place] once stable and cleared by neurology. Patient is afebrile and denies chest pain or shortness of breath. Patient is anxious and wants to leave. Patient reports to no sleep and have ordered Restoril. 02/13/2022 Patient is seen this morning continues to be anxious and looking forward to going to rehab so he can work on walking as patient continues with severe lower extremity weakness. Infectious disease, general surgery, and neurology following closely and plan was for LP and this was not done as apparently heparin has not been on hold and will need to be held and anesthesia contacted and will do tomorrow if heparin is held. Patient will need further neurological workup in the outpatient setting with further testing and this was discussed with the patient. Patient to continue with local wound care and will be extensive wound care and close follow-up in the outpatient setting with the [facility]. Patient also continues with indwelling Alcala catheter to monitor intake and output along with to assist with healing of extensive gluteal ulcers. Patient is afebrile and denies any chest pain or shortness of breath. 02/15/2022 Patient is seen in follow-up this morning and psychiatric consult has been placed as patient continues to have periodic episodes of confusion and frustr ation and crying out stating "I want my momma". When discussing with the patient about overall care plan and current behavior and suicidal ideation or thoughts of wanting to harm self or other was asked and patient is refusing suicidal ideation at this time. Patient has pulled out two picc lines and to indwelling Alcala catheters and will not give reasons why. Patient was scheduled to go to rehab for continued IV antibiotic therapy and wound care along with aggressive physical therapy and this was placed on hold secondary to patient removing his second PICC line while EMS had arrived. Patient is afebrile and vital signs are stable. Will await psychiatric consult and appreciate input and recommendations. Patient denies any chest pain or shortness of breath. Patient continues to have left lower extremity pain and buttock pain although reports on exam that his current pain medication is effective at this time. Case was discussed with case management and will have possible APS involvement. Review of systems: Constitutional: no reports of fatigue, no fever, or chills, reports frustration and continued pain Cardiovascular: No reports of chest pain or palpitations Respiratory: No reports of shortness of breath or cough GI: No reports of nausea, no reports of of vomiting : No reports of dysuria or retention Neurovascular: reports of generalized weakness and inability to walk, reports left leg and gluteal pain All medications have been reviewed Active Medications Acetaminophen (Acetaminophen Tab 325 Mg Tab) 650 mg PO Q6HR PRN PRN Reason: Mild Pain or Fever > 100.5 Last Admin: 02/10/22 23:13 Dose: 650 mg Hydrocodone Bitart/Acetaminophen (Hydrocodone/Apap 7.5-325mg 1 Each Tab) 1 each PO Q4H PRN PRN Reason: Pain Last Admin: 02/15/22 10:00 Dose: 1 each Amlodipine Besylate (Amlodipine 2.5 Mg Tab) 2.5 mg PO DAILY [facility] Last Admin: 02/15/22 07:58 Dose: 2.5 mg Baclofen (Baclofen 10 Mg Tab) 20 mg PO BID [facility] Last Admin: 02/15/22 07:58 Dose: 20 mg Calcium Carbonate (Calcium Carb-Vit D 500 Mg-5 Mcg Tab) 1 each PO BID-W/MEALS [facility] Last Admin: 02/15/22 07:58 Dose: 1 each Collagenase (Collagenase 250 Unit/Gm Ointment 30 Gm Tube) 1 applic TOPICAL DAILY [facility]; Protocol Last Admin: 02/15/22 10:03 Dose: 1 applic Ergocalciferol (Ergocalciferol 1,250 Mcg (50,000 Iu) Capsule) 1,250 mcg PO Q7D [facility] Last Admin: 02/13/22 07:43 Dose: 1,250 mcg Folic Acid (Folic Acid 1 Mg Tab) 1 mg PO DAILY [facility] Last Admin: 02/15/22 07:59 Dose: 1 mg Haloperidol Lactate (Haloperidol Lactate 5 Mg/Ml 1 Ml Vial) 1 mg IM Q6H PRN PRN Reason: Agitation or Acute Psychosis Heparin Sodium (Porcine) (Heparin Sodium,Porcine/Pf 5,000 Unit/0.5 Ml Syringe) 5,000 unit SQ Q12HR [facility] Last Admin: 02/15/22 07:59 Dose: 5,000 unit Sodium Chloride (Saline 0.9%) 1,000 mls @ 75 mls/hr IV .[id number] [facility] Last Admin: 02/15/22 06:06 Dose: Not Given Cefepime HCl 2 gm/ Sodium (Chloride) 100 mls @ 25 mls/hr IVPB Q8HR [facility]; Protocol Last Admin: 02/15/22 07:59 Dose: 25 mls/hr Metronidazole (Metronidazole 500 Mg Tab) 500 mg PO TID [facility]; Protocol Last Admin: 02/15/22 07:59 Dose: 500 mg Miscellaneous Information (Potassium Replacement Protocol 1 Each Misc) 1 each MISCELLANE DAILY PRN; Protocol PRN Reason: Per Protocol Miscellaneous Information (Magnesium Replacement Protocol 1 Each Misc) 1 each MISCELLANE DAILY PRN; Protocol PRN Reason: Per Protocol Multivitamins (Multivitamins, Thera 1 Each Tab) 1 each PO DAILY [facility] Last Admin: 02/15/22 07:57 Dose: 1 each Naloxone HCl (Naloxone 0.4 Mg/Ml 1 Ml Vial) 0.2 mg IV Q2M PRN PRN Reason: Opioid Reversal Nicotine (Nicotine 21mg/24hr Patch) 1 patch TRANSDERM DAILY [facility] Last Admin: 02/15/22 08:14 Dose: Not Given Nystatin (Nystatin 100,000unit/Gm Cream 30 Gm Tube) 1 applic TOPICAL DAILY [facility]; Protocol Last Admin: 02/15/22 10:03 Dose: 1 applic Pantoprazole Sodium (Pantoprazole 40 Mg/10 Ml Vial) 40 mg IV DAILY [facility] Last Admin: 02/15/22 07:59 Dose: 40 mg Pyridoxine HCl (Pyridoxine 50 Mg Tab) 50 mg PO DAILY [facility] Last Admin: 02/15/22 10:01 Dose: 50 mg Quetiapine Fumarate (Quetiapine 25 Mg Tab) 25 mg PO HS [facility] Last Admin: 02/14/22 20:21 Dose: 25 mg Temazepam (Temazepam 15 Mg Cap) 15 mg PO HS PRN PRN Reason: Insomnia Last Admin: 02/15/22 01:12 Dose: 15 mg Thiamine HCl (Thiamine 100 Mg Tab) 100 mg PO BID-W/MEALS [facility] Last Admin: 02/15/22 07:58 Dose: 100 mg Triamcinolone Acetonide (Triamcinolone 0.1% Cream 80 Gm Tube) 1 applic TOPICAL DAILY [facility]; Protocol Last Admin: 02/15/22 10:03 Dose: 1 applic Zinc Sulfate (Zinc Sulfate 220 Mg Cap) 220 mg PO DAILY [facility] Last Admin: 02/15/22 07:57 Dose: 220 mg PHYSICAL EXAMINATION: GENERAL: The patient is alert and oriented x4, Well developed, well nourished. HEENT: Pupils are round and equally reacting to light. EOMI. no scleral icterus. No conjunctival pallor. Normocephalic, atraumatic. No pharyngeal erythema. No thyromegaly. CARDIOVASCULAR: S1 and S2 muffled PULMONARY: diminished breath sounds bilaterally with some scattered rhonchi noted ABDOMEN: soft. Nontender on exam. non-distended, normoactive bowel sounds. No palpable organomegaly. MUSCULOSKELETAL: No joint swelling or deformity. EXTREMITIES: No cyanosis, clubbing, or pedal edema. Significant wasting noted, contracted left lower extremities NEUROLOGICAL: Gross neurological examination did not reveal any focal deficits. Diffuse weakness SKIN: Stage IV bilateral gluteal ulcers status post debridement. Left foot dressing noted as well Assessment: Acute bilateral gluteal ulcers as well as skin ulcers with sepsis, present on admission Weakness of bilateral lower extremities, rule out paraparesis, neurological workup in process for possible MS Anxiety/depression with irrational behavior and pulling out IVs an indwelling Alcala catheters, denies suicidal ideation and will consult psychiatry and appreciate input and recommendations Extensive history of EtOH and continued ongoing nicotine abuse Marijuana use daily Hypovolemic hyponatremia Hypocalcemia Moderate protein calorie malnutrition with a BMI of 21.6 GI prophylaxis DVT prophylaxis; subcutaneous heparin no code Plan: Recommend to continue with current medications and management with general surgery, neurology, and infectious disease following. Patient to work with physical therapy and social work/case management following and working on ECF. [facility] [place] when stable and cleared by consultants. Patient had received 2nd PICC line and per nursing staff removed his PICC line when EMS was here to pick him up for rehab last night. Patient continues to be agitated and frustrated about his pain management and irrational and refusing to give reasons why he has removed his picc lines and Alcala catheters. Patient does have another indwelling Alcala catheter and will attempt another PICC line although per nursing staff patient currently refusing consent as he feels his pain medications are being held against his will. Psychiatry consulted and pending at this time and appreciate input and recommendations. Neurology evaluated the patient as well and patient reports "I'll do what is required" but then is reported per nursing staff the patient has been refusing. Case management discussed case and will have possible APS involved and will await psychiatric evaluation. Patient will require neurology evaluation in the outpatient setting for further workup. Due to multiple complex medical issues, prognosis is guarded. Recommend continued local wound care and increase in pain management. Replace electrolytes per protocol. Possible discharge in 24-48, and right now on the fifth floor coming of the right hours. The impression and plan of care has been dictated by Kellen Cole, nurse practitioner as directed. Dr. Solomon MD I have performed a history and examination and MDM of this patient, discussed the same with the dictator, and agree with the dictator's assessment and plan as written ,documented as a scribe. Based on total visit time, I have performed more than 50% of the visit. Any additional findings or plans will be noted. Objective - Vital Signs Vital signs: Vital Signs Temp 97.5 F L 02/15/22 08:00 Pulse 93 02/15/22 08:00 Resp 17 02/15/22 02:00 BP 122/72 02/15/22 08:00 Pulse Ox 98 02/15/22 08:00 FiO2 Intake & Output 02/14/22 02/15/22 02/15/22 18:59 06:59 18:59 Intake Total 920 Output Total 1400 450 Balance -480 -450 Intake: Oral 920 Output: Urine 1400 450 Other: Voiding Method Indwelling Catheter - Labs CBC & Chem 7: 02/14/22 21:22 02/15/22 04:58 Labs: Abnormal Lab Results - Last 24 Hours (Table) 02/11/22 02/14/22 02/14/22 Range/Units 04:01 21:22 21:22 RBC 3.08 L (4.30-5.90) m/uL Hgb 8.5 L (13.0-17.5) gm/dL Hct 29.1 L (39.0-53.0) % MCHC 29.2 L (31.0-37.0) g/dL RDW 16.6 H (11.5-15.5) % Plt Count 630 H (150-450) k/uL Monocytes # (Manual) 1.02 H (0-1.0) k/uL Sodium 134 L (137-145) mmol/L Potassium 3.2 L (3.5-5.1) mmol/L Chloride (98-107) mmol/L Creatinine 0.42 L (0.66-1.25) mg/dL Glucose 116 H (74-99) mg/dL Calcium 7.8 L (8.4-10.2) mg/dL Total Bilirubin 0.1 L (0.2-1.3) mg/dL Alkaline Phosphatase 256 H (38-126) U/L Total Protein 6.2 L (6.3-8.2) g/dL Albumin 2.3 L (3.5-5.0) g/dL Albumin (PEP) 1.58 L (3.80-4.90) g/dL Scwub-1-Uddqnotsp 0.45 H (0.10-0.40) g/dL Gamma Globulins 1.84 H (0.70-1.50) g/dL 02/15/22 Range/Units 04:58 RBC (4.30-5.90) m/uL Hgb (13.0-17.5) gm/dL Hct (39.0-53.0) % MCHC (31.0-37.0) g/dL RDW (11.5-15.5) % Plt Count (150-450) k/uL Monocytes # (Manual) (0-1.0) k/uL Sodium (137-145) mmol/L Potassium (3.5-5.1) mmol/L Chloride 109 H (98-107) mmol/L Creatinine 0.49 L (0.66-1.25) mg/dL Glucose (74-99) mg/dL Calcium 7.8 L (8.4-10.2) mg/dL Total Bilirubin (0.2-1.3) mg/dL Alkaline Phosphatase (38-126) U/L Total Protein (6.3-8.2) g/dL Albumin (3.5-5.0) g/dL Albumin (PEP) (3.80-4.90) g/dL Ldgmy-1-Surnhuwry (0.10-0.40) g/dL Gamma Globulins (0.70-1.50) g/dL Microbiology - Last 24 Hours (Table) 02/08/22 04:11 Blood Culture - Final Blood No Growth after 144 hours
[2022-02-15] MEDS ORDERED: PALIPERIDONE 3 MG TAB.ER.24 PO STA (13:40)
[2022-02-15] MEDS ORDERED: flUPHENAZine 2.5 MG/ML (MDV) 10 ML VIAL IM PRN (13:41)
[2022-02-15] MEDS ORDERED: traZODone HCL 100 MG TAB PO PRN (13:43)
--- NOTE | 2022-02-15 13:56 | P.CN ---
Psychiatric Consult - . Consult date: 02/15/22 Consult:: 02/15/22 13:44 IDENTIFYING DATA: This patient is a 61 yo male REASON FOR REFERRAL: Psychiatry was consulted for psychiatric evaluation and capacity HISTORY OF PRESENT ILLNESS: The patient presented to the hospital on 02/03 for gluteal ulcers and development of cellulitis. Patient has been seen and treated by infectious disease. Patient was meant to be discharged yesterday to [facility] however yesterday patient pulled out his Alcala and IVs impulsively before he was going to get picked up. Patients nurse claims that patient has been bizarre and impulsive and also having poor sleep. Patient was seen today at the bedside and appeared to be fairly loud, intrusive and aggressive. He made several negative comments about doctors and psychiatrist. He appeared to be illogical and had a loud tone of voice. He was displaying loose associations and flight of ideas. Patient was difficult to redirect during conversation and appeared to be labile. He had poor understanding of his need for treatment and claimed that he did not want to go to the other hospital. He has poor hygiene and grooming. At this time patient denies any suicidal or homical ideations, intent or plan. Patient denies any auditory, visual hallucinations. Patient didn't endorse paranoia towards journalists and other writers and made several bizarre comments about him. Unable to gather reliable history from patient PAST PSYCHIATRIC HISTORY: Patient is currently on Seroquel 25 mg a night. Patient denies any previous psychiatric hospitalizations. Patient denies any psychiatric outpatient follow-up. Patient denies any history of suicide attempts in the past. PAST MEDICAL HISTORY: As per medical H&P. ALLERGIES: as per EMR. CHEMICAL DEPENDENCY HISTORY: as per HPI. FAMILY PSYCHIATRIC/SUBSTANCE USE HISTORY: Unable to gather information SOCIAL HISTORY: Unable to gather information MENTAL STATUS EXAM: General Appearance: Patient appears to be thin, multiple tattoos, older than stated age is alert, difficult to redirect and intrusive, bizarre. Patient appears to have poor hygiene and grooming wearing hospital gown with fair eye contact. Behavior: Intrusive, unpredictable and impulsive Speech: Patient's speech is fluent and nonpressured. Loud at times. Illogical Mood/Affect: Patient reports their mood is "ok", affect is congruent and labile Suicidality/Homicidality: Patient denies having any suicidal or homicidal ideation intent or plan. Perceptions: Patient denies any visual hallucinations and denies any auditory hallucinations Though content/process: Patient is illogical, loose associations, flight of ideas. Bizarre content Memory and concentration: AOX3, grossly intact for the purposes of this session. Cannot spell "WORLD" backwards Judgment and insight: poor IMPRESSIONS: Mood disorder unspecified PLAN: -At this time will continue to treat patient and see if patient meets criteria for medical psych bed. -Patient DOES NOT have decision making capacity at this time and is unable to reason through and communicate/appreciate the risks, benefits and alternatives to treatment. Patient will need a guardian to help with decision making. -Delirium precautions recommended with patient including - avoiding use of narcotics and [employer] sedatives, limit anticholinergic medications when possible, frequent re-orientation, minimize use of restraints, open window shades during the day and close them at night -Would recommend the following medication changes/additions: Start paliperidone by mouth 3 mg daily at bedtime for mood stabilization/aggressions. Trazodone 100 mg daily at bedtime when necessary for insomnia. Prolixin by mouth and IM when necessary for agitation. -still worker helper to provide patient with outpatient mental health/psychiatry resources for appropriate follow up upon discharge -Communicated plan to patient's nurse -Will continue to follow along -Please contact with any questions.
--- NOTE | 2022-02-15 16:05 | P.PN ---
Subjective Progress Note Date: 02/15/22 I am seeing the patient for the first time during this admission. Please refer to Dr. Tse's notes for further details. Patient stated he has been having left leg spasticity going on for past two years. Dr. Tse felt his condition with imaging was suggestive of demyelinating disease like MS. Patient refused MRI thoacic and lumbar and Dr. Tse recommended lumbar puncture for oligoclonal bands. Yesterday Antesthesiology could not get consult for lumbar puncture since he was confused. It seems yesterday he was about to be discharged but he pulled all his lines. Objective - Vital Signs Vital signs: Vital Signs Temp 97.5 F L 02/15/22 08:00 Pulse 93 02/15/22 08:00 Resp 17 02/15/22 02:00 BP 122/72 02/15/22 08:00 Pulse Ox 98 02/15/22 08:00 FiO2 Intake & Output 02/14/22 02/15/22 02/15/22 18:59 06:59 18:59 Intake Total 920 Output Total 1400 450 Balance -480 -450 Intake: Oral 920 Output: Urine 1400 450 Other: Voiding Method Indwelling Catheter Indwelling Catheter # Bowel Movements 1 - Exam GENERAL: The patient is lying in bed and is not in acute distress. PSYCH: Tangential. NEUROLOGICAL: Higher mental function: The patient is awake, alert, oriented to self, place and time. He is following simple commands. He needs reorientation since he keeps on going tangential. No aphasia or neglect. Cranial nerves: The pupils are round, equal and reactive to light. Visual cox are full to confrontation throughout. Extraocular movement is intact no nystagmus is noted. The facial strength is normal throughout. No dysarthria is noted. Motor: The strength is left forearm flexion is 4+. Right upper extremity is 5/5. Left lower is spastic and refused to be assessed. Right lower extremity has antigravity. Sensation: Sensation is normal to touch throughout. - Labs CBC & Chem 7: 02/14/22 21:22 02/15/22 04:58 Labs: Abnormal Lab Results - Last 24 Hours (Table) 02/11/22 02/14/22 02/14/22 Range/Units 04:01 21:22 21:22 RBC 3.08 L (4.30-5.90) m/uL Hgb 8.5 L (13.0-17.5) gm/dL Hct 29.1 L (39.0-53.0) % MCHC 29.2 L (31.0-37.0) g/dL RDW 16.6 H (11.5-15.5) % Plt Count 630 H (150-450) k/uL Monocytes # (Manual) 1.02 H (0-1.0) k/uL Sodium 134 L (137-145) mmol/L Potassium 3.2 L (3.5-5.1) mmol/L Chloride (98-107) mmol/L Creatinine 0.42 L (0.66-1.25) mg/dL Glucose 116 H (74-99) mg/dL POC Glucose (mg/dL) (75-99) mg/dL Calcium 7.8 L (8.4-10.2) mg/dL Total Bilirubin 0.1 L (0.2-1.3) mg/dL Alkaline Phosphatase 256 H (38-126) U/L Total Protein 6.2 L (6.3-8.2) g/dL Albumin 2.3 L (3.5-5.0) g/dL Albumin (PEP) 1.58 L (3.80-4.90) g/dL Pogob-8-Lmiwgdjpx 0.45 H (0.10-0.40) g/dL Gamma Globulins 1.84 H (0.70-1.50) g/dL 02/15/22/05/01 Range/Units 04:58 11:24 RBC (4.30-5.90) m/uL Hgb (13.0-17.5) gm/dL Hct (39.0-53.0) % MCHC (31.0-37.0) g/dL RDW (11.5-15.5) % Plt Count (150-450) k/uL Monocytes # (Manual) (0-1.0) k/uL Sodium (137-145) mmol/L Potassium (3.5-5.1) mmol/L Chloride 109 H (98-107) mmol/L Creatinine 0.49 L (0.66-1.25) mg/dL Glucose (74-99) mg/dL POC Glucose (mg/dL) 102 H (75-99) mg/dL Calcium 7.8 L (8.4-10.2) mg/dL Total Bilirubin (0.2-1.3) mg/dL Alkaline Phosphatase (38-126) U/L Total Protein (6.3-8.2) g/dL Albumin (3.5-5.0) g/dL Albumin (PEP) (3.80-4.90) g/dL Cvwyr-1-Vkgnpvruj (0.10-0.40) g/dL Gamma Globulins (0.70-1.50) g/dL Assessment and Plan Assessment: * Spastic paraparesis, 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 Examination also revealed mild weakness of left upper extremity. Exact cause is uncertain. Possible MS. Rule out any mets/mass especially with suspicious lesion right upper lobe. * MRI of the brain reveals significant white matter lesions particularly in the periventricular and also involving the corpus callosum, proobable suggestive of demyelinating disease like MS. * Suspicious lesion right upper lobe, increase in size and likely representing bronchogenic carcinoma. * Folate deficiency * Vitamin B6 deficiency * Zinc deficiency * Hypocalcemia * Bilateral gluteal pressure sores, status post debridement * Left foot cellulitis * Hypertension * Alcoholism * History of ongoing nicotine use * Anorexia/cachexia Plan: * MRI of the brain with and without contrast reported as nonspecific white matter demyelination may be related to chronic small vessel ischemic changes, there is age-related atrophy. On my review, there is definite involvement of the corpus callosum and periventricular white matter region, highly suggestive of demyelinating disease like MS. * MRI of the cervical spine reported degenerative disc disease. Indeterminate lung mass right upper lobe. Limited exam. * Recommend PET scan to rule out any other additional mass and hematology consultation. * Patient declined MRI of the thoracic and lumbar spines. * Dr. Tse ordered lumbar puncture in a.m. to check for oligoclonal bands. Co uld not perform since he was confused per Anesthesiologist for consent form. Since his condition has been going on for 2 years according to patient (per Dr. Tse) at least 6 month if unable to perform in patient can obtain as outpatient. * Baclofen 20 mg twice a day for spasticity. May increase the dose if needed. * B12 1813, methylmalonic acid 0.12 normal, folate 5.90, CRP 8.8, ESR 66, IgG 1540, IgM 94, IgA 872 (60-350), rheumatoid factor < 10, MANNY negative, vitamin B6 3 (5-50). Serum copper is 731(665-1480). Serum zinc 32(60 to 130). Hemoglobin A1c 5.0. We will start folate, zinc and vitamin B6 replacement. 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 Dr. Tse recommended hematology consultation rule out paraproteinemia/ myeloma. Protein electrophoresis: is suspicious ofr a monoclonal paraprotein in gamma region. * Patient is hypocalcemic. Would defer IM for the cause and any treatment needed. * Surgery on board for gluteal pressure sores, status post debridement. * ID on board for left foot cellulitis, on cefepime and Flagyl. * Psychiatry is consulted for capacity. * Patient definitely needs to follow-up with a neurologist as an outpatient for management of spasticity, and if MS is confirmed. The plan is discussed with patient, his primary team and nurse. Gen Treadwell M.D. Neuro-Hospitalist Time with Patient: Greater than 30
[2022-02-15] MEDS: ACETAMINOPHEN TAB 325 MG TAB PO PRN (16:10)
[2022-02-15 16:47] LABS: Glucose,Whole Blood 127 mg/dL (75-99)
[2022-02-15] MEDS ORDERED: PALIPERIDONE 3 MG TAB.ER.24 PO SCH (21:00)
[2022-02-16] MEDS: HYDROcodone/APAP 7.5-325MG 1 EACH TAB PO PRN ×3 (00:21→07:53)
[2022-02-16 06:46] LABS: Glucose,Whole Blood 114 mg/dL (75-99)
[2022-02-16] MEDS: CEFEPIME 2 GM in SODIUM CHLORIDE 0.9% 100 ML IVPB SCH ×3 (07:45→23:33)
[2022-02-16] MEDS: NICOTINE 21MG/24HR PATCH TRANSDERM SCH ×2 (07:46→07:55)
[2022-02-16] MEDS: amLODIPine 2.5 MG TAB PO SCH (07:47)
[2022-02-16] MEDS: PYRIDOXINE 50 MG TAB PO SCH (07:47)
[2022-02-16] MEDS: metroNIDAZOLE 500 MG TAB PO SCH ×3 (07:47→20:43)
[2022-02-16] MEDS: BACLOFEN 10 MG TAB PO SCH ×2 (07:47→20:43)
[2022-02-16] MEDS: THIAMINE 100 MG TAB PO SCH ×2 (07:47→15:39)
[2022-02-16] MEDS: FOLIC ACID 1 MG TAB PO SCH (07:47)
[2022-02-16] MEDS: ZINC SULFATE 220 MG CAP PO SCH (07:48)
[2022-02-16] MEDS: MULTIVITAMINS, THERA 1 EACH TAB PO SCH (07:48)
[2022-02-16] MEDS: CALCIUM CARB-VIT D 500 MG-5 MCG TAB PO SCH ×2 (07:48→15:39)
[2022-02-16] MEDS: SODIUM CHLORIDE 0.9% 1,000 ML IV SCH ×2 (07:48→20:44)
[2022-02-16] MEDS: TRIAMCINOLONE 0.1% CREAM 80 GM TUBE TOPICAL SCH (07:49)
[2022-02-16] MEDS: COLLAGENASE 250 UNIT/GM OINTMENT 30 GM TUBE TOPICAL SCH (07:49)
[2022-02-16] MEDS: NYSTATIN 100,000UNIT/GM CREAM 30 GM TUBE TOPICAL SCH (07:49)
[2022-02-16] MEDS: HEPARIN SODIUM,PORCINE/PF 5,000 UNIT/0.5 ML SYRINGE SQ SCH ×2 (08:01→20:43)
[2022-02-16] MEDS: PANTOPRAZOLE 40 MG/10 ML VIAL IV SCH (08:56)
[2022-02-16] MEDS: KETOROLAC 15 MG/ML 1 ML VIAL IVP SCH ×3 (10:40→20:42)
[2022-02-16] MEDS ORDERED: KETOROLAC 15 MG/ML 1 ML VIAL IVP SCH (12:00)
--- NOTE | 2022-02-16 13:39 | P.PN ---
Progress Note - Text Progress Note Date: 02/16/22 Interval History: Patient was seen today for psychiatric follow-up regarding patient's mood diso rder. Patient appears to be more directable today during conversation and was appearing to be improved with regards to his paranoia. He appears to have improvement in his impulse control. Continues to have very poor insight into his illness. He claims that he does not know why he pulled out the [place] catheter the other day however claims that he will not do it again. He states that he did not sleep well last night and notes her medications to help. He is denying any depression today or any anxiety. He continues to complain of pain in his gluteus. Content of fair appetite. Continues on a one-to-one sitter. Less bizarre and more logical today. At this time patient denies any suicidal or homical ideations, intent or plan. Patient denies any auditory, visual hallucinations and denies any paranoia or delusions. Patient denies any side effects from the medications and has been compliant with meds. Mental Status Exam: General Appearance: Patient appears to be thin, multiple tattoos, older than stated age is alert, or directable today and less intrusive, less bizarre. Patient appears to have improving hygiene and grooming wearing hospital gown with fair eye contact. Behavior: less Intrusive, impulsive Speech: Patient's speech is fluent and nonpressured. More logical today. Mood/Affect: Patient reports their mood is "ok", affect is congruent Suicidality/Homicidality: Patient denies having any suicidal or homicidal ideation intent or plan. Perceptions: Patient denies any visual hallucinations and denies any auditory hallucinations Though content/process: Patient is more logical today. Not endorsing any paranoia or delusions today. Memory and concentration: AOX3, grossly intact for the purposes of this session. Cannot spell "WORLD" backwards Judgment and insight: poor, improving mildly IMPRESSIONS: Mood disorder unspecified PLAN: -At this time will continue to treat patient and see if patient meets criteria for medical psych bed. -Patient DOES NOT have decision making capacity at this time and is unable to reason through and communicate/appreciate the risks, benefits and alternatives to treatment. Patient will need a guardian to help with decision making. -Delirium precautions recommended with patient including - avoiding use of narcotics and MAINTENANCE SCHEDULER sedatives, limit anticholinergic medications when possible, frequent re-orientation, minimize use of restraints, open window shades during the day and close them at night -Would recommend the following medication changes/additions: Increase paliperidone by mouth 6 mg daily at bedtime for mood stabilization/aggressions. Added melatonin 6 mg daily at bedtime for sleep. Trazodone 100 mg daily at bedtime when necessary for insomnia. Prolixin by mouth and IM when necessary for agitation. -marble worker to provide patient with outpatient mental health/psychiatry resources for appropriate follow up upon discharge -Communicated plan to patient's nurse -Will continue to follow along -Please contact with any questions.
[2022-02-16] MEDS: HYDROcodone/APAP 10-325MG 1 EACH TAB PO PRN ×2 (15:39→20:43)
--- NOTE | 2022-02-16 15:51 | CT ---
EXAMINATION TYPE: CT thor lumbar spine wo/w con DATE OF EXAM: 02/16/2022 INDICATION: left leg weakness CT DLP: 2539.8 mGy.cm Automated Exposure Control for Dose Reduction was Utilized. TECHNIQUE AND CONTRAST: CT scan of the thoracic and lumbar is performed without and with IV Contrast, patient injected with 1 00 mL of Isovue 300. COMPARISON: CT dated 02/11/2022 FINDINGS: Degenerative changes at C5-6 level. No significant anterolisthesis or retrolisthesis. No definite shima tebral body collapse or acute displaced fracture. No significant thoracic spinal canal stenosis or ne uroforamina stenosis. Multilevel opposing endplate osteophytosis of the lumbar spine. Degenerated L1- 2 disc. No definite abnormal enhancement seen within the spinal canal. No significant thoracic disc herniation or protrusion. Diffuse L1-2 posterior disc bulge, causing no significant central spinal canal stenosis or neuroforaminal stenosis. Diffuse L4-5 disc bulge with bi lateral facet osteoarthropathy, causing no significant central spinal canal stenosis and moderate brody ateral neural foraminal stenosis, more on the right side. Left L4-5 neural foraminal stenosis jolene sing the left L5 nerve root. No other significant lumbar disc herniation or protrusion. Irregular infiltration measuring 2.7 cm in the right lung apex, underlying lung cancer can't be excluded. Recommend correlation with the PET sc an results. Arterial atherosclerotic calcifications. No paraspinal lesion. 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 Further bone scan assessment can be considered. IMPRESSION: No abnormal enhancement or gross spinal cord lesion seen by this CT scan. Subtle spinal cord abnormal ity cannot be excluded. Further MRI assessment can be considered if clinically required. Other findin gs as described above.
--- NOTE | 2022-02-16 16:02 | P.PN ---
Subjective Progress Note Date: 02/16/22 The patient is seen at bedside and feels about the same. Psychiatry felt he does not have the capacity. Objective - Vital Signs Vital signs: Vital Signs Temp 97.6 F 02/16/22 13:01 Pulse 102 H 02/16/22 13:01 Resp 18 02/16/22 13:01 BP 123/55 02/16/22 13:01 Pulse Ox 100 02/16/22 13:01 FiO2 Intake & Output 02/15/22 02/16/22 02/16/22 18:59 06:59 18:59 Intake Total 600 Output Total 1250 425 Balance -1250 175 Intake: Oral 600 Output: Urine 1250 425 Other: Voiding Method Indwelling Catheter Indwelling Catheter Indwelling Catheter # Bowel Movements 1 - Exam GENERAL: The patient is lying in bed and is not in acute distress. PSYCH: Tangential. NEUROLOGICAL: Higher mental function: The patient is awake, alert, oriented to self, place and time. He is following simple commands. He needs reorientation since he keeps on going tangential. No aphasia or neglect. Cranial nerves: The pupils are round, equal and reactive to light. Visual cox are full to confrontation throughout. Extraocular movement is intact no nystagmus is noted. The facial strength is normal throughout. No dysarthria is noted. Motor: The strength is left forearm flexion is 4+. Right upper extremity is 5/5. Left lower is spastic and refused to be assessed. Right lower extremity has antigravity. Sensation: Sensation is normal to touch throughout. 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 Examination also revealed mild weakness of left upper extremity. Exact cause is uncertain. Possible MS. Rule out any mets/mass especially with suspicious lesion right upper lobe. * MRI of the brain reveals significant white matter lesions particularly in the periventricular and also involving the corpus callosum, proobable suggestive of demyelinating disease like MS. * Suspicious lesion right upper lobe, increase in size and likely representing bronchogenic carcinoma. * Folate deficiency * Vitamin B6 deficiency * Zinc deficiency * Hypocalcemia * Bilateral gluteal pressure sores, status post debridement * Left foot cellulitis * Hypertension * Alcoholism * History of ongoing nicotine use * Anorexia/cachexia Plan: * MRI of the brain with and without contrast reported as nonspecific white matter demyelination may be related to chronic small vessel ischemic changes, there is age-related atrophy. On my review, there is definite involvement of the corpus callosum and periventricular white matter region, highly suggestive of demyelinating disease like MS. * MRI of the cervical spine reported degenerative disc disease. Indeterminate lung mass right upper lobe. Limited exam. * Recommend PET scan to rule out any other additional mass and oncology consultation. * Patient declined MRI of the thoracic and lumbar spines but refused and would not cooperate for it. In meantime, ordered CT thoracolumbar w/ and w/o to rule out mass or significant stenosis. * Dr. Tse ordered lumbar puncture in a.m. to check for oligoclonal bands. Could not perform since he was confused per Anesthesiologist for consent form. Since his condition has been going on for 2 years according to patient (per Dr. Tse) at least 6 month if unable to perform in patient can obtain as outpatient. Will attempt to speak with Anesthesiology team regarding reattempting lumbar puncture. * Baclofen 20 mg twice a day for spasticity. May increase the dose if needed. * B12 1813, methylmalonic acid 0.12 normal, folate 5.90, CRP 8.8, ESR 66, IgG 1540, IgM 94, IgA 872 (60-350), rheumatoid factor < 10, MANNY negative, vitamin B6 3 (5-50). Serum copper is 731(665-1480). Serum zinc 32(60 to 130). Hemoglobin A1c 5.0. We will start folate, zinc and vitamin B6 replacement. 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 Dr. Tse recommended hematology consultation rule out paraproteinemia/ myeloma. Pr otein electrophoresis: is suspicious ofr a monoclonal paraprotein in gamma region. * Patient is hypocalcemic. Would defer IM for the cause and any treatment needed. * Surgery on board for gluteal pressure sores, status post debridement. * ID on board for left foot cellulitis, on cefepime and Flagyl. * Psychiatry evaluated patient and they did not feel he had the capacity. * Patient definitely needs to follow-up with a neurologist as an outpatient for management of spasticity, and if MS is confirmed. The plan is discussed with patient, his primary team and nurse. UPDATE: CT thoracic and lumbar is reported as no abnormal enhancement or gross spinal stenosis lesion seen by this CT scan. Septal spinal cord abnormality cannot be excluded. Gen Treadwell M.D. Neuro-Hospitalist Time with Patient: Less than 30
--- NOTE | 2022-02-16 19:06 | P.PN ---
Subjective Progress Note Date: 02/16/22 This is a 61-year-old male who was recently admitted with bilateral gluteal ulcers and significant infections with features of sepsis, present on admission and is being closely monitored. Patient is status post sharp excisional debridement of bilateral gluteal decubitus ulcers stage IV with Dr. Yun and cultures have been sent and are pending and infectious disease also closely monitoring and awaiting finalized cultures and patient is maintained on IV cefepime and will continue at this time. Neurology also evaluating the patient for continued weakness and has an MRI of the brain, cervical, thoracic, and lumbar ordered to evaluate for MS. Preliminary wound culture showing E. coli presumptive staph. Patient denies chest pain or shortness of breath. Patient is afebrile. Patient tolerating diet with no reports of nausea or vomiting noted. Patient to have physical therapy evaluate and possibly ECF being planned. 02/08/2022 Patient is seen in follow up and is being monitored by ID, neurology, surgery, and wound, Patient is continued on IV cefepime and will continue. Patient will require PICC line and IV abx on discharge. Patient with significant gluteal wounds and recommend frequent position changes and local wound care per surgical and ID recommendations. Patient sodium is low and potassium is 3.5 and mag is 1.6 and will replace per protocol and repeat am labs. Patient is afebrile and denies chest pain or shortness of breath. Patient to undergo MRI per neurology recommendations. 02/09/2022 Patient is seen this morning and is agitated and reporting severe pain 10 out of 10 of his gluteal region and his foot and feels his pain is not being managed. Medication adjustments have been made and discussed with nursing staff. Patient continues with weakness and will likely need ECF and [facility] is being planned. Patient continues with neurological workup with neurology following closely and unable to tolerate all of MRI due to pain and would like to proceed with LP. Consult was placed to IR for LP and patient is undergoing neurological workup for possible MS. Patient also continues to be followed by general surgery and maintained on IV antibiotics with infectious disease following and patient will require IV antibiotic therapy in the outpatient setting and is scheduled to receive a PICC line today. Patient is afebrile and denies chest pain or shortness of breath. Most recent blood cultures remain negative. Foot culture showing E. coli and staph aureus. Patient will likely need outpatient follow-up closely with neurologist. 02/10/2022 Patient is evaluated today and continues to be in pain and restless and unable to extend his legs or walk. Patient is maintained on IV antibiotics and has received a PICC line. Continued wound care and is also being followed by neurology for lower extremity weakness and will be having an LP. Pulmonary consu lted for lung nodule and will be an outpatient follow up. Patient is to go to [facility] [place] once stable and cleared by neurology. Patient is afebrile and denies chest pain or shortness of breath. Patient is anxious and wants to leave. Patient reports to no sleep and have ordered Restoril. 02/13/2022 Patient is seen this morning continues to be anxious and looking forward to going to rehab so he can work on walking as patient continues with severe lower extremity weakness. Infectious disease, general surgery, and neurology following closely and plan was for LP and this was not done as apparently heparin has not been on hold and will need to be held and anesthesia contacted and will do tomorrow if heparin is held. Patient will need further neurological workup in the outpatient setting with further testing and this was discussed with the patient. Patient to continue with local wound care and will be extensive wound care and close follow-up in the outpatient setting with [facility]. Patient also continues with indwelling Alcala catheter to monitor intake and output along with to assist with healing of extensive gluteal ulcers. Patient is afebrile and denies any chest pain or shortness of breath. 02/15/2022 Patient is seen in follow-up this morning and psychiatric consult has been placed as patient continues to have periodic episodes of confusion and frustr ation and crying out stating "I want my momma". When discussing with the patient about overall care plan and current behavior and suicidal ideation or thoughts of wanting to harm self or other was asked and patient is refusing suicidal ideation at this time. Patient has pulled out two picc lines and to indwelling Alcala catheters and will not give reasons why. Patient was scheduled to go to rehab for continued IV antibiotic therapy and wound care along with aggressive physical therapy and this was placed on hold secondary to patient removing his second PICC line while EMS had arrived. Patient is afebrile and vital signs are stable. Will await psychiatric consult and appreciate input and recommendations. Patient denies any chest pain or shortness of breath. Patient continues to have left lower extremity pain and buttock pain although reports on exam that his current pain medication is effective at this time. Case was discussed with case management and will have possible APS involvement. 02/16/2022 Patient is seen today with a safety risk lead at the bedside and continues to be with episodes of bizarre behavior and reports to understanding what the treatment plan is but then soon after questioning what he is doing still here in the hospital. Patient reports severe left leg pain and neuro also following and ordered CT of the spine as patient has been unable to tolerate further MRI and LP. Social work following and psychiatry as well as patient was deemed unable to make his own medical decisions and will require a guardian. Court hearing next Sunday. Patient continues on wound care and IV antibiotics. Patient is afebrile and denies chest pain or shortness of breath. Patient denies nausea or vomiting. Review of systems: Constitutional: no reports of fatigue, no fever, or chills, reports frustration and continued severe pain Cardiovascular: No reports of chest pain or palpitations Respiratory: No reports of shortness of breath or cough GI: No reports of nausea, no reports of of vomiting : No reports of dysuria or retention Neurovascular: reports of generalized weakness and inability to walk, reports left leg and gluteal pain All medications have been reviewed Active Medications Acetaminophen (Acetaminophen Tab 325 Mg Tab) 650 mg PO Q6HR PRN PRN Reason: Mild Pain or Fever > 100.5 Last Admin: 02/15/22 16:10 Dose: 650 mg Hydrocodone Bitart/Acetaminophen (Hydrocodone/Apap 10-325mg 1 Each Tab) 1 each PO Q6HR PRN PRN Reason: MODERATE Pain Last Admin: 02/16/22 15:39 Dose: 1 each Amlodipine Besylate (Amlodipine 2.5 Mg Tab) 2.5 mg PO DAILY [facility] Last Admin: 02/16/22 07:47 Dose: 2.5 mg Baclofen (Baclofen 10 Mg Tab) 20 mg PO BID [facility] Last Admin: 02/16/22 07:47 Dose: 20 mg Calcium Carbonate (Calcium Carb-Vit D 500 Mg-5 Mcg Tab) 1 each PO BID-W/MEALS [facility] Last Admin: 02/16/22 15:39 Dose: 1 each Collagenase (Collagenase 250 Unit/Gm Ointment 30 Gm Tube) 1 applic TOPICAL DAILY [facility]; Protocol Last Admin: 02/16/22 07:49 Dose: 1 applic Ergocalciferol (Ergocalciferol 1,250 Mcg (50,000 Iu) Capsule) 1,250 mcg PO Q7D [facility] Last Admin: 02/13/22 07:43 Dose: 1,250 mcg Fluphenazine HCl (Fluphenazine 1 Mg Tab) 4 mg PO TID PRN PRN Reason: Agitation Last Admin: 02/15/22 21:09 Dose: 4 mg Fluphenazine HCl (Fluphenazine 2.5 Mg/Ml (Mdv) 10 Ml Vial) 4 mg IM Q6HR PRN PRN Reason: Agitation Folic Acid (Folic Acid 1 Mg Tab) 1 mg PO DAILY [facility] Last Admin: 02/16/22 07:47 Dose: 1 mg Heparin Sodium (Porcine) (Heparin Sodium,Porcine/Pf 5,000 Unit/0.5 Ml Syringe) 5,000 unit SQ Q12HR [facility] Last Admin: 02/16/22 08:01 Dose: Not Given Sodium Chloride (Saline 0.9%) 1,000 mls @ 75 mls/hr IV .[id number] [facility] Last Admin: 02/16/22 07:48 Dose: 75 mls/hr Cefepime HCl 2 gm/ Sodium (Chloride) 100 mls @ 25 mls/hr IVPB Q8HR [facility]; Protocol Last Admin: 02/16/22 15:39 Dose: 25 mls/hr Ketorolac Tromethamine (Ketorolac 15 Mg/Ml 1 Ml Vial) 15 mg IVP Q6H [facility] Stop: 02/21/22 10:01 Last Admin: 02/16/22 16:56 Dose: 15 mg Melatonin (Melatonin 3 Mg Tablet) 6 mg PO HS [facility] Metronidazole (Metronidazole 500 Mg Tab) 500 mg PO TID [facility]; Protocol Last Admin: 02/16/22 15:38 Dose: 500 mg Miscellaneous Information (Potassium Replacement Protocol 1 Each Misc) 1 each MISCELLANE DAILY PRN; Protocol PRN Reason: Per Protocol Miscellaneous Information (Magnesium Replacement Protocol 1 Each Misc) 1 each MISCELLANE DAILY PRN; Protocol PRN Reason: Per Protocol Multivitamins (Multivitamins, Thera 1 Each Tab) 1 each PO DAILY [facility] Last Admin: 02/16/22 07:48 Dose: 1 each Naloxone HCl (Naloxone 0.4 Mg/Ml 1 Ml Vial) 0.2 mg IV Q2M PRN PRN Reason: Opioid Reversal Nicotine (Nicotine 21mg/24hr Patch) 1 patch TRANSDERM DAILY [facility] Last Admin: 02/16/22 07:55 Dose: Not Given Nystatin (Nystatin 100,000unit/Gm Cream 30 Gm Tube) 1 applic TOPICAL DAILY [facility]; Protocol Last Admin: 02/16/22 07:49 Dose: 1 applic Paliperidone (Paliperidone 6 Mg Tab.Er.24) 6 mg PO HS [facility] Pantoprazole Sodium (Pantoprazole 40 Mg/10 Ml Vial) 40 mg IV DAILY [facility] Last Admin: 02/16/22 08:56 Dose: 40 mg Pyridoxine HCl (Pyridoxine 50 Mg Tab) 50 mg PO DAILY [facility] Last Admin: 02/16/22 07:47 Dose: 50 mg Thiamine HCl (Thiamine 100 Mg Tab) 100 mg PO BID-W/MEALS [facility] Last Admin: 02/16/22 15:39 Dose: 100 mg Trazodone HCl (Trazodone Hcl 100 Mg Tab) 100 mg PO HS PRN PRN Reason: Insomnia Triamcinolone Acetonide (Triamcinolone 0.1% Cream 80 Gm Tube) 1 applic TOPICAL DAILY [facility]; Protocol Last Admin: 02/16/22 07:49 Dose: 1 applic Zinc Sulfate (Zinc Sulfate 220 Mg Cap) 220 mg PO DAILY [facility] Last Admin: 02/16/22 07:48 Dose: 220 mg PHYSICAL EXAMINATION: GENERAL: The patient is alert and oriented x2-3, Thin built, cachetic, appears older than stated age HEENT: Pupils are round and equally reacting to light. EOMI. no scleral icterus. No conjunctival pallor. Normocephalic, atraumatic. No pharyngeal erythema. No thyromegaly. CARDIOVASCULAR: S1 and S2 muffled PULMONARY: diminished breath sounds bilaterally with some scattered rhonchi noted ABDOMEN: soft. Nontender on exam. non-distended, normoactive bowel sounds. No palpable organomegaly. MUSCULOSKELETAL: No joint swelling or deformity. EXTREMITIES: No cyanosis, clubbing, or pedal edema. Significant wasting noted, contracted left lower extremities NEUROLOGICAL: Gross neurological examination did not reveal any focal deficits. Diffuse weakness SKIN: Stage IV bilateral gluteal ulcers status post debridement. Left foot ulcer and flaking noted as well Assessment: Acute bilateral gluteal ulcers as well as skin ulcers with sepsis, present on admission Weakness of bilateral lower extremities, rule out paraparesis, neurological workup in process for possible MS Anxiety/depression Mood disorder Extensive history of EtOH and continued ongoing nicotine abuse Marijuana use daily Hypovolemic hyponatremia Hypocalcemia Moderate protein calorie malnutrition with a BMI of 21.6 GI prophylaxis DVT prophylaxis; subcutaneous heparin no code Plan: Recommend to continue with current medications and management with general surgery, neurology, and infectious disease following. Patient to work with physical therapy and social work/case management following and working on ECF. [facility] [place] when stable and cleared by consultants. Patient continues to be agitated and frustrated about his pain management requesting more. Adjustment to pain medications. Psychiatry evaluated the patient and has been following and making medication changes. Patient less paranoid and less bizarre today. Patient does have another indwelling Alcala catheter and will attempt another PICC case liner to discharge. Social work following and is planning on court hearing for appointed guardian as patient has been deemed unable to make his own medical decisions. Patient will require neurology evaluation in the outpatient setting for further workup. Due to multiple complex medical issues, prognosis is guarded. Recommend continued local wound care. Replace electrolytes per protocol. The impression and plan of care has been dictated by Kellen Cole, nurse practitioner as directed. Dr. Solomon MD I have performed a history and examination and MDM of this patient, discussed the same with the dictator, and agree with the dictator's assessment and plan as written ,documented as a scribe. Based on total visit time, I have performed more than 50% of the visit. Any additional findings or plans will be noted. Objective - Vital Signs Vital signs: Vital Signs Temp 97.7 F 02/16/22 07:36 Pulse 116 H 02/16/22 07:36 Resp 20 02/16/22 07:36 BP 126/75 02/16/22 07:36 Pulse Ox 100 02/16/22 07:36 FiO2 Intake & Output 02/15/22 02/16/22 02/16/22 18:59 06:59 18:59 Output Total 1250 Balance -1250 Output: Urine 1250 Other: Voiding Method Indwelling Catheter Indwelling Catheter Indwelling Catheter # Bowel Movements 1 - Labs CBC & Chem 7: 02/14/22 21:02/15/22 04:58 Labs: Abnormal Lab Results - Last 24 Hours (Table) 02/15/22 02/15/22 02/16/22 Range/Units 11:24 16:44 06:44 POC Glucose (mg/dL) 102 H 127 H 114 H (75-99) mg/dL
[2022-02-16] MEDS: ACETAMINOPHEN TAB 325 MG TAB PO PRN (19:07)
[2022-02-16] MEDS: MELATONIN 3 MG TABLET PO SCH (20:43)
[2022-02-16] MEDS: PALIPERIDONE 6 MG TAB.ER.24 PO SCH (20:43)
[2022-02-17] MEDS: ACETAMINOPHEN TAB 325 MG TAB PO PRN (00:11)
[2022-02-17] MEDS: HYDROcodone/APAP 10-325MG 1 EACH TAB PO PRN ×4 (01:38→19:49)
[2022-02-17] MEDS: KETOROLAC 15 MG/ML 1 ML VIAL IVP SCH ×4 (02:58→21:34)
[2022-02-17 07:09] LABS: Glucose,Whole Blood 114 mg/dL (75-99)
[2022-02-17] MEDS: ZINC SULFATE 220 MG CAP PO SCH (08:18)
[2022-02-17] MEDS: metroNIDAZOLE 500 MG TAB PO SCH ×3 (08:18→19:49)
[2022-02-17] MEDS: amLODIPine 2.5 MG TAB PO SCH (08:19)
[2022-02-17] MEDS: FOLIC ACID 1 MG TAB PO SCH (08:19)
[2022-02-17] MEDS: PYRIDOXINE 50 MG TAB PO SCH (08:19)
[2022-02-17] MEDS: NICOTINE 21MG/24HR PATCH TRANSDERM SCH ×2 (08:19→08:39)
[2022-02-17] MEDS: PANTOPRAZOLE 40 MG/10 ML VIAL IV SCH (08:19)
[2022-02-17] MEDS: CEFEPIME 2 GM in SODIUM CHLORIDE 0.9% 100 ML IVPB SCH ×3 (08:19→23:26)
[2022-02-17] MEDS: CALCIUM CARB-VIT D 500 MG-5 MCG TAB PO SCH ×2 (08:20→16:45)
[2022-02-17] MEDS: NYSTATIN 100,000UNIT/GM CREAM 30 GM TUBE TOPICAL SCH (08:20)
[2022-02-17] MEDS: MULTIVITAMINS, THERA 1 EACH TAB PO SCH (08:20)
[2022-02-17] MEDS: HEPARIN SODIUM,PORCINE/PF 5,000 UNIT/0.5 ML SYRINGE SQ SCH ×2 (08:20→19:49)
[2022-02-17] MEDS: BACLOFEN 10 MG TAB PO SCH ×2 (08:20→19:50)
[2022-02-17] MEDS: THIAMINE 100 MG TAB PO SCH ×2 (08:20→16:45)
[2022-02-17] MEDS: SODIUM CHLORIDE 0.9% 1,000 ML IV SCH ×2 (08:20→22:25)
[2022-02-17] MEDS: TRIAMCINOLONE 0.1% CREAM 80 GM TUBE TOPICAL SCH (08:20)
--- NOTE | 2022-02-17 10:29 | P.PN ---
Subjective Progress Note Date: 02/17/22 The patient is seen at bedside and is about the same. Denies any new neurological deficit. Objective - Vital Signs Vital signs: Vital Signs Temp 97.6 F 02/17/22 07:32 Pulse 71 02/17/22 07:32 Resp 18 02/17/22 07:32 BP 142/66 02/17/22 07:32 Pulse Ox 100 02/17/22 07:32 FiO2 Intake & Output 02/16/22 02/17/22 02/17/22 18:59 06:59 18:59 Intake Total 780 Output Total 425 900 Balance 355 -900 Intake: Oral 780 Output: Urine 425 900 Other: Voiding Method Indwelling Catheter Indwelling Catheter Indwelling Catheter - Exam GENERAL: The patient is lying in bed and is not in acute distress. PSYCH: Tangential. NEUROLOGICAL: Higher mental function: The patient is awake, alert, oriented to self, place and time. He is following simple commands. He needs reorientation since he keeps on going tangential. No aphasia or neglect. Cranial nerves: The pupils are round, equal and reactive to light. Visual cox are full to confrontation throughout. Extraocular movement is intact no nystagmus is noted. The facial strength is normal throughout. No dysarthria is noted. Motor: The strength is left forearm flexion is 4+. Right upper extremity is 5/5. Left lower is spastic and refused to be assessed. Right lower extremity has antigravity. Sensation: Sensation is normal to touch throughout. 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 Examination also revealed mild weakness of left upper extremity. Exact cause is uncertain. Possible MS. * MRI of the brain reveals significant white matter lesions particularly in the periventricular and also involving the corpus callosum, probable suggestive of demyelinating disease like MS. * Suspicious lesion right upper lobe, increase in size and likely representing bronchogenic carcinoma. * Cervical spondylosis (greatest at C5-C6 reported but I felt more on C3-C6 without myleopathy). * Folate deficiency * Vitamin B6 deficiency * Zinc deficiency * Hypocalcemia * Bilateral gluteal pressure sores, status post debridement * Left foot cellulitis * Hypertension * Alcoholism * History of ongoing nicotine use * Anorexia/cachexia Plan: * MRI of the brain with and without contrast reported as nonspecific white matter demyelination may be related to chronic small vessel ischemic changes, there is age-related atrophy. On my review, there is definite involvement of the corpus callosum and periventricular white matter region, highly suggestive of demyelinating disease like MS. * MRI of the cervical spine reported degenerative disc disease. Indeterminate lung mass right upper lobe. Limited exam. * Recommend PET scan to rule out any other additional mass and oncology consu ltation. * Patient declined MRI of the thoracic and lumbar spines but refused and would not cooperate for it. CT thoracic and lumbar is reported as no abnormal enhancement or gross spinal stenosis lesion seen by this CT scan. Septal spinal cord abnormality cannot be excluded. * Dr. Tse ordered lumbar puncture in a.m. to check for oligoclonal bands. Could not perform since he was confused per Anesthesiologist for consent form. I spoke with Anesthesiology team 02/17/2022 and they stated they cannot perform it because of his condition and obtaining consent. Since his condition has been going on for 2 years according to patient (per Dr. Tse) at least 6 month if unable to perform in patient can obtain as outpatient. * Baclofen 20 mg twice a day for spasticity. May increase the dose if needed. * B12 1813, methylmalonic acid 0.12 normal, folate 5.90, CRP 8.8, ESR 66, IgG 1540, IgM 94, IgA 872 (60-350), rheumatoid factor < 10, MANNY negative, vitamin B6 3 (5-50). Serum copper is 731(665-1480). Serum zinc 32(60 to 130). Hemoglobin A1c 5.0. We will start folate, zinc and vitamin B6 replacement. 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 Dr. Tse r ecommended hematology consultation rule out paraproteinemia/ myeloma. Protein electrophoresis: is suspicious ofr a monoclonal paraprotein in gamma region. * Patient is hypocalcemic. Would defer IM for the cause and any treatment needed. * Surgery on board for gluteal pressure sores, status post debridement. * ID on board for left foot cellulitis, on cefepime and Flagyl. * Psychiatry evaluated patient and they did not feel he had the capacity. * Patient definitely needs to follow-up with a neurologist as an outpatient for management of spasticity, and if MS is confirmed. The plan is discussed with patient and nurse. No additional work-up is needed. Please notify neurology team if any further concerns. Gen Treadwell M.D. Neuro-Hospitalist Time with Patient: Less than 30
[2022-02-17 11:28] LABS: Glucose,Whole Blood 126 mg/dL (75-99)
[2022-02-17] MEDS: COLLAGENASE 250 UNIT/GM OINTMENT 30 GM TUBE TOPICAL SCH (12:09)
--- NOTE | 2022-02-17 14:15 | P.PN ---
Progress Note - Text Progress Note Date: 02/17/22 Interval History: Patient was seen today for psychiatric follow-up regarding patient's mood diso rder. Patient appears to be more directable today during conversation. Patient is not endorsing any more paranoia at this time. He appears to have improvement in his impulse control today. Continues to have very poor insight into his illness and need for treatment. He claims that he was able to sleep better last night and has improvement in his appetite. He is denying any depression today or any anxiety. He is more logical today. At this time patient denies any suicidal or homical ideations, intent or plan. Patient denies any auditory, visual hallucinations and denies any paranoia or delusions. Patient denies any side effects from the medications and has been compliant with meds. Mental Status Exam: General Appearance: Patient appears to be thin, multiple tattoos, older than stated age is alert, or directable today and less intrusive. Patient appears to have improving hygiene and grooming wearing hospital gown with fair eye contact. Behavior: less Intrusive, more directable today. Speech: Patient's speech is fluent and nonpressured. More logical today. Mood/Affect: Patient reports their mood is "fine", affect is congruent Suicidality/Homicidality: Patient denies having any suicidal or homicidal ideation intent or plan. Perceptions: Patient denies any visual hallucinations and denies any auditory hallucinations Though content/process: Patient is more logical today. Not endorsing any paranoia or delusions today. Memory and concentration: AOX3, grossly intact for the purposes of this session Judgment and insight: Chronically poor, improving mildly IMPRESSIONS: Mood disorder unspecified PLAN: -At this time patient does not require inpatient psychiatric admission. -Patient DOES NOT have decision making capacity at this time and is unable to reason through and communicate/appreciate the risks, benefits and alternatives to treatment. Patient will need a guardian to help with decision making -Delirium precautions recommended with patient including - avoiding use of narcotics and MUSIC PROFESSOR sedatives, limit anticholinergic medications when possible, frequent re-orientation, minimize use of restraints, open window shades during the day and close them at night -Would recommend the following medication changes/additions: paliperidone by mouth 6 mg daily at bedtime for mood stabilization/aggressions. melatonin 6 mg daily at bedtime for sleep. Trazodone 100 mg daily at bedtime when necessary for insomnia. Prolixin by mouth and IM when necessary for agitation. -air brake worker to provide patient with outpatient mental health/psychiatry resources for appropriate follow up upon discharge -Communicated plan to patient's nurse and SW -PAtient likely going [facility] [place] [facility] -At this time psychiatry will sign off. -Please contact with any questions.
[2022-02-17 16:36] LABS: Glucose,Whole Blood 130 mg/dL (75-99)
[2022-02-17] MEDS: MELATONIN 3 MG TABLET PO SCH (19:49)
[2022-02-17] MEDS: PALIPERIDONE 6 MG TAB.ER.24 PO SCH (19:50)
--- NOTE | 2022-02-17 20:23 | P.PN ---
Subjective Progress Note Date: 02/15/22 Principal diagnosis: Infected bilateral gluteal pressure ulcer Patient is a 61-year-old male presented to hospital with weakness in this patient noticed to have unstageable bilateral gluteal pressure ulcer with secondary cellulitis and some ulcerations the left foot but no cellulitis. On today's evaluation that is 02/15/2022, the patient remains to be afebrile, patient is breathing comfortably on room air, the patient denies any worsening pain to the gluteal area, the patient denies nausea no vomiting no abdominal pain no diarrhea Objective - Vital Signs Vital signs: Vital Signs Temp 97.5 F L 02/15/22 08:00 Pulse 93 02/15/22 08:00 Resp 17 02/15/22 02:00 BP 122/72 02/15/22 08:00 Pulse Ox 98 02/15/22 08:00 FiO2 Intake & Output 02/14/22 02/15/22 02/15/22 18:59 06:59 18:59 Intake Total 920 Output Total 1400 450 Balance -480 -450 Intake: Oral 920 Output: Urine 1400 450 Other: Voiding Method Indwelling Catheter Indwelling Catheter # Bowel Movements 1 - Exam GENERAL DESCRIPTION: A middle-age male lying in bed in no distress RESPIRATORY SYSTEM: Unlabored breathing , decreased breath sounds at bases HEART: S1 S2 regular rate and rhythm , ABDOMEN: Soft , no tenderness, bilateral gluteal wounds currently dressed EXTREMITIES: No edema feet - Labs CBC & Chem 7: 02/14/22 21:22 02/15/22 04:58 Labs: Abnormal Lab Results - Last 24 Hours (Table) 02/11/22 02/14/22 02/14/22 Range/Units 04:01 21:22 21:22 RBC 3.08 L (4.30-5.90) m/uL Hgb 8.5 L (13.0-17.5) gm/dL Hct 29.1 L (39.0-53.0) % MCHC 29.2 L (31.0-37.0) g/dL RDW 16.6 H (11.5-15.5) % Plt Count 630 H (150-450) k/uL Monocytes # (Manual) 1.02 H (0-1.0) k/uL Sodium 134 L (137-145) mmol/L Potassium 3.2 L (3.5-5.1) mmol/L Chloride (98-107) mmol/L Creatinine 0.42 L (0.66-1.25) mg/dL Glucose 116 H (74-99) mg/dL POC Glucose (mg/dL) (75-99) mg/dL Calcium 7.8 L (8.4-10.2) mg/dL Total Bilirubin 0.1 L (0.2-1.3) mg/dL Alkaline Phosphatase 256 H (38-126) U/L Total Protein 6.2 L (6.3-8.2) g/dL Albumin 2.3 L (3.5-5.0) g/dL Albumin (PEP) 1.58 L (3.80-4.90) g/dL Cdtfg-0-Bqscinszs 0.45 H (0.10-0.40) g/dL Gamma Globulins 1.84 H (0.70-1.50) g/dL 02/15/22 02/15/22 Range/Units 04:58 11:24 RBC (4.30-5.90) m/uL Hgb (13.0-17.5) gm/dL Hct (39.0-53.0) % MCHC (31.0-37.0) g/dL RDW (11.5-15.5) % Plt Count (150-450) k/uL Monocytes # (Manual) (0-1.0) k/uL Sodium (137-145) mmol/L Potassium (3.5-5.1) mmol/L Chloride 109 H (98-107) mmol/L Creatinine 0.49 L (0.66-1.25) mg/dL Glucose (74-99) mg/dL POC Glucose (mg/dL) 102 H (75-99) mg/dL Calcium 7.8 L (8.4-10.2) mg/dL Total Bilirubin (0.2-1.3) mg/dL Alkaline Phosphatase (38-126) U/L Total Protein (6.3-8.2) g/dL Albumin (3.5-5.0) g/dL Albumin (PEP) (3.80-4.90) g/dL Oiwwv-0-Zqdytnzjt (0.10-0.40) g/dL Gamma Globulins (0.70-1.50) g/dL Assessment and Plan (1) Abscess and cellulitis of gluteal region Current Visit: Yes Status: Acute Code(s): L02.31 - CUTANEOUS ABSCESS OF BUTTOCK; L03.317 - CELLULITIS OF BUTTOCK SNOMED Code(s): 493369251 Plan: 1patient with bilateral unstageable pressure ulcer with necrotic base and surrounding redness suspicious for secondary cellulitis , patient on surgical debridement was noticed to have a stage IV pressure ulcer 2left foot superficial ulceration but no cellulitis , patient left foot ulceration is healed no cellulitis discontinue Mycolog 3patient is status post surgical debridement and deep culture which are growing E. coli staph aureus strep and anaerobes 4- patient with MSSA bacteremia, blood cultures repeat has been negative 5-patient has shown clinical improvement as well as his bilateral infected glut eal pressure ulcer, discharges status post on hold pending psychiatric evaluation, patient continue with cefepime and oral Flagyl 6- local wound care to the gluteal wound with Santyl followed by moist dressing and keep the area off the pressure Time with Patient: Less than 30
--- NOTE | 2022-02-17 20:24 | P.PN ---
Subjective Progress Note Date: 02/16/22 Principal diagnosis: Infected bilateral gluteal pressure ulcer Patient is a 61-year-old male presented to hospital with weakness in this patient noticed to have unstageable bilateral gluteal pressure ulcer with secondary cellulitis and some ulcerations the left foot but no cellulitis. On today's evaluation that is 02/16/2022, the patient continues to be afebrile, patient is breathing comfortably on room air, the patient pain to the gluteal area is currently controlled, the patient denies nausea no vomiting no abdominal pain no diarrhea Objective - Vital Signs Vital signs: Vital Signs Temp 97.7 F 02/16/22 07:36 Pulse 116 H 02/16/22 07:36 Resp 20 02/16/22 07:36 BP 126/75 02/16/22 07:36 Pulse Ox 100 02/16/22 07:36 FiO2 Intake & Output 02/15/22 02/16/22 02/16/22 18:59 06:59 18:59 Intake Total 180 Output Total 1250 425 Balance -1250 -245 Intake: Oral 180 Output: Urine 1250 425 Other: Voiding Method Indwelling Catheter Indwelling Catheter Indwelling Catheter # Bowel Movements 1 - Exam GENERAL DESCRIPTION: A middle-age male lying in bed in no distress RESPIRATORY SYSTEM: Unlabored breathing , decreased breath sounds at bases HEART: S1 S2 regular rate and rhythm , ABDOMEN: Soft , no tenderness, bilateral gluteal wounds currently dressed EXTREMITIES: No edema feet - Labs CBC & Chem 7: 02/14/22 21:22 02/15/22 04:58 Labs: Abnormal Lab Results - Last 24 Hours (Table) 02/15/22 02/16/22 Range/Units 16:44 06:44 POC Glucose (mg/dL) 127 H 114 H (75-99) mg/dL Assessment and Plan (1) Abscess and cellulitis of gluteal region Current Visit: Yes Status: Acute Code(s): L02.31 - CUTANEOUS ABSCESS OF BUTTOCK; L03.317 - CELLULITIS OF BUTTOCK SNOMED Code(s): 945384061 Plan: 1patient with bilateral unstageable pressure ulcer with necrotic base and surrounding redness suspicious for secondary cellulitis , patient on surgical debridement was noticed to have a stage IV pressure ulcer 2left foot superficial ulceration but no cellulitis , patient left foot ulceration is healed no cellulitis discontinue Mycolog 3patient is status post surgical debridement and deep culture which are growing E. coli staph aureus strep and anaerobes 4- patient with MSSA bacteremia, blood cultures repeat has been negative 5-patient condition remains to be stable as per as his bilateral infected gluteal pressure ulcer, and patient will continue with cefepime and oral Flagyl 6- local wound care to the gluteal wound with Santyl followed by moist dressing and keep the area off the pressure Time with Patient: Less than 30
--- NOTE | 2022-02-17 20:26 | P.PN ---
Subjective Progress Note Date: 02/17/22 Principal diagnosis: Infected bilateral gluteal pressure ulcer Patient is a 61-year-old male presented to hospital with weakness in this patient noticed to have unstageable bilateral gluteal pressure ulcer with secondary cellulitis and some ulcerations the left foot but no cellulitis. On today's evaluation that is 02/17/2022, the patient remains to be afebrile, patient is breathing comfortably on room air, the patient denies any worsening pain to the gluteal area , the patient denies nausea no vomiting no abdominal pain no diarrhea, patient is currently waiting for placement Objective - Vital Signs Vital signs: Vital Signs Temp 97.6 F 02/17/22 07:32 Pulse 71 02/17/22 07:32 Resp 18 02/17/22 07:32 BP 142/66 02/17/22 07:32 Pulse Ox 100 02/17/22 07:32 FiO2 Intake & Output 02/16/22 02/17/22 02/17/22 18:59 06:59 18:59 Intake Total 780 Output Total 425 900 Balance 355 -900 Intake: Oral 780 Output: Urine 425 900 Other: Voiding Method Indwelling Catheter Indwelling Catheter Indwelling Catheter - Exam GENERAL DESCRIPTION: A middle-age male lying in bed in no distress RESPIRATORY SYSTEM: Unlabored breathing , decreased breath sounds at bases HEART: S1 S2 regular rate and rhythm , ABDOMEN: Soft , no tenderness, bilateral gluteal wounds currently dressed EXTREMITIES: No edema feet - Labs CBC & Chem 7: 02/14/22 21:22 02/15/22 04:58 Labs: Abnormal Lab Results - Last 24 Hours (Table) 02/17/22 02/17/22 Range/Units 07:08 11:26 POC Glucose (mg/dL) 114 H 126 H (75-99) mg/dL Assessment and Plan (1) Abscess and cellulitis of gluteal region Current Visit: Yes Status: Acute Code(s): L02.31 - CUTANEOUS ABSCESS OF BUTTOCK; L03.317 - CELLULITIS OF BUTTOCK SNOMED Code(s): 333263814 Plan: 1patient with bilateral unstageable pressure ulcer with necrotic base and surrounding redness suspicious for secondary cellulitis , patient on surgical debridement was noticed to have a stage IV pressure ulcer 2left foot superficial ulceration but no cellulitis , patient left foot ulceration is healed no cellulitis none. Further therapy 3patient is status post surgical debridement and deep culture which are growing E. coli staph aureus strep and anaerobes 4- patient with MSSA bacteremia, blood cultures repeat has been negative 5-patient to continue local wound care to the gluteal wound with Santyl followed by moist dressing and keep the area off the pressure, along with cefepime and Flagyl Time with Patient: Less than 30
--- NOTE | 2022-02-17 20:54 | P.PN ---
Subjective Progress Note Date: 02/17/22 This is a 61-year-old male who was recently admitted with bilateral gluteal ulcers and significant infections with features of sepsis, present on admission and is being closely monitored. Patient is status post sharp excisional debridement of bilateral gluteal decubitus ulcers stage IV with Dr. Yun and cultures have been sent and are pending and infectious disease also closely monitoring and awaiting finalized cultures and patient is maintained on IV cefepime and will continue at this time. Neurology also evaluating the patient for continued weakness and has an MRI of the brain, cervical, thoracic, and lumbar ordered to evaluate for MS. Preliminary wound culture showing E. coli presumptive staph. Patient denies chest pain or shortness of breath. Patient is afebrile. Patient tolerating diet with no reports of nausea or vomiting noted. Patient to have physical therapy evaluate and possibly ECF being planned. 02/08/2022 Patient is seen in follow up and is being monitored by ID, neurology, surgery, and wound, Patient is continued on IV cefepime and will continue. Patient will require PICC line and IV abx on discharge. Patient with significant gluteal wounds and recommend frequent position changes and local wound care per surgical and ID recommendations. Patient sodium is low and potassium is 3.5 and mag is 1.6 and will replace per protocol and repeat am labs. Patient is afebrile and denies chest pain or shortness of breath. Patient to undergo MRI per neurology recommendations. 02/09/2022 Patient is seen this morning and is agitated and reporting severe pain 10 out of 10 of his gluteal region and his foot and feels his pain is not being managed. Medication adjustments have been made and discussed with nursing staff. Patient continues with weakness and will likely need ECF and [facility] [place] is being planned. Patient continues with neurological workup with neurology following closely and unable to tolerate all of MRI due to pain and would like to proceed with LP. Consult was placed to IR for LP and patient is undergoing neurological workup for possible MS. Patient also continues to be followed by general surgery and maintained on IV antibiotics with infectious disease following and patient will require IV antibiotic therapy in the outpatient setting and is scheduled to receive a PICC line today. Patient is afebrile and denies chest pain or shortness of breath. Most recent blood cultures remain negative. Foot culture showing E. coli and staph aureus. Patient will likely need outpatient follow-up closely with neurologist. 02/10/2022 Patient is evaluated today and continues to be in pain and restless and unable to extend his legs or walk. Patient is maintained on IV antibiotics and has received a PICC line. Continued wound care and is also being followed by neurology for lower extremity weakness and will be having an LP. Pulmonary consu lted for lung nodule and will be an outpatient follow up. Patient is to go to [facility] on the [place] once stable and cleared by neurology. Patient is afebrile and denies chest pain or shortness of breath. Patient is anxious and wants to leave. Patient reports to no sleep and have ordered Restoril. 02/13/2022 Patient is seen this morning continues to be anxious and looking forward to going to rehab so he can work on walking as patient continues with severe lower extremity weakness. Infectious disease, general surgery, and neurology following closely and plan was for LP and this was not done as apparently heparin has not been on hold and will need to be held and anesthesia contacted and will do tomorrow if heparin is held. Patient will need further neurological workup in the outpatient setting with further testing and this was discussed with the patient. Patient to continue with local wound care and will be extensive wound care and close follow-up in the outpatient setting with the [facility]. Patient also continues with indwelling Canales catheter to monitor intake and output along with to assist with healing of extensive gluteal ulcers. Patient is afebrile and denies any chest pain or shortness of breath. 02/15/2022 Patient is seen in follow-up this morning and psychiatric consult has been placed as patient continues to have periodic episodes of confusion and frustr ation and crying out stating "I want my momma". When discussing with the patient about overall care plan and current behavior and suicidal ideation or thoughts of wanting to harm self or other was asked and patient is refusing suicidal ideation at this time. Patient has pulled out two picc lines and to indwelling Canales catheters and will not give reasons why. Patient was scheduled to go to rehab for continued IV antibiotic therapy and wound care along with aggressive physical therapy and this was placed on hold secondary to patient removing his second PICC line while EMS had arrived. Patient is afebrile and vital signs are stable. Will await psychiatric consult and appreciate input and recommendations. Patient denies any chest pain or shortness of breath. Patient continues to have left lower extremity pain and buttock pain although reports on exam that his current pain medication is effective at this time. Case was discussed with case management and will have possible APS involvement. 02/16/2022 Patient is seen today with a safety intern at the bedside and continues to be with episodes of bizarre behavior and reports to understanding what the treatment plan is but then soon after questioning what he is doing still here in the hospital. Patient reports severe left leg pain and neuro also following and ordered CT of the spine as patient has been unable to tolerate further MRI and LP. Social work following and psychiatry as well as patient was deemed unable to make his own medical decisions and will require a guardian. Court hearing next Sunday. Patient continues on wound care and IV antibiotics. Patient is afebrile and denies chest pain or shortness of breath. Patient denies nausea or vomiting. 02/17/2022 Patient is evaluated today with continued sitter today. patient is more calm and flat today. Patient continues to have pain and reports that pain is currently controlled. Patient denies chest pain or shortness of breath. Patient is afebrile. Psychiatry following and has made adjustments to medications. ID also following and continued on oral and IV abx of flagyl and cefepime. Patient to have appointed guardian next week sunday and will likely receive PICC at that point prior to discharge to [facility]. Patient reports to eating and denies nausea or vomiting. Continued with indwelling canales catheter and patient reports to having bowel movements. Local wound care to the gluteal region per wound and ID along with surgery. Review of systems: Constitutional: no reports of fatigue, no fever, or chills Cardiovascular: No reports of chest pain or palpitations Respiratory: No reports of shortness of breath or cough GI: No reports of nausea, no reports of of vomiting : No reports of dysuria or retention Neurovascular: reports of generalized weakness and inability to walk, reports left leg and gluteal pain All medications have been reviewed Active Medications Acetaminophen (Acetaminophen Tab 325 Mg Tab) 650 mg PO Q6HR PRN PRN Reason: Mild Pain or Fever > 100.5 Last Admin: 02/17/22 00:11 Dose: 650 mg Hydrocodone Bitart/Acetaminophen (Hydrocodone/Apap 10-325mg 1 Each Tab) 1 each PO Q6HR PRN PRN Reason: MODERATE Pain Last Admin: 02/17/22 19:49 Dose: 1 each Amlodipine Besylate (Amlodipine 2.5 Mg Tab) 2.5 mg PO DAILY [facility] Last Admin: 02/17/22 08:19 Dose: 2.5 mg Baclofen (Baclofen 10 Mg Tab) 20 mg PO BID [facility] Last Admin: 02/17/22 19:50 Dose: 20 mg Calcium Carbonate (Calcium Carb-Vit D 500 Mg-5 Mcg Tab) 1 each PO BID-W/MEALS [facility] Last Admin: 02/17/22 16:45 Dose: 1 each Collagenase (Collagenase 250 Unit/Gm Ointment 30 Gm Tube) 1 applic TOPICAL DAILY [facility]; Protocol Last Admin: 02/17/22 12:09 Dose: 1 applic Ergocalciferol (Ergocalciferol 1,250 Mcg (50,000 Iu) Capsule) 1,250 mcg PO Q7D [facility] Last Admin: 02/13/22 07:43 Dose: 1,250 mcg Fluphenazine HCl (Fluphenazine 1 Mg Tab) 4 mg PO TID PRN PRN Reason: Agitation Last Admin: 02/15/22 21:09 Dose: 4 mg Fluphenazine HCl (Fluphenazine 2.5 Mg/Ml (Mdv) 10 Ml Vial) 4 mg IM Q6HR PRN PRN Reason: Agitation Folic Acid (Folic Acid 1 Mg Tab) 1 mg PO DAILY [facility] Last Admin: 02/17/22 08:19 Dose: 1 mg Heparin Sodium (Porcine) (Heparin Sodium,Porcine/Pf 5,000 Unit/0.5 Ml Syringe) 5,000 unit SQ Q12HR [facility] Last Admin: 02/17/22 19:49 Dose: 5,000 unit Sodium Chloride (Saline 0.9%) 1,000 mls @ 75 mls/hr IV .[id number] [facility] Last Admin: 02/17/22 08:20 Dose: 75 mls/hr Cefepime HCl 2 gm/ Sodium (Chloride) 100 mls @ 25 mls/hr IVPB Q8HR [facility]; Protocol Last Admin: 02/17/22 15:34 Dose: 25 mls/hr Ketorolac Tromethamine (Ketorolac 15 Mg/Ml 1 Ml Vial) 15 mg IVP Q6H [facility] Stop: 02/21/22 10:01 Last Admin: 02/17/22 15:34 Dose: 15 mg Melatonin (Melatonin 3 Mg Tablet) 6 mg PO HS [facility] Last Admin: 02/17/22 19:49 Dose: 6 mg Metronidazole (Metronidazole 500 Mg Tab) 500 mg PO TID [facility]; Protocol Last Admin: 02/17/22 19:49 Dose: 500 mg Miscellaneous Information (Potassium Replacement Protocol 1 Each Misc) 1 each MISCELLANE DAILY PRN; Protocol PRN Reason: Per Protocol Miscellaneous Information (Magnesium Replacement Protocol 1 Each Misc) 1 each MISCELLANE DAILY PRN; Protocol PRN Reason: Per Protocol Multivitamins (Multivitamins, Thera 1 Each Tab) 1 each PO DAILY [facility] Last Admin: 02/17/22 08:20 Dose: 1 each Naloxone HCl (Naloxone 0.4 Mg/Ml 1 Ml Vial) 0.2 mg IV Q2M PRN PRN Reason: Opioid Reversal Nicotine (Nicotine 21mg/24hr Patch) 1 patch TRANSDERM DAILY [facility] Last Admin: 02/17/22 08:39 Dose: Not Given Nystatin (Nystatin 100,000unit/Gm Cream 30 Gm Tube) 1 applic TOPICAL DAILY [facility]; Protocol Last Admin: 02/17/22 08:20 Dose: 1 applic Paliperidone (Paliperidone 6 Mg Tab.Er.24) 6 mg PO HS [facility] Last Admin: 02/17/22 19:50 Dose: 6 mg Pantoprazole Sodium (Pantoprazole 40 Mg/10 Ml Vial) 40 mg IV DAILY [facility] Last Admin: 02/17/22 08:19 Dose: 40 mg Pyridoxine HCl (Pyridoxine 50 Mg Tab) 50 mg PO DAILY [facility] Last Admin: 02/17/22 08:19 Dose: 50 mg Thiamine HCl (Thiamine 100 Mg Tab) 100 mg PO BID-W/MEALS [facility] Last Admin: 02/17/22 16:45 Dose: 100 mg Trazodone HCl (Trazodone Hcl 100 Mg Tab) 100 mg PO HS PRN PRN Reason: Insomnia Triamcinolone Acetonide (Triamcinolone 0.1% Cream 80 Gm Tube) 1 applic TOPICAL DAILY [facility]; Protocol Last Admin: 02/17/22 08:20 Dose: 1 applic Zinc Sulfate (Zinc Sulfate 220 Mg Cap) 220 mg PO DAILY [facility] Last Admin: 02/17/22 08:18 Dose: 220 mg PHYSICAL EXAMINATION: GENERAL: The patient is alert and oriented x2-3, Thin built, cachetic, appears older than stated age HEENT: Pupils are round and equally reacting to light. EOMI. no scleral icterus. No conjunctival pallor. Normocephalic, atraumatic. No pharyngeal erythema. No thyromegaly. CARDIOVASCULAR: S1 and S2 muffled PULMONARY: diminished breath sounds bilaterally with some scattered rhonchi noted ABDOMEN: soft. Nontender on exam. non-distended, normoactive bowel sounds. No palpable organomegaly. MUSCULOSKELETAL: No joint swelling or deformity. EXTREMITIES: No cyanosis, clubbing, or pedal edema. Significant wasting noted, contracted left lower extremities NEUROLOGICAL: Gross neurological examination did not reveal any focal deficits. Diffuse weakness SKIN: Stage IV bilateral gluteal ulcers status post debridement. Left foot ulcer and flaking noted as well Assessment: Acute bilateral gluteal ulcers as well as skin ulcers with sepsis, present on admission Weakness of bilateral lower extremities, rule out paraparesis, further neurological workup outpatient for possible MS Anxiety/depression Mood disorder possible metabolic encephalopathy secondary to IV narcotics Extensive history of EtOH and continued ongoing nicotine abuse Marijuana use daily Hypovolemic hyponatremia Hypocalcemia Moderate protein calorie malnutrition with a BMI of 21.6 GI prophylaxis DVT prophylaxis; subcutaneous heparin no code Plan: Recommend to continue with current medications and management with general surgery, neurology, and infectious disease following. Patient to work with physical therapy and social work/case management following and working on ECF. [facility] on the [place] when stable and receives guardian. Patient with flat affect and calm today. Psychiatry evaluated the patient and has been following and made medication changes. Patient less paranoid and less bizarre today. Patient does have another indwelling Canales catheter and will attempt another PICC box liner to discharge. Social work following and is planning on court hearing for appointed guardian this upcoming Sunday as patient has been deemed unable to make his own medical decisions. Patient will require neurology evaluation in the outpatient setting for further workup along with oncology. Due to multiple complex medical issues, prognosis is guarded. Recommend continued local wound care. The impression and plan of care has been dictated by Kellen Cole, nurse practitioner as directed. Dr. Solomon MD I have performed a history and examination and MDM of this patient, discussed the same with the dictator, and agree with the dictator's assessment and plan as written ,documented as a scribe. Based on total visit time, I have performed more than 50% of the visit. Any additional findings or plans will be noted. Objective - Vital Signs Vital signs: Vital Signs Temp 97.6 F 02/17/22 07:32 Pulse 71 02/17/22 07:32 Resp 18 02/17/22 07:32 BP 142/66 02/17/22 07:32 Pulse Ox 100 02/17/22 07:32 FiO2 Intake & Output 02/16/22 02/17/22 02/17/22 18:59 06:59 18:59 Intake Total 780 Output Total 425 900 Balance 355 -900 Intake: Oral 780 Output: Urine 425 900 Other: Voiding Method Indwelling Catheter Indwelling Catheter Indwelling Catheter - Labs CBC & Chem 7: 02/14/22 21:22 02/15/22 04:58 Labs: Abnormal Lab Results - Last 24 Hours (Table) 02/17/22 Range/Units 07:08 POC Glucose (mg/dL) 114 H (75-99) mg/dL
[2022-02-17 22:18] LABS: Glucose,Whole Blood 127 mg/dL (75-99)
[2022-02-18] MEDS: KETOROLAC 15 MG/ML 1 ML VIAL IVP SCH ×4 (04:42→23:01)
[2022-02-18] MEDS: metroNIDAZOLE 500 MG TAB PO SCH ×3 (10:11→20:25)
[2022-02-18] MEDS: CALCIUM CARB-VIT D 500 MG-5 MCG TAB PO SCH ×2 (10:11→17:49)
[2022-02-18] MEDS: ZINC SULFATE 220 MG CAP PO SCH (10:12)
[2022-02-18] MEDS: THIAMINE 100 MG TAB PO SCH ×2 (10:12→17:49)
[2022-02-18] MEDS: HYDROcodone/APAP 10-325MG 1 EACH TAB PO PRN ×3 (10:12→23:01)
[2022-02-18] MEDS: amLODIPine 2.5 MG TAB PO SCH (10:12)
[2022-02-18] MEDS: BACLOFEN 10 MG TAB PO SCH ×2 (10:12→20:25)
[2022-02-18] MEDS: FOLIC ACID 1 MG TAB PO SCH (10:13)
[2022-02-18] MEDS: CEFEPIME 2 GM in SODIUM CHLORIDE 0.9% 100 ML IVPB SCH ×3 (10:13→23:01)
[2022-02-18] MEDS: HEPARIN SODIUM,PORCINE/PF 5,000 UNIT/0.5 ML SYRINGE SQ SCH ×2 (10:13→20:25)
[2022-02-18] MEDS: MULTIVITAMINS, THERA 1 EACH TAB PO SCH (10:13)
[2022-02-18] MEDS: PANTOPRAZOLE 40 MG/10 ML VIAL IV SCH (10:14)
[2022-02-18] MEDS: PYRIDOXINE 50 MG TAB PO SCH (10:14)
[2022-02-18] MEDS: SODIUM CHLORIDE 0.9% 1,000 ML IV SCH (10:14)
[2022-02-18] MEDS: NICOTINE 21MG/24HR PATCH TRANSDERM SCH (10:14)
[2022-02-18 10:18] LABS: African American GFR (CKD) >90 (>60 ml/min/1.73 sqM); Anion Gap 6 mmol/L; Blood Urea Nitrogen 16 mg/dL (9-20); Carbon Dioxide 23 mmol/L (22-30); Chloride 105 mmol/L (98-107); Glucose 112 mg/dL (74-99); Non-African American GFR(CKD) >90 (>60 ml/min/1.73 sqM); Potassium 3.9 mmol/L (3.5-5.1); Sodium 134 mmol/L (137-145)
[2022-02-18 10:32] LABS: Anisocytosis Slight; Basophils % (A) 1 %; Eosinophils # (A) 0.1 k/uL (0-0.7); Eosinophils % (A) 2 %; HCT 28.8 % (39.0-53.0); HGB 8.6 gm/dL (13.0-17.5); Hypochromasia Marked; Lymphocytes # (A) 1.3 k/uL (1.0-4.8); Lymphocytes % (A) 18 %; MCH 28.1 pg (25.0-35.0); MCHC 29.9 g/dL (31.0-37.0); Mean Platelet Volume 7.2; Monocytes # (A) 0.5 k/uL (0-1.0); Monocytes % (A) 8 %; Neutrophils # (A) 4.9 k/uL (1.3-7.7); Neutrophils % (A) 69 %; Platelet Count 602 k/uL (150-450); RBC 3.07 m/uL (4.30-5.90); RDW 16.2 % (11.5-15.5); WBC 7.1 k/uL (3.8-10.6)
[2022-02-18 11:34] LABS: Glucose,Whole Blood 180 mg/dL (75-99)
[2022-02-18] MEDS: COLLAGENASE 250 UNIT/GM OINTMENT 30 GM TUBE TOPICAL SCH (13:42)
[2022-02-18] MEDS: NYSTATIN 100,000UNIT/GM CREAM 30 GM TUBE TOPICAL SCH (13:43)
[2022-02-18] MEDS: TRIAMCINOLONE 0.1% CREAM 80 GM TUBE TOPICAL SCH (13:43)
--- NOTE | 2022-02-18 14:00 | P.PN ---
Subjective Progress Note Date: 02/18/22 Principal diagnosis: Infected bilateral gluteal pressure ulcer Patient is a 61-year-old male presented to hospital with weakness in this patient noticed to have unstageable bilateral gluteal pressure ulcer with secondary cellulitis and some ulcerations the left foot but no cellulitis. On today's evaluation that is 02/18/2022, the patient denies any fever or chills, patient is breathing comfortably on room air, the patient pain to the gluteal area is currently controlled , the patient denies nausea no vomiting no abdominal pain no diarrhea, patient is currently waiting for placement, patient keeps on pulling out his IVs and currently do not have any IV access per the nurse Objective - Vital Signs Vital signs: Vital Signs Temp 97.9 F 02/18/22 02:00 Pulse 112 H 02/18/22 02:00 Resp 17 02/18/22 02:00 BP 130/76 02/18/22 02:00 Pulse Ox 100 02/18/22 02:00 FiO2 Intake & Output 02/17/22 02/18/22 02/18/22 18:59 06:59 18:59 Output Total 550 600 Balance -550 -600 Output: Urine 550 600 Other: Voiding Method Indwelling Catheter Indwelling Catheter Indwelling Catheter # Bowel Movements 1 - Exam GENERAL DESCRIPTION: A middle-age male lying in bed in no distress RESPIRATORY SYSTEM: Unlabored breathing , decreased breath sounds at bases HEART: S1 S2 regular rate and rhythm , ABDOMEN: Soft , no tenderness, bilateral gluteal wounds currently dressed EXTREMITIES: No edema feet - Labs CBC & Chem 7: 02/18/22 09:50 02/18/22 09:50 Labs: Abnormal Lab Results - Last 24 Hours (Table) 02/17/22 02/17/22 02/18/22 Range/Units 16:35 22:17 09:50 RBC 3.07 L (4.30-5.90) m/uL Hgb 8.6 L (13.0-17.5) gm/dL Hct 28.8 L (39.0-53.0) % MCHC 29.9 L (31.0-37.0) g/dL RDW 16.2 H (11.5-15.5) % Plt Count 602 H (150-450) k/uL Sodium (137-145) mmol/L Creatinine (0.66-1.25) mg/dL Glucose (74-99) mg/dL POC Glucose (mg/dL) 130 H 127 H (75-99) mg/dL Calcium (8.4-10.2) mg/dL 02/18/22 02/18/22 Range/Units 09:50 11:29 RBC (4.30-5.90) m/uL Hgb (13.0-17.5) gm/dL Hct (39.0-53.0) % MCHC (31.0-37.0) g/dL RDW (11.5-15.5) % Plt Count (150-450) k/uL Sodium 134 L (137-145) mmol/L Creatinine 0.32 L (0.66-1.25) mg/dL Glucose 112 H (74-99) mg/dL POC Glucose (mg/dL) 180 H (75-99) mg/dL Calcium 8.0 L (8.4-10.2) mg/dL Assessment and Plan (1) Abscess and cellulitis of gluteal region Current Visit: Yes Status: Acute Code(s): L02.31 - CUTANEOUS ABSCESS OF BUTTOCK; L03.317 - CELLULITIS OF BUTTOCK SNOMED Code(s): 573113796 Plan: 1patient with bilateral unstageable pressure ulcer with necrotic base and surrounding redness suspicious for secondary cellulitis , patient on surgical debridement was noticed to have a stage IV pressure ulcer 2left foot superficial ulceration but no cellulitis , patient left foot ulceration is healed no cellulitis none. Further therapy 3patient is status post surgical debridement and deep culture which are growing E. coli staph aureus strep and anaerobes 4- patient with MSSA bacteremia, blood cultures repeat has been negative 5-patient bilateral gluteal wounds looks much better with minimal slough tissue surrounding redness is improved patient is currently being treated with cefepime and Flagyl on the base of the culture and operative findings however the patient keeps on pulling out his IVs and has pulled out PICC lines, if the nursing staff is not able to place a IV, I would have no choice but to switch him over to oral antibiotics Time with Patient: Less than 30
--- NOTE | 2022-02-18 14:07 | P.PN ---
Subjective Progress Note Date: 02/18/22 This is a 61-year-old male who was recently admitted with bilateral gluteal ulcers and significant infections with features of sepsis, present on admission and is being closely monitored. Patient is status post sharp excisional debridement of bilateral gluteal decubitus ulcers stage IV with Dr. Yun and cultures have been sent and are pending and infectious disease also closely monitoring and awaiting finalized cultures and patient is maintained on IV cefepime and will continue at this time. Neurology also evaluating the patient for continued weakness and has an MRI of the brain, cervical, thoracic, and lumbar ordered to evaluate for MS. Preliminary wound culture showing E. coli presumptive staph. Patient denies chest pain or shortness of breath. Patient is afebrile. Patient tolerating diet with no reports of nausea or vomiting noted. Patient to have physical therapy evaluate and possibly ECF being planned. 02/15/2022 Patient is seen in follow-up this morning and psychiatric consult has been placed as patient continues to have periodic episodes of confusion and frustration and crying out stating "I want my momma". When discussing with the patient about overall care plan and current behavior and suicidal ideation or thoughts of wanting to harm self or other was asked and patient is refusing suicidal ideation at this time. Patient has pulled out two picc lines and to indwelling [place]ales catheters and will not give reasons why. Patient was scheduled to go to rehab for continued IV antibiotic therapy and wound care along with aggressive physical therapy and this was placed on hold secondary to patient removing his second PICC line while EMS had arrived. Patient is afebrile and vital signs are stable. Will await psychiatric consult and appreciate input and recommendations. Patient denies any chest pain or shortness of breath. Patient continues to have left lower extremity pain and buttock pain although reports on exam that his current pain medication is effective at this time. Case was discussed with case management and will have possible APS involvement. 02/16/2022 Patient is seen today with a director employee safety and health at the bedside and continues to be with episodes of bizarre behavior and reports to understanding what the treatment plan is but then soon after questioning what he is doing still here in the hospital. Patient reports severe left leg pain and neuro also following and ordered CT of the spine as patient has been unable to tolerate further MRI and L P. Social work following and psychiatry as well as patient was deemed unable to make his own medical decisions and will require a guardian. Court hearing next Sunday. Patient continues on wound care and IV antibiotics. Patient is afebrile and denies chest pain or shortness of breath. Patient denies nausea or vomiting. 02/17/2022 Patient is evaluated today with continued sitter today. patient is more calm and flat today. Patient continues to have pain and reports that pain is currently controlled. Patient denies chest pain or shortness of breath. Patient is afebrile. Psychiatry following and has made adjustments to medications. ID also following and continued on oral and IV abx of flagyl and cefepime. Patient to have appointed guardian next week sunday and will likely receive PICC at that point prior to discharge to [facility]. Patient reports to eating and denies nausea or vomiting. Continued with indwelling canales catheter and patient reports to having bowel movements. Local wound care to the gluteal region per wound and ID along with surgery. 02/18/2022 Patient seen on follow-up, resting in the complaints were no acute distress, continues antimicrobial therapy of cefepime and Flagyl he is currently afebrile, serum WBC is within normal limits 7.0. He'll likely require a PICC line at some point prior to discharge. He continues to have pain he is using Narco 10 and Tylenol as needed. No fevers, is hemodynamically stable. Continues local wound care to the affected gluteus. Review of systems: Constitutional: no reports of fatigue, no fever, or chills Cardiovascular: No reports of chest pain or palpitations Respiratory: No reports of shortness of breath or cough GI: No reports of nausea, no reports of of vomiting : No reports of dysuria or retention Neurovascular: reports of generalized weakness and inability to walk, reports left leg and gluteal pain All medications have been reviewed PHYSICAL EXAMINATION: GENERAL: The patient is alert and oriented x2-3, Thin built, cachetic, appears older than stated age HEENT: Pupils are round and equally reacting to light. EOMI. no scleral icterus. No conjunctival pallor. Normocephalic, atraumatic. No pharyngeal erythema. No thyromegaly. CARDIOVASCULAR: S1 and S2 muffled PULMONARY: diminished breath sounds bilaterally with some scattered rhonchi noted ABDOMEN: soft. Nontender on exam. non-distended, normoactive bowel sounds. No palpable organomegaly. MUSCULOSKELETAL: No joint swelling or deformity. EXTREMITIES: No cyanosis, clubbing, or pedal edema. Significant wasting noted, contracted left lower extremities NEUROLOGICAL: Gross neurological examination did not reveal any focal deficits. Diffuse weakness SKIN: Stage IV bilateral gluteal ulcers status post debridement. Left foot ulcer and flaking noted as well Assessment: Acute bilateral gluteal ulcers as well as skin ulcers with sepsis, present on admission Weakness of bilateral lower extremities, rule out paraparesis, further liam rological workup outpatient for possible MS Anxiety/depression Mood disorder possible metabolic encephalopathy secondary to IV narcotics Extensive history of EtOH and continued ongoing nicotine abuse Marijuana use daily Hypovolemic hyponatremia Hypocalcemia Moderate protein calorie malnutrition with a BMI of 21.6 GI prophylaxis DVT prophylaxis; subcutaneous heparin no code Plan: Recommend to continue with current medications and management with general surgery, neurology, and infectious disease following. PT for that showed E, social work, for plan for eventual return to [facility]. Psychiatry evaluated the patient and has been following and made medication changes. Patient is calm and cooperative today. Patient does have another indwelling Canales catheter and will likely need any other PICC line noted to continue IV antibiotics post discharge. Continues antimicrobial therapy with cefepime and Flagyl. Continue [place] 10 and Tylenol as needed for pain. Social work following and is planning on court hearing for appointed guardian this upcoming Sunday as patient has been deemed unable to make his own medical decisions. Patient will require neurology evaluation in the outpatient setting for further workup along with oncology. Due to multiple complex medical issues, prognosis is guarded. Recommend continued local wound care. The impression and plan of care has been dictated by Aravind Burns nurse practitioner as directed. Dr. Solomon MD I have performed a history and examination and MDM of this patient, discussed the same with the dictator, and agree with the dictator's assessment and plan as written ,documented as a scribe. Based on total visit time, I have performed more than 50% of the visit. Any additional findings or plans will be noted. Objective - Vital Signs Vital signs: Vital Signs Temp 97.9 F 02/18/22 02:00 Pulse 112 H 02/18/22 02:00 Resp 17 02/18/22 02:00 BP 130/76 02/18/22 02:00 Pulse Ox 100 02/18/22 02:00 FiO2 Intake & Output 02/17/22 02/18/22 02/18/22 18:59 06:59 18:59 Output Total 550 600 Balance -550 -600 Output: Urine 550 600 Other: Voiding Method Indwelling Catheter Indwelling Catheter Indwelling Catheter # Bowel Movements 1 - Labs CBC & Chem 7: 02/18/22 09:50 02/18/22 09:50 Labs: Abnormal Lab Results - Last 24 Hours (Table) 02/17/22 02/17/22 02/18/22 Range/Units 16:35 22:17 09:50 RBC 3.07 L (4.30-5.90) m/uL Hgb 8.6 L (13.0-17.5) gm/dL Hct 28.8 L (39.0-53.0) % MCHC 29.9 L (31.0-37.0) g/dL RDW 16.2 H (11.5-15.5) % Plt Count 602 H (150-450) k/uL Sodium (137-145) mmol/L Creatinine (0.66-1.25) mg/dL Glucose (74-99) mg/dL POC Glucose (mg/dL) 130 H 127 H (75-99) mg/dL Calcium (8.4-10.2) mg/dL 02/18/22 02/18/22 Range/Units 09:50 11:29 RBC (4.30-5.90) m/uL Hgb (13.0-17.5) gm/dL Hct (39.0-53.0) % MCHC (31.0-37.0) g/dL RDW (11.5-15.5) % Plt Count (150-450) k/uL Sodium 134 L (137-145) mmol/L Creatinine 0.32 L (0.66-1.25) mg/dL Glucose 112 H (74-99) mg/dL POC Glucose (mg/dL) 180 H (75-99) mg/dL Calcium 8.0 L (8.4-10.2) mg/dL
[2022-02-18 16:23] LABS: Glucose,Whole Blood 127 mg/dL (75-99)
[2022-02-18] MEDS: PALIPERIDONE 6 MG TAB.ER.24 PO SCH (20:25)
[2022-02-18] MEDS: ACETAMINOPHEN TAB 325 MG TAB PO PRN (20:25)
[2022-02-18] MEDS: MELATONIN 3 MG TABLET PO SCH (20:25)
[2022-02-18 21:18] LABS: Glucose,Whole Blood 275 mg/dL (75-99)
[2022-02-19] MEDS: SODIUM CHLORIDE 0.9% 1,000 ML IV SCH ×2 (00:29→16:55)
[2022-02-19] MEDS: KETOROLAC 15 MG/ML 1 ML VIAL IVP SCH ×5 (05:01→20:59)
[2022-02-19] MEDS: HYDROcodone/APAP 10-325MG 1 EACH TAB PO PRN ×3 (05:01→22:58)
[2022-02-19 07:08] LABS: Glucose,Whole Blood 113 mg/dL (75-99)
[2022-02-19] MEDS: ZINC SULFATE 220 MG CAP PO SCH (08:15)
[2022-02-19] MEDS: metroNIDAZOLE 500 MG TAB PO SCH ×3 (08:15→20:59)
[2022-02-19] MEDS: FOLIC ACID 1 MG TAB PO SCH (08:15)
[2022-02-19] MEDS: amLODIPine 2.5 MG TAB PO SCH (08:16)
[2022-02-19] MEDS: THIAMINE 100 MG TAB PO SCH ×2 (08:16→16:56)
[2022-02-19] MEDS: MULTIVITAMINS, THERA 1 EACH TAB PO SCH (08:16)
[2022-02-19] MEDS: BACLOFEN 10 MG TAB PO SCH ×2 (08:16→20:59)
[2022-02-19] MEDS: HEPARIN SODIUM,PORCINE/PF 5,000 UNIT/0.5 ML SYRINGE SQ SCH ×2 (08:16→21:00)
[2022-02-19] MEDS: CALCIUM CARB-VIT D 500 MG-5 MCG TAB PO SCH ×2 (08:16→16:56)
[2022-02-19] MEDS: NYSTATIN 100,000UNIT/GM CREAM 30 GM TUBE TOPICAL SCH (08:17)
[2022-02-19] MEDS: TRIAMCINOLONE 0.1% CREAM 80 GM TUBE TOPICAL SCH (08:17)
[2022-02-19] MEDS: COLLAGENASE 250 UNIT/GM OINTMENT 30 GM TUBE TOPICAL SCH (08:18)
[2022-02-19] MEDS: PYRIDOXINE 50 MG TAB PO SCH (08:18)
[2022-02-19] MEDS: NICOTINE 21MG/24HR PATCH TRANSDERM SCH (08:20)
[2022-02-19] MEDS: PANTOPRAZOLE 40 MG/10 ML VIAL IV SCH (08:20)
[2022-02-19] MEDS: CEFEPIME 2 GM in SODIUM CHLORIDE 0.9% 100 ML IVPB SCH ×3 (09:02→22:58)
[2022-02-19 10:10] LABS: African American GFR (CKD) 159.4 (60.0-200.0); Anion Gap 10.2 mmol/L (10.00-18.00); BUN/Creat Ratio 55.19 Ratio (12.00-20.00); Blood Urea Nitrogen 18.6 mg/dL (9.0-27.0); Calcium 8.5 mg/dL (8.7-10.3); Carbon Dioxide 20.4 mmol/L (20.0-27.5); Non-African American GFR(CKD) 137.6 (60.0-200.0); Potassium 4.1 mmol/L (3.5-5.5)
--- NOTE | 2022-02-19 11:09 | P.PN ---
Subjective This is a 61-year-old male who was recently admitted with bilateral gluteal ulcers and significant infections with features of sepsis, present on admission and is being closely monitored. Patient is status post sharp excisional debridement of bilateral gluteal decubitus ulcers stage IV with Dr. Yun and cultures have been sent and are pending and infectious disease also closely monitoring and awaiting finalized cultures and patient is maintained on IV cefepime and will continue at this time. Neurology also evaluating the patient for continued weakness and has an MRI of the brain, cervical, thoracic, and lumbar ordered to evaluate for MS. Preliminary wound culture showing E. coli presumptive staph. Patient denies chest pain or shortness of breath. Patient is afebrile. Patient tolerating diet with no reports of nausea or vomiting n oted. Patient to have physical therapy evaluate and possibly ECF being planned. 02/15/2022 Patient is seen in follow-up this morning and psychiatric consult has been placed as patient continues to have periodic episodes of confusion and frustration and crying out stating "I want my momma". When discussing with the patient about overall care plan and current behavior and suicidal ideation or t houghts of wanting to harm self or other was asked and patient is refusing suicidal ideation at this time. Patient has pulled out two picc lines and to indwelling Canales catheters and will not give reasons why. Patient was scheduled to go to rehab for continued IV antibiotic therapy and wound care along with aggressive physical therapy and this was placed on hold secondary to patient removing his second PICC line while EMS had arrived. Patient is afebrile and vital signs are stable. Will await psychiatric consult and appreciate input and recommendations. Patient denies any chest pain or shortness of breath. Patient continues to have left lower extremity pain and buttock pain although reports on exam that his current pain medication is effective at this time. Case was discussed with case management and will have possible APS involvement. 02/16/2022 Patient is seen today with a product safety and standards engineer at the bedside and continues to be with episodes of bizarre behavior and reports to understanding what the treatment plan is but then soon after questioning what he is doing still here in the hospital. Patient reports severe left leg pain and neuro also following and ordered CT of the spine as patient has been unable to tolerate further MRI and LP. Social work following and psychiatry as well as patient was deemed unable to make his own medical decisions and will require a guardian. Court hearing next Sunday. Patient continues on wound care and IV antibiotics. Patient is afebrile and denies chest pain or shortness of breath. Patient denies nausea or vomiting. 02/17/2022 Patient is evaluated today with continued sitter today. patient is more calm and flat today. Patient continues to have pain and reports that pain is currently controlled. Patient denies chest pain or shortness of breath. Patient is afebrile. Psychiatry following and has made adjustments to medications. ID also following and continued on oral and IV abx of flagyl and cefepime. Patient to have appointed guardian next week sunday and will likely receive PICC at that point prior to discharge to [facility]. Patient reports to eating and denies nausea or vomiting. Continued with indwelling canales catheter and patient reports to having bowel movements. Local wound care to the gluteal region per wound and ID along with surgery. 02/18/2022 Patient seen on follow-up, resting in the complaints were no acute distress, continues antimicrobial therapy of cefepime and Flagyl he is currently afebrile, serum WBC is within normal limits 7.0. He'll likely require a PICC line at some point prior to discharge. He continues to have pain he is using Narco 10 and Tylenol as needed. No fevers, is hemodynamically stable. Continues local wound care to the affected gluteus. 02/19/2022 No overnight events patient continues to pull the IV lines. Review of systems: Constitutional: no reports of fatigue, no fever, or chills Cardiovascular: No reports of chest pain or palpitations Respiratory: No reports of shortness of breath or cough GI: No reports of nausea, no reports of of vomiting : No reports of dysuria or retention Neurovascular: reports of generalized weakness and inability to walk, reports left leg and gluteal pain All medications have been reviewed PHYSICAL EXAMINATION: GENERAL: The patient is alert and oriented x2-3, Thin built, cachetic, appears older than stated age HEENT: Pupils are round and equally reacting to light. EOMI. no scleral icterus. No conjunctival pallor. Normocephalic, atraumatic. No pharyngeal erythema. No thyromegaly. CARDIOVASCULAR: S1 and S2 muffled PULMONARY: diminished breath sounds bilaterally with some scattered rhonchi noted ABDOMEN: soft. Nontender on exam. non-distended, normoactive bowel sounds. No palpable organomegaly. MUSCULOSKELETAL: No joint swelling or deformity. EXTREMITIES: No cyanosis, clubbing, or pedal edema. Significant wasting noted, contracted left lower extremities NEUROLOGICAL: Gross neurological examination did not reveal any focal deficits. Diffuse weakness SKIN: Stage IV bilateral gluteal ulcers status post debridement. Left foot ulcer and flaking noted as well Assessment: Acute bilateral gluteal ulcers as well as skin ulcers with sepsis, present on admission Weakness of bilateral lower extremities, rule out paraparesis, further neurological workup outpatient for possible MS Anxiety/depression Mood disorder possible metabolic encephalopathy secondary to IV narcotics Extensive history of EtOH and continued ongoing nicotine abuse Marijuana use daily Hypovolemic hyponatremia Hypocalcemia Moderate protein calorie malnutrition with a BMI of 21.6 GI prophylaxis DVT prophylaxis; subcutaneous heparin no code Plan: Recommend to continue with current medications and management with general surgery, neurology, and infectious disease following. PT for that showed E, social work, for plan for eventual return to [facility]. Psychiatry evaluated the patient and has been following and made medication changes. Patient is calm and cooperative today. Patient does have another indwelling Canales catheter and will likely need any other PICC line noted to continue IV antibiotics post discharge. Continues antimicrobial therapy with cefepime and Flagyl. Continue [place] 10 and Tylenol as needed for pain. Social work following and is planning on court hearing for appointed guardian this upcoming Sunday as patient has been deemed unable to make his own medical decisions. Patient will require neurology evaluation in the outpatient setting for further workup along with oncology. Due to multiple complex medical issues, prognosis is guarded. Recommend continued local wound care. Objective - Vital Signs Vital signs: Vital Signs Temp 98.1 F 02/19/22 08:00 Pulse 98 02/19/22 08:00 Resp 18 02/19/22 08:00 BP 117/67 02/19/22 08:00 Pulse Ox 98 02/19/22 08:00 FiO2 Intake & Output 02/18/22 02/19/22 02/19/22 18:59 06:59 18:59 Intake Total 1080 Output Total 400 1050 Balance 680 -1050 Intake: Oral 1080 Output: Urine 400 1050 Other: Voiding Method Indwelling Catheter Indwelling Catheter # Bowel Movements 1 - Labs CBC & Chem 7: 02/18/22 09:50 02/19/22 05:51 Labs: Abnormal Lab Results - Last 24 Hours (Table) 02/18/22 02/18/22 02/18/22 Range/Units 11:29 16:22 21:17 Creatinine (0.6-1.5) mg/dL BUN/Creatinine Ratio (12.00-20.00) Ratio Glucose (70-110) mg/dL POC Glucose (mg/dL) 180 H 127 H 275 H (75-99) mg/dL Calcium (8.7-10.3) mg/dL 02/19/22 02/19/22 Range/Units 05:51 07:06 Creatinine 0.3 L (0.6-1.5) mg/dL BUN/Creatinine Ratio 55.19 H (12.00-20.00) Ratio Glucose 114 H (70-110) mg/dL POC Glucose (mg/dL) 113 H (75-99) mg/dL Calcium 8.5 L (8.7-10.3) mg/dL
[2022-02-19 11:24] LABS: Glucose,Whole Blood 151 mg/dL (75-99)
[2022-02-19 16:37] LABS: Glucose,Whole Blood 127 mg/dL (75-99)
[2022-02-19 20:53] LABS: Glucose,Whole Blood 281 mg/dL (75-99)
[2022-02-19] MEDS: PALIPERIDONE 6 MG TAB.ER.24 PO SCH (20:59)
[2022-02-19] MEDS: MELATONIN 3 MG TABLET PO SCH (20:59)
[2022-02-20] MEDS: ACETAMINOPHEN TAB 325 MG TAB PO PRN ×2 (01:36→20:34)
[2022-02-20] MEDS: KETOROLAC 15 MG/ML 1 ML VIAL IVP SCH ×4 (05:12→22:13)
[2022-02-20] MEDS: HYDROcodone/APAP 10-325MG 1 EACH TAB PO PRN ×2 (05:12→15:52)
[2022-02-20] MEDS: SODIUM CHLORIDE 0.9% 1,000 ML IV SCH ×2 (05:14→15:51)
[2022-02-20 06:52] LABS: Glucose,Whole Blood 107 mg/dL (75-99)
[2022-02-20] MEDS: CALCIUM CARB-VIT D 500 MG-5 MCG TAB PO SCH ×2 (08:36→17:58)
[2022-02-20] MEDS: PYRIDOXINE 50 MG TAB PO SCH (08:37)
[2022-02-20] MEDS: amLODIPine 2.5 MG TAB PO SCH (08:37)
[2022-02-20] MEDS: ERGOCALCIFEROL 1,250 MCG (50,000 IU) CAPSULE PO SCH (08:37)
[2022-02-20] MEDS: ZINC SULFATE 220 MG CAP PO SCH (08:37)
[2022-02-20] MEDS: HEPARIN SODIUM,PORCINE/PF 5,000 UNIT/0.5 ML SYRINGE SQ SCH ×2 (08:37→21:47)
[2022-02-20] MEDS: FOLIC ACID 1 MG TAB PO SCH (08:37)
[2022-02-20] MEDS: BACLOFEN 10 MG TAB PO SCH ×2 (08:37→20:35)
[2022-02-20] MEDS: MULTIVITAMINS, THERA 1 EACH TAB PO SCH (08:37)
[2022-02-20] MEDS: THIAMINE 100 MG TAB PO SCH ×2 (08:37→17:58)
[2022-02-20] MEDS: CEFEPIME 2 GM in SODIUM CHLORIDE 0.9% 100 ML IVPB SCH ×2 (08:37→15:52)
[2022-02-20] MEDS: metroNIDAZOLE 500 MG TAB PO SCH ×3 (08:37→21:47)
[2022-02-20] MEDS: COLLAGENASE 250 UNIT/GM OINTMENT 30 GM TUBE TOPICAL SCH (08:38)
[2022-02-20] MEDS: TRIAMCINOLONE 0.1% CREAM 80 GM TUBE TOPICAL SCH (08:38)
[2022-02-20] MEDS: NYSTATIN 100,000UNIT/GM CREAM 30 GM TUBE TOPICAL SCH (08:38)
[2022-02-20] MEDS: PANTOPRAZOLE 40 MG/10 ML VIAL IV SCH (08:39)
[2022-02-20] MEDS: NICOTINE 21MG/24HR PATCH TRANSDERM SCH (08:45)
[2022-02-20 11:59] LABS: Glucose,Whole Blood 109 mg/dL (75-99)
--- NOTE | 2022-02-20 15:05 | P.PN ---
Subjective Progress Note Date: 02/20/22 This is a 61-year-old male who was recently admitted with bilateral gluteal ulcers and significant infections with features of sepsis, present on admission and is being closely monitored. Patient is status post sharp excisional debridement of bilateral gluteal decubitus ulcers stage IV with Dr. Yun and cultures have been sent and are pending and infectious disease also closely monitoring and awaiting finalized cultures and patient is maintained on IV cefepime and will continue at this time. Neurology also evaluating the patient for continued weakness and has an MRI of the brain, cervical, thoracic, and lumbar ordered to evaluate for MS. Preliminary wound culture showing E. coli presumptive staph. Patient denies chest pain or shortness of breath. Patient is afebrile. Patient tolerating diet with no reports of nausea or vomiting noted. Patient to have physical therapy evaluate and possibly ECF being planned. 02/08/2022 Patient is seen in follow up and is being monitored by ID, neurology, surgery, and wound, Patient is continued on IV cefepime and will continue. Patient will require PICC line and IV abx on discharge. Patient with significant gluteal wounds and recommend frequent position changes and local wound care per surgical and ID recommendations. Patient sodium is low and potassium is 3.5 and mag is 1.6 and will replace per protocol and repeat am labs. Patient is afebrile and denies chest pain or shortness of breath. Patient to undergo MRI per neurology recommendations. 02/09/2022 Patient is seen this morning and is agitated and reporting severe pain 10 out of 10 of his gluteal region and his foot and feels his pain is not being managed. Medication adjustments have been made and discussed with nursing staff. Patient continues with weakness and will likely need ECF and [facility] is being planned. Patient continues with neurological workup with neurology following closely and unable to tolerate all of MRI due to pain and would like to proceed with LP. Consult was placed to IR for LP and patient is undergoing neurological workup for possible MS. Patient also continues to be followed by general surgery and maintained on IV antibiotics with infectious disease following and patient will require IV antibiotic therapy in the outpatient setting and is scheduled to receive a PICC line today. Patient is afebrile and denies chest pain or shortness of breath. Most recent blood cultures remain negative. Foot culture showing E. coli and staph aureus. Patient will likely need outpatient follow-up closely with neurologist. 02/10/2022 Patient is evaluated today and continues to be in pain and restless and unable to extend his legs or walk. Patient is maintained on IV antibiotics and has received a PICC line. Continued wound care and is also being followed by neurology for lower extremity weakness and will be having an LP. Pulmonary consu lted for lung nodule and will be an outpatient follow up. Patient is to go to [facility] on the [place] once stable and cleared by neurology. Patient is afebrile and denies chest pain or shortness of breath. Patient is anxious and wants to leave. Patient reports to no sleep and have ordered Restoril. 02/13/2022 Patient is seen this morning continues to be anxious and looking forward to going to rehab so he can work on walking as patient continues with severe lower extremity weakness. Infectious disease, general surgery, and neurology following closely and plan was for LP and this was not done as apparently heparin has not been on hold and will need to be held and anesthesia contacted and will do tomorrow if heparin is held. Patient will need further neurological workup in the outpatient setting with further testing and this was discussed with the patient. Patient to continue with local wound care and will be extensive wound care and close follow-up in the outpatient setting with the [facility]. Patient also continues with indwelling Canales catheter to monitor intake and output along with to assist with healing of extensive gluteal ulcers. Patient is afebrile and denies any chest pain or shortness of breath. 02/15/2022 Patient is seen in follow-up this morning and psychiatric consult has been placed as patient continues to have periodic episodes of confusion and frustr ation and crying out stating "I want my momma". When discussing with the patient about overall care plan and current behavior and suicidal ideation or thoughts of wanting to harm self or other was asked and patient is refusing suicidal ideation at this time. Patient has pulled out two picc lines and to indwelling Canales catheters and will not give reasons why. Patient was scheduled to go to rehab for continued IV antibiotic therapy and wound care along with aggressive physical therapy and this was placed on hold secondary to patient removing his second PICC line while EMS had arrived. Patient is afebrile and vital signs are stable. Will await psychiatric consult and appreciate input and recommendations. Patient denies any chest pain or shortness of breath. Patient continues to have left lower extremity pain and buttock pain although reports on exam that his current pain medication is effective at this time. Case was discussed with case management and will have possible APS involvement. 02/16/2022 Patient is seen today with a industrial safety and health technician at the bedside and continues to be with episodes of bizarre behavior and reports to understanding what the treatment plan is but then soon after questioning what he is doing still here in the hospital. Patient reports severe left leg pain and neuro also following and ordered CT of the spine as patient has been unable to tolerate further MRI and LP. Social work following and psychiatry as well as patient was deemed unable to make his own medical decisions and will require a guardian. Court hearing next Sunday. Patient continues on wound care and IV antibiotics. Patient is afebrile and denies chest pain or shortness of breath. Patient denies nausea or vomiting. 02/17/2022 Patient is evaluated today with continued sitter today. patient is more calm and flat today. Patient continues to have pain and reports that pain is currently controlled. Patient denies chest pain or shortness of breath. Patient is afebrile. Psychiatry following and has made adjustments to medications. ID also following and continued on oral and IV abx of flagyl and cefepime. Patient to have appointed guardian next week sunday and will likely receive PICC at that point prior to discharge to ECF. Patient reports to eating and denies nausea or vomiting. Continued with indwelling canales catheter and patient reports to having bowel movements. Local wound care to the gluteal region per wound and ID along with surgery. 02/20/2022 Patient is seen in follow-up today with no acute overnight issues noted. Patient is to not have any visitors at this time as apparently family visited sometime over the weekend and proceeded to bring the patient narcotic medications. Patient will continue with current medication regimen and no visitors at this time. Social work following and plan is for possible guardianship on Sunday at the court hearing and patient will need ECF on discharge. Patient will need a PICC line placed prior to discharge this patient continues to need at least 4 more weeks of IV antibiotic therapy. ID is following and patient is maintained on IV cefepime and oral Flagyl and will continue. Patient also to continue with local wound care. Patient denies any chest pain or shortness of breath. Patient is afebrile. Review of systems: Constitutional: no reports of fatigue, no fever, or chills Cardiovascular: No reports of chest pain or palpitations Respiratory: No reports of shortness of breath or cough GI: No reports of nausea, no reports of of vomiting : No reports of dysuria or retention Neurovascular: reports of generalized weakness and inability to walk, reports left leg and gluteal pain All medications have been reviewed Active Medications Acetaminophen (Acetaminophen Tab 325 Mg Tab) 650 mg PO Q6HR PRN PRN Reason: Mild Pain or Fever > 100.5 Last Admin: 02/20/22 01:36 Dose: 650 mg Hydrocodone Bitart/Acetaminophen (Hydrocodone/Apap 10-325mg 1 Each Tab) 1 each PO Q6HR PRN PRN Reason: MODERATE Pain Last Admin: 02/20/22 05:12 Dose: 1 each Amlodipine Besylate (Amlodipine 2.5 Mg Tab) 2.5 mg PO DAILY [facility] Last Admin: 02/20/22 08:37 Dose: 2.5 mg Baclofen (Baclofen 10 Mg Tab) 20 mg PO BID [facility] Last Admin: 02/20/22 08:37 Dose: 20 mg Calcium Carbonate (Calcium Carb-Vit D 500 Mg-5 Mcg Tab) 1 each PO BID-W/MEALS [facility] Last Admin: 02/20/22 08:36 Dose: 1 each Collagenase (Collagenase 250 Unit/Gm Ointment 30 Gm Tube) 1 applic TOPICAL DAILY [facility]; Protocol Last Admin: 02/20/22 08:38 Dose: 1 applic Ergocalciferol (Ergocalciferol 1,250 Mcg (50,000 Iu) Capsule) 1,250 mcg PO Q7D [facility] Last Admin: 02/20/22 08:37 Dose: 1,250 mcg Fluphenazine HCl (Fluphenazine 1 Mg Tab) 4 mg PO TID PRN PRN Reason: Agitation Last Admin: 02/18/22 10:14 Dose: 4 mg Fluphenazine HCl (Fluphenazine 2.5 Mg/Ml (Mdv) 10 Ml Vial) 4 mg IM Q6HR PRN PRN Reason: Agitation Folic Acid (Folic Acid 1 Mg Tab) 1 mg PO DAILY [facility] Last Admin: 02/20/22 08:37 Dose: 1 mg Heparin Sodium (Porcine) (Heparin Sodium,Porcine/Pf 5,000 Unit/0.5 Ml Syringe) 5,000 unit SQ Q12HR [facility] Last Admin: 02/20/22 08:37 Dose: 5,000 unit Sodium Chloride (Saline 0.9%) 1,000 mls @ 75 mls/hr IV .[id number] [facility] Last Admin: 02/20/22 05:14 Dose: Not Given Cefepime HCl 2 gm/ Sodium (Chloride) 100 mls @ 25 mls/hr IVPB Q8HR [facility]; Protocol Last Admin: 02/20/22 08:37 Dose: 25 mls/hr Ketorolac Tromethamine (Ketorolac 15 Mg/Ml 1 Ml Vial) 15 mg IVP Q6H [facility] Stop: 02/21/22 10:01 Last Admin: 02/20/22 09:53 Dose: 15 mg Melatonin (Melatonin 3 Mg Tablet) 6 mg PO HS [facility] Last Admin: 02/19/22 20:59 Dose: 6 mg Metronidazole (Metronidazole 500 Mg Tab) 500 mg PO TID [facility]; Protocol Last Admin: 02/20/22 08:37 Dose: 500 mg Miscellaneous Information (Potassium Replacement Protocol 1 Each Misc) 1 each MISCELLANE DAILY PRN; Protocol PRN Reason: Per Protocol Miscellaneous Information (Magnesium Replacement Protocol 1 Each Misc) 1 each MISCELLANE DAILY PRN; Protocol PRN Reason: Per Protocol Multivitamins (Multivitamins, Thera 1 Each Tab) 1 each PO DAILY [facility] Last Admin: 02/20/22 08:37 Dose: 1 each Naloxone HCl (Naloxone 0.4 Mg/Ml 1 Ml Vial) 0.2 mg IV Q2M PRN PRN Reason: Opioid Reversal Nicotine (Nicotine 21mg/24hr Patch) 1 patch TRANSDERM DAILY [facility] Last Admin: 02/20/22 08:45 Dose: Not Given Nystatin (Nystatin 100,000unit/Gm Cream 30 Gm Tube) 1 applic TOPICAL DAILY [facility]; Protocol Last Admin: 02/20/22 08:38 Dose: 1 applic Paliperidone (Paliperidone 6 Mg Tab.Er.24) 6 mg PO HS [facility] Last Admin: 02/19/22 20:59 Dose: 6 mg Pantoprazole Sodium (Pantoprazole 40 Mg/10 Ml Vial) 40 mg IV DAILY [facility] Last Admin: 02/20/22 08:39 Dose: 40 mg Pyridoxine HCl (Pyridoxine 50 Mg Tab) 50 mg PO DAILY [facility] Last Admin: 02/20/22 08:37 Dose: 50 mg Thiamine HCl (Thiamine 100 Mg Tab) 100 mg PO BID-W/MEALS [facility] Last Admin: 02/20/22 08:37 Dose: 100 mg Trazodone HCl (Trazodone Hcl 100 Mg Tab) 100 mg PO HS PRN PRN Reason: Insomnia Triamcinolone Acetonide (Triamcinolone 0.1% Cream 80 Gm Tube) 1 applic TOPICAL DAILY [facility]; Protocol Last Admin: 02/20/22 08:38 Dose: 1 applic Zinc Sulfate (Zinc Sulfate 220 Mg Cap) 220 mg PO DAILY [facility] Last Admin: 02/20/22 08:37 Dose: 220 mg PHYSICAL EXAMINATION: GENERAL: The patient is alert and oriented x2-3, Thin built, cachetic, appears older than stated age HEENT: Pupils are round and equally reacting to light. EOMI. no scleral icterus. No conjunctival pallor. Normocephalic, atraumatic. No pharyngeal erythema. No thyromegaly. CARDIOVASCULAR: S1 and S2 muffled PULMONARY: diminished breath sounds bilaterally with some scattered rhonchi noted ABDOMEN: soft. Nontender on exam. non-distended, normoactive bowel sounds. No palpable organomegaly. MUSCULOSKELETAL: No joint swelling or deformity. EXTREMITIES: No cyanosis, clubbing, or pedal edema. Significant wasting noted, contracted left lower extremity NEUROLOGICAL: Gross neurological examination did not reveal any focal deficits. Diffuse weakness SKIN: Stage IV bilateral gluteal ulcers status post debridement. Left foot ulcer and flaking noted as well Assessment: Acute bilateral gluteal ulcers as well as skin ulcers with sepsis, present on admission Weakness of bilateral lower extremities, rule out paraparesis, further neurological workup outpatient for possible MS Anxiety/depression Mood disorder possible metabolic encephalopathy secondary to IV narcotics Extensive history of EtOH and continued ongoing nicotine abuse Marijuana use daily Hypovolemic hyponatremia Hypocalcemia Moderate protein calorie malnutrition with a BMI of 21.6 GI prophylaxis DVT prophylaxis; subcutaneous heparin no code Plan: Recommend to continue with current medications and management with general surgery, neurology, and infectious disease following. Patient to work with physical therapy and social work/case management following and working on ECF. [facility] [place] when stable and receives guardian. Patient with flat affect and calm today. Psychiatry evaluated the patient and has been following and made medication changes. Patient less paranoid and less bizarre today. Patient does have another indwelling Canales catheter and will attempt another PICC first line production supervisor to discharge. Social work following and is planning on court hearing for appointed guardian this upcoming Sunday as patient has been deemed unable to make his own medical decisions. Will await court hearing to receive appointed guardian and will discuss PICC line at that point. Patient will require neurology evaluation in the outpatient setting for further workup along with oncology. Due to multiple complex medical issues, prognosis is guarded. Recommend continued local wound care. The impression and plan of care has been dictated by Kellen Cole, nurse practitioner as directed. Dr. Solomon MD I have performed a history and examination and MDM of this patient, discussed the same with the dictator, and agree with the dictator's assessment and plan as written ,documented as a scribe. Based on total visit time, I have performed more than 50% of the visit. Any additional findings or plans will be noted. Objective - Vital Signs Vital signs: Vital Signs Temp 97.7 F 02/20/22 08:00 Pulse 99 02/20/22 08:00 Resp 16 02/20/22 08:00 BP 136/61 02/20/22 08:00 Pulse Ox 99 02/20/22 08:00 FiO2 Intake & Output 02/19/22 02/20/22 02/20/22 18:59 06:59 18:59 Intake Total 1080 Output Total 200 300 Balance 880 -300 Intake: Oral 1080 Output: Urine 200 300 Other: Voiding Method Indwelling Catheter Indwelling Catheter # Bowel Movements 1 - Labs CBC & Chem 7: 02/18/22 09:50 02/19/22 05:51 Labs: Abnormal Lab Results - Last 24 Hours (Table) 02/19/22 02/19/22 02/20/22 Range/Units 16:35 20:51 06:50 POC Glucose (mg/dL) 127 H 281 H 107 H (75-99) mg/dL 02/20/22 Range/Units 11:56 POC Glucose (mg/dL) 109 H (75-99) mg/dL
[2022-02-20 17:05] LABS: Glucose,Whole Blood 126 mg/dL (75-99)
[2022-02-20] MEDS: PALIPERIDONE 6 MG TAB.ER.24 PO SCH (20:34)
[2022-02-20] MEDS: MELATONIN 3 MG TABLET PO SCH (20:35)
[2022-02-20 21:21] LABS: Glucose,Whole Blood 274 mg/dL (75-99)
[2022-02-21] MEDS: CEFEPIME 2 GM in SODIUM CHLORIDE 0.9% 100 ML IVPB SCH ×4 (00:09→23:33)
[2022-02-21] MEDS: KETOROLAC 15 MG/ML 1 ML VIAL IVP SCH ×2 (04:18→09:23)
[2022-02-21] MEDS: SODIUM CHLORIDE 0.9% 1,000 ML IV SCH ×2 (06:27→21:07)
[2022-02-21 06:57] LABS: Glucose,Whole Blood 108 mg/dL (75-99)
[2022-02-21] MEDS: ZINC SULFATE 220 MG CAP PO SCH (07:23)
[2022-02-21] MEDS: amLODIPine 2.5 MG TAB PO SCH (07:23)
[2022-02-21] MEDS: FOLIC ACID 1 MG TAB PO SCH (07:23)
[2022-02-21] MEDS: CALCIUM CARB-VIT D 500 MG-5 MCG TAB PO SCH ×2 (07:23→15:57)
[2022-02-21] MEDS: PYRIDOXINE 50 MG TAB PO SCH (07:24)
[2022-02-21] MEDS: metroNIDAZOLE 500 MG TAB PO SCH ×3 (07:24→20:56)
[2022-02-21] MEDS: NICOTINE 21MG/24HR PATCH TRANSDERM SCH (07:24)
[2022-02-21] MEDS: MULTIVITAMINS, THERA 1 EACH TAB PO SCH (07:24)
[2022-02-21] MEDS: THIAMINE 100 MG TAB PO SCH ×2 (07:24→15:57)
[2022-02-21] MEDS: BACLOFEN 10 MG TAB PO SCH ×2 (07:24→20:54)
[2022-02-21] MEDS: TRIAMCINOLONE 0.1% CREAM 80 GM TUBE TOPICAL SCH (07:25)
[2022-02-21] MEDS: HEPARIN SODIUM,PORCINE/PF 5,000 UNIT/0.5 ML SYRINGE SQ SCH ×2 (07:25→21:45)
[2022-02-21] MEDS: NYSTATIN 100,000UNIT/GM CREAM 30 GM TUBE TOPICAL SCH (07:26)
[2022-02-21] MEDS: HYDROcodone/APAP 10-325MG 1 EACH TAB PO PRN ×2 (07:31→19:42)
--- NOTE | 2022-02-21 07:34 | P.PN ---
Subjective Progress Note Date: 02/19/22 Principal diagnosis: Infected bilateral gluteal pressure ulcer Patient is a 61-year-old male presented to hospital with weakness in this patient noticed to have unstageable bilateral gluteal pressure ulcer with secondary cellulitis and some ulcerations the left foot but no cellulitis. On today's evaluation that is 02/19/2022, the patient remains to be afebrile, patient is breathing comfortably on room air, the patient pain to the gluteal area is currently controlled , the patient denies nausea no vomiting no abdominal pain no diarrhea, Objective - Vital Signs Vital signs: Vital Signs Temp 97.9 F 02/19/22 14:00 Pulse 101 H 02/19/22 14:00 Resp 16 02/19/22 14:00 BP 103/63 02/19/22 14:00 Pulse Ox 99 02/19/22 14:00 FiO2 Intake & Output 02/18/22 02/19/22 02/19/22 18:59 06:59 18:59 Intake Total 1080 1080 Output Total 400 1050 200 Balance 680 -1050 880 Intake: Oral 1080 1080 Output: Urine 400 1050 200 Other: Voiding Method Indwelling Catheter Indwelling Catheter Indwelling Catheter # Bowel Movements 1 1 - Exam GENERAL DESCRIPTION: A middle-age male lying in bed in no distress RESPIRATORY SYSTEM: Unlabored breathing , decreased breath sounds at bases HEART: S1 S2 regular rate and rhythm , ABDOMEN: Soft , no tenderness, bilateral gluteal wounds currently dressed EXTREMITIES: No edema feet - Labs CBC & Chem 7: 02/18/22 09:50 02/19/22 05:51 Labs: Abnormal Lab Results - Last 24 Hours (Table) 02/18/22 02/19/22 02/19/22 Range/Units 21:17 05:51 07:06 Creatinine 0.3 L (0.6-1.5) mg/dL BUN/Creatinine Ratio 55.19 H (12.00-20.00) Ratio Glucose 114 H (70-110) mg/dL POC Glucose (mg/dL) 275 H 113 H (75-99) mg/dL Calcium 8.5 L (8.7-10.3) mg/dL 02/19/22 02/19/22 Range/Units 11:22 16:35 Creatinine (0.6-1.5) mg/dL BUN/Creatinine Ratio (12.00-20.00) Ratio Glucose (70-110) mg/dL POC Glucose (mg/dL) 151 H 127 H (75-99) mg/dL Calcium (8.7-10.3) mg/dL Assessment and Plan (1) Abscess and cellulitis of gluteal region Current Visit: Yes Status: Acute Code(s): L02.31 - CUTANEOUS ABSCESS OF BUTTOCK; L03.317 - CELLULITIS OF BUTTOCK SNOMED Code(s): 272379871 Plan: 1patient with bilateral unstageable pressure ulcer with necrotic base and surrounding redness suspicious for secondary cellulitis , patient on surgical debridement was noticed to have a stage IV pressure ulcer 2left foot superficial ulceration but no cellulitis , patient left foot ulceration is healed no cellulitis none. Further therapy 3patient is status post surgical debridement and deep culture which are growing E. coli staph aureus strep and anaerobes 4- patient with MSSA bacteremia, blood cultures repeat has been negative 5-patient bilateral gluteal wounds as shown clinical improvement and surrounding redness is improved patient is currently being treated with cefepime and Flagyl on the base of the culture and operative findings Time with Patient: Less than 30
--- NOTE | 2022-02-21 07:36 | P.PN ---
Subjective Progress Note Date: 02/20/22 Principal diagnosis: Infected bilateral gluteal pressure ulcer Patient is a 61-year-old male presented to hospital with weakness in this patient noticed to have unstageable bilateral gluteal pressure ulcer with secondary cellulitis and some ulcerations the left foot but no cellulitis. On today's evaluation that is 02/20/2022, the patient denies any fever or chills, patient is breathing comfortably on room air, the patient pain to the gluteal area is currently controlled , the patient denies nausea no vomiting no abdominal pain no diarrhea, no new symptoms Objective - Vital Signs Vital signs: Vital Signs Temp 97.7 F 02/20/22 08:00 Pulse 99 02/20/22 08:00 Resp 16 02/20/22 08:00 BP 136/61 02/20/22 08:00 Pulse Ox 99 02/20/22 08:00 FiO2 Intake & Output 02/19/22 02/20/22 02/20/22 18:59 06:59 18:59 Intake Total 1080 Output Total 200 300 Balance 880 -300 Intake: Oral 1080 Output: Urine 200 300 Other: Voiding Method Indwelling Catheter Indwelling Catheter # Bowel Movements 1 - Exam GENERAL DESCRIPTION: A middle-age male lying in bed in no distress RESPIRATORY SYSTEM: Unlabored breathing , decreased breath sounds at bases HEART: S1 S2 regular rate and rhythm , ABDOMEN: Soft , no tenderness, bilateral gluteal wounds currently dressed EXTREMITIES: No edema feet - Labs CBC & Chem 7: 02/18/22 09:50 02/19/22 05:51 Labs: Abnormal Lab Results - Last 24 Hours (Table) 02/19/22 02/19/22 02/20/22 Range/Units 16:35 20:51 06:50 POC Glucose (mg/dL) 127 H 281 H 107 H (75-99) mg/dL 02/20/22 Range/Units 11:56 POC Glucose (mg/dL) 109 H (75-99) mg/dL Assessment and Plan (1) Abscess and cellulitis of gluteal region Current Visit: Yes Status: Acute Code(s): L02.31 - CUTANEOUS ABSCESS OF BUTTOCK; L03.317 - CELLULITIS OF BUTTOCK SNOMED Code(s): 067271889 Plan: 1patient with bilateral unstageable pressure ulcer with necrotic base and surrounding redness suspicious for secondary cellulitis , patient on surgical debridement was noticed to have a stage IV pressure ulcer 2left foot superficial ulceration but no cellulitis , patient left foot ulceration is healed no cellulitis none. Further therapy 3patient is status post surgical debridement and deep culture which are growing E. coli staph aureus strep and anaerobes 4- patient with MSSA bacteremia, blood cultures repeat has been negative 5-patient bilateral gluteal wounds has shown clinical improvement and surrounding redness is improved, patient is afebrile white count normal, patient to continue with cefepime and Flagyl and monitor clinical course closely Time with Patient: Less than 30
[2022-02-21] MEDS: PANTOPRAZOLE 40 MG/10 ML VIAL IV SCH (09:23)
[2022-02-21] MEDS: COLLAGENASE 250 UNIT/GM OINTMENT 30 GM TUBE TOPICAL SCH (09:24)
[2022-02-21 11:32] LABS: Glucose,Whole Blood 122 mg/dL (75-99)
[2022-02-21 17:13] LABS: Glucose,Whole Blood 124 mg/dL (75-99)
[2022-02-21] MEDS ORDERED: SENNOSIDES 8.6 MG TAB PO PRN (18:59)
--- NOTE | 2022-02-21 19:05 | P.PN ---
Subjective Progress Note Date: 02/21/22 This is a 61-year-old male who was recently admitted with bilateral gluteal ulcers and significant infections with features of sepsis, present on admission and is being closely monitored. Patient is status post sharp excisional debridement of bilateral gluteal decubitus ulcers stage IV with Dr. Yun and cultures have been sent and are pending and infectious disease also closely monitoring and awaiting finalized cultures and patient is maintained on IV cefepime and will continue at this time. Neurology also evaluating the patient for continued weakness and has an MRI of the brain, cervical, thoracic, and lumbar ordered to evaluate for MS. Preliminary wound culture showing E. coli presumptive staph. Patient denies chest pain or shortness of breath. Patient is afebrile. Patient tolerating diet with no reports of nausea or vomiting noted. Patient to have physical therapy evaluate and possibly ECF being planned. 02/08/2022 Patient is seen in follow up and is being monitored by ID, neurology, surgery, and wound, Patient is continued on IV cefepime and will continue. Patient will require PICC line and IV abx on discharge. Patient with significant gluteal wounds and recommend frequent position changes and local wound care per surgical and ID recommendations. Patient sodium is low and potassium is 3.5 and mag is 1.6 and will replace per protocol and repeat am labs. Patient is afebrile and denies chest pain or shortness of breath. Patient to undergo MRI per neurology recommendations. 02/09/2022 Patient is seen this morning and is agitated and reporting severe pain 10 out of 10 of his gluteal region and his foot and feels his pain is not being managed. Medication adjustments have been made and discussed with nursing staff. Patient continues with weakness and will likely need ECF and [facility] the [place] is being planned. Patient continues with neurological workup with neurology following closely and unable to tolerate all of MRI due to pain and would like to proceed with LP. Consult was placed to IR for LP and patient is undergoing neurological workup for possible MS. Patient also continues to be followed by general surgery and maintained on IV antibiotics with infectious disease following and patient will require IV antibiotic therapy in the outpatient setting and is scheduled to receive a PICC line today. Patient is afebrile and denies chest pain or shortness of breath. Most recent blood cultures remain negative. Foot culture showing E. coli and staph aureus. Patient will likely need outpatient follow-up closely with neurologist. 02/10/2022 Patient is evaluated today and continues to be in pain and restless and unable to extend his legs or walk. Patient is maintained on IV antibiotics and has received a PICC line. Continued wound care and is also being followed by neurology for lower extremity weakness and will be having an LP. Pulmonary consu lted for lung nodule and will be an outpatient follow up. Patient is to go to [facility] on the [place] once stable and cleared by neurology. Patient is afebrile and denies chest pain or shortness of breath. Patient is anxious and wants to leave. Patient reports to no sleep and have ordered Restoril. 02/13/2022 Patient is seen this morning continues to be anxious and looking forward to going to rehab so he can work on walking as patient continues with severe lower extremity weakness. Infectious disease, general surgery, and neurology following closely and plan was for LP and this was not done as apparently heparin has not been on hold and will need to be held and anesthesia contacted and will do tomorrow if heparin is held. Patient will need further neurological workup in the outpatient setting with further testing and this was discussed with the patient. Patient to continue with local wound care and will be extensive wound care and close follow-up in the outpatient setting with the [facility]. Patient also continues with indwelling Canales catheter to monitor intake and output along with to assist with healing of extensive gluteal ulcers. Patient is afebrile and denies any chest pain or shortness of breath. 02/15/2022 Patient is seen in follow-up this morning and psychiatric consult has been placed as patient continues to have periodic episodes of confusion and frustr ation and crying out stating "I want my momma". When discussing with the patient about overall care plan and current behavior and suicidal ideation or thoughts of wanting to harm self or other was asked and patient is refusing suicidal ideation at this time. Patient has pulled out two picc lines and to indwelling Canales catheters and will not give reasons why. Patient was scheduled to go to rehab for continued IV antibiotic therapy and wound care along with aggressive physical therapy and this was placed on hold secondary to patient removing his second PICC line while EMS had arrived. Patient is afebrile and vital signs are stable. Will await psychiatric consult and appreciate input and recommendations. Patient denies any chest pain or shortness of breath. Patient continues to have left lower extremity pain and buttock pain although reports on exam that his current pain medication is effective at this time. Case was discussed with case management and will have possible APS involvement. 02/16/2022 Patient is seen today with a health safety and environment manager at the bedside and continues to be with episodes of bizarre behavior and reports to understanding what the treatment plan is but then soon after questioning what he is doing still here in the hospital. Patient reports severe left leg pain and neuro also following and ordered CT of the spine as patient has been unable to tolerate further MRI and LP. Social work following and psychiatry as well as patient was deemed unable to make his own medical decisions and will require a guardian. Court hearing next Sunday. Patient continues on wound care and IV antibiotics. Patient is afebrile and denies chest pain or shortness of breath. Patient denies nausea or vomiting. 02/17/2022 Patient is evaluated today with continued sitter today. patient is more calm and flat today. Patient continues to have pain and reports that pain is currently controlled. Patient denies chest pain or shortness of breath. Patient is afebrile. Psychiatry following and has made adjustments to medications. ID also following and continued on oral and IV abx of flagyl and cefepime. Patient to have appointed guardian next week sunday and will likely receive PICC at that point prior to discharge to ECF. Patient reports to eating and denies nausea or vomiting. Continued with indwelling canales catheter and patient reports to having bowel movements. Local wound care to the gluteal region per wound and ID along with surgery. 02/20/2022 Patient is seen in follow-up today with no acute overnight issues noted. Patient is to not have any visitors at this time as apparently family visited sometime over the weekend and proceeded to bring the patient narcotic medications. Patient will continue with current medication regimen and no visitors at this time. Social work following and plan is for possible guardianship on Sunday at the court hearing and patient will need ECF on discharge. Patient will need a PICC line placed prior to discharge this patient continues to need at least 4 more weeks of IV antibiotic therapy. ID is following and patient is maintained on IV cefepime and oral Flagyl and will continue. Patient also to continue with local wound care. Patient denies any chest pain or shortness of breath. Patient is afebrile. 02/21/2022 Patient is evaluated today and calm and cooperative. Patient awaiting guardian hearing that is scheduled for 02/22/2022. Social work following as well and looking for accepting facilities for continued PT/OT therapy and also IV antibiotic therapy. Patient to receive a PICC once guardian is appointed. Patient reports to not having a bowel movement in a few days and staff reports 2 bowel movements yesterday. Will add PRN meds. Patient is afebrile and denies any chest pain or shortness of breath. Review of systems: Constitutional: no reports of fatigue, no fever, or chills Cardiovascular: No reports of chest pain or palpitations Respiratory: No reports of shortness of breath or cough GI: No reports of nausea, no reports of of vomiting : No reports of dysuria or retention Neurovascular: reports of generalized weakness and inability to walk, reports left leg and gluteal pain All medications have been reviewed PHYSICAL EXAMINATION: GENERAL: The patient is alert and oriented x2-3, Thin built, cachetic, appears older than stated age HEENT: Pupils are round and equally reacting to light. EOMI. no scleral icterus. No conjunctival pallor. Normocephalic, atraumatic. No pharyngeal erythema. No thyromegaly. CARDIOVASCULAR: S1 and S2 muffled PULMONARY: diminished breath sounds bilaterally with some scattered rhonchi noted ABDOMEN: soft. Nontender on exam. non-distended, normoactive bowel sounds. No palpable organomegaly. MUSCULOSKELETAL: No joint swelling or deformity. EXTREMITIES: No cyanosis, clubbing, or pedal edema. Significant wasting noted, left lower extremity twitching NEUROLOGICAL: Gross neurological examination did not reveal any focal deficits. Diffuse weakness SKIN: Stage IV bilateral gluteal ulcers status post debridement. Left foot ulcer and flaking noted as well Assessment: Acute bilateral gluteal ulcers as well as skin ulcers with sepsis, present on admission Weakness of bilateral lower extremities, rule out paraparesis, further ne urological workup outpatient for possible MS Anxiety/depression Mood disorder possible metabolic encephalopathy secondary to IV narcotics Extensive history of EtOH and continued ongoing nicotine abuse Marijuana use daily Hypovolemic hyponatremia Hypocalcemia Moderate protein calorie malnutrition with a BMI of 21.6 GI prophylaxis DVT prophylaxis; subcutaneous heparin no code Plan: Recommend to continue with current medications and management with general surgery, neurology, and infectious disease following. Patient to work with physical therapy and social work following and working on ECF. Court hearing in the am for guardianship. Patient with flat affect and calm today. Patient does have another indwelling Canales catheter and will attempt another PICC package liner to discharge. Will await court hearing to receive appointed guardian and will discuss PICC line at that point. Patient will require neurology evaluation in the outpatient setting for further workup along with oncology. Due to multiple complex medical issues, prognosis is guarded. Recommend continued local wound care. The impression and plan of care has been dictated by nurse rob Kirkpatrick titioner as directed. Dr. Solomon MD I have performed a history and examination and MDM of this patient, discussed the same with the dictator, and agree with the dictator's assessment and plan as written ,documented as a scribe. Based on total visit time, I have performed more than 50% of the visit. Any additional findings or plans will be noted. Objective - Vital Signs Vital signs: Vital Signs Temp 97.5 F L 02/21/22 08:00 Pulse 96 02/21/22 08:00 Resp 16 02/21/22 08:00 BP 155/78 02/21/22 08:00 Pulse Ox 98 02/21/22 08:00 FiO2 Intake & Output 02/20/22 02/21/22 02/21/22 18:59 06:59 18:59 Output Total 2600 Balance -2600 Weight 58.967 kg Output: Urine 2600 Other: Voiding Method Indwelling Catheter Indwelling Catheter # Voids 2 # Bowel Movements 1 - Labs CBC & Chem 7: 02/18/22 09:50 02/19/22 05:51 Labs: Abnormal Lab Results - Last 24 Hours (Table) 02/20/22 02/20/22 02/20/22 Range/Units 11:56 17:03 21:19 POC Glucose (mg/dL) 109 H 126 H 274 H (75-99) mg/dL 02/21/22 Range/Units 06:56 POC Glucose (mg/dL) 108 H (75-99) mg/dL
[2022-02-21 20:20] LABS: Glucose,Whole Blood 122 mg/dL (75-99)
[2022-02-21] MEDS: PALIPERIDONE 6 MG TAB.ER.24 PO SCH (20:54)
[2022-02-21] MEDS: MELATONIN 3 MG TABLET PO SCH (20:54)
[2022-02-22] MEDS: HYDROcodone/APAP 10-325MG 1 EACH TAB PO PRN ×4 (05:28→23:19)
[2022-02-22 07:15] LABS: Glucose,Whole Blood 102 mg/dL (75-99)
[2022-02-22] MEDS: BACLOFEN 10 MG TAB PO SCH ×2 (08:03→21:20)
[2022-02-22] MEDS: MULTIVITAMINS, THERA 1 EACH TAB PO SCH (08:03)
[2022-02-22] MEDS: metroNIDAZOLE 500 MG TAB PO SCH ×3 (08:03→21:20)
[2022-02-22] MEDS: HEPARIN SODIUM,PORCINE/PF 5,000 UNIT/0.5 ML SYRINGE SQ SCH ×2 (08:03→21:21)
[2022-02-22] MEDS: FOLIC ACID 1 MG TAB PO SCH (08:03)
[2022-02-22] MEDS: ZINC SULFATE 220 MG CAP PO SCH (08:03)
[2022-02-22] MEDS: CALCIUM CARB-VIT D 500 MG-5 MCG TAB PO SCH ×2 (08:03→17:16)
[2022-02-22] MEDS: amLODIPine 2.5 MG TAB PO SCH (08:03)
[2022-02-22] MEDS: THIAMINE 100 MG TAB PO SCH ×2 (08:03→17:16)
[2022-02-22] MEDS: PYRIDOXINE 50 MG TAB PO SCH (08:04)
[2022-02-22] MEDS: PANTOPRAZOLE 40 MG/10 ML VIAL IV SCH (08:04)
[2022-02-22] MEDS: SODIUM CHLORIDE 0.9% 1,000 ML IV SCH ×2 (08:04→22:15)
[2022-02-22] MEDS: CEFEPIME 2 GM in SODIUM CHLORIDE 0.9% 100 ML IVPB SCH ×2 (08:04→17:16)
[2022-02-22] MEDS: NICOTINE 21MG/24HR PATCH TRANSDERM SCH (08:06)
--- NOTE | 2022-02-22 14:30 | P.PN ---
Subjective Progress Note Date: 02/22/22 This is a 61-year-old male who was recently admitted with bilateral gluteal ulcers and significant infections with features of sepsis, present on admission and is being closely monitored. Patient is status post sharp excisional debridement of bilateral gluteal decubitus ulcers stage IV with Dr. Yun and cultures have been sent and are pending and infectious disease also closely monitoring and awaiting finalized cultures and patient is maintained on IV cefepime and will continue at this time. Neurology also evaluating the patient for continued weakness and has an MRI of the brain, cervical, thoracic, and lumbar ordered to evaluate for MS. Preliminary wound culture showing E. coli presumptive staph. Patient denies chest pain or shortness of breath. Patient is afebrile. Patient tolerating diet with no reports of nausea or vomiting noted. Patient to have physical therapy evaluate and possibly ECF being planned. 02/08/2022 Patient is seen in follow up and is being monitored by ID, neurology, surgery, and wound, Patient is continued on IV cefepime and will continue. Patient will require PICC line and IV abx on discharge. Patient with significant gluteal wounds and recommend frequent position changes and local wound care per surgical and ID recommendations. Patient sodium is low and potassium is 3.5 and mag is 1.6 and will replace per protocol and repeat am labs. Patient is afebrile and denies chest pain or shortness of breath. Patient to undergo MRI per neurology recommendations. 02/09/2022 Patient is seen this morning and is agitated and reporting severe pain 10 out of 10 of his gluteal region and his foot and feels his pain is not being managed. Medication adjustments have been made and discussed with nursing staff. Patient continues with weakness and will likely need ECF and [facility] the [place] is being planned. Patient continues with neurological workup with neurology following closely and unable to tolerate all of MRI due to pain and would like to proceed with LP. Consult was placed to IR for LP and patient is undergoing neurological workup for possible MS. Patient also continues to be followed by general surgery and maintained on IV antibiotics with infectious disease following and patient will require IV antibiotic therapy in the outpatient setting and is scheduled to receive a PICC line today. Patient is afebrile and denies chest pain or shortness of breath. Most recent blood cultures remain negative. Foot culture showing E. coli and staph aureus. Patient will likely need outpatient follow-up closely with neurologist. 02/10/2022 Patient is evaluated today and continues to be in pain and restless and unable to extend his legs or walk. Patient is maintained on IV antibiotics and has received a PICC line. Continued wound care and is also being followed by neurology for lower extremity weakness and will be having an LP. Pulmonary consu lted for lung nodule and will be an outpatient follow up. Patient is to go to [facility] on the [place] once stable and cleared by neurology. Patient is afebrile and denies chest pain or shortness of breath. Patient is anxious and wants to leave. Patient reports to no sleep and have ordered Restoril. 02/13/2022 Patient is seen this morning continues to be anxious and looking forward to going to rehab so he can work on walking as patient continues with severe lower extremity weakness. Infectious disease, general surgery, and neurology following closely and plan was for LP and this was not done as apparently heparin has not been on hold and will need to be held and anesthesia contacted and will do tomorrow if heparin is held. Patient will need further neurological workup in the outpatient setting with further testing and this was discussed with the patient. Patient to continue with local wound care and will be extensive wound care and close follow-[facility]. Patient also continues with indwelling Canales catheter to monitor intake and output along with to assist with healing of extensive gluteal ulcers. Patient is afebrile and denies any chest pain or shortness of breath. 02/15/2022 Patient is seen in follow-up this morning and psychiatric consult has been placed as patient continues to have periodic episodes of confusion and frustr ation and crying out stating "I want my momma". When discussing with the patient about overall care plan and current behavior and suicidal ideation or thoughts of wanting to harm self or other was asked and patient is refusing suicidal ideation at this time. Patient has pulled out two picc lines and to indwelling Canales catheters and will not give reasons why. Patient was scheduled to go to rehab for continued IV antibiotic therapy and wound care along with aggressive physical therapy and this was placed on hold secondary to patient removing his second PICC line while EMS had arrived. Patient is afebrile and vital signs are stable. Will await psychiatric consult and appreciate input and recommendations. Patient denies any chest pain or shortness of breath. Patient continues to have left lower extremity pain and buttock pain although reports on exam that his current pain medication is effective at this time. Case was discussed with case management and will have possible APS involvement. 02/16/2022 Patient is seen today with a patient safety coordinator at the bedside and continues to be with episodes of bizarre behavior and reports to understanding what the treatment plan is but then soon after questioning what he is doing still here in the hospital. Patient reports severe left leg pain and neuro also following and ordered CT of the spine as patient has been unable to tolerate further MRI and LP. Social work following and psychiatry as well as patient was deemed unable to make his own medical decisions and will require a guardian. Court hearing next Sunday. Patient continues on wound care and IV antibiotics. Patient is afebrile and denies chest pain or shortness of breath. Patient denies nausea or vomiting. 02/17/2022 Patient is evaluated today with continued sitter today. patient is more calm and flat today. Patient continues to have pain and reports that pain is currently controlled. Patient denies chest pain or shortness of breath. Patient is afebrile. Psychiatry following and has made adjustments to medications. ID also following and continued on oral and IV abx of flagyl and cefepime. Patient to have appointed guardian next week sunday and will likely receive PICC at that point prior to discharge to ECF. Patient reports to eating and denies nausea or vomiting. Continued with indwelling canales catheter and patient reports to having bowel movements. Local wound care to the gluteal region per wound and ID along with surgery. 02/20/2022 Patient is seen in follow-up today with no acute overnight issues noted. Patient is to not have any visitors at this time as apparently family visited sometime over the weekend and proceeded to bring the patient narcotic medications. Patient will continue with current medication regimen and no visitors at this time. Social work following and plan is for possible guardianship on Sunday at the court hearing and patient will need ECF on discharge. Patient will need a PICC line placed prior to discharge this patient continues to need at least 4 more weeks of IV antibiotic therapy. ID is following and patient is maintained on IV cefepime and oral Flagyl and will continue. Patient also to continue with local wound care. Patient denies any chest pain or shortness of breath. Patient is afebrile. 02/21/2022 Patient is evaluated today and calm and cooperative. Patient awaiting guardian hearing that is scheduled for 02/22/2022. Social work following as well and looking for accepting facilities for continued PT/OT therapy and also IV antibiotic therapy. Patient to receive a PICC once guardian is appointed. Patient reports to not having a bowel movement in a few days and staff reports 2 bowel movements yesterday. Will add PRN meds. Patient is afebrile and denies any chest pain or shortness of breath. 02/22/2022 Patient is seen in follow-up today with no acute overnight issues noted. Patient had legal guardian appointed today and will have PICC line placed as patient will need continued IV antibiotics for another 4 weeks and infectious disease is following closely. Patient is maintained on IV cefepime along with oral Flagyl and this will continue. Patient also to continue with local wound care and will need multiple medical consultation follow-up in the outpatient setting. Patient is agreeable with all of this and social work is following working on accepting facility. Patient denies any chest pain or shortness of breath. Patient is afebrile. No reports of nausea or vomiting noted and patient is tolerating diet. Review of systems: Constitutional: no reports of fatigue, no fever, or chills Cardiovascular: No reports of chest pain or palpitations Respiratory: No reports of shortness of breath or cough GI: No reports of nausea, no reports of of vomiting : No reports of dysuria or retention Neurovascular: reports of generalized weakness and inability to walk, reports left leg pain All medications have been reviewed PHYSICAL EXAMINATION: GENERAL: The patient is alert and oriented x2-3, Thin built, cachetic, appears older than stated age HEENT: Pupils are round and equally reacting to light. EOMI. no scleral icterus. No conjunctival pallor. Normocephalic, atraumatic. No pharyngeal erythema. No thyromegaly. CARDIOVASCULAR: S1 and S2 muffled PULMONARY: diminished breath sounds bilaterally with some scattered rhonchi noted ABDOMEN: soft. Nontender on exam. non-distended, normoactive bowel sounds. No palpable organomegaly. MUSCULOSKELETAL: No joint swelling or deformity. EXTREMITIES: No cyanosis, clubbing, or pedal edema. Significant wasting noted, left lower extremity twitching NEUROLOGICAL: Gross neurological examination did not reveal any focal deficits. Diffuse weakness SKIN: Stage IV bilateral gluteal ulcers status post debridement. Left foot ulcer and flaking noted as well Assessment: Acute bilateral gluteal ulcers as well as skin ulcers with sepsis, present on admission Weakness of bilateral lower extremities, rule out paraparesis, further neurological workup outpatient for possible MS Anxiety/depression Mood disorder possible metabolic encephalopathy secondary to IV narcotics Extensive history of EtOH and continued ongoing nicotine abuse Marijuana use daily Hypovolemic hyponatremia Hypocalcemia Moderate protein calorie malnutrition with a BMI of 21.6 GI prophylaxis DVT prophylaxis; subcutaneous heparin no code Plan: Recommend to continue with current medications and management with general surgery, neurology, and infectious disease following. Patient to work with physical therapy and social work following and working on ECF. Patient was appointed a legal guardian today and social work is following and working on an accepting facility. Patient will need continued antibiotics in the form of cefepime and Flagyl for another 4 weeks to complete the course. Order for PICC line is placed. Patient to continue with indwelling Canales catheter. Patient will require neurology evaluation in the outpatient setting for further workup along with oncology. Due to multiple complex medical issues, prognosis is guarded. Recommend continued local wound care. Awaiting accepting facility with possible discharge in 24-48 hours. The impression and plan of care has been dictated by Kellen Cole, nurse practitioner as directed. Dr. Solomon MD I have performed a history and examination and MDM of this patient, discussed the same with the dictator, and agree with the dictator's assessment and plan as written ,documented as a scribe. Based on total visit time, I have performed more than 50% of the visit. Any additional findings or plans will be noted. Objective - Vital Signs Vital signs: Vital Signs Temp 97.5 F L 02/22/22 08:02 Pulse 86 02/22/22 08:02 Resp 17 02/22/22 08:02 BP 150/78 02/22/22 08:02 Pulse Ox 100 02/22/22 08:02 FiO2 Intake & Output 02/21/22 02/22/22 02/22/22 18:59 06:59 18:59 Intake Total 240 540 Output Total 1300 2550 500 Balance -1300 -2310 40 Intake: Oral 240 540 Output: Urine 1300 2550 500 Other: Voiding Method Indwelling Catheter Indwelling Catheter Indwelling Catheter - Labs CBC & Chem 7: 02/18/22 09:50 02/19/22 05:51 Labs: Abnormal Lab Results - Last 24 Hours (Table) 02/21/22 02/21/22 02/22/22 Range/Units 17:12 20:19 07:13 POC Glucose (mg/dL) 124 H 122 H 102 H (75-99) mg/dL
[2022-02-22] MEDS: TRIAMCINOLONE 0.1% CREAM 80 GM TUBE TOPICAL SCH (14:40)
[2022-02-22] MEDS: COLLAGENASE 250 UNIT/GM OINTMENT 30 GM TUBE TOPICAL SCH (14:40)
--- NOTE | 2022-02-22 15:08 | IR ---
EXAMINATION TYPE: IR cvc insert >=5 years DATE OF EXAM: 02/22/2022 COMPARISON: NONE CLINICAL HISTORY: Infection Needs long-term intravenous access for antibiotics. PROCEDURE: Hand hygiene obtained with soap and water and alcohol-based hand rub. After informed consent, the skin overlying the right basilic vein was localized with ultrasound and n oted to be compressible and patent. An ultrasound image was obtained and submitted on the patient's chart. The overlying skin was prepped and draped and Lidocaine was used for local anesthesia. A ski n fernando was made with a scalpel. Access was gained to the vein under ultrasound guidance with a 21 ga uge needle and a 0.018 inch wire was advanced. Access site was dilated with Peel-Away sheath and cat heter tailored to the appropriate length and advanced such that the distal tip is at the cavoatrial j unction. Spot image was obtained verifying placement. Catheter was fixed to the skin and a sterile dressing was placed following hemostasis. Catheter was aspirated and flushed with saline. Patient w as discharged in stable condition without complication.Maximal barrier technique is utilized. Ultras ound image is documented on the chart. Ultrasound used with sterile technique. Fluoro time and fluoroscopic images submitted to document procedure: 121 intraoperative images, 0.6 m inutes fluoroscopy time IMPRESSION: STATUS POST ULTRASOUND AND FLUOROSCOPIC GUIDED PICC LINE PLACEMENT, READY FOR USE. THIS PROCEDURE WAS PERFORMED BY THE UNDERSIGNED.
[2022-02-22 20:19] LABS: Glucose,Whole Blood 156 mg/dL (70-110)
[2022-02-22] MEDS: MELATONIN 3 MG TABLET PO SCH (21:21)
[2022-02-22] MEDS: PALIPERIDONE 6 MG TAB.ER.24 PO SCH (21:21)
[2022-02-23] MEDS: CEFEPIME 2 GM in SODIUM CHLORIDE 0.9% 100 ML IVPB SCH ×2 (00:24→08:10)
[2022-02-23 07:10] LABS: Glucose,Whole Blood 120 mg/dL (70-110)
[2022-02-23] MEDS: NICOTINE 21MG/24HR PATCH TRANSDERM SCH (08:10)
[2022-02-23] MEDS: CALCIUM CARB-VIT D 500 MG-5 MCG TAB PO SCH (08:11)
[2022-02-23] MEDS: FOLIC ACID 1 MG TAB PO SCH (08:11)
[2022-02-23] MEDS: metroNIDAZOLE 500 MG TAB PO SCH (08:11)
[2022-02-23] MEDS: MULTIVITAMINS, THERA 1 EACH TAB PO SCH (08:11)
[2022-02-23] MEDS: BACLOFEN 10 MG TAB PO SCH (08:11)
[2022-02-23] MEDS: ZINC SULFATE 220 MG CAP PO SCH (08:11)
[2022-02-23] MEDS: THIAMINE 100 MG TAB PO SCH (08:11)
[2022-02-23] MEDS: amLODIPine 2.5 MG TAB PO SCH (08:11)
[2022-02-23] MEDS: HYDROcodone/APAP 10-325MG 1 EACH TAB PO PRN (08:11)
[2022-02-23] MEDS: HEPARIN SODIUM,PORCINE/PF 5,000 UNIT/0.5 ML SYRINGE SQ SCH (08:12)
[2022-02-23] MEDS: PYRIDOXINE 50 MG TAB PO SCH (08:13)
[2022-02-23] MEDS: PANTOPRAZOLE 40 MG/10 ML VIAL IV SCH (08:14)
[2022-02-23 08:42] VITALS: BP 116/69; PULSE 92; RESP 18; TEMP 98
--- NOTE | 2022-02-23 08:58 | P.PN ---
Subjective Progress Note Date: 02/21/22 Principal diagnosis: Infected bilateral gluteal pressure ulcer Patient is a 61-year-old male presented to hospital with weakness in this patient noticed to have unstageable bilateral gluteal pressure ulcer with secondary cellulitis and some ulcerations the left foot but no cellulitis. On today's evaluation that is 02/21/2022, the patient remains to be afebrile, patient is breathing comfortably on room air, the patient pain to the gluteal area is currently controlled , the patient denies nausea no vomiting no abdominal pain no diarrhea, currently waiting for placement Objective - Vital Signs Vital signs: Vital Signs Temp 97.5 F L 02/21/22 08:00 Pulse 96 02/21/22 08:00 Resp 16 02/21/22 08:00 BP 155/78 02/21/22 08:00 Pulse Ox 98 02/21/22 08:00 FiO2 Intake & Output 02/20/22 02/21/22 02/21/22 18:59 06:59 18:59 Output Total 2600 Balance -2600 Weight 58.967 kg Output: Urine 2600 Other: Voiding Method Indwelling Catheter Indwelling Catheter Indwelling Catheter # Voids 2 # Bowel Movements 1 - Exam GENERAL DESCRIPTION: A middle-age male lying in bed in no distress RESPIRATORY SYSTEM: Unlabored breathing , decreased breath sounds at bases HEART: S1 S2 regular rate and rhythm , ABDOMEN: Soft , no tenderness, bilateral gluteal wounds currently dressed EXTREMITIES: No edema feet - Labs CBC & Chem 7: 02/18/22 09:50 02/19/22 05:51 Labs: Abnormal Lab Results - Last 24 Hours (Table) 02/20/22 02/20/22 02/21/22 Range/Units 17:03 21:19 06:56 POC Glucose (mg/dL) 126 H 274 H 108 H (75-99) mg/dL 02/21/22 Range/Units 11:31 POC Glucose (mg/dL) 122 H (75-99) mg/dL Assessment and Plan (1) Abscess and cellulitis of gluteal region Current Visit: Yes Status: Acute Code(s): L02.31 - CUTANEOUS ABSCESS OF BUTTOCK; L03.317 - CELLULITIS OF BUTTOCK SNOMED Code(s): 005740326 Plan: 1patient with bilateral unstageable pressure ulcer with necrotic base and surrounding redness suspicious for secondary cellulitis , patient on surgical debridement was noticed to have a stage IV pressure ulcer 2left foot superficial ulceration but no cellulitis , patient left foot ulceration is healed no cellulitis none. Further therapy 3patient is status post surgical debridement and deep culture which are growing E. coli staph aureus strep and anaerobes 4- patient with MSSA bacteremia, blood cultures repeat has been negative 5-patient bilateral gluteal wounds has shown clinical improvement and surrounding redness is improved 6- patient is afebrile white count normal, patient to continue with cefepime and Flagyl and continue supportive care Time with Patient: Less than 30
--- NOTE | 2022-02-23 08:59 | P.PN ---
Subjective Progress Note Date: 02/22/22 Principal diagnosis: Infected bilateral gluteal pressure ulcer Patient is a 61-year-old male presented to hospital with weakness in this patient noticed to have unstageable bilateral gluteal pressure ulcer with secondary cellulitis and some ulcerations the left foot but no cellulitis. On today's evaluation that is 02/22/2022, the patient denies any fever or any chills, patient is breathing comfortably on room air, the patient denies pain to the gluteal area , the patient denies nausea no vomiting no abdominal pain no diarrhea, currently waiting for placement Objective - Vital Signs Vital signs: Vital Signs Temp 97.5 F L 02/22/22 08:02 Pulse 86 02/22/22 08:02 Resp 17 02/22/22 08:02 BP 150/78 02/22/22 08:02 Pulse Ox 100 02/22/22 08:02 FiO2 Intake & Output 02/21/22 02/22/22 02/22/22 18:59 06:59 18:59 Intake Total 240 540 Output Total 1300 2550 500 Balance -1300 -2310 40 Intake: Oral 240 540 Output: Urine 1300 2550 500 Other: Voiding Method Indwelling Catheter Indwelling Catheter Indwelling Catheter - Exam GENERAL DESCRIPTION: A middle-age male lying in bed in no distress RESPIRATORY SYSTEM: Unlabored breathing , decreased breath sounds at bases HEART: S1 S2 regular rate and rhythm , ABDOMEN: Soft , no tenderness, bilateral gluteal wounds currently dressed EXTREMITIES: No edema feet - Labs CBC & Chem 7: 02/18/22 09:50 02/19/22 05:51 Labs: Abnormal Lab Results - Last 24 Hours (Table) 02/21/22 02/21/22 02/22/22 Range/Units 17:12 20:19 07:13 POC Glucose (mg/dL) 124 H 122 H 102 H (75-99) mg/dL Assessment and Plan (1) Abscess and cellulitis of gluteal region Current Visit: Yes Status: Acute Code(s): L02.31 - CUTANEOUS ABSCESS OF BUTTOCK; L03.317 - CELLULITIS OF BUTTOCK SNOMED Code(s): 482949004 Plan: 1patient with bilateral unstageable pressure ulcer with necrotic base and surrounding redness suspicious for secondary cellulitis , patient on surgical debridement was noticed to have a stage IV pressure ulcer 2left foot superficial ulceration but no cellulitis , patient left foot ulceration is healed no cellulitis none. Further therapy 3patient is status post surgical debridement and deep culture which are growing E. coli staph aureus strep and anaerobes 4- patient with MSSA bacteremia, blood cultures repeat has been negative 5-patient bilateral gluteal wounds has shown clinical improvement and surrou nding redness is improved 6- patient has shown clinical improvement and will continue with cefepime and Flagyl 3 weeks of discharge Time with Patient: Less than 30
--- NOTE | 2022-02-23 10:25 | P.DS ---
Providers Date of admission: 02/03/22 11:22 Expected date of discharge: 02/23/22 Attending physician: Alfredo Vazqeuz Consults: 02/03/22 11:23 Consult Physician Urgent Consulting Provider: Nicolette Oh Consult Reason/Comments: Foot and sacral ulcer Do you want consulting provider notified?: Yes 02/03/22 15:59 Consult Physician Routine Consulting Provider: Kenia Yun Consult Reason/Comments: Bilateral gluteal wounds, poss debridement Do you want consulting provider notified?: Yes 02/06/22 12:07 Consult Physician Routine Consulting Provider: Keith Tse Consult Reason/Comments: bilateral legs weakness, inablility to mbulate Do you want consulting provider notified?: Yes 02/09/22 13:44 Consult to Anesthesia Routine Consulting Provider: Anesthesia,Services Consult Reason/Comments: Probable multiple sclerosis, check oligoclonal bands 02/09/22 14:26 Consult Physician Urgent Consulting Provider: Nirmal Treadwell Consult Reason/Comments: right lung nodule noted on CT with progression Do you want consulting provider notified?: Yes 02/14/22 19:05 Consult Physician Stat Consulting Provider: Eric Krueger Consult Reason/Comments: ams, depression/ anxiety, ripping out multiple IV's and foleys Do you want consulting provider notified?: Yes Primary care physician: Tigist Nunez [place] Course: Final diagnosis Acute bilateral gluteal ulcers as well as skin ulcers with sepsis, present on admission Weakness of bilateral lower extremities, rule out paraparesis, further neurological workup outpatient for possible MS Anxiety/depression Mood disorder possible metabolic encephalopathy secondary to IV narcotics Extensive history of EtOH and continued ongoing nicotine abuse Marijuana use daily Hypovolemic hyponatremia Hypocalcemia Moderate protein calorie malnutrition with a BMI of 21.6 GI prophylaxis DVT prophylaxis; subcutaneous heparin no code Discharge disposition Patient is being discharged in a stable condition with guarded prognosis to [facility] in [place] for continued PT/OT therapy. Patient will follow-up with primary care provider in the outpatient setting upon discharge. Patient is to continue with oral Flagyl 500 mg 3 times a day for the next 3 weeks along with IV cefepime 2 g every 8 hours for the next 3 weeks as well. Patient is to continue with local wound care and also follow-up with general surgery, neur ology, oncology, and the wound care center in the outpatient setting. Total time taken is greater than 35 minutes. Hospital course This is a 61-year-old male who was recently admitted with bilateral gluteal ulcers with significant infections and features of sepsis and being closely monitored. Patient is status post excisional debridement of the bilateral gluteus decubitus stage IV ulcers with general surgery Dr. Yun and culture showing MSSA and has received a PICC line and will be continued on oral Flagyl 500 mg 3 times a day along with IV cefepime 3 times daily for the next 3 weeks. Patient continued with bilateral lower extremity weakness and inability to walk and underwent full neurological workup and refusing most of the workup as patient is unable to tolerate due to pain and agitation on multiple different attempts. LP was attempted although unsuccessful as patient could not consent at that time. Discussed with neurology and patient will follow up with neurology in the outpatient setting for further testing. Patient does have an extensive past medical history of marijuana smoking and daily alcohol use and reports that he drinks beer daily until passing out and has not followed up with any providers most recently. Patient does see Dr. Nunez in the outpatient setting. Patient is also to follow-up with pulmonary regarding CT lung findings have been noted on previous CTs although progressing in size and also hematology for further anemia workup and ruling out of paraproteinemia/myeloma. Patient is to follow-up at the wound care center in the next 1-2 weeks. Patient was appointed a guardian as he was seen and evaluated by psychiatry and unable to make appropriate and safe medical decisions for himself and will continue with guardian for now. Patient continues to need ECF for continued PT/OT therapy along with wound care and IV hepatic management. Currently no reports of chest pain, shortness of breath, or palpitations. Patient is afebrile. No reports of nausea or vomiting and patient is tolerating diet. Patient will be going to ECF today. Guarded prognosis. Physical Exam: Gen: This is a 61-year-old male awake, alert and oriented 3, thin built, cachectic, ill-appearing, appears much older than stated age. Temp is 97.6F, pulse is 100, respirations are 21, blood pressure 93/59, oxygen saturation is 100% on room air HEENT: Head is atraumatic, normocephalic. Pupils equal, round. Sclerae is anicteric. NECK: Supple. No JVD. No lymphadenopathy. No thyromegaly. LUNGS: Diminished breath sounds bilaterally with no wheezing or rhonchi noted. No intercostal retractions. HEART: Regular rate and rhythm. No murmur. ABDOMEN: Soft. Bowel sounds are present. No masses. No tenderness. EXTREMITIES: No pedal edema. No calf tenderness. NEUROLOGICAL: Patient is awake, alert and oriented x2-3. Cranial nerves 2 through 12 are grossly intact. Diffusely weak Please refer to medication reconciliation sheet for a list of medications. The impression and plan of care has been dictated by Kellen Cole, Nurse Practitioner as directed. Dr. Solomon MD I have performed a history and examination and MDM of this patient, discussed the same with the dictator, and agree with the dictator's assessment and plan as written ,documented as a scribe. Based on total visit time, I have performed more than 50% of the visit. Patient Condition at Discharge: Fair Plan - Discharge Summary Discharge Rx Participant: No New Discharge Prescriptions: New metroNIDAZOLE [Flagyl] 500 mg PO TID 35 Days #105 tab Nicotine 21Mg/24Hr Patch [Habitrol] 1 patch TRANSDERM DAILY patch Heparin Sodium,Porcine [Heparin Sodium] 5,000 unit SQ Q8HR 30 Days #90 each Cefepime [Maxipime] 2 gm IVPB Q8HR 35 Days #105 each HYDROcodone/APAP 7.5-325MG [Lovely 7.5-325] 1 each PO Q4H PRN #6 tab PRN Reason: Pain Zinc Sulfate [Orazinc] 220 mg PO DAILY cap Folic Acid 1 mg PO DAILY tab Triamcinolone 0.1% Cream [Kenalog 0.1% Cream] 1 applic TOPICAL DAILY each Baclofen [Lioresal] 20 mg PO BID #6 tab Multivitamins, Thera [Multivitamin (formulary)] 1 each PO DAILY tab Nystatin 100,000Unit/gm Cream [Mycostatin Cream] 1 applic TOPICAL DAILY each Calcium Carb-Vit D 500Mg-5Mcg [Oscal 500+D 5 Mcg (200 Iu)] 1 each PO BID- W/MEALS tab Temazepam [Restoril] 15 mg PO HS PRN #3 cap PRN Reason: Insomnia Collagenase [Santyl Ointment] 1 applic TOPICAL DAILY each QUEtiapine [SEROquel] 25 mg PO HS tab Acetaminophen Tab [Tylenol] 650 mg PO Q6HR PRN tab PRN Reason: Mild Pain Or Fever > 100.5 Thiamine [Vitamin B-1] 100 mg PO BID-W/MEALS tab Pyridoxine [Vitamin B-6] 50 mg PO DAILY tab Ergocalciferol [Vitamin D2 (1250 Mcg = 52627 Iu)] 1,250 mcg PO Q7D cap Continue amLODIPine [Norvasc] 2.5 mg PO DAILY Discharge Medication List amLODIPine [Norvasc] 2.5 mg PO DAILY 02/03/22 [History] Acetaminophen Tab [Tylenol] 650 mg PO Q6HR PRN tab 02/14/22 [Rx] Baclofen [Lioresal] 20 mg PO BID #6 tab 02/14/22 [Rx] Calcium Carb-Vit D 500Mg-5Mcg [Oscal 500+D 5 Mcg (200 Iu)] 1 each PO BID-W/MEALS tab 02/14/22 [Rx] Cefepime [Maxipime] 2 gm IVPB Q8HR 35 Days #105 each 02/14/22 [Rx] Collagenase [Santyl Ointment] 1 applic TOPICAL DAILY each 02/14/22 [Rx] Ergocalciferol [Vitamin D2 (1250 Mcg = 79021 Iu)] 1,250 mcg PO Q7D cap 02/14/22 [Rx] Folic Acid 1 mg PO DAILY tab 02/14/22 [Rx] HYDROcodone/APAP 7.5-325MG [Lovely 7.5-325] 1 each PO Q4H PRN #6 tab 02/14/22 [Rx] Heparin Sodium,Porcine [Heparin Sodium] 5,000 unit SQ Q8HR 30 Days #90 each 02/14/22 [Rx] Multivitamins, Thera [Multivitamin (formulary)] 1 each PO DAILY tab 02/14/22 [Rx] Nicotine 21Mg/24Hr Patch [Habitrol] 1 patch TRANSDERM DAILY patch 02/14/22 [Rx] Nystatin 100,000Unit/gm Cream [Mycostatin Cream] 1 applic TOPICAL DAILY each 02/14/22 [Rx] Pyridoxine [Vitamin B-6] 50 mg PO DAILY tab 02/14/22 [Rx] QUEtiapine [SEROquel] 25 mg PO HS tab 02/14/22 [Rx] Temazepam [Restoril] 15 mg PO HS PRN #3 cap 02/14/22 [Rx] Thiamine [Vitamin B-1] 100 mg PO BID-W/MEALS tab 02/14/22 [Rx] Triamcinolone 0.1% Cream [Kenalog 0.1% Cream] 1 applic TOPICAL DAILY each 02/14/22 [Rx] Zinc Sulfate [Orazinc] 220 mg PO DAILY cap 02/14/22 [Rx] metroNIDAZOLE [Flagyl] 500 mg PO TID 35 Days #105 tab 02/14/22 [Rx] Follow up Appointment(s)/Referral(s): Jun Wilson MD [STAFF PHYSICIAN] - 1 Week (Refused by the doctor will not see patient ) Nirmal Treadwell DO [Doctor of Osteopathic Medicine] - 02/27/22 8:45 am Tigist Nunez MD [Primary Care Provider] - 02/15/22 1:07 pm (office will call to set up follow up appointment after patient is done with rehab ) Sienna Mata MD [Medical Doctor] - 1 Week (office was not avaliable to make follow up appointment patient will have to try after discharge.) [facility] [NON-STAFF] - 02/21/22 2:00 pm [facility], [NON-STAFF] - As Needed Ambulatory/Diagnostic Orders: Complete Blood Count w/diff [LAB.AMB] Time Frame: 3 Days, Location: None Selected Activity/Diet/Wound Care/Special Instructions: Patient is going to [facility] on the [place] Activity as tolerated Continue with IV and oral antibiotics per infectious disease for the next 5 weeks and patient does have a PICC line Patient to follow-up at the wound center in the outpatient setting in 1-2 weeks Follow-up with general surgery Dr. Yun outpatient Patient undergoing full neurological workup for MS although refusing testing and unable to tolerate and recommend outpatient follow-up with neurologist for further testing Patient had abnormal CT findings on the lung and recommend following up with pulmonary in the outpatient setting for possible PET scan and this is been ongoing for some years with no follow-up Patient follow-up with hematology in the outpatient setting for further anemia workup Continue with local wound care of cleansing the area daily and is becoming soiled and the coccyx sacral region and also the left foot ulcer: apply Santyl, saline moistened gauze, dry gauze, and rolled gauze to the left foot and ABDs to bilateral buttocks and change daily and again if becoming soiled Continue indwelling [place] catheter for now Continue offloading the sacral region with frequent position changes Patient needs aggressive physical therapy Continue regular diet Recommend repeat CBC, BMP, magnesium in 2-3 days
[2022-02-23] MEDS: TRIAMCINOLONE 0.1% CREAM 80 GM TUBE TOPICAL SCH (10:27)
[2022-02-23] MEDS: COLLAGENASE 250 UNIT/GM OINTMENT 30 GM TUBE TOPICAL SCH (10:27)
[2022-02-23] MEDS: SODIUM CHLORIDE 0.9% 1,000 ML IV SCH (12:56)
== END 2022-02-23 13:16 | DRG 853 ==
LOC: EC 08:46 → 4SSUR 11:22 → 5NMEDONC 13:42 → 4SSUR 02-06 19:37 → UNDODISIN 02-14 18:53
PROVIDERS: ADMIT Internal Medicine; ATTEND Internal Medicine
PROC: 0KBN0ZZ Excision of Right Hip Muscle, Open Approach (ICD-10-PCS; principal; 2022-02-05 11:00)
PROC: 0KBP0ZZ Excision of Left Hip Muscle, Open Approach (ICD-10-PCS; principal; 2022-02-05 11:00)
PROC: 0QB10ZZ Excision of Sacrum, Open Approach (ICD-10-PCS; principal; 2022-02-05 11:00)
PROC: 02HV33Z Insertion of Infusion Device into Superior Vena Cava, Percutaneous Approach (ICD-10-PCS; 2022-02-09)
PROC: 02HV33Z Insertion of Infusion Device into Superior Vena Cava, Percutaneous Approach (ICD-10-PCS; 2022-02-14)
PROC: 02HV33Z Insertion of Infusion Device into Superior Vena Cava, Percutaneous Approach (ICD-10-PCS; 2022-02-22)
DX: A41.9 Sepsis, unspecified organism (principal); L89.314 Pressure ulcer of right buttock, stage 4; L89.324 Pressure ulcer of left buttock, stage 4; G92.8 Other toxic encephalopathy; D68.9 Coagulation defect, unspecified; E44.0 Moderate protein-calorie malnutrition; E87.1 Hypo-osmolality and hyponatremia; E87.2 Acidosis; G82.20 Paraplegia, unspecified; I47.1 Supraventricular tachycardia; L03.115 Cellulitis of right lower limb; L03.116 Cellulitis of left lower limb; L03.317 Cellulitis of buttock; R64 Cachexia; F32.A Depression, unspecified; J44.9 Chronic obstructive pulmonary disease, unspecified; F22 Delusional disorders; M06.9 Rheumatoid arthritis, unspecified; E83.51 Hypocalcemia; Z66 Do not resuscitate; F10.20 Alcohol dependence, uncomplicated; I10 Essential (primary) hypertension; K70.30 Alcoholic cirrhosis of liver without ascites; L89.622 Pressure ulcer of left heel, stage 2; L98.429 Non-pressure chronic ulcer of back with unspecified severity; G35 Multiple sclerosis; F39 Unspecified mood [affective] disorder; D64.9 Anemia, unspecified; L97.529 Non-pressure chronic ulcer of other part of left foot with unspecified severity; F17.210 Nicotine dependence, cigarettes, uncomplicated; F41.9 Anxiety disorder, unspecified; E87.6 Hypokalemia; E86.1 Hypovolemia; G89.29 Other chronic pain; E53.8 Deficiency of other specified B group vitamins; M54.9 Dorsalgia, unspecified; M47.812 Spondylosis without myelopathy or radiculopathy, cervical region; E53.1 Pyridoxine deficiency; Z79.2 Long term (current) use of antibiotics; Z79.899 Other long term (current) drug therapy; Z82.5 Family history of asthma and other chronic lower respiratory diseases; Z99.3 Dependence on wheelchair; Z98.890 Other specified postprocedural states; T40.2X5A Adverse effect of other opioids, initial encounter; Z28.310 Unvaccinated for COVID-19; Z53.09 Procedure and treatment not carried out because of other contraindication; Z81.1 Family history of alcohol abuse and dependence; Z71.6 Tobacco abuse counseling; Z87.81 Personal history of (healed) traumatic fracture
CPT/HCPCS: 36415; 36573; 70450; 70551; 71045; 71250; 72130; 72133; 72141; 74176; 80048; 80053; 80202; 80320; 82040; 82042; 82140; 82272; 82306; 82330; 82525; 82565; 82607; 82746; 82784; 83036; 83605; 83735; 83916; 83921; 84132; 84165; 84207; 84443; 84630; 85025; 85610; 85652; 85730; 86038; 86140; 86334; 86431; 87040; 87070; 87075; 87077; 87186; 87205; 93005; 96365; 96375; 99291